=== PATIENT | male | born 1965 | race Caucasian/White ===

== ENCOUNTER 2017-05-28 17:04 | Emergency (ER) | payer SELFPAY ==
[~2017-05-28] VITALS: Ht 182.9 cm; Wt 74.8 kg
[~2017-05-28 17:04] MED LIST: ACHD5005 PO; DICY20TA57 PO; FAMO20TA5 PO; HYOS0.1217 PO; ONDA-42 SL; ONDA8TAB13 PO; PANT20TA3 PO; PROM25TA14 PO; TRAM-21 PO
--- OUTSIDE RECORDS SUMMARY | 2017-05-28 18:02 | XMS REPORT | Continuity of Care Document ---
Author Author [facility] Organization [facility] Address Unknown Phone Unavailable Allergies Active Description Code Type Severity Reaction Onset Reported/Identified Relationship to Patient Clinical Status Yes No Known Drug Allergies [id number] Drug Allergy Unknown N/A 09/03/2013 Medications There is no data. Problems Date Dx Coded Attending Type Code Diagnosis Diagnosed By 09/03/2013 NIRAV NGUYEN Ot 305.90 DRUG ABUSE NEC-UNSPEC 09/03/2013 NIRAV NGUYEN Ot 787.01 NAUSEA WITH VOMITING 09/03/2013 NIRAV NGUYEN Ot 789.00 ABDOMINAL PAIN, UNSPECIFIED SITE 04/18/2014 ANNETTE GONZALEZ DO Ot 305.70 AMPHETAMINE ABUSE-UNSPEC 04/18/2014 ANNETTE GONZALEZ DO Ot 558.9 NONINF GASTROENTERIT NEC 04/18/2014 ANNETTE GONZALEZ DO Ot 787.01 NAUSEA WITH VOMITING 04/19/2014 BLAINE WALLIS, NIK Carmen Ot 008.8 VIRAL ENTERITIS NOS 04/19/2014 BLAINE WALLIS, NIK Carmen Ot 276.51 DEHYDRATION 04/21/2014 DWIGHT WALILS, FRANCINE Galloway Ot 558.9 NONINF GASTROENTERIT NEC 04/21/2014 DWIGHT WALLIS, FRANCINE Galloway Ot 789.07 ABDOMINAL PAIN, GENERALIZED 01/10/2015 JAVY WALLIS, MIGUEL Tavarez Ot 288.60 LEUKOCYTOSIS, UNSPECIFIED 01/10/2015 MIGUEL PALAFOX MD Ot 780.97 ALTERED MENTAL STATUS 01/10/2015 MIGUEL PALAFOX MD Ot 782.1 NONSPECIF SKIN ERUPT NEC 01/10/2015 MIGUEL PALAFOX MD Ot 786.50 CHEST PAIN NOS 01/10/2015 MIGUEL PALAFOX MD Ot 787.02 NAUSEA ALONE 01/10/2015 MIGUEL PALAFOX MD Ot 799.02 HYPOXEMIA 01/10/2015 MIGUEL PALAFOX MD Ot 965.09 POISONING-OPIATES NEC 01/10/2015 MIGUEL PALAFOX MD Ot E849.0 ACCIDENT IN HOME 01/10/2015 MIGUEL PALAFOX MD Ot E850.2 ACC POISON-OPIATES NEC 05/26/2015 MIGUEL PALAFOX MD Ot F11.10 OPIOID ABUSE, UNCOMPLICATED 05/26/2015 MIGUEL PALAFOX MD Ot F15.10 OTHER STIMULANT ABUSE, UNCOMPLICATED 05/26/2015 MIGUEL PALAFOX MD Ot F17.210 NICOTINE DEPENDENCE, CIGARETTES, UNCOMPL 05/26/2015 MIGUEL PALAFOX MD Ot K21.9 GASTRO-ESOPHAGEAL REFLUX DISEASE WITHOUT 05/26/2015 MIGUEL PALAFOX MD Ot K63.9 DISEASE OF INTESTINE, UNSPECIFIED 05/26/2015 MIGUEL PALAFOX MD Ot M54.9 DORSALGIA, UNSPECIFIED 05/26/2015 MIGUEL PALAFOX MD Ot R10.13 EPIGASTRIC PAIN 05/26/2015 MIGUEL PALAFOX MD Ot Z23 ENCOUNTER FOR IMMUNIZATION 05/03/2016 GOLDIE, TERRENCE FRUIT HARVESTER Ot R10.84 GENERALIZED ABDOMINAL PAIN 05/03/2016 GOLDIE, TERRENCE FRUIT HARVESTER Ot R11.2 NAUSEA WITH VOMITING, UNSPECIFIED 05/03/2016 GOLDIE, TERRENCE FRUIT HARVESTER Ot R19.7 DIARRHEA, UNSPECIFIED 05/04/2016 GOLDIE, TERRENCE FRUIT HARVESTER Ot R10.84 GENERALIZED ABDOMINAL PAIN 05/04/2016 GOLDIE, TERRENCE FRUIT HARVESTER Ot R11.2 NAUSEA WITH VOMITING, UNSPECIFIED 05/04/2016 GOLDIE, TERRENCE FRUIT HARVESTER Ot R19.7 DIARRHEA, UNSPECIFIED 05/04/2016 GOLDIE, TERRENCE FRUIT HARVESTER Ot R10.84 GENERALIZED ABDOMINAL PAIN 05/04/2016 GOLDIE, TERRENCE FRUIT HARVESTER Ot R11.2 NAUSEA WITH VOMITING, UNSPECIFIED 05/04/2016 GOLDIE, TERRENCE FRUIT HARVESTER Ot R19.7 DIARRHEA, UNSPECIFIED 05/06/2016 GOLDIE, TERRENCE FRUIT HARVESTER Ot R10.84 GENERALIZED ABDOMINAL PAIN 05/06/2016 GOLDIE, TERRENCE FRUIT HARVESTER Ot R11.2 NAUSEA WITH VOMITING, UNSPECIFIED 05/06/2016 GOLDIE, TERRENCE FRUIT HARVESTER Ot R19.7 DIARRHEA, UNSPECIFIED 05/09/2016 GOLDIE, TERRENCE FRUIT HARVESTER Ot R10.84 GENERALIZED ABDOMINAL PAIN 05/09/2016 GOLDIE, TERRENCE FRUIT HARVESTER Ot R11.2 NAUSEA WITH VOMITING, UNSPECIFIED 05/09/2016 TERRENCE AMEZCUA Ot R19.7 DIARRHEA, UNSPECIFIED 03/08/2017 ANITA TILLEY MD, Ot K21.9 GASTRO-ESOPHAGEAL REFLUX DISEASE WITHOUT 03/08/2017 ANITA TILLEY MD Ot R11.2 NAUSEA WITH VOMITING, UNSPECIFIED 03/08/2017 ANITA TILLEY MD Ot Z80.9 FAMILY HISTORY OF MALIGNANT NEOPLASM, UN 03/08/2017 ANITA TILLEY MD Ot Z82.49 FAMILY HX OF ISCHEM HEART DIS AND OTH DI 03/08/2017 ANITA TILLEY MD Ot Z87.19 PERSONAL HISTORY OF OTHER DISEASES OF 03/08/2017 ANITA TILLEY MD, Ot Z87.891 PERSONAL HISTORY OF NICOTINE DEPENDENCE 03/08/2017 ANITA TILLEY MD Ot Z90.89 ACQUIRED ABSENCE OF OTHER ORGANS 03/12/2017 ANITA TILLEY MD Ot K21.9 GASTRO-ESOPHAGEAL REFLUX DISEASE WITHOUT 03/12/2017 ANITA TILLEY MD Ot R11.2 NAUSEA WITH VOMITING, UNSPECIFIED 03/12/2017 ANITA TILLEY MD Ot Z80.9 FAMILY HISTORY OF MALIGNANT NEOPLASM, UN 03/12/2017 ANITA TILLEY MD Ot Z82.49 FAMILY HX OF ISCHEM HEART DIS AND OTH DI 03/12/2017 ANITA TILLEY MD Ot Z87.19 PERSONAL HISTORY OF OTHER DISEASES OF 03/12/2017 ANITA TILLEY MD Ot Z87.891 PERSONAL HISTORY OF NICOTINE DEPENDENCE 03/12/2017 ANITA TILLEY MD Ot Z90.89 ACQUIRED ABSENCE OF OTHER ORGANS Procedures There is no data. Results Test Result Range Complete blood count (CBC) with automated white blood cell (WBC) differential - 05/03/16 13:06 Blood leukocytes automated count (number/volume) 10.8 10*3/uL 4.3-11.0 Blood erythrocytes automated count (number/volume) 4.56 10*6/uL 4.35-5.85 Venous blood hemoglobin measurement (mass/volume) 13.6 g/dL 13.3-17.7 Blood hematocrit (volume fraction) 41 % 40-54 Automated erythrocyte mean corpuscular volume 91 [foz_us] 80-99 Automated erythrocyte mean corpuscular hemoglobin (mass per erythrocyte) 30 pg 25-34 Automated erythrocyte mean corpuscular hemoglobin concentration measurement ( mass/volume) 33 g/dL 32-36 Automated erythrocyte distribution width ratio 13.5 % 10.0-14.5 Automated blood platelet count (count/volume) 406 10*3/uL 130-400 Automated blood platelet mean volume measurement 9.2 [foz_us] 7.4-10.4 Automated blood neutrophils/100 leukocytes 71 % 42-75 Automated blood lymphocytes/100 leukocytes 15 % 12-44 Blood monocytes/100 leukocytes 9 % 0-12 Automated blood eosinophils/100 leukocytes 5 % 0-10 Automated blood basophils/100 leukocytes 0 % 0-10 Blood neutrophils automated count (number/volume) 7.6 10*3 1.8-7.8 Blood lymphocytes automated count (number/volume) 1.6 10*3 1.0-4.0 Blood monocytes automated count (number/volume) 1.0 10*3 0.0-1.0 Automated eosinophil count 0.5 10*3/uL 0.0-0.3 Automated blood basophil count (count/volume) 0.0 10*3/uL 0.0-0.1 Comprehensive metabolic panel - 05/03/16 13:06 Serum or plasma sodium measurement (moles/volume) 133 mmol/L 135-145 Serum or plasma potassium measurement (moles/volume) 3.9 mmol/L 3.6-5.0 Serum or plasma chloride measurement (moles/volume) 103 mmol/L 98-107 Carbon dioxide 18 mmol/L 21-32 Serum or plasma anion gap determination (moles/volume) 12 mmol/L 5-14 Serum or plasma urea nitrogen measurement (mass/volume) 10 mg/dL 7-18 Serum or plasma creatinine measurement (mass/volume) 0.80 mg/dL 0.60-1.30 Serum or plasma urea nitrogen/creatinine mass ratio 13 NRG Serum or plasma creatinine measurement with calculation of estimated glomerular filtration rate > NRG Serum or plasma glucose measurement (mass/volume) 101 mg/dL 70-105 Serum or plasma calcium measurement (mass/volume) 8.8 mg/dL 8.5-10.1 Serum or plasma total bilirubin measurement (mass/volume) 0.5 mg/dL 0.1-1.0 Serum or plasma alkaline phosphatase measurement (enzymatic activity/volume) 72 U/L 40-136 Serum or plasma aspartate aminotransferase measurement (enzymatic activity/ volume) 18 U/L 5-34 Serum or plasma alanine aminotransferase measurement (enzymatic activity/volume ) 14 U/L 0-55 Serum or plasma protein measurement (mass/volume) 7.1 g/dL 6.4-8.2 Serum or plasma albumin measurement (mass/volume) 4.1 g/dL 3.2-4.5 Complete blood count (CBC) with automated white blood cell (WBC) differential - 03/08/17 11:41 Blood leukocytes automated count (number/volume) 6.8 10*3/uL 4.3-11.0 Blood erythrocytes automated count (number/volume) 4.82 10*6/uL 4.35-5.85 Venous blood hemoglobin measurement (mass/volume) 14.9 g/dL 13.3-17.7 Blood hematocrit (volume fraction) 44 % 40-54 Automated erythrocyte mean corpuscular volume 91 [foz_us] 80-99 Automated erythrocyte mean corpuscular hemoglobin (mass per erythrocyte) 31 pg 25-34 Automated erythrocyte mean corpuscular hemoglobin concentration measurement ( mass/volume) 34 g/dL 32-36 Automated erythrocyte distribution width ratio 12.2 % 10.0-14.5 Automated blood platelet count (count/volume) 281 10*3/uL 130-400 Automated blood platelet mean volume measurement 9.9 [foz_us] 7.4-10.4 Automated blood neutrophils/100 leukocytes 74 % 42-75 Automated blood lymphocytes/100 leukocytes 9 % 12-44 Blood monocytes/100 leukocytes 15 % 0-12 Automated blood eosinophils/100 leukocytes 2 % 0-10 Automated blood basophils/100 leukocytes 0 % 0-10 Blood neutrophils automated count (number/volume) 5.0 10*3 1.8-7.8 Blood lymphocytes automated count (number/volume) 0.6 10*3 1.0-4.0 Blood monocytes automated count (number/volume) 1.0 10*3 0.0-1.0 Automated eosinophil count 0.1 10*3/uL 0.0-0.3 Automated blood basophil count (count/volume) 0.0 10*3/uL 0.0-0.1 Comprehensive metabolic panel - 03/08/17 12:20 Serum or plasma sodium measurement (moles/volume) 134 mmol/L 135-145 Serum or plasma potassium measurement (moles/volume) 3.6 mmol/L 3.6-5.0 Serum or plasma chloride measurement (moles/volume) 99 mmol/L 98-107 Carbon dioxide 23 mmol/L 21-32 Serum or plasma anion gap determination (moles/volume) 12 mmol/L 5-14 Serum or plasma urea nitrogen measurement (mass/volume) 23 mg/dL 7-18 Serum or plasma creatinine measurement (mass/volume) 0.91 mg/dL 0.60-1.30 Serum or plasma urea nitrogen/creatinine mass ratio 25 NRG Serum or plasma creatinine measurement with calculation of estimated glomerular filtration rate > NRG Serum or plasma glucose measurement (mass/volume) 116 mg/dL 70-105 Serum or plasma calcium measurement (mass/volume) 8.5 mg/dL 8.5-10.1 Serum or plasma total bilirubin measurement (mass/volume) 0.7 mg/dL 0.1-1.0 Serum or plasma alkaline phosphatase measurement (enzymatic activity/volume) 65 U/L 40-136 Serum or plasma aspartate aminotransferase measurement (enzymatic activity/ volume) 14 U/L 5-34 Serum or plasma alanine aminotransferase measurement (enzymatic activity/volume ) 28 U/L 0-55 Serum or plasma protein measurement (mass/volume) 6.7 g/dL 6.4-8.2 Serum or plasma albumin measurement (mass/volume) 3.7 g/dL 3.2-4.5 Lipase - 03/08/17 12:20 Lipase 5 U/L 8-78 Encounters ACCT No. Visit Date/Time Discharge Status Pt. Type Provider Facility Loc./Unit Complaint [id number] 03/08/2017 11:33:00 03/08/2017 13:34:00 DIS Emergency JAREK WALLIS, ANITA Carmen [facility] ER ABD PAIN N/V/D [id number] 05/03/2016 11:36:00 05/03/2016 14:16:00 DIS Emergency TERRENCE AMEZCUA [facility] ER DIARRHEA/VOMITING [id number] 05/26/2015 01:40:00 05/26/2015 11:20:00 DIS Inpatient MIGUEL PALAFOX MD [facility] 4TH GASTROENTERITIS; INFLAMMATORY CHANGES OF ILEUM/ [id number] 01/09/2015 07:40:00 01/10/2015 10:06:00 DIS Inpatient JAVY WALLIS, MIGUEL Tavarez [facility] ICU NARCOTIC OD,AMS, LEUKOCYTOSIS [id number] 04/21/2014 04:35:00 04/21/2014 08:28:00 DIS Emergency DWIGHT WALLIS, FRANCINE Galloway [facility] ER ABD PAIN [id number] 04/19/2014 01:25:00 04/19/2014 16:30:00 DIS Inpatient BLAINE WALLIS, NIK S [facility] SURGICAL ABD PAIN WITH NAUSEA AND VOMITING [id number] 04/17/2014 23:18:00 04/18/2014 02:15:00 DIS Emergency ANNETTE GONZALEZ DO [facility] ER ABD PAIN,NAUSEA,VOMITING [id number] 09/03/2013 16:41:00 09/03/2013 20:06:00 DIS Emergency NIRAV NGUYEN [facility] ER ABD PAIN [id number] 05/17/2017 22:13:00 Document Registration [id number] 05/17/2017 22:13:00 Document Registration [id number] 05/17/2017 22:13:00 Document Registration [id number] 05/17/2017 22:13:00 Document Registration [id number] 05/17/2017 22:13:00 Document Registration [id number] 05/17/2017 22:13:00 Document Registration
--- NOTE | 2017-05-28 19:04 | ED Cough/URI ---
General Chief Complaint: Cough/Cold/Flu Symptoms Stated Complaint: POSS PNEUMONIA, FLU SYMPTOMS, SOB Nursing Triage Note: Pt reports congestion x3-4 days. Famly also reports pt has been lethargic and has had no appetite. Source: patient, spouse Exam Limitations: no limitations History of Present Illness Date Seen by Provider: May 28, 2017 Time Seen by Provider: 19:05 Initial Comments 52-year-old male patient presents to the emergency Department with reports a 3 to four-day onset of cough, congestion, shortness of air. Patient does use an albuterol inhaler without improvement in symptoms. Family reports patient has been very lethargic, appetite, and has had intermittent fevers. Timing/Duration: getting worse, other (3-4 day onset) Severity/Quality: dry cough Prior Episodes/Possible Cause: frequent episodes Modifying Factors: Worse With Albuterol Inhaler (no improvement), Worse With Coughing Allergies and Home Medications Allergies Coded Allergies: diphenhydramine (Unverified Allergy, Unknown, 05/28/17) Home Medications No Active Prescriptions or Reported Meds Constitutional: chills, fever, malaise, other (fatigue) EENTM: nose congestion, throat pain, other (rhinorrhea), No ear discharge, No ear pain Respiratory: cough, dyspnea on exertion, short of breath, No stridor, wheezing Cardiovascular: No chest pain, No edema, No palpitations, No syncope Gastrointestinal: No abdominal pain, No constipation, No diarrhea, No loss of appetite, No melena, No nausea, No vomiting Genitourinary: no symptoms reported Musculoskeletal: other (generalized body aches) Skin: no symptoms reported Psychiatric/Neurological: No Symptoms Reported All Other Systems Reviewed Negative Unless Noted: Yes (Negative excepted noted.) Past Wcoferi-Fmtayw-Pabtmt Hx Patient Social History Alcohol Use: Past History Recreational Drug Use: Yes (1 month) Drug of Choice: meth, coccaine, Smoking Status: Current Everyday Smoker Type Used: Cigarettes Recent Foreign Travel: No Contact w/Someone Who Travel: No Recent Infectious Disease Expo: No Recent Hopitalizations: No Immunizations Up To Date Tetanus Booster (TDap): Unknown Date of Influenza Vaccine: May 26, 2015 Seasonal Allergies Seasonal Allergies: No Surgeries History of Surgeries: Yes (WOUND DEBRIDEMENT LEFT FOREARM FROM INFECTION SECONDARY TO IV DRUG USE) Surgeries: Appendectomy, Tonsillectomy Respiratory History of Respiratory Disorde: No Currently Using BIPAP: No Cardiovascular History of Cardiac Disorders: No Neurological History of Neurological Disord: No Reproductive System Hx Reproductive Disorders: No Sexually Transmitted Disease: No HIV/AIDS: No Gastrointestinal History of Gastrointestinal Di: Yes Gastrointestinal Disorders: Gastroesophageal Reflux, Hepatitis, Gall Bladder Disease Musculoskeletal History of Musculoskeletal Dis: Yes Musculoskeletal Disorders: Chronic Back Pain Endocrine History of Endocrine Disorders: No HEENT Loss of Vision: Bilateral Cancer History of Cancer: No Psychosocial History of Psychiatric Problem: No Integumentary History of Skin or Integumenta: Yes (WOUND INFECTION LEFT FOREARM FROM IV DRUG USE) Blood Transfusions History of Blood Disorders: No Adverse Reaction to a Blood Tr: No Reviewed Nursing Assessment Reviewed/Agree w Nursing PMH: Yes Family Medical History Significant Family History: Heart Disease, Cancer, CVA, Hypertension Family Medial History: Diabetes mellitus 19 FATHER FH: aneurysm 19 MOTHER FH: cancer 19 FATHER 19 MOTHER Pacemaker 19 MOTHER Physical Exam Vital Signs Vital Sign - Last 12Hours 05/28/17 17:19 Temp 98.1 Pulse 89 Resp 18 B/P (MAP) 116/65 (82) Pulse Ox 96 O2 Delivery Room Air Capillary Refill : Less Than 3 Seconds General Appearance: WD/WN, no apparent distress HEENT: PERRL/EOMI, pharynx normal Neck: supple, normal inspection Respiratory: no accessory muscle use, respiratory distress, crackles, rhonchi, wheezing Cardiovascular: normal peripheral pulses, regular rate, rhythm, no edema, no murmur Gastrointestinal: normal bowel sounds, non tender, soft, no organomegaly, No distended Extremities: no pedal edema, no calf tenderness, normal capillary refill 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: alert, normal mood/affect, oriented x 3 Skin: normal color, warm/dry Progress/Results/Core Measures Suspected Sepsis Recent Fever Within 48 Hours: Yes Infection Criteria Present: Suspected New Infection New/Unexplained Altered Menta: No Sepsis Screen: No Definite Risk Sepsis Diagnosis: SIRS Temperature:98.1 Pulse: 89 Respiratory Rate: 18 Blood Pressure 116 /65 Mean: 82 Results/Orders Micro Results Microbiology 05/28/17 Influenza Types A,B Antigen (OSWALD) - Final, Complete My Orders Orders - NIRAV FISH Influenza A And B Antigens (05/28/17 18:45) Albuterol Pre-Mix Nebs (Rt) (Proventil (1/22/18 19:10) Albuterol/Ipra Inhalation Soln (Duoneb I (05/28/17 19:15) Svn Sm Volume Nebulizer Rt-Rfs (05/28/17 19:10) Svn Sm Volume Nebulizer Rt-Rfs (05/28/17 19:10) Chest 1 View, Ap/Pa Only (05/28/17 19:11) Medications Given in ED Current Medications Medications Dose Ordered Sig/Cecilia Route Start Time Stop Time Status Last Admin Dose Admin Albuterol/ Ipratropium 3 ml ONCE ONCE INH 05/28/17 19:15 05/28/17 19:16 DC 05/28/17 19:34 3 ML Vital Signs/I&O Vital Sign - Last 12Hours 05/28/17 05/28/17 05/28/17 17:19 18:09 19:34 Temp 98.1 Pulse 89 Resp 18 B/P (MAP) 116/65 (82) Pulse Ox 96 92 O2 Delivery Room Air Room Air Room Air Capillary Refill : Less Than 3 Seconds Blood Pressure Mean: 82 Diagnostic Imaging Diagonstic Imaging: Xray Plain Films/CT/US/NM/MRI: chest Comments CHEST 1 VIEW, AP/PA ONLY INDICATION: Shortness of air and cough. COMPARISON: 05/26/2015. FINDINGS: Ill-defined nodular opacity in the left lung base. Posterior lower lobes are poorly evaluated by portable radiography. No pleural effusion or pneumothorax. Heart is normal in size. Normal pulmonary vascularity. IMPRESSION: Ill-defined nodular opacity in the left lung base could relate to a focus of infection. Recommend followup PA and lateral chest radiographs in 4 weeks after appropriate medical management to ensure resolution and exclude malignancy. Dictated by: Dictated on workstation # [id number] Reviewed: Reviewed by Me (radiology report reviewed by me) Departure Impression Impression: Primary Impression: Influenza A Disposition: 01 HOME, SELF-CARE Condition: Improved Departure-Patient Inst. Referrals: HERNANDO BAILEY (PCP/Family) Primary Care Physician Patient Instructions: Flu, Adult (DC) Scripts No Active Prescriptions or Reported Meds NIRAV FISH May 28, 2017 19:04
[2017-05-28] MEDS ORDERED: RT-ALBUTEROL SULF 2.5 MG/3 ML PRE-MIX VIAL INH STA (19:10)
[2017-05-28] MEDS ORDERED: RT-ALBUTEROL/IPRATROPIUM 3 ML (DUONEB) VIAL INH ONE (19:15)
--- NOTE | 2017-05-28 19:27 | Diagnostic Imaging Report ---
INDICATION: Shortness of air and cough. COMPARISON: 05/26/2015. FINDINGS: Ill-defined nodular opacity in the left lung base. Posterior lower lobes are poorly evaluated by portable radiography. No pleural effusion or pneumothorax. Heart is normal in size. Normal pulmonary vascularity. IMPRESSION: Ill-defined nodular opacity in the left lung base could relate to a focus of infection. Recommend followup PA and lateral chest radiographs in 4 weeks after appropriate medical management to ensure resolution and exclude malignancy. Dictated by: Dictated on workstation # [id number]
[2017-05-28] MEDS ORDERED: RX-ALBUTEROL NEB 2.5 MG/3 ML PACK #5 IH STA (20:20)
[2017-05-28] MEDS ORDERED: predniSONE 20 MG TAB PO ONE (20:30)
[2017-05-28] MEDS ORDERED: ALBU2.5V4 IH (20:31)
[2017-05-28] MEDS ORDERED: PRD20T PO (20:31)
[2017-05-28 20:37] VITALS: BP 112/63
== END 2017-05-28 20:37 | disposition home or self-care (01) ==
LOC: EDUNIT# 17:04 → ER 17:07
DX: J10.1 Influenza due to other identified influenza virus with other respiratory manifestations (principal); K21.9 Gastro-esophageal reflux disease without esophagitis; F14.90 Cocaine use, unspecified, uncomplicated; F15.90 Other stimulant use, unspecified, uncomplicated; F17.210 Nicotine dependence, cigarettes, uncomplicated; Z90.49 Acquired absence of other specified parts of digestive tract; Z90.89 Acquired absence of other organs; Z82.49 Family history of ischemic heart disease and other diseases of the circulatory system
CPT/HCPCS: 71045; 87804; 94640; 99283

== ENCOUNTER → 2018-01-30 | Emergency (ER) | payer SELFPAY ==
[~2018-01-30] VITALS: Ht 182.9 cm; Wt 74.8 kg
[~2018-01-30] MED LIST changes: +ALBU2.5V4 IH; +HYDROcodone/APAP 7.5 MG/325 MG (LORTAB, LORCET PLUS) TABLET PO ONE; +KETOROLAC 60 MG/2 ML VIAL IM ONE; +ORPHENADRINE 60 MG/2 ML (NORFLEX) AMP IM ONE; +PRD20T PO; +morphine INJ 10 MG/ML 1ML (SYR OR VIAL) IJ ONE; +predniSONE 20 MG TAB PO ONE
--- OUTSIDE RECORDS SUMMARY | 2018-01-30 18:40 | XMS REPORT ---
Author Author HERNANDO BAILEY Organization [facility] Address [address] [place] [address] Care Team Providers Care Site Leasing Agent Name Role Phone HERNANDO BAILEY Unavailable PROBLEMS Type Condition ICD9-CM Code [id number] Code Onset Dates Condition Status SNOMED Code Problem Lumbago M54.5 Active 086837876 Problem Joint pain in fingers of right hand M79.641 Active 630623113 Problem Pain, joint, knee, left M25.562 Active 50730509 Problem Mild mitral regurgitation I34.0 Active 77666872 Problem Mild concentric left ventricular hypertrophy (LVH) I51.7 Active 60810512 Problem Arthritis M19.90 Active 3218512 Problem Chronic hepatitis C without hepatic coma B18.2 Active 685649478 Problem Flank pain R10.9 Active 996588561 Problem Joint pain in fingers of left hand M79.642 Active 394392253 Problem Other chronic pain G89.29 Active 00776234 Problem Abdominal pain R10.9 Active 52014198 ALLERGIES No Information ENCOUNTERS Encounter Location Date Diagnosis [facility] [id number] [place] [phone] Jun, Pneumonia of both lower lobes due to infectious organism J18.9 and Arthritis M19.90 [facility] [id number] [place] [phone] Jun, Shortness of breath R06.02 ; Bronchitis J40 and Wheezing on auscultation R06.2 [facility] [address] [address] May, [facility] [address] [phone] May, [facility] [address] [address] May, [place] [id number] [place] [phone] May, Chronic hepatitis C without hepatic coma B18.2 [place] [address] [address] May, Cervicalgia M54.2 ; Low back pain M54.5 ; Other chronic pain G89.29 and Chronic hepatitis C without hepatic coma B18.2 [facility] [id number] [place] [phone] Mar, Laceration of right index finger without foreign body without damage to nail, initial encounter S61.210A [facility] [address] [place] [id number] 02 Jun, 2016 Dental caries K02.9 [facility] [address] [place] [id number] May, Dental examination Z01.20 [place] [id number] [place] [phone] Apr, Abdominal pain R10.9 [facility] [address] [phone] Apr, [address] [address] 02 Jun, 2015 Abdominal pain R10.9 ; General medical exam Z00.00 ; Flank pain R10.9 and Joint pain in fingers of left hand M79.[address] [id number] [place] [address] 06 Mar, 2015 General medical exam Z00.00 ; Joint pain in fingers of left hand M79.642 ; Joint pain in fingers of right hand M79.641 ; Pain, joint, knee, left M25.562 ; Lumbago M54.5 ; Tobacco abuse Z72.0 ; Dietary counseling Z71.3 and Pain due to dental caries K02.9 [facility] [address] [id number] [place] [phone] Mar, Dental examination Z01.20 IMMUNIZATIONS No Known Immunizations SOCIAL HISTORY Never Assessed REASON FOR VISIT Triage PLAN OF CARE VITAL SIGNS MEDICATIONS No Known Medications RESULTS No Results PROCEDURES No Known procedures INSTRUCTIONS MEDICATIONS ADMINISTERED No Known Medications MEDICAL (GENERAL) HISTORY Type Description Date Medical History Pneumonia Medical History Bronchitis Medical History HEP C Medical History Echo done 01/2016- mild mitral regurg, cocentric left ventricular hypertrophy, EF 65 % Hospitalization History gallbladder infection 06/2014 Hospitalization History abdominal pain 05/2015
--- OUTSIDE RECORDS SUMMARY | 2018-01-30 18:40 | XMS REPORT ---
Author Author HERNANDO BAILEY Organization [facility] Address [address] [place] [address] Care Team Providers Care Agricultural Produce Packer Name Role Phone HERNANDO BAILEY Unavailable PROBLEMS Type Condition ICD9-CM Code [id number] Code Onset Dates Condition Status SNOMED Code Problem Lumbago M54.5 Active 061502683 Problem Joint pain in fingers of right hand M79.641 Active 817306384 Problem Pain, joint, knee, left M25.562 Active 04538676 Problem Mild mitral regurgitation I34.0 Active 82520694 Problem Mild concentric left ventricular hypertrophy (LVH) I51.7 Active 80035138 Problem Arthritis M19.90 Active 4391678 Problem Chronic hepatitis C without hepatic coma B18.2 Active 413401811 Problem Flank pain R10.9 Active 103713444 Problem Joint pain in fingers of left hand M79.642 Active 728450498 Problem Other chronic pain G89.29 Active 82142943 Problem Abdominal pain R10.9 Active 64229523 ALLERGIES No Information ENCOUNTERS Encounter Location Date Diagnosis [facility] [address] [address] 23 Jun, 2017 Pneumonia of both lower lobes due to infectious organism J18.9 and Arthritis M19.90 [facility] [id number] [place] [address] Jun, Shortness of breath R06.02 ; Bronchitis J40 and Wheezing on auscultation R06.2 [facility] [address] [address] May, [facility] [address] [address] May, [facility] [address] [address] May, [place] [id number] [place] [address] May, Chronic hepatitis C without hepatic coma B18.2 [place] [address] [address] May, Cervicalgia M54.2 ; Low back pain M54.5 ; Other chronic pain G89.29 and Chronic hepatitis C without hepatic coma B18.2 [facility] [place] [id number] [place] [address] Mar, Laceration of right index finger without foreign body without damage to nail, initial encounter S61.210A [facility] [address] [place] [id number] 02 Jun, 2016 Dental caries K02.9 [facility] [address] [place] [id number] May, Dental examination Z01.20 [place] [id number] [place] [address] Apr, Abdominal pain R10.9 [facility] W[facility] IN [address] [address] Apr, [address] [address] 02 Jun, 2015 Abdominal pain R10.9 ; General medical exam Z00.00 ; Flank pain R10.9 and Joint pain in fingers of left hand M79.642 [place] [id number] [place] [address] 06 Mar, 2015 General medical exam Z00.00 ; Joint pain in fingers of left hand M79.642 ; Joint pain in fingers of right hand M79.641 ; Pain, joint, knee, left M25.562 ; Lumbago M54.5 ; Tobacco abuse Z72.0 ; Dietary counseling Z71.3 and Pain due to dental caries K02.9 [facility] [id number] [place] [id number] Mar, Dental examination Z01.20 IMMUNIZATIONS No Known Immunizations SOCIAL HISTORY Never Assessed REASON FOR VISIT Requests return call PLAN OF CARE VITAL SIGNS MEDICATIONS Medication Instructions Dosage Frequency Start Date End Date Duration Status Tessalon Perles 100 mg Orally Three times a day 1 capsule as needed 8h May, Active RESULTS No Results PROCEDURES No Known procedures INSTRUCTIONS MEDICATIONS ADMINISTERED No Known Medications MEDICAL (GENERAL) HISTORY Type Description Date Medical History Pneumonia Medical History Bronchitis Medical History HEP C Medical History Echo done 01/2016- mild mitral regurg, cocentric left ventricular hypertrophy, EF 65 % Hospitalization History gallbladder infection 06/2014 Hospitalization History abdominal pain 05/2015
--- OUTSIDE RECORDS SUMMARY | 2018-01-30 18:40 | XMS REPORT ---
Author Author HERNANDO BAILEY Organization [facility] [place] Address [address] [place] [address] Care Team Providers Care Photographer Assistant Name Role Phone HERNANDO BAILEY Unavailable PROBLEMS Type Condition ICD9-CM Code BIM03-WN Code Onset Dates Condition Status SNOMED Code Problem Lumbago M54.5 Active 637059070 Problem Joint pain in fingers of right hand M79.641 Active 361550736 Problem Pain, joint, knee, left M25.562 Active 98595472 Problem Mild mitral regurgitation I34.0 Active 30072654 Problem Mild concentric left ventricular hypertrophy (LVH) I51.7 Active 60022481 Problem Arthritis M19.90 Active 1487066 Problem Chronic hepatitis C without hepatic coma B18.2 Active 259995842 Problem Flank pain R10.9 Active 141832780 Problem Joint pain in fingers of left hand M79.642 Active 746550330 Problem Other chronic pain G89.29 Active 26496240 Problem Abdominal pain R10.9 Active 01049832 ALLERGIES Substance Reaction Event Type Date Status Benadryl faint Drug Allergy Mar, Active ENCOUNTERS Encounter Location Date Diagnosis [facility] [place] [id number] [place] [address] Jun, Pneumonia of both lower lobes due to infectious organism J18.9 and Arthritis M19.90 [facility] [address] [place] [address] 12 Jun, 2017 Shortness of breath R06.02 ; Bronchitis J40 and Wheezing on auscultation R06.2 [facility] [place] [id number] [place] [address] May, [facility] [place] [id number] [place] [address] May, [place] [id number] [place] [address] May, [place] [address] [address] May, Chronic hepatitis C without hepatic coma B18.2 [place] [address] [address] May, Cervicalgia M54.2 ; Low back pain M54.5 ; Other chronic pain G89.29 and Chronic hepatitis C without hepatic coma B18.2 [facility] [address] [address] Mar, Laceration of right index finger without foreign body without damage to nail, initial encounter S61.210A [facility] [address] [id number] 02 Jun, 2016 Dental caries K02.9 [facility] [address] [id number] May, Dental examination Z01.20 [place] [address] [address] Apr, Abdominal pain R10.9 [facility] [place] [id number] [place] [address] Apr, [address] [address] Jun, Abdominal pain R10.9 ; General medical exam Z00.00 ; Flank pain R10.9 and Joint pain in fingers of left hand M79.642 [place] [address] [address] Mar, General medical exam Z00.00 ; Joint pain in fingers of left hand M79.642 ; Joint pain in fingers of right hand M79.641 ; Pain, joint, knee, left M25.562 ; Lumbago M54.5 ; Tobacco abuse Z72.0 ; Dietary counseling Z71.3 and Pain due to dental caries K02.9 [facility] [address] [id number] [id number] Mar, Dental examination Z01.20 IMMUNIZATIONS No Known Immunizations SOCIAL HISTORY Never Assessed REASON FOR VISIT Cut finger this evening JStrasserRN PLAN OF CARE Activity Details Follow Up 10 days Reason:suture removal VITAL SIGNS Height 71 in 2017-04-04 Weight 189 lbs 2017-04-04 Temperature 98.6 degrees Fahrenheit 2017-04-04 Heart Rate 90 bpm 2017-04-04 Respiratory Rate 22 2017-04-04 BMI 26.36 kg/m2 2017-04-04 Blood pressure systolic 128 mmHg 2017-04-04 Blood pressure diastolic 74 mmHg 2017-04-04 MEDICATIONS Medication Instructions Dosage Frequency Start Date End Date Duration Status Celebrex 200 MG Orally Once a day 1 capsule 24h Mar, Not- Taking RESULTS No Results PROCEDURES Procedure Date Ordered Result Body Site LACERATION REPAIR 2017-04-04 N/A LACERATION >2CM Apr 04, 2017 INSTRUCTIONS MEDICATIONS ADMINISTERED No Known Medications MEDICAL (GENERAL) HISTORY Type Description Date Medical History Pneumonia Medical History Bronchitis Medical History HEP C Medical History Echo done 01/2016- mild mitral regurg, cocentric left ventricular hypertrophy, EF 65 % Hospitalization History gallbladder infection 06/2014 Hospitalization History abdominal pain 05/2015
--- OUTSIDE RECORDS SUMMARY | 2018-01-30 18:40 | XMS REPORT ---
Author Author HERNANDO BAILEY Organization [facility] Address [address] [place] [address] Care Team Providers Care Pbx Installer Name Role Phone HERNANDO BAILEY Unavailable PROBLEMS Type Condition ICD9-CM Code [id number] Code Onset Dates Condition Status SNOMED Code Problem Lumbago M54.5 Active 920408973 Problem Joint pain in fingers of right hand M79.641 Active 742171884 Problem Pain, joint, knee, left M25.562 Active 50402445 Problem Mild mitral regurgitation I34.0 Active 23565252 Problem Mild concentric left ventricular hypertrophy (LVH) I51.7 Active 63468539 Problem Arthritis M19.90 Active 1742726 Problem Chronic hepatitis C without hepatic coma B18.2 Active 347715328 Problem Flank pain R10.9 Active 719346591 Problem Joint pain in fingers of left hand M79.642 Active 268109773 Problem Other chronic pain G89.29 Active 06913347 Problem Abdominal pain R10.9 Active 36513741 ALLERGIES Substance Reaction Event Type Date Status Benadryl faint Drug Allergy May, Active ENCOUNTERS Encounter Location Date Diagnosis [facility] [id number] [place] [address] Jun, Pneumonia of both lower lobes due to infectious organism J18.9 and Arthritis M19.90 [facility] [address] [place] [address] Jun, Shortness of breath R06.02 ; Bronchitis J40 and Wheezing on auscultation R06.2 [facility] [id number] [place] [address] May, [facility] [id number] [place] [address] May, [place] [id number] [place] [address] May, [place] [address] [address] May, Chronic hepatitis C without hepatic coma B18.2 [place] [address] [address] May, Cervicalgia M54.2 ; Low back pain M54.5 ; Other chronic pain G89.29 and Chronic hepatitis C without hepatic coma B18.2 [facility] [address] [address] Mar, Laceration of right index finger without foreign body without damage to nail, initial encounter S61.210A [facility] [address] [id number] 02 Jun, 2016 Dental caries K02.9 [facility] [address] [id number] May, Dental examination Z01.20 [place] [address] [address] Apr, Abdominal pain R10.9 [facility] [place] [id number] [place] [address] Apr, [address] [address] Jun, Abdominal pain R10.9 ; General medical exam Z00.00 ; Flank pain R10.9 and Joint pain in fingers of left hand M79.642 [place] [address] [address] Mar, General medical exam Z00.00 ; Joint pain in fingers of left hand M79.642 ; Joint pain in fingers of right hand M79.641 ; Pain, joint, knee, left M25.562 ; Lumbago M54.5 ; Tobacco abuse Z72.0 ; Dietary counseling Z71.3 and Pain due to dental caries K02.9 [facility] [address] [id number] [id number] Mar, Dental examination Z01.20 IMMUNIZATIONS No Known Immunizations SOCIAL HISTORY Never Assessed REASON FOR VISIT ESTABLISH CARE, PT is here for pain managment for his pain in the neck and upper back[place] [facility] PLAN OF CARE VITAL SIGNS Height 71 in 2017-05-18 Weight 190 lbs 2017-05-18 Temperature 98.3 degrees Fahrenheit 2017-05-18 Heart Rate 72 bpm 2017-05-18 Respiratory Rate 20 2017-05-18 Oximetry 96 % 2017-05-18 BMI 26.50 kg/m2 2017-05-18 Blood pressure systolic 112 mmHg 2017-05-18 Blood pressure diastolic 68 mmHg 2017-05-18 MEDICATIONS Medication Instructions Dosage Frequency Start Date End Date Duration Status Diclofenac Sodium 75 MG Orally Twice a day 1 tablet with food or milk 12h May, Jul, 30 day(s) Active Cyclobenzaprine HCl 10 mg Orally 2 times a day 1 tablet as needed 12h May, Active RESULTS No Results PROCEDURES Procedure Date Ordered Result Body Site MEASURE BLOOD OXYGEN LEVEL May 18, 2017 INSTRUCTIONS MEDICATIONS ADMINISTERED No Known Medications MEDICAL (GENERAL) HISTORY Type Description Date Medical History Pneumonia Medical History Bronchitis Medical History HEP C Medical History Echo done 01/2016- mild mitral regurg, cocentric left ventricular hypertrophy, EF 65 % Hospitalization History gallbladder infection 06/2014 Hospitalization History abdominal pain 05/2015
--- OUTSIDE RECORDS SUMMARY | 2018-01-30 18:42 | XMS REPORT | Continuity of Care Document ---
Author Author [facility] Organization [facility] Address Unknown Phone Unavailable Allergies Active Description Code Type Severity Reaction Onset Reported/Identified Relationship to Patient Clinical Status Yes No Known Drug Allergies [id number] Drug Allergy Unknown N/A 09/03/2013 Yes diphenhydramine [id number] Drug Allergy Unknown N/A 05/28/2017 Medications There is no data. Problems Date [...] NIK Carmen Ot 276.51 DEHYDRATION 04/21/2014 DWIGHT WALLIS, FRANCINE Galloway Ot 558.9 NONINF GASTROENTERIT NEC [...] Z23 ENCOUNTER FOR IMMUNIZATION 05/03/2016 GOLDIE, TERRENCE COMB WINDER Ot R10.84 GENERALIZED ABDOMINAL PAIN 05/03/2016 GOLDIE, TERRENCE COMB WINDER Ot R11.2 NAUSEA WITH VOMITING, UNSPECIFIED 05/03/2016 GOLDIE, TERRENCE COMB WINDER Ot R19.7 DIARRHEA, UNSPECIFIED 05/04/2016 GOLDIE, TERRENCE COMB WINDER Ot R10.84 GENERALIZED ABDOMINAL PAIN 05/04/2016 GOLDIE, TERRENCE COMB WINDER Ot R11.2 NAUSEA WITH VOMITING, UNSPECIFIED 05/04/2016 GOLDIE, TERRENCE COMB WINDER Ot R19.7 DIARRHEA, UNSPECIFIED 05/04/2016 GOLDIE, TERRENCE COMB WINDER Ot R10.84 GENERALIZED ABDOMINAL PAIN 05/04/2016 GOLDIE, TERRENCE COMB WINDER Ot R11.2 NAUSEA WITH VOMITING, UNSPECIFIED 05/04/2016 GOLDIE, TERRENCE COMB WINDER Ot R19.7 DIARRHEA, UNSPECIFIED 05/06/2016 GOLDIE, TERRENCE COMB WINDER Ot R10.84 GENERALIZED ABDOMINAL PAIN 05/06/2016 GOLDIE, TERRENCE COMB WINDER Ot R11.2 NAUSEA WITH VOMITING, UNSPECIFIED 05/06/2016 GOLDIE, TERRENCE COMB WINDER Ot R19.7 DIARRHEA, UNSPECIFIED 05/09/2016 TERRENCE AMEZCUAP Ot R10.84 GENERALIZED ABDOMINAL PAIN 05/09/2016 TERRENCE AMEZCUAP Ot R11.2 NAUSEA WITH VOMITING, UNSPECIFIED 05/09/2016 TERRENCE AMEZCUAP Ot R19.7 DIARRHEA, UNSPECIFIED 03/08/2017 ANITA TILLEY MD Ot K21.9 GASTRO-ESOPHAGEAL REFLUX DISEASE WITHOUT 03/08/2017 JAREK WALLIS, ANITA Carmen Ot R11.2 NAUSEA WITH VOMITING, UNSPECIFIED 03/08/2017 JAREK WALLIS, ANITA Carmen Ot Z80.9 FAMILY HISTORY OF MALIGNANT NEOPLASM, UN 03/08/2017 JAREK WALLIS, ANITA Carmen Ot Z82.49 FAMILY HX OF ISCHEM HEART DIS AND OTH DI 03/08/2017 ANITA TILLEY MD Ot Z87.19 PERSONAL HISTORY OF OTHER DISEASES OF 03/08/2017 ANITA TILLEY MD Ot Z87.891 PERSONAL HISTORY OF NICOTINE DEPENDENCE 03/08/2017 ANITA TILLEY MD Ot Z90.89 ACQUIRED ABSENCE OF OTHER ORGANS 03/12/2017 ANITA TILLEY MD Ot K21.9 GASTRO-ESOPHAGEAL REFLUX DISEASE WITHOUT 03/12/2017 JAREK WALLIS, ANITA Carmen Ot R11.2 NAUSEA WITH VOMITING, UNSPECIFIED 03/12/2017 ANITA TILLEY MD Ot Z80.9 FAMILY HISTORY OF MALIGNANT NEOPLASM, UN 03/12/2017 JAREK WALLIS, ANITA Carmen Ot Z82.49 FAMILY HX OF ISCHEM HEART DIS AND OTH DI 03/12/2017 ANITA TILLEY MD Ot Z87.19 PERSONAL HISTORY OF OTHER DISEASES OF 03/12/2017 ANITA TILLEY MD Ot Z87.891 PERSONAL HISTORY OF NICOTINE DEPENDENCE 03/12/2017 ANITA TILLEY MD Ot Z90.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 USE, UNSPECIFIED, UNCOMP 05/28/2017 NIRAV NGUYEN Ot F17.210 NICOTINE DEPENDENCE, CIGARETTES, UNCOMPL 05/28/2017 NIRAV NGUYEN Ot J10.1 FLU DUE TO OT IDENT INFLUENZA VIRUS W O 05/28/2017 NIRAV NGUYEN Ot K21.9 GASTRO-ESOPHAGEAL REFLUX DISEASE WITHOUT 05/28/2017 NIRAV NGUYEN Ot R05 COUGH 05/28/2017 NIRAV NGUYEN Ot Z82.49 FAMILY HX OF ISCHEM HEART DIS AND OTH DI 05/28/2017 NIRAV NGUYEN Ot Z90.49 ACQUIRED ABSENCE OF OTHER SPECIFIED PART 05/28/2017 NIRAV NGUYEN Ot Z90.89 ACQUIRED ABSENCE OF OTHER ORGANS 05/30/2017 NIRAV NGUYEN Ot F14.90 COCAINE USE, UNSPECIFIED, UNCOMPLICATED 05/30/2017 NIRAV NGUYEN Ot F15.90 OTHER STIMULANT USE, UNSPECIFIED, UNCOMP 05/30/2017 NIRAV NGUYEN Ot F17.210 NICOTINE DEPENDENCE, CIGARETTES, UNCOMPL 05/30/2017 NIRAV NGUYEN Ot J10.1 FLU DUE TO OTH IDENT INFLUENZA VIRUS W O 05/30/2017 NIRAV NGUYEN Ot K21.9 GASTRO-ESOPHAGEAL REFLUX DISEASE WITHOUT 05/30/2017 NIRAV NGUYEN Ot R05 COUGH 05/30/2017 NIRAV NGUYEN Ot Z82.49 FAMILY HX OF ISCHEM HEART DIS AND OTH DI 05/30/2017 NIRAV NGUYEN Ot Z90.49 ACQUIRED ABSENCE OF OTHER SPECIFIED PART 05/30/2017 NIRAV NGUYEN Ot Z90.89 ACQUIRED ABSENCE OF OTHER ORGANS 06/03/2017 NIRAV NGUEYN Ot F14.90 COCAINE USE, UNSPECIFIED, UNCOMPLICATED 06/03/2017 NIRAV NGUYEN Ot F15.90 OTHER STIMULANT USE, UNSPECIFIED, UNCOMP 06/03/2017 NIRAV NGUYEN Ot F17.210 NICOTINE DEPENDENCE, CIGARETTES, UNCOMPL 06/03/2017 NIRAV NGUYEN Ot J10.1 FLU DUE TO OTH IDENT INFLUENZA VIRUS W O 06/03/2017 NIRAV NGUYEN Ot K21.9 GASTRO-ESOPHAGEAL REFLUX DISEASE WITHOUT 06/03/2017 NIRAV NGUYEN Ot R05 COUGH 06/03/2017 NIRAV NGUYEN Ot Z82.49 FAMILY HX OF ISCHEM HEART DIS AND OTH DI 06/03/2017 NIRAV NGUYEN Ot Z90.49 ACQUIRED ABSENCE OF OTHER SPECIFIED PART 06/03/2017 ABE YINNIRAV Ot Z90.89 ACQUIRED ABSENCE OF OTHER ORGANS [...] - 03/08/17 12:20 Lipase 5 U/L 8-78 Influenza virus A and B antigen detection - 05/28/17 18:25 CALL POSITIVES (F1 HELP) CONOR NRG FLU RESULT POSITIVE FOR INFLUENZA A ANTIGEN, NEG FOR B ANTIGEN, BY HALLEY NRG Encounters ACCT No. Visit Date/Time Discharge Status Pt. Type Provider Facility Loc./Unit Complaint [id number] 05/28/2017 17:07:00 05/28/2017 20:37:00 DIS Emergency NIRAV NGUYEN [facility] ER POSS PNEUMONIA, FLU SYMPTOMS, SOB [id number] 03/08/2017 11:33:00 03/08/2017 13:34:00 DIS Emergency JAREK WALLIS, ANITA S [facility] ER ABD PAIN N/V/D [id number] 05/03/2016 11:36:00 05/03/2016 14:16:00 DIS Emergency TERRENCE AMEZCUA [facility] ER DIARRHEA/VOMITING [id number] 05/26/2015 01:40:00 05/26/2015 11:20:00 DIS Inpatient MIGUEL PALAFOX MD [facility] 4TH GASTROENTERITIS; INFLAMMATORY CHANGES OF ILEUM/ [id number] 01/09/2015 07:40:00 01/10/2015 10:06:00 DIS Inpatient MIGUEL PALAFOX MD [facility] ICU NARCOTIC OD,AMS, LEUKOCYTOSIS [id number] 04/21/2014 04:35:00 04/21/2014 08:28:00 DIS Emergency DWIGHT WALLIS, FRANCINE Galloway [facility] ER ABD PAIN [id number] 04/19/2014 01:25:00 04/19/2014 16:30:00 DIS Inpatient BLAINE WALLIS, NIK Carmen [facility] SURGICAL ABD PAIN WITH NAUSEA AND VOMITING [id number] 04/17/2014 23:18:00 04/18/2014 02:15:00 DIS Emergency ANNETTE GONZALEZ DO [facility] ER ABD PAIN,NAUSEA,VOMITING [id number] 09/03/2013 16:41:00 09/03/2013 20:06:00 DIS Emergency NIRAV NGUYEN [facility] ER ABD PAIN [id number] 05/17/2017 22:13:00 Document Registration [id number] 05/17/2017 22:13:00 Document Registration [id number] 05/17/2017 22:13:00 Document Registration [id number] 05/17/2017 22:13:00 Document Registration [id number] 05/17/2017 22:13:00 Document Registration [id number] 05/17/2017 22:13:00 Document Registration
--- NOTE | 2018-01-30 19:10 | ED Back Pain ---
General Chief Complaint: Back Problems Stated Complaint: LOWER BACK PAIN Nursing Triage Note: Pt arrives to ED Room #4 with c/o backpain that radiates down her left leg. Pt states that he is having back pain that is radiating down the LLE. Pt states that he is currently seeing a chiropractor after a back injury from lifting a barrel a week ago. Pt states that the pain is unbearable. Nursing Sepsis Screen: No Definite Risk Source of Information: Patient Exam Limitations: No Limitations History of Present Illness Date Seen by Provider: Jan 30, 2018 Time Seen by Provider: 18:36 Initial Comments Patient is a 52-year-old male who was brought to the emergency room by [facility] for complaints of low back pain that radiates down his left leg. He reports that he's had the pain for around a month and a started after lifting a barrel. He has seen a chiropractor 2 times without relief. He states that the pain is unbearable which led him to the emergency room tonight. He denies loss of bowel or bladder and does not have any saddle paresthesia. Location: Lumbar Spine Pain/Injury Location: Back Radiation: Upper Legs (Left leg) Associated Symptoms: No numbness in legs/feet, No tingling in legs/feet; lower back pain; No loss of bladder control, No loss of bowel control Allergies and Home Medications Allergies Coded Allergies: diphenhydramine (Unverified Allergy, Unknown, 05/28/17) Home Medications Albuterol Sulfate 2.5 Mg/3 Ml Vial.neb, 2.5 MG IH Q4H PRN for SHORTNESS OF BREATH Prescribed by: NIRAV FISH on 05/28/172030 Hydrocodone Bit/Acetaminophen 1 Tab Tab, 1-2 EACH PO Q6H PRN for PAIN-MODERATE Prescribed by: ASAD LANE on 01/30/182213 Prednisone 20 Mg Tab, 40 MG PO DAILY Prescribed by: NIRAV FISH on 05/28/172030 Prednisone 20 Mg Tab, 40 MG PO DAILY Prescribed by: ASAD LANE on 01/30/182213 Patient Home Medication List Home Medication List Reviewed: Yes Review of Systems Constitutional: see HPI; No chills, No fever Musculoskeletal: see HPI, back pain All Other Systems Reviewed Negative Unless Noted: Yes Past Fyirkvt-Hmdieh-Irdiet Hx Past Med/Social Hx: Reviewed Nursing Past Med/Soc Hx Patient Social History Alcohol Use: Denies Use Recreational Drug Use: Yes (HX: IV Drug use) Drug of Choice: meth, coccaine, Smoking Status: Current Everyday Smoker Type Used: Cigarettes Recent Foreign Travel: No Contact w/Someone Who Travel: No Recent Infectious Disease Expo: No Recent Hopitalizations: No Physical Abuse: No Sexual Abuse: No Mistreated: No Fear: No Immunizations Up To Date Tetanus Booster (TDap): Unknown Date of Influenza Vaccine: May 26, 2015 Seasonal Allergies Seasonal Allergies: No Past Medical History Surgeries: Yes (WOUND DEBRIDEMENT LEFT FOREARM FROM INFECTION SECONDARY TO IV DRUG USE) Appendectomy, Tonsillectomy Respiratory: No Currently Using BIPAP: No Cardiac: No Neurological: No Reproductive Disorders: No Sexually Transmitted Disease: No HIV/AIDS: No Genitourinary: No Gastrointestinal: Yes Gastroesophageal Reflux, Hepatitis, Gall Bladder Disease Musculoskeletal: Yes Chronic Back Pain Endocrine: No Loss of Vision: Bilateral Cancer: No Psychosocial: No Integumentary: Yes (WOUND INFECTION LEFT FOREARM FROM IV DRUG USE) Blood Disorders: No Adverse Reaction/Blood Tranf: No Family Medical History Reviewed Nursing Family Hx Diabetes mellitus 19 FATHER FH: aneurysm 19 MOTHER FH: cancer 19 FATHER 19 MOTHER Pacemaker 19 MOTHER Heart Disease, Cancer, CVA, Hypertension Physical Exam Vital Signs Vital Signs - First Documented 01/30/18 18:35 Temp 97.6 Pulse 94 Resp 18 B/P (MAP) 137/87 (104) Pulse Ox 97 O2 Delivery Room Air Capillary Refill : Less Than 3 Seconds Height, Weight, BMI Height: 6'0" Weight: 165lbs. 0.0oz. 74.224248xn; 27.09 BMI Method:Stated General Appearance: WD/WN, Mild Distress Neck: Full Range of Motion, Normal Inspection, Non Tender, Supple Cardiovascular: Regular Rate, Rhythm, No Edema, No Gallop, No JVD, No Murmur, Normal Peripheral Pulses Respiratory: Chest Non Tender, Lungs Clear, Normal Breath Sounds, No Accessory Muscle Use, No Respiratory Distress, Accessory Muscle Use Back: Normal Inspection, No CVA Tenderness, Vertebral Tenderness (lumbar tenderness) Extremity: Normal Capillary Refill, Normal Inspection, Normal Range of Motion, Non Tender, No Calf Tenderness, No Pedal Edema 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: Alert, Oriented x3, Normal Mood/Affect Skin: Normal Color, Warm/Dry Progress/Results/Core Measures Results/Orders My Orders Orders - ASAD LANE Orphenadrine Injection (Norflex Injectio (01/30/18 18:45) Ketorolac Injection (Toradol Injection) (01/30/18 18:45) Ct Lumbar Spine Wo (01/30/18 19:55) Hydrocodone/Apap 7.5/325 Tab (Lortab 7. (01/30/18 20:15) Morphine Injection (Morphine Injection (01/30/18 20:30) Prednisone Tablet (Deltasone Tablet) (01/30/18 22:15) Medications Given in ED Vital Signs/I&O 01/30/18 01/30/18 18:35 22:28 Temp 97.6 Pulse 94 88 Resp 18 18 B/P (MAP) 137/87 (104) 137/87 Pulse Ox 97 100 O2 Delivery Room Air Room Air Blood Pressure Mean: 104 Progress Progress Note : Time: 22:10 Progress Note I have seen and evaluated the patient. I have informed him of CT findings and the need for follow up with PCP for further treatment. His pain is improved at this time. Return precautions were given. Case was discussed with Dr. Cheema. Diagnostic Imaging Diagonstic Imaging: CT Comments PT STATUS: REG ER : 1965 PHYSICIAN: ASAD LANE ADMIT DATE: 01/30/18/ER Signed Date of Exam:01/30/18 CT LUMBAR SPINE WO PROCEDURE: CT lumbar spine without contrast. TECHNIQUE: Multiple contiguous axial images were obtained through the lumbar spine without the use of intravenous contrast. Sagittal and coronal reformations were then performed. INDICATION: Back pain radiating to the left leg. Curvature and alignment of the lumbar spine is within normal limits. Vertebral body heights are maintained. No acute compression fracture is detected. There is L1-2 degenerative disc disease with disc space narrowing and marginal spurring. Paraspinous tissues are unremarkable. There appears to be some prominent soft tissue left para midline location posterior to L4 vertebral body. This may represent disc material. This narrows the left lateral recess as well as the left L4-5 neural foramen. This most likely represents disc. There is broad-based disc bulging at the disc space level at L4-5 and ligamentous thickening with probable trefoil stenosis of the canal. This could be further evaluated with MRI. IMPRESSION: Mild lumbar spondylosis. No acute fracture is identified. There is prominent probable left paracentral disc at the L4 level resulting in left-sided lateral recess and neural foraminal stenosis. There also appears to be significant central canal stenosis at L4-5 level. Further assessment with MRI could be performed. Dictated by: Dictated on workstation # [id number] Dict: 01/30/182122 Trans: 01/30/182133 [facility] [id number] Interpreted by: VALARIE CAREY MD Electronically signed by: VALARIE CAREY MD 01/30/182133 Reviewed: Reviewed by Me Departure Impression Primary Impression: Lumbar spondylosis Disposition: HOME, SELF-CARE Condition: Stable/Unchanged Departure-Patient Inst. Decision time for Depature: 22:11 Referrals: HERNANDO KOO (PCP) Primary Care Physician ROSALIND FRITZ MD Patient Instructions: Low Back Pain (DC) Add. Discharge Instructions: Take medications as directed. Follow up with Justyn Koo within 1 week for recheck. Call or [facility] within 1 week for recheck. Return back to the emergency room for any worsening symptoms or concerns as needed. All discharge instructions reviewed with patient and/or family. Voiced understanding. Scripts Prednisone (Prednisone) 20 Mg Tab 40 MG PO DAILY for 7 Days, #14 TAB Prov: ASAD LANE 01/30/18 Hydrocodone Bit/Acetaminophen (Hydrocodone/Acetaminophen 5/325mg Tablet) 1 Tab Tab 1-2 EACH PO Q6H PRN for PAIN-MODERATE MDD 10 for 20 Days, TAB Prov: ASAD LANE 01/30/[address] Jan 30, 2018 19:10
--- NOTE | 2018-01-30 21:32 | Diagnostic Imaging Report ---
PROCEDURE: CT lumbar spine without contrast. TECHNIQUE: Multiple contiguous axial images were obtained through the lumbar spine without the use of intravenous contrast. Sagittal and coronal reformations were then performed. INDICATION: Back pain radiating to the left leg. Curvature and alignment of the lumbar spine is within normal limits. Vertebral body heights are maintained. No acute compression fracture is detected. There is L1-2 degenerative disc disease with disc space narrowing and marginal spurring. Paraspinous tissues are unremarkable. There appears to be some prominent soft tissue left para midline location posterior to L4 vertebral body. This may represent disc material. This narrows the left lateral recess as well as the left L4-5 neural foramen. This most likely represents disc. There is broad-based disc bulging at the disc space level at L4-5 and ligamentous thickening with probable trefoil stenosis of the canal. This could be further evaluated with MRI. IMPRESSION: Mild lumbar spondylosis. No acute fracture is identified. There is prominent probable left paracentral disc at the L4 level resulting in left-sided lateral recess and neural foraminal stenosis. There also appears to be significant central canal stenosis at L4-5 level. Further assessment with MRI could be performed. Dictated by: Dictated on workstation # [id number]
[2018-01-30 22:28] VITALS: BP 137/87
== END | disposition home or self-care (01) ==
LOC: EDUNIT# 18:35 → ER 18:35
DX: M47.817 Spondylosis without myelopathy or radiculopathy, lumbosacral region (principal); K21.9 Gastro-esophageal reflux disease without esophagitis; F14.10 Cocaine abuse, uncomplicated; F15.10 Other stimulant abuse, uncomplicated; F17.210 Nicotine dependence, cigarettes, uncomplicated; Z88.8 Allergy status to other drugs, medicaments and biological substances; Z79.51 Long term (current) use of inhaled steroids; Z90.89 Acquired absence of other organs; Z87.19 Personal history of other diseases of the digestive system; Z79.52 Long term (current) use of systemic steroids; Z82.49 Family history of ischemic heart disease and other diseases of the circulatory system
CPT/HCPCS: 72131; 99281

== ENCOUNTER 2019-04-13 21:22 | Inpatient (IN) | payer SELFPAY ==
[~2019-04-13] VITALS: Ht 182.9 cm; Wt 90.5 kg
[~2019-04-13 21:22] MED LIST changes: -HYDROcodone/APAP 7.5 MG/325 MG (LORTAB, LORCET PLUS) TABLET PO ONE; -KETOROLAC 60 MG/2 ML VIAL IM ONE; -ORPHENADRINE 60 MG/2 ML (NORFLEX) AMP IM ONE; -morphine INJ 10 MG/ML 1ML (SYR OR VIAL) IJ ONE; -predniSONE 20 MG TAB PO ONE
--- NOTE | 2019-04-13 21:22 | NUR ---
EMS initiated IO to the right tibia. 2mg Narcan administered prior to arrival. BGL 144. 2125 18ga to the right EJ established per Dr. Cheema
[2019-04-13] MEDS ORDERED: LACTATED RINGERS 1,000 ML IV ONE (21:34)
[2019-04-13 21:42] LABS: BASOPHILS % (AUTO) 0 % (0-10); EOSINOPHILS # (AUTO) 0.2 10^3/uL (0.0-0.3); EOSINOPHILS % (AUTO) 3 % (0-10); HEMATOCRIT 41 % (40-54); HEMOGLOBIN 13.2 G/DL (13.3-17.7); LYMPHOCYTES # (AUTO) 2.6 X 10^3 (1.0-4.0); LYMPHOCYTES % (AUTO) 30 % (12-44); MEAN CORPUSCULAR HEMOGLOBIN 31 PG (25-34); MEAN CORPUSCULAR HGB CONC 32 G/DL (32-36); MEAN CORPUSCULAR VOLUME 94 FL (80-99); MEAN PLATELET VOLUME 9.9 FL (7.4-10.4); MONOCYTES # (AUTO) 0.5 X 10^3 (0.0-1.0); MONOCYTES % (AUTO) 5 % (0-12); NEUTROPHILS # (AUTO) 5.3 X 10^3 (1.8-7.8); NEUTROPHILS % (AUTO) 62 % (42-75); PLATELET COUNT 311 10^3/uL (130-400); RED CELL DISTRIBUTION WIDTH 12.2 % (10.0-14.5); WHITE BLOOD COUNT 8.6 10^3/uL (4.3-11.0)
[2019-04-13 21:43] LABS: BILIRUBIN,URINE NEGATIVE (NEGATIVE); CLARITY,URINE CLEAR; COLOR,URINE YELLOW; GLUCOSE, URINE (UA) 2+ (NEGATIVE); KETONES,URINE NEGATIVE (NEGATIVE); LEUKOCYTE ESTERASE ,URINE NEGATIVE (NEGATIVE); NITRITE,URINE NEGATIVE (NEGATIVE); PROTEIN,URINE 2+ (NEGATIVE)
[2019-04-13 21:51] LABS: BACTERIA,URINE TRACE /HPF; HYALINE CASTS, URINE 0-2 /LPF; URINE OTHER FEW SPERM /HPF; WBC,URINE 0-2 /HPF
[2019-04-13 21:54] LABS: AMPHETAMINE SCREEN, URINE POSITIVE (NEGATIVE); BARBITURATE SCREEN URINE NEGATIVE (NEGATIVE); BENZODIAZEPINES SCREEN URINE NEGATIVE (NEGATIVE); CANNABINOID SCREEN, URINE NEGATIVE (NEGATIVE); COCAINE SCREEN URINE NEGATIVE (NEGATIVE); METHADONE STAT NEGATIVE (NEGATIVE); METHAMPHETAMINE SCREEN URINE S POSITIVE (NEGATIVE); OPIATE SCREEN URINE POSITIVE (NEGATIVE); OXYCODONE STAT NEGATIVE (NEGATIVE); PROPOXYPHENE STAT NEGATIVE (NEGATIVE); TRICYCLIC ANTIDEPRESSANTS SCRE NEGATIVE (NEGATIVE)
[2019-04-13 21:56] LABS: ALANINE AMINOTRANSFERASE 29 U/L (0-55); ALBUMIN 4.1 GM/DL (3.2-4.5); ALKALINE PHOSPHATASE 69 U/L (40-136); BILIRUBIN,TOTAL 0.2 MG/DL (0.1-1.0); BUN/CREATININE RATIO 6; CALCIUM 8.5 MG/DL (8.5-10.1); CARBON DIOXIDE 16 MMOL/L (21-32); CHLORIDE 102 MMOL/L (98-107); CREATININE SERUM 1.39 MG/DL (0.60-1.30); GFR ESTIMATED 54; GLUCOSE 340 MG/DL (70-105); LIPASE 17 U/L (8-78); POTASSIUM 3.6 MMOL/L (3.6-5.0); SALICYLATE < 5.0 MG/DL (5.0-20.0); SODIUM 135 MMOL/L (135-145); TOTAL PROTEIN 6.9 GM/DL (6.4-8.2)
[2019-04-13 21:57] LABS: ACETAMINOPHEN < 10 UG/ML (10-30)
[2019-04-13 22:06] LABS: ABG BASE EXCESS -3.6 MMOL/L (-2.5-2.5); ABG OXYGEN SATURATION 53 % (94-100); ABG PCO2 62 MMHG (35-45); ABG PO2 40 MMHG (79-93); ABG TCO2 25.5 MMOL/L (21.0-31.0); ALLENS TEST POSITIVE; INSPIRED O2 5L; PATIENT TEMP 36.2; VENTILATOR NO
[2019-04-13] MEDS ORDERED: IOHEXOL 350 MG/ML 100 ML (OMNIPAQUE 350) VIAL IV ONE (22:45)
[2019-04-13] MEDS ORDERED: NS 100 ML (IVPB) BAG IV ONE (22:45)
[2019-04-13] MEDS ORDERED: HOLD METFORMIN - RECEIVED CONTRAST 20 ML VIAL IV SCH (22:45)
--- NOTE | 2019-04-13 22:58 | ED General ---
General Chief Complaint: Overdose Stated Complaint: UNRESPONSIVE Source of Information: EMS Exam Limitations: Intoxication, Physical Impairments History of Present Illness Date Seen by Provider: Apr 13, 2019 Time Seen by Provider: 21:28 Initial Comments Here by EMS after report of being unresponsive and without respirations or heartbeat with bystander CPR started. EMS summoned when patient was at a house with someone who does not know and he was found unresponsive. That person apparently started CPR on him until fire department arrived. He became somewhat more responsive and did have a pulse at that time. Unsure if he did not have a pulse or if he was just unresponsive earlier. EMS arrived and found the patient unresponsive with concerns about narcotic overdose. 2 mg of Narcan IV was given after difficulty IV access. He was still quite groggy after that and we're unsure about the events leading to the CPR. There is concerns about drug abuse. Does have history of methamphetamine abuse. Patient does not seem to know what happened. Patient does have an intraosseous IV access to the left tibia. Timing/Duration: 1/2 Hour Severity: Severe Allergies and Home Medications Allergies Coded Allergies: diphenhydramine (Unverified Allergy, Unknown, 05/28/17) Home Medications Albuterol Sulfate 2.5 Mg/3 Ml Vial.neb, 2.5 MG IH Q4H PRN for SHORTNESS OF ALFREDO ATH Prescribed by: NIRAV FISH on 05/28/172030 Hydrocodone Bit/Acetaminophen 1 Tab Tab, 1-2 EACH PO Q6H PRN for PAIN-MODERATE Prescribed by: ASAD LANE on 01/30/182213 Prednisone 20 Mg Tab, 40 MG PO DAILY Prescribed by: NIRAV FISH on 05/28/172030 Prednisone 20 Mg Tab, 40 MG PO DAILY Prescribed by: ASAD LANE on 01/30/182213 Patient Home Medication List Home Medication List Reviewed: Yes Review of Systems Review of Systems Constitutional: see HPI, weakness Unable to complete review of systems due to altered mental status Past Xakvqcx-Qnlanv-Cvrscw Hx Past Med/Social Hx: Reviewed Nursing Past Med/Soc Hx Patient Social History Drug of Choice: meth, coccaine, Type Used: Cigarettes Recent Foreign Travel: No Contact w/Someone Who Travel: No Recent Hopitalizations: No Immunizations Up To Date Tetanus Booster (TDap): Unknown Date of Influenza Vaccine: May 26, 2015 Seasonal Allergies Seasonal Allergies: No Past Medical History Surgeries: Yes (WOUND DEBRIDEMENT LEFT FOREARM FROM INFECTION SECONDARY TO IV DRUG USE) Appendectomy, Tonsillectomy Respiratory: No Currently Using BIPAP: No Cardiac: No Neurological: No Reproductive Disorders: No Sexually Transmitted Disease: No HIV/AIDS: No Genitourinary: No Gastrointestinal: Yes Gastroesophageal Reflux, Hepatitis, Gall Bladder Disease Musculoskeletal: Yes Chronic Back Pain Endocrine: No Loss of Vision: Bilateral Cancer: No Psychosocial: No Integumentary: Yes (WOUND INFECTION LEFT FOREARM FROM IV DRUG USE) Blood Disorders: No Adverse Reaction/Blood Tranf: No Family Medical History Diabetes mellitus 19 FATHER FH: aneurysm 19 MOTHER FH: cancer 19 FATHER 19 MOTHER Pacemaker 19 MOTHER Heart Disease, Cancer, CVA, Hypertension Per records reviewed due to altered mental status Physical Exam Vital Signs Vital Signs - First Documented 04/13/19 23:37 Pulse 105 Resp 16 B/P (MAP) 129/81 Pulse Ox 99 Capillary Refill : Height, Weight, BMI Height: 6'0" Weight: 165lbs. 0.0oz. 74.860860pc; 27.09 BMI Method:Stated General Appearance: WD/WN (does not seem to be in distress but does have some persistent vomiting and intermittent irregular breathing pattern.), Other HEENT: PERRL/EOMI, Other (dry mucous membranes. No obvious injury to the head) Neck: Normal Inspection, Non Tender, Supple Respiratory: Lungs Clear, Normal Breath Sounds, Other (in onset and has somewhat abnormal breathing pattern with rate and depth. End-tidal CO2 approximately 20 with normal O2 sat) Cardiovascular: Regular Rate, Rhythm, No Murmur Gastrointestinal: No Organomegaly, No Pulsatile Mass, Soft, Distended Back: No CVA Tenderness, No Vertebral Tenderness Extremity: Normal Inspection, Non Tender, No Pedal Edema 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: Other (will sometimes answer simple questions and briefly follows commands. Does appear quite groggy still.) Skin: Warm/Dry, Pallor Focused Exam Lactate Level 04/13/19 21:25: Lactic Acid Level 5.82*H 04/13/19 23:56: Lactic Acid Level 2.14*H Lactic Acid Level Laboratory Tests Test 04/13/19 21:25 04/13/19 23:56 Lactic Acid Level 5.82 MMOL/L (0.50-2.00) *H 2.14 MMOL/L (0.50-2.00) *H Progress/Results/Core Measures Suspected Sepsis SIRS Temperature: Pulse: Respiratory Rate: Laboratory Tests 04/13/19 21:25: White Blood Count 8.6 Blood Pressure / Mean: 04/13/19 21:25: Lactic Acid Level 5.82*H 04/13/19 23:56: Lactic Acid Level 2.14*H Laboratory Tests 04/13/19 21:25: Creatinine 1.39H, Platelet Count 311, Total Bilirubin 0.2 Results/Orders Lab Results Laboratory Tests Test 04/13/19 21:25 04/13/19 21:27 04/13/19 21:31 04/13/19 21:42 Range/Units White Blood Count 8.6 4.3-11.0 10^3/uL Red Blood Count 4.33 L 4.35-5.85 10^6/uL Hemoglobin 13.2 L 13.3-17.7 G/DL Hematocrit 41 40-54 % Mean Corpuscular Volume 94 80-99 FL Mean Corpuscular Hemoglobin 31 25-34 PG Mean Corpuscular Hemoglobin Concent 32 32-36 G/DL Red Cell Distribution Width 12.2 10.0-14.5 % Platelet Count 311 130-400 10^3/uL Mean Platelet Volume 9.9 7.4-10.4 FL Neutrophils (%) (Auto) 62 42-75 % Lymphocytes (%) (Auto) 30 12-44 % Monocytes (%) (Auto) 5 0-12 % Eosinophils (%) (Auto) 3 0-10 % Basophils (%) (Auto) 0 0-10 % Neutrophils # (Auto) 5.3 1.8-7.8 X 10^3 Lymphocytes # (Auto) 2.6 1.0-4.0 X 10^3 Monocytes # (Auto) 0.5 0.0-1.0 X 10^3 Eosinophils # (Auto) 0.2 0.0-0.3 10^3/uL Basophils # (Auto) 0.0 0.0-0.1 10^3/uL Sodium Level 135 135-145 MMOL/L Potassium Level 3.6 3.6-5.0 MMOL/L Chloride Level 102 98-107 MMOL/L Carbon Dioxide Level 16 L 21-32 MMOL/L Anion Gap 17 H 5-14 MMOL/L Blood Urea Nitrogen 9 7-18 MG/DL Creatinine 1.39 H 0.60-1.30 MG/DL Estimat Glomerular Filtration Rate 54 BUN/Creatinine Ratio 6 Glucose Level 340 H 70-105 MG/DL Lactic Acid Level 5.82 *H 0.50-2.00 MMOL/L Calcium Level 8.5 8.5-10.1 MG/DL Corrected Calcium 8.4 L 8.5-10.1 MG/DL Magnesium Level 2.0 1.6-2.4 MG/DL Total Bilirubin 0.2 0.1-1.0 MG/DL Aspartate Amino Transf (AST/SGOT) 25 5-34 U/L Alanine Aminotransferase (ALT/SGPT) 29 0-55 U/L Alkaline Phosphatase 69 40-136 U/L Total Protein 6.9 6.4-8.2 GM/DL Albumin 4.1 3.2-4.5 GM/DL Lipase 17 8-78 U/L Salicylates Level < 5.0 L 5.0-20.0 MG/DL Acetaminophen Level < 10 L 10-30 UG/ML Serum Alcohol < 10 <10 MG/DL Glucometer 315 H 70-110 MG/DL Urine Color YELLOW Urine Clarity CLEAR Urine pH 6.0 5-9 Urine Specific [place] >=1.030 1.016-1.022 Urine Protein 2+ H NEGATIVE Urine Glucose (UA) 2+ H NEGATIVE Urine Ketones NEGATIVE NEGATIVE Urine Nitrite NEGATIVE NEGATIVE Urine Bilirubin NEGATIVE NEGATIVE Urine Urobilinogen 0.2 < = 1.0 MG/DL Urine Leukocyte Esterase NEGATIVE NEGATIVE Urine RBC (Auto) 1+ H NEGATIVE Urine RBC 2-5 H /HPF Urine WBC 0-2 /HPF Urine Squamous Epithelial Cells NONE /HPF Urine Crystals NONE /LPF Urine Bacteria TRACE /HPF Urine Casts PRESENT /LPF Urine Hyaline Casts 0-2 H /LPF Urine Mucus SMALL H /LPF Urine Other FEW SPERM H /HPF Urine Culture Indicated NO Urine Opiates Screen POSITIVE H NEGATIVE Urine Oxycodone Screen NEGATIVE NEGATIVE Urine Methadone Screen NEGATIVE NEGATIVE Urine Propoxyphene Screen NEGATIVE NEGATIVE Urine Barbiturates Screen NEGATIVE NEGATIVE Ur Tricyclic Antidepressants Screen NEGATIVE NEGATIVE Urine Phencyclidine Screen NEGATIVE NEGATIVE Urine Amphetamines Screen POSITIVE H NEGATIVE Urine Methamphetamines Screen POSITIVE H NEGATIVE Urine Benzodiazepines Screen NEGATIVE NEGATIVE Urine Cocaine Screen NEGATIVE NEGATIVE Urine Cannabinoids Screen NEGATIVE NEGATIVE Blood Gas Puncture Site LEFT BRACHIAL Blood Gas Patient Temperature 36.2 Arterial Blood pH 7.20 *L 7.37-7.43 Arterial Blood Partial Pressure CO2 62 H 35-45 MMHG Arterial Blood Partial Pressure O2 40 L 79-93 MMHG Arterial Blood HCO3 24 23-27 MMOL/L Arterial Blood Total CO2 25.5 21.0-31.0 MMOL/L Arterial Blood Oxygen Saturation 53 L 94-100 % Arterial Blood Base Excess -3.6 L -2.5-2.5 MMOL/L Shaheen Test POSITIVE Blood Gas Ventilator Setting NO Blood Gas Inspired Oxygen 5L Test 04/13/19 23:56 Range/Units Lactic Acid Level 2.14 *H 0.50-2.00 MMOL/L My Orders Orders - MABLE REN MD Ct Head/Cervical Spine Wo (04/13/19 21:34) Chest 1 View, Ap/Pa Only (04/13/19 21:34) Ed Iv/Invasive Line Start (04/13/19 21:34) Lactated Ringers (Lr 1000 Ml Iv Solution (04/13/19 21:34) Acetaminophen (04/13/19 21:34) Alcohol (04/13/19 21:34) Arterial Blood Gas (04/13/19 21:34) Cbc With Automated Diff (04/13/19 21:34) Comprehensive Metabolic Panel (04/13/19 21:34) Drug Screen Stat (Urine) (04/13/19 21:34) Lactic Acid Analyzer (04/13/19 21:34) Lipase (04/13/19 21:34) Magnesium (04/13/19 21:34) Salicylate (04/13/19 21:34) Ua Culture If Indicated (04/13/19 21:34) Ct Chest/Abdomen/Pelvis W (04/13/19 21:34) Arterial Blood Gas (04/13/19 22:03) Iohexol Injection (Omnipaque 350 Mg/Ml 1 (04/13/19 22:45) Received Contrast (Hold Metformin- Contr (04/13/19 22:45) Ns (Ivpb) (Sodium Chloride 0.9% Ivpb Bag (04/13/19 22:45) Propofol Drip (Icu) (Diprivan Drip (Icu) (04/13/19 23:25) Piperacillin Sodium/Tazobactam (Zosyn Vi (04/14/19 00:00) Ns Iv 1000 Ml (Sodium Chloride 0.9%) (04/13/19 23:51) Norepinephrine (Levophed) (04/13/19 23:55) Ns (Ivpb) (Sodium Chloride 0.9%) (04/13/19 23:55) Vancomycin Injection (Vancomycin Injecti (04/14/19 01:00) Medications Given in ED Current Medications Medications Dose Ordered Sig/Cecilia Route Start Time Stop Time Status Last Admin Dose Admin Iohexol 100 ml ONCE ONCE IV 04/13/19 22:45 04/13/19 22:46 DC 04/13/19 23:10 100 ML Lactated Ringer's 1,000 ml @ 0 mls/hr Q0M ONCE IV 04/13/19 21:34 04/13/19 21:37 DC 04/13/19 23:01 0 MLS/HR Propofol 100 ml @ ud STK-MED ONCE IV 04/13/19 23:25 04/13/19 23:28 DC 04/13/19 23:37 24 MLS/HR Sodium Chloride 100 ml ONCE ONCE IV 04/13/19 22:45 04/13/19 22:46 DC 04/13/19 23:10 80 ML Vital Signs/I&O 04/13/19 23:37 Pulse 105 Resp 16 B/P (MAP) 129/81 Pulse Ox 99 04/14/19 00:00 Intake Total 200 ml Balance 200 ml Capillary Refill : Progress Note : Progress Note Seen and evaluated on arrival by EMS. IV access to right EJ by me with 18-gauge Angiocath. Labs, blood cultures, lactic acid, chest x-ray, CT head and neck as well as chest abdomen pelvis ordered. LR 1 L bolus to continue with EMS 1 L normal saline bolus. Monitor patient. 2215: Lactic acid is quite elevated which is what I would expect given that he was not breathing on his own apparently for a while and CPR was done. Patient has received Avila catheter and we will check UDS and urine. No obvious source of infection currently and this appears to be drug overdose related. 2300: We are able to get CT of head and neck but CT chest, abdomen and pelvis delayed due to IV access. I was able to place a 20- gauge Angiocath to the right upper arm via ultrasound guidance. Drug screen is positive for opiates and methamphetamine. Pending CT scans. Patient still breathing on his own at this point and maintaining O2 sats saturations. We have held on intubation to this point we will reassess ongoing. 0000: X-ray and CT findings concerning for bilateral multilobar pneumonia. Zosyn 4.5 g IV initiated. Patient is having some episodes of hypotension and will need central line. We will initiate norepinephrine and get central line. 0056: I did discuss the case with Dr. Fiore, on-call for [facility]. She accepts patient for admission to the ICU with Dr. Jones on consult. Central line has been placed and it is okay to use. We will do both Zosyn and vancomycin. Lactic acid has improved. He has had 1 L of normal saline by EMS and 2 L of LR in the emergency department exceeding the 30 mL/kg based on 100 Kg estimated weight. Norepinephrine was started and has been decreased to 0.5 mcg/kg/m to achieve appropriate blood pressure. 0120: Vent settings changed to rate of 18, tidal line 500, PEEP of 7 to achieve end-tidal CO2 less than 45. O2 sats is 98%. Patient will go to ICU. 0134: He did receive Versed 5 mg IV and we did increase his propofol as he was trying to over breathe the vent. He is much more comfortable now. I attest to focused exam at this time. ECG Initial ECG Impression Date: Apr 14, 2019 Initial ECG Impression Time: 00:08 Initial ECG Rate: 53 Initial ECG Rhythm: S.Surinder Initial ECG Comparisson: Unchanged Comment Sinus rhythm with normal axis. No evidence of ST elevation AK. Similar to 01/09/15. Interpreted by me. Diagnostic Imaging Diagonstic Imaging: Xray Plain Films/CT/US/NM/MRI: chest Comments Multilobar infiltrates. ET tube and gastric tube in good position. Diagonstic Imaging: CT Plain Films/CT/US/NM/MRI: c-spine, head Comments Normal brain/head CT. Cervical spondylosis C3 to C4. No cervical fracture. Reviewed: Reviewed [place] Study, Reviewed by Me Diagonstic Imaging: CT Plain Films/CT/US/NM/MRI: chest, abdomen, pelvis Comments Bilateral upper lobe and superior segment lower lobe infiltrate suspicious for aspiration pneumonia considering the clinical history. No acute findings in the abdomen or pelvis. Reviewed: Reviewed [place] Study, Reviewed by Me Diagonstic Imaging: Xray Plain Films/CT/US/NM/MRI: chest Comments Central line terminates in the area of the superior vena cava above the right atrium. Reviewed: Reviewed by Me Departure Communication (Admissions) Time/Spoke to Admitting Phy: 00:53 Time/Spoke to Consulting Phy: 01:00 Impression Primary Impression: Bilateral pneumonia Qualified Codes: J18.9 - Pneumonia, unspecified organism Additional Impressions: Respiratory failure Qualified Codes: J96.01 - Acute respiratory failure with hypoxia; J96.02 - Acute respiratory failure with hypercapnia Narcotic overdose Qualified Codes: T40.604A - Poisoning by unspecified narcotics, und etermined, initial encounter Methamphetamine abuse Disposition: ADMITTED INPATIENT Condition: Critical Admissions Decision to Admit Reason: Admit from ER (General) Decision to Admit/Date: Apr 14, 2019 Time/Decision to Admit Time: 00:53 Departure-Patient Inst. Referrals: HERNANDO BAILEY (PCP) Primary Care Physician [facility] (Family) Primary Care Physician Patient Instructions: ALCOHOL AND SUBSTANCE ABUSE MABLE REN MD Apr 13, 2019 22:58 POS
--- NOTE | 2019-04-13 23:14 | NUR ---
Dr. Cheema decision to intubate. Patient Spo2 continues to decline. 2316 20mg Etomidate 2317 100mg Succ 2319 Intubation attempt x 1 per extractive metallurgist student unsuccessful 2321 Intubation attempt #[address] Cheema successful 2322 NG Tube placement 2325 100mcg Fentanyl 2327 5mg Versed 2335 Diprivan initiated per physician order- titrated for effect 0002 Norepinephrine drip initiated 0056 Central line initiated
[2019-04-13] MEDS ORDERED: PROPOFOL DRIP (ICU) 100 ML IV ONE (23:25)
[2019-04-13] MEDS ORDERED: NS IV 1000 ML 1,000 ML ONE (23:51)
[2019-04-13] MEDS ORDERED: NS (IVPB) 250 ML ONE (23:55)
[2019-04-13] MEDS ORDERED: NOREPINEPHRINE 4 MG/4 ML (LEVOPHED) AMP IV ONE (23:55)
[2019-04-14] VITALS (34 sets, daily range): BP systolic 88–145; BP diastolic 48–77
[2019-04-14] MEDS ORDERED: PIPERACILLIN SODIUM/TAZOBACTAM 4.5 GM in NS (IVPB) 100 ML IV ONE ×2
[2019-04-14] MEDS ORDERED: VANCOMYCIN INJECTION 2,000 MG in NS IV 500 ML 500 ML IV SCH (01:00)
--- NOTE | 2019-04-14 01:30 | NUR ---
Vent settings at discharge: Tidal Volume- 500 A/C Rate-18 PEEP-7 FIO2-40% titrate to Spo2 of 92%
[2019-04-14] MEDS ORDERED: PROPOFOL DRIP (ICU) 100 ML IV ONE (02:01)
--- NOTE | 2019-04-14 02:16 | NUR ---
Pt on vent upon arrival to ICU, no family present to answer admission questions at this time. This RN completed as much of admission as possible from ED documentation and report.
[2019-04-14] MEDS ORDERED: NOREPINEPHRINE 4 MG/NS 250 ML DRIP IV SCH ×2 (02:30)
[2019-04-14] MEDS ORDERED: MIDAZOLAM 5 MG/5 ML (VERSED) VIAL IV PRN (02:30)
[2019-04-14 03:27] LABS: BASOPHILS % (AUTO) 0 % (0-10); EOSINOPHILS # (AUTO) 0.1 10^3/uL (0.0-0.3); EOSINOPHILS % (AUTO) 1 % (0-10); HEMATOCRIT 37 % (40-54); HEMOGLOBIN 11.9 G/DL (13.3-17.7); LYMPHOCYTES # (AUTO) 1.1 X 10^3 (1.0-4.0); LYMPHOCYTES % (AUTO) 11 % (12-44); MEAN CORPUSCULAR HEMOGLOBIN 30 PG (25-34); MEAN CORPUSCULAR HGB CONC 33 G/DL (32-36); MEAN CORPUSCULAR VOLUME 92 FL (80-99); MEAN PLATELET VOLUME 9.3 FL (7.4-10.4); MONOCYTES # (AUTO) 0.8 X 10^3 (0.0-1.0); MONOCYTES % (AUTO) 8 % (0-12); NEUTROPHILS # (AUTO) 8.6 X 10^3 (1.8-7.8); NEUTROPHILS % (AUTO) 81 % (42-75); PLATELET COUNT 305 10^3/uL (130-400); RED CELL DISTRIBUTION WIDTH 12.4 % (10.0-14.5); WHITE BLOOD COUNT 10.7 10^3/uL (4.3-11.0)
[2019-04-14 03:36] LABS: ABG BASE EXCESS -0.8 MMOL/L (-2.5-2.5); ABG OXYGEN SATURATION 89 % (94-100); ABG PCO2 51 MMHG (35-45); ABG PO2 59 MMHG (79-93); ABG TCO2 26.5 MMOL/L (21.0-31.0)
[2019-04-14 03:39] LABS: ALLENS TEST POSITIVE; INSPIRED O2 50%; PATIENT TEMP 36.1; VENTILATOR YES
[2019-04-14 03:40] LABS: ABG PH 7.31 (7.37-7.43)
[2019-04-14] MEDS: LACTATED RINGERS 1,000 ML IV SCH ×5 (03:59→22:09)
[2019-04-14 04:03] LABS: ALANINE AMINOTRANSFERASE 24 U/L (0-55); ALBUMIN 3.6 GM/DL (3.2-4.5); ALKALINE PHOSPHATASE 61 U/L (40-136); BILIRUBIN,TOTAL 0.4 MG/DL (0.1-1.0); BUN/CREATININE RATIO 7; CALCIUM 7.7 MG/DL (8.5-10.1); CARBON DIOXIDE 22 MMOL/L (21-32); CHLORIDE 108 MMOL/L (98-107); CREATININE SERUM 1.11 MG/DL (0.60-1.30); GFR ESTIMATED > 60; GLUCOSE 109 MG/DL (70-105); MAGNESIUM 1.7 MG/DL (1.6-2.4); PHOSPHORUS 3.1 MG/DL (2.3-4.7); POTASSIUM 5.6 MMOL/L (3.6-5.0); SODIUM 137 MMOL/L (135-145); TOTAL PROTEIN 5.9 GM/DL (6.4-8.2)
--- NOTE | 2019-04-14 05:14 | Diagnostic Imaging Report ---
PROCEDURE: CT head and CT cervical spine without contrast. TECHNIQUE: Multiple contiguous axial images were obtained through the brain and cervical spine without the use of intravenous contrast. Sagittal and coronal reformations through the cervical spine were then performed. Auto Exposure Controls were utilized during the CT exam to meet ALARA standards for radiation dose reduction. INDICATION: Overdose. Unresponsive. COMPARISON: 01/09/2015 FINDINGS: CT head: The ventricles and cortical sulci are age-appropriate. There is no midline shift or mass-effect. No acute intracranial hemorrhage is seen. There is no CT evidence of acute territorial ischemia. No focal masses or collections are present. The calvarium is intact. The visualized paranasal sinuses are clear. CT cervical spine: No acute fracture or dislocation is seen in the cervical spine. No focal osseous lesions. Vertebral body heights are well-maintained. The craniocervical junction is well-maintained. Mild degenerative changes are seen in the cervical spine with disc osteophyte complexes and uncovertebral arthropathy, greatest at C3-C4. Soft tissues of the neck are unremarkable. Patchy opacities are seen in the lung apices. IMPRESSION: 1. No hemorrhage or focal intra-axial mass. No CT evidence of large acute territorial ischemia. 2. No acute fracture or dislocation in the cervical spine. Agree with overnight report. Dictated by: Dictated on workstation # [id number]
--- NOTE | 2019-04-14 05:29 | Pulmonary Consultation ---
History of Present Illness History of Present Illness Date Seen by Provider: Apr 14, 2019 Time Seen by Provider: 13:25 Date of Admission History of Present Illness 54yo with hx of methamphetamine use presented via EMS after being found unresponsive and CPR was started by bystander. EMS gave 2mg of Narcan. I am consulted for critical care management. Allergies and Home Medications Allergies Coded Allergies: diphenhydramine (Unverified Allergy, Unknown, 05/28/17) Home Medications No Active Prescriptions or Reported Meds Past Vzigkor-Aetxel-Pzbpfc Hx Past Med/Social Hx: Reviewed Nursing Past Med/Soc Hx Patient Social History Drug of Choice: meth, coccaine, Type Used: Cigarettes Recent Foreign Travel: No Contact w/Someone Who Travel: No Recent Hopitalizations: No Immunizations Up To Date Tetanus Booster (TDap): Unknown Date of Influenza Vaccine: May 26, 2015 Seasonal Allergies Seasonal Allergies: No Past Medical History Surgeries: Yes (WOUND DEBRIDEMENT LEFT FOREARM FROM INFECTION SECONDARY TO IV DRUG USE) Appendectomy, Tonsillectomy Respiratory: No Currently Using BIPAP: No Cardiac: No Neurological: No Reproductive Disorders: No Sexually Transmitted Disease: No HIV/AIDS: No Genitourinary: No Gastrointestinal: Yes Gastroesophageal Reflux, Hepatitis, Gall Bladder Disease Musculoskeletal: Yes Chronic Back Pain Endocrine: No Loss of Vision: Bilateral Cancer: No Psychosocial: No Integumentary: Yes (WOUND INFECTION LEFT FOREARM FROM IV DRUG USE) Blood Disorders: No Adverse Reaction/Blood Tranf: No Family Medical History Diabetes mellitus 19 FATHER FH: aneurysm 19 MOTHER FH: cancer 19 FATHER 19 MOTHER Pacemaker 19 MOTHER Heart Disease, Cancer, CVA, Hypertension Per records reviewed due to altered mental status Review of Systems Time Seen by Provider: 13:27 Sepsis Event Evaluation Height, Weight, BMI Height: 6'0" Weight: 165lbs. 0.0oz. 74.459317mh; 27.09 BMI Method:Stated Exam Exam Vital Signs Date Time Temp Pulse Resp B/P (MAP) Pulse Ox O2 Delivery O2 Flow Rate FiO2 04/14/19 04:27 123/73 04/14/19 03:46 58 18 98 40 04/14/19 01:59 36.4 66 18 130/77 (94) 97 Mechanical Ventilator 50.00 04/14/19 01:58 61 04/14/19 00:07 55 16 99 70 04/13/19 23:37 105 16 129/81 99 I & O 04/14/19 07:00 Intake Total 200 ml Balance 200 ml Height & Weight Height: 6'0" Weight: 165lbs. 0.0oz. 74.941828at; 27.09 BMI Method:Stated General Appearance: WD/WN (does not seem to be in distress but does have some persistent vomiting and intermittent irregular breathing pattern.), Other HEENT: PERRL/EOMI, Other (dry mucous membranes. No obvious injury to the head) Neck: Normal Inspection, Non Tender, Supple Respiratory: Lungs Clear, Normal Breath Sounds, Other (in onset and has somewhat abnormal breathing pattern with rate and depth. End-tidal CO2 approximately 20 with normal O2 sat) Cardiovascular: Regular Rate, Rhythm, No Murmur Extremity: Normal Inspection, Non Tender, No Pedal Edema 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: Other (will sometimes answer simple questions and briefly follows commands. Does appear quite groggy still.) Skin: Warm/Dry, Pallor Results Lab Laboratory Tests 04/13/19 21:25 04/14/19 03:10 Assessment/Plan Assessment/Plan Found unresponsive by friend -CPR done by friend however pt was alert upon arrival - CT head is negative Acute respiratory failure with bilateral aspiration PNA -Continue Vanco and Zosyn -Continue vent Septic shock -Levophed -IVF -LR currently at 250 Hyperkalemia -Will give 2 amps of bicarb. and recheck - monitor Methamphetamine use Metabolic lactic acidosis JOSE AVILA DO Apr 14, 2019 05:29
[2019-04-14] MEDS ORDERED: ENOXAPARIN 40 MG/0.4 ML (LOVENOX) SYR SC SCH (05:30)
[2019-04-14] MEDS ORDERED: CALCIUM GLUC. 10% 4.65 MEQ/10 ML VIAL IV ONE (05:30)
[2019-04-14] MEDS ORDERED: SODIUM BICARB 8.4% 50 MEQ/50 ML VIAL IV ONE (05:30)
--- NOTE | 2019-04-14 06:29 | Diagnostic Imaging Report ---
PROCEDURE: CT chest, abdomen, and pelvis with contrast. TECHNIQUE: Multiple contiguous axial images were obtained through the chest, abdomen, and pelvis after the administration of intravenous contrast. Auto Exposure Controls were utilized during the CT exam to meet ALARA standards for radiation dose reduction. INDICATION: Overdose. Unresponsive. COMPARISON: 05/26/2015 CT chest: The heart size is within normal limits. No pericardial effusion is present. There is no mediastinal, hilar, or axillary lymphadenopathy. Patchy consolidative opacities are seen in the bilateral perihilar regions extending to the upper lobes and superior aspect of the lower lobes. No pulmonary mass is visualized. No pneumothoraces are present. No central endobronchial obstructing lesions are identified. There are no pleural effusions. No acute osseous abnormalities. CT abdomen: The liver, spleen, pancreas, adrenal glands, and kidneys have a normal appearance. There is no pathologically enlarged mesenteric or retroperitoneal adenopathy. The bowel loops are nondilated. The stomach is distended with air. There is no free fluid or free air. The osseous structures are age-appropriate. The bladder is decompressed with a Avila in place. There is no free air, loculated collection, or adenopathy in the pelvis. IMPRESSION: 1. Patchy consolidative opacities in the bilateral perihilar regions with extension into the upper lobes and superior aspect of the lower lobes. This distribution is suspicious for aspiration pneumonia. 2. No acute abnormalities in the abdomen and pelvis. Agree with overnight report. Dictated by: Dictated on workstation # [id number]
[2019-04-14] MEDS ORDERED: PIPERACILLIN/TAZO 4.5 GM VIAL (ZOSYN) IV ONE (06:35)
[2019-04-14] MEDS ORDERED: NS (IVPB) 100 ML ONE (06:38)
--- NOTE | 2019-04-14 06:40 | Diagnostic Imaging Report ---
INDICATION: Intubated COMPARISON: 04/13/2019 at 11:06 PM FINDINGS: Single view of the chest demonstrates well-positioned support lines. There is no pneumothorax. Aeration of lungs is unchanged. IMPRESSION: Well-positioned support lines. No pneumothorax. Dictated by: Dictated on workstation # [id number]
--- NOTE | 2019-04-14 06:42 | Diagnostic Imaging Report ---
INDICATION: Central line placement COMPARISON: 04/13/2019 FINDINGS: Single view of the chest demonstrates ET tube and NG tube in satisfactory position. There is a new left IJ catheter with the tip in the SVC. There is no pneumothorax. Aeration of the lungs is unchanged. IMPRESSION: No postprocedure pneumothorax. Dictated by: Dictated on workstation # [id number]
[2019-04-14] MEDS ORDERED: fentaNYL INJECTION 100 MCG/2 ML AMP ONE (06:43)
--- NOTE | 2019-04-14 06:44 | Diagnostic Imaging Report ---
Indication: Unresponsive, overdose. Comparison: 05/28/2017 Findings: Single view of the chest demonstrates moderate infiltrate in the upper and midlung zones. The bases are clear. The heart is prominent. There is no pneumothorax or effusion. Osseous structures are normal. Impression: Bilateral interstitial infiltrates concerning for aspiration and/or pneumonia. Followup recommended. Dictated by: Dictated on workstation # [id number]
[2019-04-14] MEDS: MAGNESIUM 1 GM/100 ML IVPB 100 ML IV SCH ×3 (07:02→08:48)
[2019-04-14] MEDS: PIPERACILLIN/TAZO 4.5 GM/NS 100 ML IV SCH ×6 (07:02→22:29)
[2019-04-14 07:15] LABS: BUN/CREATININE RATIO 7; CALCIUM 7.8 MG/DL (8.5-10.1); CARBON DIOXIDE 24 MMOL/L (21-32); CHLORIDE 109 MMOL/L (98-107); CREATININE SERUM 1.02 MG/DL (0.60-1.30); GFR ESTIMATED > 60; GLUCOSE 97 MG/DL (70-105); POTASSIUM 4.1 MMOL/L (3.6-5.0); SODIUM 140 MMOL/L (135-145)
[2019-04-14] MEDS ORDERED: fentaNYL INJECTION 100 MCG/2 ML AMP IVP ONE (07:30)
--- NOTE | 2019-04-14 07:45 | NUR ---
PTD VANCOMYCIN LABS: SCR 1.02 WT 99KG PLAN: RECEIVED VANCOMYCIN 2 GRAMS IN THE ED (AROUND 0100 PER NURSING) WILL DOSE 15MG/KG (1,500MG) IV Q 12 HOURS, NEXT DOSE DUE AT 1100 X 3 DAYS PER ORDER.
--- NOTE | 2019-04-14 07:47 | Diagnostic Imaging Report ---
EXAMINATION: Chest 1 view HISTORY: Pneumonia. COMPARISON: 04/14/2019 at 1:00 AM FINDINGS: The endotracheal tube is visualized overlying the trachea approximately 5 cm above the segundo. Enteric tube is seen descending below the diaphragm with the tip not included on this exam. A left internal jugular central line is visualized overlying the upper SVC. Patchy airspace opacities are unchanged involving the bilateral upper lobes, perihilar regions and left lung base. No large pleural effusion or pneumothorax. IMPRESSION: 1. Unchanged patchy opacities in the lungs, consistent with pneumonia. No large pneumothorax or pleural effusion. 2. Support devices as described. Dictated by: Dictated on workstation # [id number]
[2019-04-14] MEDS: PANTOPRAZOLE 40 MG (PROTONIX) VIAL IV SCH (08:48)
[2019-04-14] MEDS ORDERED: MIDAZOLAM 5 MG/5 ML (VERSED) VIAL IJ ONE (08:50)
[2019-04-14] MEDS ORDERED: fentaNYL INJECTION 100 MCG/2 ML AMP INJ ONE (08:50)
[2019-04-14] MEDS ORDERED: ETOMIDATE IV SOLN 20 MG/10 ML VIAL IV ONE (08:50)
[2019-04-14] MEDS ORDERED: SUCCINYLCHOLINE INJ 100 MG/5 ML SYR INJ ONE (08:50)
[2019-04-14] MEDS ORDERED: CALCIUM GLUCONATE 1 GM/NS 50 ML IV ONE ×2 (09:00)
[2019-04-14] MEDS ORDERED: FLU QUADRIvalent (5+ YOA) 2019-2020 (AFLURIA) 0.5 ML IM ONE (09:15)
--- NOTE | 2019-04-14 09:41 | NUR ---
UNABLE TO SPEAK WITH THE PATIENT AT THIS TIME. I CALLED [facility], THEY DO NOT HAVE ANYTHING ON FILE FOR HIM FOR A MED LIST HOWEVER THEY HAVE NOT SEEN HIM SINCE MAY 2017 SO HE'S NOT REALLY A CURRENT PATIENT. I CALLED [facility], THEY HAVE NOT DISPENSED ANYTHING TO HIM SINCE 2018. I ALSO SEARCHED FOR ANY RECENT RECORDS ON [facility], 2017 IS MOST RECENT ACTIVITY. I SET THE PROFILE TO NO MEDICATIONS AT THIS TIME.
[2019-04-14] MEDS: fentaNYL INJECTION 1,250 MCG in NS (IVPB) 250 ML IV SCH (10:56)
[2019-04-14] MEDS: VANCOMYCIN 1500 MG/NS 500 ML IVPB IV SCH ×4 (11:16→22:29)
[2019-04-14 12:04] LABS: ABG BASE EXCESS 0.7 MMOL/L (-2.5-2.5); ABG OXYGEN SATURATION 93 % (94-100); ABG PCO2 44 MMHG (35-45); ABG PH 7.37 (7.37-7.43); ABG PO2 69 MMHG (79-93); ABG TCO2 26.9 MMOL/L (21.0-31.0)
[2019-04-14 12:06] LABS: ALLENS TEST YES-POS; INSPIRED O2 30%; PATIENT TEMP 36.1; VENTILATOR YES
--- NOTE | 2019-04-14 14:58 | NUR ---
Offered prayer for mercy and spiritual wellbeing at the bedside.
--- NOTE | 2019-04-14 15:11 | NUR ---
CM/SS unable to visit with patient due to patient being on a vent. CM/SS spoke with the patients nurse who stated he did have family present in the room earlier in the day and they should be back later on. Will continue to follow to assess for needs. Addendum: 04/18/19 at 1731 by JULIUS DAWSON DOROTEO Social work student note reviewed and approved
--- NOTE | 2019-04-14 16:19 | History & Physical ---
HPI History of Present Illness: 53 yo M found unresponsive by friend who then reported that he started CPR. Patient had recently done meth and unsure if he may have OD. Friend is in the room this AM. He is unsure about past medical problems or if patient is on any medications. Unable to get ahold of family at this time. Source: RN/MD, other (friend) Exam Limitations: clinical condition Date seen by provider: Apr 14, 2019 Time Seen by Provider: 10:00 Attending Physician Ricardo Fiore MD PCP Italo Koo Consult Date of Admission Apr 14, 2019 at 01:02 Home Medications Home Medications Reviewed patient Home Medication Reconciliation performed by pharmacy medication reconciliations home appliance technician and/or nursing. Patients Allergies have been reviewed. Allergies Coded Allergies: diphenhydramine (Unverified Allergy, Unknown, 05/28/17) ADG-Hrskzn-Hncgyu Hx Patient Social History Living Status: Lives at home alone Drug of Choice: meth, coccaine Type Used: Cigarettes Recent Foreign Travel: No Contact w/other who traveled: No Recent Hopitalizations: No Immunizations Up To Date Tetanus Booster (TDap): Unknown Date of Influenza Vaccine: May 26, 2015 Family Medical History Significant Family History: Heart Disease, Cancer, CVA, Hypertension Other Significan Family Hx: Per records reviewed due to altered mental status Family History: Diabetes mellitus 19 FATHER FH: aneurysm 19 MOTHER FH: cancer 19 FATHER 19 MOTHER Pacemaker 19 MOTHER Review of Systems (CHC) Constitutional: other (Unable to obtain due to sedation and intubation) Reviewed Test Results Reviewed Test Results Lab Laboratory Tests Test 04/13/19 21:25 04/13/19 21:27 04/13/19 21:31 04/13/19 21:42 Range/Units White Blood Count 8.6 4.3-11.0 10^3/uL Red Blood Count 4.33 L 4.35-5.85 10^6/uL Hemoglobin 13.2 L 13.3-17.7 G/DL Hematocrit 41 40-54 % Mean Corpuscular Volume 94 80-99 FL Mean Corpuscular Hemoglobin 31 25-34 PG Mean Corpuscular Hemoglobin Concent 32 32-36 G/DL Red Cell Distribution Width 12.2 10.0-14.5 % Platelet Count 311 130-400 10^3/uL Mean Platelet Volume 9.9 7.4-10.4 FL Neutrophils (%) (Auto) 62 42-75 % Lymphocytes (%) (Auto) 30 12-44 % Monocytes (%) (Auto) 5 0-12 % Eosinophils (%) (Auto) 3 0-10 % Basophils (%) (Auto) 0 0-10 % Neutrophils # (Auto) 5.3 1.8-7.8 X 10^3 Lymphocytes # (Auto) 2.6 1.0-4.0 X 10^3 Monocytes # (Auto) 0.5 0.0-1.0 X 10^3 Eosinophils # (Auto) 0.2 0.0-0.3 10^3/uL Basophils # (Auto) 0.0 0.0-0.1 10^3/uL Sodium Level 135 135-145 MMOL/L Potassium Level 3.6 3.6-5.0 MMOL/L Chloride Level 102 98-107 MMOL/L Carbon Dioxide Level 16 L 21-32 MMOL/L Anion Gap 17 H 5-14 MMOL/L Blood Urea Nitrogen 9 7-18 MG/DL Creatinine 1.39 H 0.60-1.30 MG/DL Estimat Glomerular Filtration Rate 54 BUN/Creatinine Ratio 6 Glucose Level 340 H 70-105 MG/DL Lactic Acid Level 5.82 *H 0.50-2.00 MMOL/L Calcium Level 8.5 8.5-10.1 MG/DL Corrected Calcium 8.4 L 8.5-10.1 MG/DL Magnesium Level 2.0 1.6-2.4 MG/DL Total Bilirubin 0.2 0.1-1.0 MG/DL Aspartate Amino Transf (AST/SGOT) 25 5-34 U/L Alanine Aminotransferase (ALT/SGPT) 29 0-55 U/L Alkaline Phosphatase 69 40-136 U/L Total Protein 6.9 6.4-8.2 GM/DL Albumin 4.1 3.2-4.5 GM/DL Lipase 17 8-78 U/L Salicylates Level < 5.0 L 5.0-20.0 MG/DL Acetaminophen Level < 10 L 10-30 UG/ML Serum Alcohol < 10 <10 MG/DL Glucometer 315 H 70-110 MG/DL Urine Color YELLOW Urine Clarity CLEAR Urine pH 6.0 5-9 Urine Specific [place] >=1.030 1.016-1.022 Urine Protein 2+ H NEGATIVE Urine Glucose (UA) 2+ H NEGATIVE Urine Ketones NEGATIVE NEGATIVE Urine Nitrite NEGATIVE NEGATIVE Urine Bilirubin NEGATIVE NEGATIVE Urine Urobilinogen 0.2 < = 1.0 MG/DL Urine Leukocyte Esterase NEGATIVE NEGATIVE Urine RBC (Auto) 1+ H NEGATIVE Urine RBC 2-5 H /HPF Urine WBC 0-2 /HPF Urine Squamous Epithelial Cells NONE /HPF Urine Crystals NONE /LPF Urine Bacteria TRACE /HPF Urine Casts PRESENT /LPF Urine Hyaline Casts 0-2 H /LPF Urine Mucus SMALL H /LPF Urine Other FEW SPERM H /HPF Urine Culture Indicated NO Urine Opiates Screen POSITIVE H NEGATIVE Urine Oxycodone Screen NEGATIVE NEGATIVE Urine Methadone Screen NEGATIVE NEGATIVE Urine Propoxyphene Screen NEGATIVE NEGATIVE Urine Barbiturates Screen NEGATIVE NEGATIVE Ur Tricyclic Antidepressants Screen NEGATIVE NEGATIVE Urine Phencyclidine Screen NEGATIVE NEGATIVE Urine Amphetamines Screen POSITIVE H NEGATIVE Urine Methamphetamines Screen POSITIVE H NEGATIVE Urine Benzodiazepines Screen NEGATIVE NEGATIVE Urine Cocaine Screen NEGATIVE NEGATIVE Urine Cannabinoids Screen NEGATIVE NEGATIVE Blood Gas Puncture Site LEFT BRACHIAL Blood Gas Patient Temperature 36.2 Arterial Blood pH 7.20 *L 7.37-7.43 Arterial Blood Partial Pressure CO2 62 H 35-45 MMHG Arterial Blood Partial Pressure O2 40 L 79-93 MMHG Arterial Blood HCO3 24 23-27 MMOL/L Arterial Blood Total CO2 25.5 21.0-31.0 MMOL/L Arterial Blood Oxygen Saturation 53 L 94-100 % Arterial Blood Base Excess -3.6 L -2.5-2.5 MMOL/L Shaheen Test POSITIVE Blood Gas Ventilator Setting NO Blood Gas Inspired Oxygen 5L Test 04/13/19 23:56 04/14/19 03:10 04/14/19 06:05 04/14/19 11:18 Range/Units Lactic Acid Level 2.14 *H 0.83 0.50-2.00 MMOL/L White Blood Count 10.7 4.3-11.0 10^3/uL Red Blood Count 3.96 L 4.35-5.85 10^6/uL Hemoglobin 11.9 L 13.3-17.7 G/DL Hematocrit 37 L 40-54 % Mean Corpuscular Volume 92 80-99 FL Mean Corpuscular Hemoglobin 30 25-34 PG Mean Corpuscular Hemoglobin Concent 33 32-36 G/DL Red Cell Distribution Width 12.4 10.0-14.5 % Platelet Count 305 130-400 10^3/uL Mean Platelet Volume 9.3 7.4-10.4 FL Neutrophils (%) (Auto) 81 H 42-75 % Lymphocytes (%) (Auto) 11 L 12-44 % Monocytes (%) (Auto) 8 0-12 % Eosinophils (%) (Auto) 1 0-10 % Basophils (%) (Auto) 0 0-10 % Neutrophils # (Auto) 8.6 H 1.8-7.8 X 10^3 Lymphocytes # (Auto) 1.1 1.0-4.0 X 10^3 Monocytes # (Auto) 0.8 0.0-1.0 X 10^3 Eosinophils # (Auto) 0.1 0.0-0.3 10^3/uL Basophils # (Auto) 0.0 0.0-0.1 10^3/uL Blood Gas Puncture Site LEFT RADIAL Blood Gas Patient Temperature 36.1 Arterial Blood pH 7.31 *L 7.37-7.43 Arterial Blood Partial Pressure CO2 51 H 35-45 MMHG Arterial Blood Partial Pressure O2 59 L 79-93 MMHG Arterial Blood HCO3 25 23-27 MMOL/L Arterial Blood Total CO2 26.5 21.0-31.0 MMOL/L Arterial Blood Oxygen Saturation 89 L 94-100 % Arterial Blood Base Excess -0.8 -2.5-2.5 MMOL/L Shaheen Test POSITIVE Blood Gas Ventilator Setting YES Blood Gas Inspired Oxygen 50% Sodium Level 137 140 135-145 MMOL/L Potassium Level 5.6 H 4.1 3.6-5.0 MMOL/L Chloride Level 108 H 109 H 98-107 MMOL/L Carbon Dioxide Level 22 24 21-32 MMOL/L Anion Gap 7 7 5-14 MMOL/L Blood Urea Nitrogen 8 7 7-18 MG/DL Creatinine 1.11 1.02 0.60-1.30 MG/DL Estimat Glomerular Filtration Rate > 60 > 60 BUN/Creatinine Ratio 7 7 Glucose Level 109 H 97 70-105 MG/DL Calcium Level 7.7 L 7.8 L 8.5-10.1 MG/DL Corrected Calcium 8.0 L 8.5-10.1 MG/DL Phosphorus Level 3.1 2.3-4.7 MG/DL Magnesium Level 1.7 1.6-2.4 MG/DL Total Bilirubin 0.4 0.1-1.0 MG/DL Aspartate Amino Transf (AST/SGOT) 24 5-34 U/L Alanine Aminotransferase (ALT/SGPT) 24 0-55 U/L Alkaline Phosphatase 61 40-136 U/L Total Protein 5.9 L 6.4-8.2 GM/DL Albumin 3.6 3.2-4.5 GM/DL Glucometer 267 H 70-110 MG/DL Test 04/14/19 11:55 Range/Units Blood Gas Puncture Site RR Blood Gas Patient Temperature 36.1 Arterial Blood pH 7.37 7.37-7.43 Arterial Blood Partial Pressure CO2 44 35-45 MMHG Arterial Blood Partial Pressure O2 69 L 79-93 MMHG Arterial Blood HCO3 26 23-27 MMOL/L Arterial Blood Total CO2 26.9 21.0-31.0 MMOL/L Arterial Blood Oxygen Saturation 93 L 94-100 % Arterial Blood Base Excess 0.7 -2.5-2.5 MMOL/L Shaheen Test YES-POS Blood Gas Ventilator Setting YES Blood Gas Inspired Oxygen 30% Physical Exam-(CHC) Physical Exam Vital Signs VS - Last 72 Hours, by Label POS 04/13/19 04/14/19 04/14/19 04/14/19 23:37 00:07 01:58 01:59 Temp 36.4 Pulse 105 55 61 66 Resp 16 16 18 B/P (MAP) 129/81 130/77 (94) Pulse Ox 99 99 97 O2 Delivery Mechanical Ventilator O2 Flow Rate 50.00 FiO2 70 04/14/19 04/14/19 04/14/19 04/14/19 02:15 02:30 02:45 03:00 Pulse 65 63 63 60 Resp 18 17 18 18 B/P (MAP) 120/70 (87) 123/73 (90) 120/74 (89) 113/76 (88) Pulse Ox 97 97 97 97 O2 Delivery Mechanical Ventilator Mechanical Ventilator Mechanical Ventilator Mechanical Ventilator O2 Flow Rate 50.00 50.00 50.00 50.00 04/14/19 04/14/19 04/14/19 04/14/19 03:30 03:46 04:00 04:00 Temp 36.2 Pulse 61 58 60 Resp 17 18 17 B/P (MAP) 126/76 (93) 123/77 (92) Pulse Ox 98 98 98 O2 Delivery Mechanical Ventilator Mechanical Ventilator O2 Flow Rate 50.00 50.00 FiO2 40 04/14/19 04/14/19 04/14/19 04/14/19 04:00 04:27 04:28 05:00 Pulse 58 59 Resp 17 18 B/P (MAP) 123/73 122/74 (90) 124/73 (90) Pulse Ox 97 98 98 O2 Delivery Mechanical Ventilator Mechanical Ventilator Mechanical Ventilator O2 Flow Rate 30.00 30.00 FiO2 30 04/14/19 04/14/19 04/14/19 04/14/19 06:00 06:37 07:00 07:00 Pulse 82 57 62 59 Resp 17 18 17 B/P (MAP) 124/67 (86) 115/66 (82) Pulse Ox 95 O2 Delivery Mechanical Ventilator Mechanical Ventilator O2 Flow Rate 30.00 30.00 FiO2 30 04/14/19 04/14/19 04/14/19 04/14/19 07:32 08:00 08:00 08:21 Pulse 58 Resp 17 B/P (MAP) 116/69 108/65 (79) Pulse Ox 99 98 O2 Delivery Mechanical Ventilator Mechanical Ventilator Mechanical Ventilator O2 Flow Rate 30.00 FiO2 30 50 04/14/19 04/14/19 04/14/19 04/14/19 09:00 09:00 09:34 10:00 Temp 36.1 Pulse 64 56 Resp 17 17 B/P (MAP) 89/54 (66) 117/70 101/61 (74) Pulse Ox 97 99 O2 Delivery Mechanical Ventilator Mechanical Ventilator O2 Flow Rate 30.00 30.00 04/14/19 04/14/19 04/14/19 04/14/19 11:00 12:00 12:00 12:00 Temp 36.1 Pulse 48 64 Resp 17 17 B/P (MAP) 96/56 (69) 93/57 (69) Pulse Ox 98 95 98 O2 Delivery Mechanical Ventilator Mechanical Ventilator Mechanical Ventilator O2 Flow Rate 30.00 30.00 FiO2 30 04/14/19 04/14/19 04/14/19 04/14/19 13:00 13:00 13:29 14:00 Pulse 57 48 58 Resp 18 18 B/P (MAP) 99/48 (65) 110/63 99/59 (72) Pulse Ox 99 99 O2 Delivery Mechanical Ventilator Mechanical Ventilator O2 Flow Rate 30.00 30.00 04/14/19 15:00 Pulse 63 Resp 17 B/P (MAP) 96/58 (71) Pulse Ox 96 O2 Delivery Mechanical Ventilator O2 Flow Rate 30.00 Capillary Refill : General Appearance: other (Intubated and sedated) HEENT: PERRL/EOMI Respiratory: decreased breath sounds, crackles (basilar), wheezing Cardiovascular: normal peripheral pulses, regular rate, rhythm, no edema, no murmur Gastrointestinal: normal bowel sounds, soft, no organomegaly Extremities: no pedal edema, no calf tenderness, normal capillary refill 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: disoriented x 3 Skin: normal color, warm/dry Lymphatic: no adenopathy Assessment/Plan Assessment/Plan Admission Status: Inpatient Order (span 2 midnights) Reason for Inpatient Admission: Requiring intubation and ICU care (1) Respiratory failure Status: Acute Assessment & Plan: - Intubated and sedated, Dr Jones consulted for vent management, appreciate recommendations, MAT protocol Qualifiers: Qualified Codes: J96.01 - Acute respiratory failure with hypoxia; J96.02 - Acute respiratory failure with hypercapnia (2) Septic shock Status: Acute Assessment & Plan: - Currently requiring pressors, will titrate as tolerated, continue aggressive IVF hydration (3) Aspiration pneumonia Status: Acute Assessment & Plan: - Continue broad spectrum antibiotics D1 Qualifiers: Qualified Codes: J69.0 - Pneumonitis due to inhalation of food and vomit (4) Acute renal failure Status: Acute Assessment & Plan: - Likely 2/2 to hypotension, will repeat CMP in AM, IVF hydration Qualifiers: Qualified Codes: N17.9 - Acute kidney failure, unspecified (5) Lactic acid acidosis Status: Acute Assessment & Plan: - Trended down to normal with IVFs (6) Normocytic anemia Status: Acute Assessment & Plan: - Hemoccult pending (7) Hyperkalemia Status: Acute Assessment & Plan: - Dr Jones ordered Bicarb, will repeat in AM (8) Methamphetamine abuse Status: Acute (9) DVT prophylaxis Status: Acute Assessment & Plan: - Lovenox Clinical Quality Measures DVT/VTE Risk/Contraindication: Risk Factor Score Per Nursin RFS Level Per Nursing on Admit: 4+=Very High Copy Copies To 1: Justyn ZARAGOZA, RICARDO QUISPE MD Apr 14, 2019 16:19 POS
--- NOTE | 2019-04-14 17:00 | NUR ---
THIS NURSE NOTIFIED DR AVILA PT IS HAVING A LITTLE BIT OF BLOOD COMING OUT OF HIS OGT. PT IS GETTING LOVENOX AND PROTONIX DAILY. DR AVILA ORDERED TO HOLD LOVENOX.
--- NOTE | 2019-04-14 18:07 | NUR ---
THIS NURSE NOTIFIED DR AVILA THAT PT WAS POSITIVE FOR MRSA OF THE NARES. DR AVILA SAID TO START VANCO IF NOT ALREADY ORDERED. PT PREVIOUSLY STARTED ON VANCO. WILL CONTINUE TO MONITOR.
[2019-04-14] MEDS: RT-ALBUTEROL SULF 2.5 MG/3 ML PRE-MIX VIAL IH PRN (21:56)
[2019-04-15] VITALS (26 sets, daily range): BP systolic 89–141; BP diastolic 50–83
[2019-04-15] MEDS: RT-ALBUTEROL SULF 2.5 MG/3 ML PRE-MIX VIAL IH PRN ×2 (01:43→19:48)
[2019-04-15] MEDS: POTASSIUM CL 10MEQ/50ML IVPB 50 ML IV SCH (02:32)
[2019-04-15] MEDS: MAGNESIUM 1 GM/100 ML IVPB 100 ML IV SCH (02:32)
[2019-04-15] MEDS: KCL 20 MEQ TAB (K-DUR) PO SCH (02:33)
[2019-04-15 02:55] LABS: ABG BASE EXCESS 1.6 MMOL/L (-2.5-2.5); ABG OXYGEN SATURATION 89 % (94-100); ABG PCO2 52 MMHG (35-45); ABG PO2 67 MMHG (79-93); ABG TCO2 28.4 MMOL/L (21.0-31.0)
[2019-04-15 03:01] LABS: ALLENS TEST POSITIVE
[2019-04-15 03:02] LABS: ABG PH 7.34 (7.37-7.43); INSPIRED O2 N; PATIENT TEMP 37; VENTILATOR YES
[2019-04-15 03:18] LABS: BASOPHILS % (AUTO) 0 % (0-10); EOSINOPHILS # (AUTO) 0.4 10^3/uL (0.0-0.3); EOSINOPHILS % (AUTO) 5 % (0-10); HEMATOCRIT 34 % (40-54); HEMOGLOBIN 10.6 G/DL (13.3-17.7); LYMPHOCYTES # (AUTO) 1.1 X 10^3 (1.0-4.0); LYMPHOCYTES % (AUTO) 14 % (12-44); MEAN CORPUSCULAR HEMOGLOBIN 30 PG (25-34); MEAN CORPUSCULAR HGB CONC 32 G/DL (32-36); MEAN CORPUSCULAR VOLUME 96 FL (80-99); MEAN PLATELET VOLUME 9.7 FL (7.4-10.4); MONOCYTES # (AUTO) 0.8 X 10^3 (0.0-1.0); MONOCYTES % (AUTO) 10 % (0-12); NEUTROPHILS # (AUTO) 5.8 X 10^3 (1.8-7.8); NEUTROPHILS % (AUTO) 71 % (42-75); PLATELET COUNT 242 10^3/uL (130-400); RED CELL DISTRIBUTION WIDTH 12.6 % (10.0-14.5); WHITE BLOOD COUNT 8.2 10^3/uL (4.3-11.0)
[2019-04-15 03:38] LABS: ALANINE AMINOTRANSFERASE 26 U/L (0-55); ALBUMIN 3.1 GM/DL (3.2-4.5); ALKALINE PHOSPHATASE 69 U/L (40-136); BILIRUBIN,TOTAL 0.4 MG/DL (0.1-1.0); BUN/CREATININE RATIO 8; CALCIUM 7.8 MG/DL (8.5-10.1); CARBON DIOXIDE 23 MMOL/L (21-32); CHLORIDE 108 MMOL/L (98-107); CREATININE SERUM 1.09 MG/DL (0.60-1.30); GFR ESTIMATED > 60; GLUCOSE 94 MG/DL (70-105); MAGNESIUM 1.9 MG/DL (1.6-2.4); POTASSIUM 4.3 MMOL/L (3.6-5.0); SODIUM 140 MMOL/L (135-145); TOTAL PROTEIN 5.4 GM/DL (6.4-8.2)
--- NOTE | 2019-04-15 05:14 | Pulmonary Progress Note ---
Subjective Time Seen by a Provider: 06:19 Subjective/Events-last exam Sedated on vent Sepsis Event Evaluation Height, Weight, BMI Height: 6'0" Weight: 165lbs. 0.0oz. 74.380702lw; 27.09 BMI Method:Stated Focused Exam Lactate Level 04/13/19 21:25: Lactic Acid Level 5.82*H 04/13/19 23:56: Lactic Acid Level 2.14*H 04/14/19 06:05: Lactic Acid Level 0.83 Exam Exam Vital Signs Date Time Temp Pulse Resp B/P (MAP) Pulse Ox O2 Delivery O2 Flow Rate FiO2 04/15/19 04:00 81 21 99/55 (70) 94 Mechanical Ventilator 30.00 04/15/19 03:00 90 17 95/56 (69) 93 Mechanical Ventilator 30.00 04/15/19 02:59 36.18838 86 18 111/66 93 Mechanical Ventilator 30.00 04/15/19 02:00 85 17 111/68 (82) 93 Mechanical Ventilator 30.00 04/15/19 01:44 86 18 93 30 04/15/19 01:00 84 17 108/66 (80) 93 Mechanical Ventilator 30.00 04/15/19 00:54 84 04/15/19 00:02 36.38775 80 14 97/57 90 Mechanical Ventilator 30.00 04/15/19 00:00 95 Mechanical Ventilator 30 04/15/19 00:00 83 16 116/66 (83) 94 Mechanical Ventilator 30.00 04/14/19 23:00 80 14 97/57 (70) 90 Mechanical Ventilator 30.00 04/14/19 22:00 73 18 88/51 (63) 92 Mechanical Ventilator 30.00 04/14/19 21:56 73 18 94 30 04/14/19 21:26 73 18 94 30 04/14/19 21:01 36.07629 61 18 91/57 94 Mechanical Ventilator 30.00 04/14/19 21:00 71 17 99/59 (72) 96 Mechanical Ventilator 30.00 04/14/19 20:00 63 17 110/62 (78) 94 Mechanical Ventilator 30.00 04/14/19 19:49 94 Mechanical Ventilator 30 04/14/19 19:00 36.5 61 18 91/57 (68) 94 Mechanical Ventilator 30.00 04/14/19 18:40 58 04/14/19 18:16 56 18 98 30 04/14/19 18:00 55 17 98/55 (69) 98 Mechanical Ventilator 30.00 04/14/19 17:00 58 17 91/57 (68) 97 Mechanical Ventilator 30.00 04/14/19 16:00 56 17 97/60 (72) 99 Mechanical Ventilator 30.00 04/14/19 16:00 97 Mechanical Ventilator 30 04/14/19 16:00 36.3 04/14/19 15:25 55 18 97 30 04/14/19 15:00 63 17 96/58 (71) 96 Mechanical Ventilator 30.00 04/14/19 14:00 58 18 99/59 (72) 99 Mechanical Ventilator 30.00 04/14/19 13:29 110/63 04/14/19 13:00 48 18 99/48 (65) 99 Mechanical Ventilator 30.00 04/14/19 13:00 57 04/14/19 12:00 98 Mechanical Ventilator 30 04/14/19 12:00 36.1 04/14/19 12:00 64 17 93/57 (69) 95 Mechanical Ventilator 30.00 04/14/19 11:35 49 18 96 30 04/14/19 11:00 48 17 96/56 (69) 98 Mechanical Ventilator 30.00 04/14/19 10:00 56 17 101/61 (74) 99 Mechanical Ventilator 30.00 04/14/19 09:34 117/70 04/14/19 09:00 64 17 89/54 (66) 97 Mechanical Ventilator 30.00 04/14/19 09:00 36.1 04/14/19 08:21 Mechanical Ventilator 50 04/14/19 08:00 98 Mechanical Ventilator 30 04/14/19 08:00 58 17 108/65 (79) 99 Mechanical Ventilator 30.00 04/14/19 07:32 116/69 04/14/19 07:00 59 04/14/19 07:00 62 17 115/66 (82) Mechanical Ventilator 30.00 04/14/19 06:37 57 18 95 30 04/14/19 06:00 82 17 124/67 (86) Mechanical Ventilator 30.00 I & O 04/15/19 07:00 Intake Total 3620 ml Output Total 2610 ml Balance 1010 ml Height & Weight Height: 6'0" Weight: 165lbs. 0.0oz. 74.640742de; 27.09 BMI Method:Stated General Appearance: WD/WN (does not seem to be in distress but does have some persistent vomiting and intermittent irregular breathing pattern.), Other HEENT: PERRL/EOMI, Other (dry mucous membranes. No obvious injury to the head) Neck: Normal Inspection, Non Tender, Supple Respiratory: Lungs Clear, Normal Breath Sounds, Other (in onset and has somewhat abnormal breathing pattern with rate and depth. End-tidal CO2 approximately 20 with normal O2 sat) Cardiovascular: Regular Rate, Rhythm, No Murmur Gastrointestinal: normal bowel sounds, soft, no organomegaly Extremity: Normal Inspection, Non Tender, No Pedal Edema 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: Other (will sometimes answer simple questions and briefly follows commands. Does appear quite groggy still.) Skin: Warm/Dry, Pallor Results Lab Laboratory Tests 04/13/19 21:25 04/14/19 03:10 04/14/19 06:05 04/15/19 03:00 Assessment/Plan Assessment/Plan Found unresponsive by friend - CT head is negative Acute respiratory failure with bilateral aspiration PNA -Continue Vanco and Zosyn -Continue vent -Start vent weaning Septic shock -Levophed -IVF -LR currently at 250 Hyperkalemia -Will give 2 amps of bicarb. and recheck - monitor Methamphetamine use Metabolic lactic acidosis JOSE AVILA DO Apr 15, 2019 05:14 POS
[2019-04-15] MEDS ORDERED: ZIPRASIDONE 20 MG INJ (GEODON) VIAL IM ONE (05:15)
[2019-04-15] MEDS ORDERED: ZIPRASIDONE 20 MG INJ (GEODON) VIAL IM PRN (05:15)
[2019-04-15] MEDS: LACTATED RINGERS 1,000 ML IV SCH (05:15)
[2019-04-15] MEDS: PIPERACILLIN/TAZO 4.5 GM/NS 100 ML IV SCH ×6 (05:49→21:51)
[2019-04-15] MEDS: fentaNYL INJECTION 1,250 MCG in NS (IVPB) 250 ML IV SCH (05:52)
--- NOTE | 2019-04-15 06:39 | Diagnostic Imaging Report ---
INDICATION: Respiratory distress. COMPARISON: 04/14/2019. FINDINGS: ET tube and NG tube remain in good position. The lungs are well-aerated. There has been significant decrease in perihilar infiltrate since previous exam. Mild prominence of interstitial markings remaining. The heart is not enlarged. No pneumothorax or pleural effusion. IMPRESSION: 1. Tubes and lines remain in good position. 2. There has been significant decrease in bilateral infiltrates since previous exam. Dictated by: Dictated on workstation # [id number]
--- NOTE | 2019-04-15 07:11 | Diagnostic Imaging Report ---
INDICATION: Intubation, pneumonia, respiratory failure. TECHNIQUE: Single view chest 3:33 AM. CORRELATION STUDY: 04/14/2019 FINDINGS: Endotracheal tube, gastric tube and left-sided central line remain in place. Tip of the right-sided central line has a horizontal orientation, may be projecting distal right lateral wall of the SVC. Heart size and mediastinum are stable. Vasculature slightly improved. Perihilar infiltrates as well as basilar infiltrates do persist. Overall generally stable. IMPRESSION: 1. Stable appearance about the support lines and tubes. 2. Vasculature slightly improved. Bilateral perihilar and basilar infiltrates persisting. Dictated by: Dictated on workstation # [id number]
[2019-04-15] MEDS: PANTOPRAZOLE 40 MG (PROTONIX) VIAL IV SCH (08:41)
[2019-04-15] MEDS ORDERED: risperiDONE 2 MG (RisperDAL) TAB PO SCH (09:00)
--- NOTE | 2019-04-15 11:00 | NUR ---
THIS NURSE NOTIFIED DR AVILA PT IS OFF SEDATION AND ALERT. PT IS FOLLOWING COMMANDS AND RT IS AT BEDSIDE. DR AVILA ORDERED TO EXTUBATED PT TO NC OR VAPOTHERM IF THE PT NEEDS IT. PT EXTUBATED AT 0945. PT WAS PLACED ON 2L NC. O2 SATS 94%. PT STATES HE IS NOT IN PAIN JUST TIRED. NURSE AT BEDSIDE WILL CONTINUE TO MONITOR.
[2019-04-15] MEDS: VANCOMYCIN 1500 MG/NS 500 ML IVPB IV SCH ×4 (11:01→23:31)
--- NOTE | 2019-04-15 16:43 | NUR ---
THIS NURSE NOTIFIED DR AVILA PT PASSED BEDSIDE SWALLOW STUDY AND PT WAS C/O DRY EYES. ORDERS GIVEN FOR REGULAR DIET AND EYE DROPS.
[2019-04-15] MEDS ORDERED: ARTIFICAL TEARS 0.4 ML UNIT DOSE (REFRESH PLUS) OD PRN (17:00)
--- NOTE | 2019-04-15 20:31 | Progress Note ---
Subjective Subjective/Events-last exam Patient getting extubated this AM. Review of Systems Unable to answer due to sedation Focused Exam Lactate Level 04/13/19 21:25: Lactic Acid Level 5.82*H 04/13/19 23:56: Lactic Acid Level 2.14*H 04/14/19 06:05: Lactic Acid Level 0.83 Objective Exam Last Set of Vital Signs Vital Signs Date Time Temp Pulse Resp B/P (MAP) Pulse Ox O2 Delivery O2 Flow Rate FiO2 04/15/19 20:00 99 Room Air 04/15/19 19:45 1.00 04/15/19 18:00 85 14 126/75 (92) 04/15/19 08:00 30 04/15/19 05:52 36.74618 Capillary Refill : I&O Intake and Output 04/15/19 00:00 Intake Total 3720 ml Output Total 4010 ml Balance -290 ml Intake Oral 0 ml IV Total 3720 ml Output Urine Total 3790 ml Gastric Drainage Total 220 ml General: Other (sedated and intubated ) Lungs: Clear to Auscultation, Normal Air Movement Heart: Regular Rate, No Murmurs Abdomen: Normal Bowel Sounds, Soft, No Masses Extremities: No Edema, No Tenderness/Swelling Skin: No Rashes, No Breakdown Results/Procedures Lab Laboratory Tests 04/15/19 02:45: Blood Gas Puncture Site RIGHT RADIAL, Blood Gas Patient Temperature 37, Arterial Blood pH 7.34*L, Arterial Blood Partial Pressure CO2 52H, Arterial Blood Partial Pressure O2 67L, Arterial Blood HCO3 27, Arterial Blood Total CO2 28.4, Arterial Blood Oxygen Saturation 89L, Arterial Blood Base Excess 1.6, Shaheen Test POSITIVE, Blood Gas Ventilator Setting YES, Blood Gas Inspired Oxygen N 04/15/19 03:00: White Blood Count 8.2, Red Blood Count 3.49L, Hemoglobin 10.6L, Hematocrit 34L, Mean Corpuscular Volume 96, Mean Corpuscular Hemoglobin 30, Mean Corpuscular Hemoglobin Concent 32, Red Cell Distribution Width 12.6, Platelet Count 242, Mean Platelet Volume 9.7, Neutrophils (%) (Auto) 71, Lymphocytes (%) (Auto) 14, Monocytes (%) (Auto) 10, Eosinophils (%) (Auto) 5, Basophils (%) (Auto) 0, Neutrophils # (Auto) 5.8, Lymphocytes # (Auto) 1.1, Monocytes # (Auto) 0.8, Eosinophils # (Auto) 0.4H, Basophils # (Auto) 0.0, Sodium Level 140, Potassium Level 4.3, Chloride Level 108H, Carbon Dioxide Level 23, Anion Gap 9, Blood Urea Nitrogen 9, Creatinine 1.09, Estimat Glomerular Filtration Rate > 60, BUN/Creatinine Ratio 8, Glucose Level 94, Calcium Level 7.8L, Corrected Calcium 8.5, Phosphorus Level 3.0, Magnesium Level 1.9, Total Bilirubin 0.4, Aspartate Amino Transf (AST/SGOT) 25, Alanine Aminotransferase (ALT/SGPT) 26, Alkaline Phosphatase 69, Total Protein 5.4L, Albumin 3.1L 04/15/19 12:25: Glucometer 108 04/15/19 17:57: Glucometer 81 Microbiology 04/14/19 Blood Culture - Preliminary, Resulted No growth 04/14/19 Gram Stain - Final, Resulted 04/14/19 Sputum Culture - Preliminary, Resulted Usual upper respiratory mikhail Assessment/Plan Assessment/Plan (1) Respiratory failure Status: Acute Assessment & Plan: - Intubated and sedated, Dr Jones consulted for vent management, appreciate recommendations, MAT protocol 04/15: Extubation this AM Qualifiers: Qualified Codes: J96.01 - Acute respiratory failure with hypoxia; J96.02 - Acute respiratory failure with hypercapnia (2) Septic shock Status: Resolved Assessment & Plan: - Currently requiring pressors, will titrate as tolerated, continue aggressive IVF hydration (3) Aspiration pneumonia Status: Acute Assessment & Plan: - Continue broad spectrum antibiotics D1 04/15: Continue antibiotics D2 Qualifiers: Qualified Codes: J69.0 - Pneumonitis due to inhalation of food and vomit (4) Acute renal failure Status: Resolved Assessment & Plan: - Likely 2/2 to hypotension, will repeat CMP in AM, IVF hydration Qualifiers: Qualified Codes: N17.9 - Acute kidney failure, unspecified (5) Lactic acid acidosis Status: Resolved Assessment & Plan: - Trended down to normal with IVFs (6) Normocytic anemia Status: Acute Assessment & Plan: - Hemoccult pending (7) Hyperkalemia Status: Resolved Assessment & Plan: - Dr Jones ordered Bicarb, will repeat in AM (8) Methamphetamine abuse Status: Acute (9) DVT prophylaxis Status: Acute Assessment & Plan: - Lovenox Clinical Quality Measures DVT/VTE Risk/Contraindication: Risk Factor Score Per Nursin RFS Level Per Nursing on Admit: 4+=Very High RICARDO SUMNER MD Apr 15, 2019 20:31 POS
[2019-04-16] VITALS (13 sets, daily range): BP systolic 127–159; BP diastolic 77–92
[2019-04-16 03:38] LABS: BASOPHILS % (AUTO) 0 % (0-10); EOSINOPHILS # (AUTO) 0.4 10^3/uL (0.0-0.3); EOSINOPHILS % (AUTO) 5 % (0-10); HEMATOCRIT 35 % (40-54); HEMOGLOBIN 11.3 G/DL (13.3-17.7); LYMPHOCYTES # (AUTO) 1.1 X 10^3 (1.0-4.0); LYMPHOCYTES % (AUTO) 15 % (12-44); MEAN CORPUSCULAR HEMOGLOBIN 30 PG (25-34); MEAN CORPUSCULAR HGB CONC 33 G/DL (32-36); MEAN CORPUSCULAR VOLUME 93 FL (80-99); MEAN PLATELET VOLUME 9.3 FL (7.4-10.4); MONOCYTES # (AUTO) 0.7 X 10^3 (0.0-1.0); MONOCYTES % (AUTO) 10 % (0-12); NEUTROPHILS % (AUTO) 70 % (42-75); PLATELET COUNT 223 10^3/uL (130-400); RED CELL DISTRIBUTION WIDTH 12.6 % (10.0-14.5); WHITE BLOOD COUNT 7.1 10^3/uL (4.3-11.0)
[2019-04-16] MEDS: MAGNESIUM 1 GM/100 ML IVPB 100 ML IV SCH (03:42)
[2019-04-16] MEDS: POTASSIUM CL 10MEQ/50ML IVPB 50 ML IV SCH (03:42)
[2019-04-16] MEDS: KCL 20 MEQ TAB (K-DUR) PO SCH (03:42)
[2019-04-16 03:59] LABS: ALANINE AMINOTRANSFERASE 21 U/L (0-55); ALBUMIN 3.2 GM/DL (3.2-4.5); ALKALINE PHOSPHATASE 65 U/L (40-136); BILIRUBIN,TOTAL 0.5 MG/DL (0.1-1.0); BUN/CREATININE RATIO 7; CARBON DIOXIDE 22 MMOL/L (21-32); CHLORIDE 109 MMOL/L (98-107); CREATININE SERUM 1.03 MG/DL (0.60-1.30); GFR ESTIMATED > 60; GLUCOSE 85 MG/DL (70-105); MAGNESIUM 1.7 MG/DL (1.6-2.4); PHOSPHORUS 3.3 MG/DL (2.3-4.7); POTASSIUM 3.8 MMOL/L (3.6-5.0); SODIUM 140 MMOL/L (135-145); TOTAL PROTEIN 5.7 GM/DL (6.4-8.2)
--- NOTE | 2019-04-16 06:21 | Pulmonary Progress Note ---
Subjective Time Seen by a Provider: 06:20 Subjective/Events-last exam doing well off vent Sepsis Event Evaluation Height, Weight, BMI Height: 6'0" Weight: 165lbs. 0.0oz. 74.274453aw; 27.09 BMI Method:Stated Focused Exam Lactate Level 04/13/19 21:25: Lactic Acid Level 5.82*H 04/13/19 23:56: Lactic Acid Level 2.14*H 04/14/19 06:05: Lactic Acid Level 0.83 Exam Exam Vital Signs Date Time Temp Pulse Resp B/P (MAP) Pulse Ox O2 Delivery O2 Flow Rate FiO2 04/16/19 06:00 91 17 152/87 (108) 93 Room Air 04/16/19 05:00 85 17 149/87 (107) 93 Room Air 04/16/19 04:00 95 Room Air 04/16/19 04:00 84 17 145/81 (102) 92 Room Air 04/16/19 03:00 92 19 140/86 (104) 91 Room Air 04/16/19 02:00 89 15 142/77 (98) 92 Room Air 04/16/19 01:00 88 16 127/78 (94) 93 Room Air 04/16/19 00:50 89 04/16/19 00:00 37.3 04/16/19 00:00 91 15 133/80 (97) 91 Room Air 04/16/19 00:00 96 Room Air 04/15/19 23:00 37.4 04/15/19 23:00 96 15 127/75 (92) 91 Room Air 04/15/19 22:00 95 17 134/81 (98) 92 Room Air 04/15/19 21:00 91 16 134/76 (95) 92 Room Air 04/15/19 21:00 37.4 04/15/19 20:00 95 18 132/70 (90) 92 Room Air 04/15/19 20:00 99 Room Air 04/15/19 20:00 37.2 04/15/19 19:45 93 Nasal Cannula 1.00 04/15/19 19:35 Room Air 04/15/19 19:00 85 21 141/83 (102) 96 Nasal Cannula 1.00 04/15/19 18:46 98 04/15/19 18:00 85 14 126/75 (92) 98 Nasal Cannula 1.00 04/15/19 17:00 87 15 128/76 (93) 97 Nasal Cannula 1.00 04/15/19 16:00 84 14 119/78 (92) 98 Nasal Cannula 1.00 04/15/19 16:00 98 Nasal Cannula 1.00 04/15/19 15:00 86 19 124/81 (95) 98 Nasal Cannula 1.00 04/15/19 14:00 84 14 124/72 (89) 97 Nasal Cannula 3.00 04/15/19 13:00 78 13 112/68 (83) 99 Nasal Cannula 3.00 04/15/19 12:47 76 04/15/19 12:00 80 13 98/67 (77) 99 Nasal Cannula 3.00 04/15/19 12:00 99 Nasal Cannula 2.00 04/15/19 11:00 79 16 99/62 (74) 96 Nasal Cannula 3.00 04/15/19 10:00 77 19 89/50 (63) 95 Nasal Cannula 3.00 04/15/19 09:00 73 22 102/65 (77) 93 Mechanical Ventilator 30.00 04/15/19 08:00 94 Mechanical Ventilator 30 04/15/19 08:00 75 22 105/66 (79) 93 Mechanical Ventilator 30.00 04/15/19 07:00 76 04/15/19 07:00 76 21 98/60 (73) 92 Mechanical Ventilator 30.00 04/15/19 06:30 71 22 95 30 I & O 04/16/19 07:00 Intake Total 1335 ml Output Total 4470 ml Balance -3135 ml Height & Weight Height: 6'0" Weight: 165lbs. 0.0oz. 74.401519wg; 27.09 BMI Method:Stated General Appearance: WD/WN (does not seem to be in distress but does have some persistent vomiting and intermittent irregular breathing pattern.), Other HEENT: PERRL/EOMI, Other (dry mucous membranes. No obvious injury to the head) Neck: Normal Inspection, Non Tender, Supple Respiratory: Lungs Clear, Normal Breath Sounds, Other (in onset and has somewhat abnormal breathing pattern with rate and depth. End-tidal CO2 approximately 20 with normal O2 sat) Cardiovascular: Regular Rate, Rhythm, No Murmur Gastrointestinal: normal bowel sounds, soft, no organomegaly Extremity: Normal Inspection, Non Tender, No Pedal Edema 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: Other (will sometimes answer simple questions and briefly follows commands. Does appear quite groggy still.) Skin: Warm/Dry, Pallor Results Lab Laboratory Tests 04/15/19 03:00 04/16/19 03:15 Assessment/Plan Assessment/Plan Found unresponsive by friend - CT head is negative Acute respiratory failure with bilateral aspiration PNA - Vanco and Zosyn -Pt is doing well off vent Septic shock -Levophed -IVF -LR currently at 250 Hyperkalemia -Will give 2 amps of bicarb. and recheck - monitor Methamphetamine use Metabolic lactic acidosis JOSE AVILA DO Apr 16, 2019 06:21 POS
[2019-04-16] MEDS: PIPERACILLIN/TAZO 4.5 GM/NS 100 ML IV SCH ×6 (06:42→21:53)
[2019-04-16] MEDS: PANTOPRAZOLE 40 MG (PROTONIX) VIAL IV SCH (07:42)
--- NOTE | 2019-04-16 08:09 | NUR ---
THIS NURSE CALLED REPORT TO CHUCHO HUNG. BELONGS PACKED AND PT TAKEN DOWN VIA WHEELCHAIR
--- NOTE | 2019-04-16 08:30 | NUR ---
This nurse took report from icu nurse Juany. I agree with her assessment. Pt is in his room eating breakfast at this time.
--- NOTE | 2019-04-16 09:03 | Diagnostic Imaging Report ---
INDICATION: Pneumonia. COMPARISON: 04/15/2019. FINDINGS: The ET and NG tubes have been removed. The left internal jugular central venous catheter remains in place. This has its tip in the upper superior vena cava and is directed towards the azygous vein. The heart size is normal. There is a patchy right basilar infiltrate. There is no pleural effusion or pneumothorax. The mediastinum is unremarkable. IMPRESSION: There is a right basilar infiltrate, suspect for pneumonia. The left internal jugular central venous catheter appears to have its tip in the azygos vein. Dictated by: Dictated on workstation # [id number]
--- NOTE | 2019-04-16 11:24 | NUR ---
CM/SS visited with patient today to assess needs upon discharge and assist with resources for drug treatment. Plan: Unsure of plan at this time due to patient not wanting to give much information. CM/SS gave resources for drug treatment. CM/SS called stan from [employer] who talked to the patient prior to my visit. Stan is assisting him with filling out an application for assistance. Stan stated he was non-compliant with her but she will continue to try and get information. Summary: The patient was still a little groggy when talking but was willing to answer minimal questions. CM/SS asked the patient if he was willing or interested in seeking services for treatment and he is unsure if he wants to. CM/SS gave the patient printed resources and explained them to the patient. Patient verbalized understanding. The patient states he does not have any family in town and is not close with them. He reports that he was living with someone before this hospital stay but is unsure if he will still have a home. CM/SS discussed financial resources and occupation. The patient verbalized he does not have a job and is not collecting financial assistance. CM/SS will continue to follow to assess for needs. Addendum: 04/18/19 at 1732 by JULIUS DAWSON AEROSOL LINE OPERATOR social work student note reviewed and approved
[2019-04-16] MEDS ORDERED: RT-ALBUTEROL/IPRATROPIUM 3 ML (DUONEB) VIAL INH PRN (12:00)
[2019-04-16] MEDS: VANCOMYCIN 1500 MG/NS 500 ML IVPB IV SCH ×2 (12:43)
--- NOTE | 2019-04-16 13:33 | NUR ---
NOTIFIED DR. SUMNER THAT PT IS COMPLAINING OF RT SHOULDER PAIN
[2019-04-16] MEDS: RT-ALBUTEROL/IPRATROPIUM 3 ML (DUONEB) VIAL INH SCH ×2 (14:49→18:00)
--- NOTE | 2019-04-16 15:59 | NUR ---
CM/SS visited with patient to follow up. CM/SS called [facility] services to see if they did inpatient screening for drug and alcohol treatment. They verbalized that they do not but indicated to call [facility] ([phone]). CM/SS spoke with [facility], they stated they do not do screenings at the hospital but could make him an appointment. The patient has an appointment scheduled for Sunday at 3:15 p.m. at the [facility] office in [place]. CM/SS informed patient of appointment and provided him a sheet with the appointment information . Will continue to follow. Addendum: 04/18/19 at 1732 by JULIUS GUTIERREZ MUD PLANT OPERATOR social work student note reviewed and approved Addendum: 04/18/19 at 1733 by JULIUS GUTIERREZ MUD PLANT OPERATOR social work student note reviewed and approved
--- NOTE | 2019-04-16 20:11 | Progress Note ---
Subjective Subjective/Events-last exam Patient doing much better this AM. Having some hand swelling. Has not been up out of bed yet. Tolerating PO diet since extubation. Review of Systems Pulmonary: Dyspnea, Cough Cardiovascular: No: Chest Pain, Palpitations, Orthopnea Gastrointestinal: No: Nausea, Vomiting, Abdominal Pain, Diarrhea, Constipation Musculoskeletal: hand pain (and swelling) Neurological: Weakness Focused Exam Lactate Level 04/13/19 21:25: Lactic Acid Level 5.82*H 04/13/19 23:56: Lactic Acid Level 2.14*H 04/14/19 06:05: Lactic Acid Level 0.83 Objective Exam Last Set of Vital Signs Vital Signs Date Time Temp Pulse Resp B/P (MAP) Pulse Ox O2 Delivery O2 Flow Rate FiO2 04/16/19 19:10 36.6 92 22 156/90 (112) 96 Room Air 04/16/19 11:41 21 04/15/19 19:45 1.00 Capillary Refill : I&O Intake and Output 04/16/19 00:00 Intake Total 3305 ml Output Total 4620 ml Balance -1315 ml Intake Oral 600 ml IV Total 2705 ml Output Urine Total 4220 ml Gastric Drainage Total 400 ml General: Alert, Oriented X3, Cooperative, No Acute Distress Lungs: Normal Air Movement, Other (crackles bilaterally and diminished breath sounds) Heart: Regular Rate, No Murmurs Abdomen: Normal Bowel Sounds, Soft, No Tenderness, No Masses Extremities: No Edema, Other (swelling in hands bilaterally) Skin: No Rashes, No Breakdown Neuro: Normal Speech, Sensation Intact, Cranial Nerves 3-12 NL Results/Procedures Lab Laboratory Tests 04/15/19 23:35: Glucometer 89 04/16/19 03:15: White Blood Count 7.1, Red Blood Count 3.72L, Hemoglobin 11.3L, Hematocrit 35L, Mean Corpuscular Volume 93, Mean Corpuscular Hemoglobin 30, Mean Corpuscular Hemoglobin Concent 33, Red Cell Distribution Width 12.6, Platelet Count 223, Mean Platelet Volume 9.3, Neutrophils (%) (Auto) 70, Lymphocytes (%) (Auto) 15, Monocytes (%) (Auto) 10, Eosinophils (%) (Auto) 5, Basophils (%) (Auto) 0, Neutrophils # (Auto) 5.0, Lymphocytes # (Auto) 1.1, Monocytes # (Auto) 0.7, Eo sinophils # (Auto) 0.4H, Basophils # (Auto) 0.0, Sodium Level 140, Potassium Level 3.8, Chloride Level 109H, Carbon Dioxide Level 22, Anion Gap 9, Blood Urea Nitrogen 7, Creatinine 1.03, Estimat Glomerular Filtration Rate > 60, BUN/Creatinine Ratio 7, Glucose Level 85, Calcium Level 8.0L, Corrected Calcium 8.6, Phosphorus Level 3.3, Magnesium Level 1.7, Total Bilirubin 0.5, Aspartate Amino Transf (AST/SGOT) 23, Alanine Aminotransferase (ALT/SGPT) 21, Alkaline Phosphatase 65, Total Protein 5.7L, Albumin 3.2 04/16/19 12:03: Glucometer 110 04/16/19 18:25: Glucometer 137H Microbiology 04/14/19 Blood Culture - Preliminary, Resulted No growth 04/14/19 Gram Stain - Final, Complete 04/14/19 Sputum Culture - Final, Complete Usual upper respiratory mikhail Assessment/Plan Assessment/Plan (1) Respiratory failure Status: Acute Assessment & Plan: - Intubated and sedated, Dr Jones consulted for vent management, appreciate recommendations, MAT protocol 04/15: Extubation this AM 04/16: Much improved, will continue to titrate oxygen as tolerated Qualifiers: Qualified Codes: J96.01 - Acute respiratory failure with hypoxia; J96.02 - Acute respiratory failure with hypercapnia (2) Septic shock Status: Resolved Assessment & Plan: - Currently requiring pressors, will titrate as tolerated, continue aggressive IVF hydration (3) Aspiration pneumonia Status: Acute Assessment & Plan: - Continue broad spectrum antibiotics D1 04/15: Continue antibiotics D2 04/16: Plan to transition to Augmentin D3 Qualifiers: Qualified Codes: J69.0 - Pneumonitis due to inhalation of food and vomit (4) Acute renal failure Status: Resolved Assessment & Plan: - Likely 2/2 to hypotension, will repeat CMP in AM, IVF hy dration Qualifiers: Qualified Codes: N17.9 - Acute kidney failure, unspecified (5) Lactic acid acidosis Status: Resolved Assessment & Plan: - Trended down to normal with IVFs (6) Normocytic anemia Status: Acute Assessment & Plan: - Hemoccult pending (7) Hyperkalemia Status: Resolved Assessment & Plan: - Dr Jones ordered Bicarb, will repeat in AM (8) Methamphetamine abuse Status: Acute (9) DVT prophylaxis Status: Acute Assessment & Plan: - Lovenox Clinical Quality Measures DVT/VTE Risk/Contraindication: Risk Factor Score Per Nursin RFS Level Per Nursing on Admit: 4+=Very High RICARDO SUMNER MD Apr 16, 2019 20:11 POS
[2019-04-17] MEDS: RT-ALBUTEROL/IPRATROPIUM 3 ML (DUONEB) VIAL INH SCH ×7 (00:03→23:17)
[2019-04-17 00:11] VITALS: BP 139/74
[2019-04-17 04:00] VITALS: BP 147/77
[2019-04-17] MEDS: PIPERACILLIN/TAZO 4.5 GM/NS 100 ML IV SCH ×6 (04:56→21:50)
[2019-04-17 07:19] LABS: BASOPHILS % (AUTO) 0 % (0-10); EOSINOPHILS # (AUTO) 0.5 10^3/uL (0.0-0.3); EOSINOPHILS % (AUTO) 7 % (0-10); HEMATOCRIT 36 % (40-54); HEMOGLOBIN 11.8 G/DL (13.3-17.7); LYMPHOCYTES # (AUTO) 0.8 X 10^3 (1.0-4.0); LYMPHOCYTES % (AUTO) 11 % (12-44); MEAN CORPUSCULAR HEMOGLOBIN 30 PG (25-34); MEAN CORPUSCULAR HGB CONC 33 G/DL (32-36); MEAN CORPUSCULAR VOLUME 92 FL (80-99); MEAN PLATELET VOLUME 9.5 FL (7.4-10.4); MONOCYTES # (AUTO) 0.6 X 10^3 (0.0-1.0); MONOCYTES % (AUTO) 9 % (0-12); NEUTROPHILS # (AUTO) 5.3 X 10^3 (1.8-7.8); NEUTROPHILS % (AUTO) 74 % (42-75); PLATELET COUNT 241 10^3/uL (130-400); RED CELL DISTRIBUTION WIDTH 12.1 % (10.0-14.5); WHITE BLOOD COUNT 7.2 10^3/uL (4.3-11.0)
[2019-04-17 07:32] LABS: ALANINE AMINOTRANSFERASE 27 U/L (0-55); ALBUMIN 3.7 GM/DL (3.2-4.5); ALKALINE PHOSPHATASE 67 U/L (40-136); BILIRUBIN,TOTAL 0.6 MG/DL (0.1-1.0); BUN/CREATININE RATIO 9; CALCIUM 8.8 MG/DL (8.5-10.1); CARBON DIOXIDE 22 MMOL/L (21-32); CHLORIDE 107 MMOL/L (98-107); CREATININE SERUM 0.96 MG/DL (0.60-1.30); GFR ESTIMATED > 60; GLUCOSE 99 MG/DL (70-105); MAGNESIUM 1.7 MG/DL (1.6-2.4); PHOSPHORUS 2.8 MG/DL (2.3-4.7); POTASSIUM 3.8 MMOL/L (3.6-5.0); SODIUM 140 MMOL/L (135-145); TOTAL PROTEIN 6.7 GM/DL (6.4-8.2)
[2019-04-17 07:40] VITALS: BP 132/68
--- NOTE | 2019-04-17 08:07 | Diagnostic Imaging Report ---
INDICATION: Dyspnea. Comparison made with prior examination of 04/16/2019. FINDINGS: Heart size is normal. Mediastinum is unremarkable. There are patchy bibasilar infiltrates. No pleural effusion or pneumothorax. Mediastinum is unremarkable. IMPRESSION: Patchy bibasilar pulmonary infiltrates. Dictated by: Dictated on workstation # [id number]
[2019-04-17] MEDS: PANTOPRAZOLE 40 MG (PROTONIX) VIAL IV SCH (08:26)
--- NOTE | 2019-04-17 10:52 | NUR ---
Pt more awake today. He states that he will return to live with a roommate. He acknowledges he has no income but does receive foodstamps. Pt states his girlfriend Tressa is helping him with a social security disability application. Pt has no memory of his intention prior to taking overdose. He also is vague about being involved in a drug treatment program and whether he meño keep his appt for drug and alcohol assessment on Sunday at [place]. Will continue to follow and discuss with Dr. Fiore.
[2019-04-17] MEDS ORDERED: KETOROLAC 30 MG/ML VIAL IVP ONE (11:00)
[2019-04-17 12:00] VITALS: BP 141/85
--- NOTE | 2019-04-17 14:42 | Diagnostic Imaging Report ---
INDICATION: Shoulder pain COMPARISON: None. FINDINGS: Two views of the right shoulder were obtained. There is no fracture, dislocation, or other acute bony abnormality identified. The soft tissues appear unremarkable. No radiopaque foreign bodies identified. The visualized portions of the right lung are clear. IMPRESSION: No acute fractures or dislocations of the right shoulder. Dictated by: Dictated on workstation # [id number]
--- NOTE | 2019-04-17 15:25 | Progress Note ---
Subjective Subjective/Events-last exam Doing better this AM. States that his right shoulder hurts. Swelling in hand has improved. States that he has not been up walking much since moving down to [address]. Review of Systems Pulmonary: Cough Cardiovascular: No: Chest Pain, Palpitations, Edema Gastrointestinal: No: Nausea, Vomiting, Abdominal Pain Musculoskeletal: shoulder pain (Right) Neurological: Weakness Objective Exam Last Set of Vital Signs Vital Signs Date Time Temp Pulse Resp B/P (MAP) Pulse Ox O2 Delivery O2 Flow Rate FiO2 04/17/19 12:00 36.2 81 18 141/85 (103) 98 Room Air 04/17/19 09:00 1.00 04/16/19 11:41 21 Capillary Refill : Less Than 3 Seconds I&O Intake and Output 04/17/19 00:00 Intake Total 940 ml Output Total 2200 ml Balance -1260 ml Intake Oral 340 ml IV Total 600 ml Output Urine Total 2200 ml # Bowel Movements 1 General: Alert, Oriented X3, Cooperative, No Acute Distress HEENT: Mucous Memb Moist/Rainelle Lungs: Clear to Auscultation, Normal Air Movement Heart: Regular Rate, No Murmurs Abdomen: Normal Bowel Sounds, Soft, No Tenderness, No Masses Extremities: No Edema, No Tenderness/Swelling, Other (ttp along right bicep tendon, normal ROM but has some pain with ROM, normal strength) Neuro: Normal Speech, Sensation Intact, Cranial Nerves 3-12 NL Results/Procedures Lab Laboratory Tests 04/16/19 18:25: Glucometer 137H 04/16/19 23:39: Glucometer 83 04/17/19 05:18: Glucometer 91 04/17/19 07:01: White Blood Count 7.2, Red Blood Count 3.95L, Hemoglobin 11.8L, Hematocrit 36L, Mean Corpuscular Volume 92, Mean Corpuscular Hemoglobin 30, Mean Corpuscular Hemoglobin Concent 33, Red Cell Distribution Width 12.1, Platelet Count 241, Mean Platelet Volume 9.5, Neutrophils (%) (Auto) 74, Lymphocytes (%) (Auto) 11L, Monocytes (%) (Auto) 9, Eosinophils (%) (Auto) 7, Basophils (%) (Auto) 0, Neutrophils # (Auto) 5.3, Lymphocytes # (Auto) 0.8L, Monocytes # (Auto) 0.6, Eosinophils # (Auto) 0.5H, Basophils # (Auto) 0.0, Sodium Level 140, Potassium Level 3.8, Chloride Level 107, Carbon Dioxide Level 22, Anion Gap 11, Blood Urea Nitrogen 9, Creatinine 0.96, Estimat Glomerular Filtration Rate > 60, BUN/Creatinine Ratio 9, Glucose Level 99, Calcium Level 8.8, Corrected Calcium 9.0, Phosphorus Level 2.8, Magnesium Level 1.7, Total Bilirubin 0.6, Aspartate Amino Transf (AST/SGOT) 28, Alanine Aminotransferase (ALT/SGPT) 27, Alkaline Phosphatase 67, Total Protein 6.7, Albumin 3.7 04/17/19 11:59: Glucometer 128H Microbiology 04/14/19 Blood Culture - Preliminary, Resulted No growth 04/14/19 Gram Stain - Final, Complete 04/14/19 Sputum Culture - Final, Complete Usual upper respiratory mikhail Assessment/Plan Assessment/Plan (1) Respiratory failure Status: Acute Assessment & Plan: - Intubated and sedated, Dr Jones consulted for vent management, appreciate recommendations, MAT protocol 04/15: Extubation this AM 04/16: Much improved, will continue to titrate oxygen as tolerated 04/17: Continue to titrate off oxygen, patient does not have home oxygen requirement Qualifiers: Qualified Codes: J96.01 - Acute respiratory failure with hypoxia; J96.02 - Acute respiratory failure with hypercapnia (2) Right shoulder pain Status: Acute Assessment & Plan: 04/17: Likely 2/2 to fall, Xray today, will have PT work with patient for ROM Qualifiers: Qualified Codes: M25.511 - Pain in right shoulder (3) Septic shock Status: Resolved Assessment & Plan: - Currently requiring pressors, will titrate as tolerated, continue aggressive IVF hydration (4) Aspiration pneumonia Status: Acute Assessment & Plan: - Continue broad spectrum antibiotics D1 04/15: Continue antibiotics D2 04/16: Plan to transition to Augmentin D3 Qualifiers: Qualified Codes: J69.0 - Pneumonitis due to inhalation of food and vomit (5) Acute renal failure Status: Resolved Assessment & Plan: - Likely 2/2 to hypotension, will repeat CMP in AM, IVF hydration Qualifiers: Qualified Codes: N17.9 - Acute kidney failure, unspecified (6) Lactic acid acidosis Status: Resolved Assessment & Plan: - Trended down to normal with IVFs (7) Normocytic anemia Status: Acute Assessment & Plan: - Hemoccult pending (8) Hyperkalemia Status: Resolved Assessment & Plan: - Dr Jones ordered Bicarb, will repeat in AM (9) Methamphetamine abuse Status: Acute (10) DVT prophylaxis Status: Acute Assessment & Plan: - Lovenox Clinical Quality Measures DVT/VTE Risk/Contraindication: Risk Factor Score Per Nursin RFS Level Per Nursing on Admit: 4+=Very High RICARDO SUMNER MD Apr 17, 2019 15:25 POS
[2019-04-17 16:00] VITALS: BP 148/92
[2019-04-17 20:00] VITALS: BP 130/67
[2019-04-18 00:30] VITALS: BP 133/73
[2019-04-18] MEDS: RT-ALBUTEROL/IPRATROPIUM 3 ML (DUONEB) VIAL INH SCH ×3 (02:36→09:15)
[2019-04-18 04:00] VITALS: BP 141/80
[2019-04-18] MEDS: PIPERACILLIN/TAZO 4.5 GM/NS 100 ML IV SCH ×2 (05:41)
[2019-04-18 08:00] VITALS: BP 134/73
--- NOTE | 2019-04-18 08:29 | Diagnostic Imaging Report ---
INDICATION: Multilobar pneumonia, respiratory failure COMPARISON: 04/17/2019 TECHNIQUE: Single radiograph of the chest dated 04/18/2019 FINDINGS: The cardiac silhouette is within normal limits in size. No significant pulmonary vascular congestion. Minimal patchy bibasilar infiltrates are again identified, appearing stable from the prior examination. No new focal pulmonary opacity. No pleural effusion. No pneumothorax. No acute osseous abnormality. IMPRESSION: Stable minimal bilateral patchy basilar atelectasis and/or pneumonitis without adverse change. Dictated by: Dictated on workstation # [id number]
[2019-04-18] MEDS ORDERED: PANTOPRAZOLE 40 MG (PROTONIX) TAB PO SCH (09:00)
--- NOTE | 2019-04-18 09:15 | NUR ---
DR SUMNER NOTIFIED OF NO IV ACCESS. [employer] LEADER ATTEMPTED X6 TIMES. ORDER RECEIVED TO LEAVE IV OUT. PLAN IS TO DISCHARGE TODAY. PT NOTIFIED OF PLAN. NOTIFIED PT THAT IT WOULD BE AFTER DR SUMNER ASSESSED PT AND PLACED ORDER BEFORE PT COULD DISCHARGE. ZOSYN STARTED AT 0541 WAS NOT INFUSED.
--- NOTE | 2019-04-18 10:30 | NUR ---
WHILE RN WAS ASSISTING WITH OTHER PATIENTS. AIDE NOTIFIED THIS NURSE THAT THE PT OR PT RIDE WAS NOT IN ROOM. PT DID NOT SIGN AMA PAPERS OR NOTIFY NURSE OF PLANNING TO LEAVE. DR SUMNER WAS NOTIFIED.
--- NOTE | 2019-04-18 12:44 | Discharge Summary ---
Diagnosis/Chief Complaint Date of Admission Apr 14, 2019 at 01:02 Date of Discharge 04/18/19 left AMA Admission Diagnosis Admission Diagnosis See problem List Discharge Diagnosis See Below Problems/Diagnosis: (1) Respiratory failure Assessment & Plan: - Intubated and sedated, Dr Jones consulted for vent management, appreciate recommendations, MAT protocol 04/15: Extubation this AM 04/16: Much improved, will continue to titrate oxygen as tolerated 04/17: Continue to titrate off oxygen, patient does not have home oxygen requirement 04/18: Patient left AMA prior to being seen Qualifiers: Qualified Codes: J96.01 - Acute respiratory failure with hypoxia; J96.02 - Acute respiratory failure with hypercapnia Status: Acute (2) Right shoulder pain Assessment & Plan: 04/17: Likely 2/2 to fall, Xray today, will have PT work with patient for ROM Qualifiers: Qualified Codes: M25.511 - Pain in right shoulder Status: Acute (3) Septic shock Assessment & Plan: - Currently requiring pressors, will titrate as tolerated, continue aggressive IVF hydration Status: Resolved Resolution Date/Time: 04/15/19 @ 20:30 (4) Aspiration pneumonia Assessment & Plan: - Continue broad spectrum antibiotics D1 04/15: Continue antibiotics D2 04/16: Plan to transition to Augmentin D3 Qualifiers: Qualified Codes: J69.0 - Pneumonitis due to inhalation of food and vomit Status: Acute (5) Acute renal failure Assessment & Plan: - Likely 2/2 to hypotension, will repeat CMP in AM, IVF hydration Qualifiers: Qualified Codes: N17.9 - Acute kidney failure, unspecified Status: Resolved Resolution Date/Time: 04/15/19 @ 20:31 (6) Lactic acid acidosis Assessment & Plan: - Trended down to normal with IVFs Status: Resolved Resolution Date/Time: 04/15/19 @ 20:31 (7) Normocytic anemia Assessment & Plan: - Hemoccult pending Status: Acute (8) Hyperkalemia Assessment & Plan: - Dr Jones ordered Bicarb, will repeat in AM Status: Resolved Resolution Date/Time: 04/15/19 @ 20:31 (9) Methamphetamine abuse Status: Acute (10) DVT prophylaxis Assessment & Plan: - Lovenox Status: Acute Chief Complaint/HPI Chief Complaint/HPI 53 yo M found unresponsive by friend who then reported that he started CPR. Patient had recently done meth and unsure if he may have OD. Friend is in the room this AM. He is unsure about past medical problems or if patient is on any medications. Unable to get ahold of family at this time. Discharge Summary-Simple/Stand Consultations Dr Jones: Pulmonary and Critical Care Dr Turner: Cardiology Discharge Physical Examination Allergies: Coded Allergies: diphenhydramine (Unverified Allergy, Unknown, 05/28/17) Vitals & I&Os Vital Sign - Last 12Hours Date Time Temp Pulse Resp B/P (MAP) Pulse Ox O2 Delivery O2 Flow Rate FiO2 04/18/19 09:15 96 Room Air 04/18/19 08:00 37.3 79 18 134/73 (93) 04/17/19 09:00 1.00 04/16/19 11:41 21 Intake and Output 04/18/19 00:00 Intake Total 1640 ml Output Total 550 ml Balance 1090 ml General Appearance: Other (Left AMA prior to being seen) Hospital Course See final discharge diagnosis. Discussion & Recommendations 53 yo M that presented after being found down by friend after unintentional overdose with respiratory failure. Patient was intubated and sedated for several days. HE had bilateral infiltrates and was able to be titrated down off oxygen prior to leaving AMA Discharge Condition at discharge Left AMA Instructions to patient/family Please see electronic discharge instructions given to patient. Discharge Medications Reviewed and agree with Discharge Medication list on patient's Discharge Instruction sheet Clinical Quality Measures DVT/VTE Risk/Contraindication: Risk Factor Score Per Nursin RFS Level Per Nursing on Admit: 4+=Very High RICARDO SUMNER MD Apr 18, 2019 12:44
--- NOTE | 2019-04-21 12:12 | Physician Query Clarification ---
PQ-Further Specificity Admission/Discharge Admission Date: Apr 14, 2019 at 01:02 Discharge Date: Apr 18, 2019 at 10:30 The medical record reflects the following clinical scenario: History/Risk Factors: Bilateral Pneumonia, septic shock Clinical Findings: Aspiration pneumonia and septic shock Treatment: pressors, IVF hydration Question: Can you further specify if the aspiration pneumonia id d/e to/associated with an infectious process per the clinical indicators above? Please document a response in the Progress Notes or Discharge Summary. 1. Yes, aspiration pneumonia is due to/associated with infectious process 2. No, aspiration pneumonia is not due to/associated with infectious process 3. Other, with explanation of the clinical findings. 4. Clinically undetermined, no explanation for the clinical findings. PHYSICIAN RESPONSE Can you specify per above: Clinically undetermined (Infectious vs chemical) Please remember a lack of response to the above will prompt a phone page by [facility]I/Coding staff. In responding to this query, please exercise your independent professional judgment. The purpose of this communication is to more accurately reflect the complexity of your patients condition. The fact that a question is asked does not imply that any particular answer is desired or expected. Thank you for your timely response to this clarification. Requestors name: [employer] THIS PHYSICIAN QUERY FORM IS A PERMANENT PART OF THE MEDICAL RECORD TAMANNA SELF Apr 21, 2019 12:12 RICARDO SUMNER MD May 14, 2019 17:50
--- NOTE | 2019-05-02 10:07 | Physician Query Clarification ---
PQ-Further Specificity Admission/Discharge Admission Date: Apr 14, 2019 at 01:02 Discharge Date: Apr 18, 2019 at 10:30 The medical record reflects the following clinical scenario: History/Risk Factors: bilateral pneumonia, septic shock, aspiration pneumonia Clinical Findings: Aspiration pneumonia and septic shock Treatment: pressors, aggressive IVF, broad spectrum antibiotics Question: Can you further specify if the aspiration pneumonia is due to/associated with infectious process per the clinical indicators above? Please document a response in the Progress Notes or Discharge Summary. 1. Yes, aspiration pneumonia is due to/associated with infectious process 2. No, aspiration pneumonia is not due to/associated with infectious process 3. Other, with explanation of the clinical findings. 4. Clinically undetermined, no explanation for the clinical findings. PHYSICIAN RESPONSE Can you specify per above: Other, explanation/clinical finding (See previous inqury) Please remember a lack of response to the above will prompt a phone page by CDI/Coding staff. In responding to this query, please exercise your independent professional judgment. The purpose of this communication is to more accurately reflect the complexity of your patients condition. The fact that a question is asked does not imply that any particular answer is desired or expected. Thank you for your timely response to this clarification. Requestors name: Tamanna/[email or web address] THIS PHYSICIAN QUERY FORM IS A PERMANENT PART OF THE MEDICAL RECORD TAMANNA SELF May 02, 2019 10:07 RICARDO SUMNER MD May 14, 2019 17:50
--- OUTSIDE RECORDS SUMMARY | 2019-05-09 00:34 | XMS REPORT | Continuity of Care Document ---
Author Organization Unknown Address Unknown Phone Unavailable Allergies Active Description Code Type Severity Reaction Onset Reported/Identified Relationship to Patient Clinical Status Yes No Known Drug Allergies [id number] Drug Allergy Unknown N/A 09/03/2013 Yes diphenhydramine [id number] D rug Allergy Unknown N/A 05/28/2017 Medications There is [...] Carmen Ot 008.8 VIRAL ENTERITIS NOS 04/19/2014 NIK VALLADARES MD Ot 276.51 DEHYDRATION 04/21/2014 FRANCINE QUINTANILLA MD Ot 558.9 NONINF GASTROENTERIT NEC 04/21/2014 FRANCINE QUINTANILLA MD Ot 789.07 ABDOMINAL PAIN, GENERALIZED 01/10/2015 MIGUEL PALAFOX MD Ot 288.60 LEUKOCYTOSIS, UNSPECIFIED 01/10/2015 MIGUEL PALAFOX MD Ot 780.97 ALTERED MENTAL STATUS 01/10/2015 MIGUEL PALAFOX MD Ot 782 .1 NONSPECIF SKIN ERUPT NEC 01/10/2015 MIGUEL PALAFOX [...] CIGARETTES, UNCOMPL 05/26/2015 MIGUEL PALAFOX MD Ot K21 .9 GASTRO-ESOPHAGEAL REFLUX DISEASE WITHOUT 05/26/2015 MIGUEL PALAFOX MD Ot K63 .9 DISEASE OF INTESTINE, UNSPECIFIED 05/26/2015 MIGUEL PALAFOX MD Ot M54 .9 DORSALGIA, UNSPECIFIED 05/26/2015 MIGUEL PALFAOX MD Ot R10.13 EPIGASTRIC PAIN 05/26/2015 MIGUEL PALAFOX MD Ot Z23 ENCOUNTER FOR IMMUNIZATION 05/03/2016 GOLDIE, TERRENCE [employer] OPERATOR Ot R10.84 GENERALIZED ABDOMINAL PAIN 05/03/2016 GOLDIE, TERRENCE [employer] OPERATOR Ot R11.2 NAUSEA WITH VOMITING, UNSPECIFIED 05/03/2016 GOLDIE, TERRENCE [employer] OPERATOR Ot R19.7 DIARRHEA, UNSPECIFIED 05/04/2016 GOLDIE, TERRENCE [employer] OPERATOR Ot R10.84 GENERALIZED ABDOMINAL PAIN 05/04/2016 GOLDIE, TERRENCE [employer] OPERATOR Ot R11.2 NAUSEA WITH VOMITING, UNSPECIFIED 05/04/2016 GOLDIE, TERRENCE [employer] OPERATOR Ot R19.7 DIARRHEA, UNSPECIFIED 05/04/2016 GOLDIE, TERRENCE [employer] PL[employer] OPERATOR Ot R10.84 GENERALIZED ABDOMINAL PAIN 05/04/2016 GOLDIE, TERRENCE [employer] OPERATOR Ot R11.2 NAUSEA WITH VOMITING, UNSPECIFIED 05/04/2016 GOLDIE, TERRENCE [employer] OPERATOR Ot R19.7 DIARRHEA, UNSPECIFIED 05/06/2016 GOLDIE, TERRENCE [employer] OPERATOR Ot R10.84 GENERALIZED ABDOMINAL PAIN 05/06/2016 GOLDIE, TERRENCE [employer] OPERATOR Ot R11.2 NAUSEA WITH VOMITING, UNSPECIFIED 05/06/2016 GOLDIE, TERRENCE [employer] OPERATOR Ot R19.7 DIARRHEA, UNSPECIFIED 05/09/2016 GOLDIE, TERRENCE [employer] OPERATOR Ot R10.84 GENERALIZED ABDOMINAL PAIN 05/09/2016 TERRENCE AMEZCUA Ot R11.2 NAUSEA WITH VOMITING, UNSPECIFIED 05/09/2016 TERRENCE AMEZCUAP Ot R19.7 DIARRHEA, UNSPECIFIED 03/08/2017 ANITA TILLEY MD Ot K21. 9 GASTRO-ESOPHAGEAL REFLUX DISEASE WITHOUT 03/08/2017 ANITA TILLEY MD Ot R11. 2 NAUSEA WITH VOMITING, UNSPECIFIED 03/08/2017 ANITA TILLEY MD Ot Z80. 9 FAMILY HISTORY OF MALIGNANT NEOPLASM, UN 03/08/2017 JAREK WALLIS, ANITA Carmen Ot Z82. 49 FAMILY HX OF ISCHEM HEART DIS AND OTH DI 03/08/2017 ANITA TILLEY MD Ot Z87. 19 PERSONAL HISTORY OF OTHER DISEASES OF 03/08/2017 ANITA TILLEY MD Ot Z87.891 PERSONAL HISTORY OF NICOTINE DEPENDENCE 03/08/2017 ANITA TILLEY MD Ot Z90. 89 ACQUIRED ABSENCE OF OTHER ORGANS 03/12/2017 ANITA TILLEY MD Ot K21. 9 GASTRO-ESOPHAGEAL REFLUX DISEASE WITHOUT 03/12/2017 JAREK WALLIS, ANITA Carmen Ot R11. 2 NAUSEA WITH VOMITING, UNSPECIFIED 03/12/2017 ANITA TILLEY MD Ot Z80. 9 FAMILY HISTORY OF MALIGNANT NEOPLASM, UN 03/12/2017 ANITA TILLEY MD Ot Z82. 49 FAMILY HX OF ISCHEM HEART DIS AND OTH DI 03/12/2017 ANITA TILLEY MD Ot Z87. 19 PERSONAL HISTORY OF OTHER DISEASES OF TH 03/12/2017 ANITA TILLEY MD Ot Z87.891 PERSONAL HISTORY OF NICOTINE DEPENDENCE 03/12/2017 ANITA TILLEY MD Ot Z90. 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 USE, UNSPECIFIED, UNCOMP 05/28/2017 NIRAV NGUYEN Ot F17.210 NICOTINE DEPENDENCE, CIGARETTES, UNCOMPL 05/28/2017 NIRAV NGUYEN Ot J10.1 FLU DUE TO [facility] IDENT INFLUENZA VIRUS W O 05/28/2017 ABE PA, NIRAV L Ot K21.9 GASTRO-ESOPHAGEAL REFLUX DISEASE WITHOUT 05/28/2017 NIRAV NGUYEN Ot R 05 COUGH 05/28/2017 NIRAV NGUYEN Ot Z82.49 FAMILY [...] REFLUX DISEASE WITHOUT 05/30/2017 NIRAV NGUYEN Ot R 05 COUGH 05/30/2017 NIRAV NGUYEN Ot Z82.49 FAMILY HX OF ISCHEM HEART DIS AND OTH DI 05/30/2017 NIRAV NGUYEN Ot Z90.49 ACQUIRED ABSENCE OF OTHER SPECIFIED PART 05/30/2017 NIRAV NGUYEN Ot Z90.89 ACQUIRED ABSENCE OF OTHER ORGANS 06/03/2017 NIRAV NGUYEN Ot F14.90 COCAINE USE, UNSPECIFIED, UNCOMPLICATED 06/03/2017 NIRAV NGUYEN Ot F15.90 OTHER STIMULANT USE, UNSPECIFIED, UNCOMP 06/03/2017 NIRAV NGUYEN Ot F17.210 NICOTINE DEPENDENCE, CIGARETTES, UNCOMPL 06/03/2017 NIRAV NGUYEN Ot J10.1 FLU DUE TO OTH IDENT INFLUENZA VIRUS W O 06/03/2017 NIRAV NGUYEN Ot K21.9 GASTRO-ESOPHAGEAL REFLUX DISEASE WITHOUT 06/03/2017 NIRAV NGUYEN L Ot R 05 COUGH 06/03/2017 NIRAV NGUYEN Ot Z82.49 FAMILY HX OF ISCHEM HEART DIS AND OTH DI 06/03/2017 NIRAV NGUYEN Ot Z90.49 ACQUIRED ABSENCE OF OTHER SPECIFIED PART 06/03/2017 NIRAV NGUYEN Ot Z90.89 ACQUIRED ABSENCE OF OTHER ORGANS 01/30/[address] Ot F14.10 COCAINE ABUSE, UNCOMPLICATED 01/30/[address] Ot F15.10 OTHER STIMULANT ABUSE, UNCOMPLICATED 01/30/2018 DOMINGO ASAD Ot F17.210 NICOTINE DEPENDENCE, CIGARETTES, UNCOMPL 01/30/[address] Ot K21.9 GASTRO-ESOPHAGEAL REFLUX DISEASE WITHOUT 01/30/[address] Ot M47.817 SPONDYLS W/O MYELOPATHY OR RADICULOPATHY 01/30/[address] Ot M54.5 LOW BACK PAIN 01/30/[address] Ot Z79.51 SENIOR CARE (CURRENT) USE OF INHALED STERO 01/30/[address] Ot Z79.52 SENIOR CARE (CURRENT) USE OF SYSTEMIC STER 01/30/[address] Ot Z82.49 FAMILY HX OF ISCHEM HEART DIS AND OTH DI 01/30/[address] Ot Z87.19 PERSONAL HISTORY OF OTHER DISEASES OF TH 01/30/2018 DOMINGO ASAD Ot Z88.8 ALLERGY STATUS TO OT DRUG/MEDS/BIOL SUB 01/30/2018 ARCHIEMIAH ASAD Ot Z90.89 ACQUIRED ABSENCE OF OTHER ORGANS 04/18/2019 RICARDO SUMNER MD Ot A41.9 SEPSIS, UNSPECIFIED ORGANISM 04/18/2019 RICARDO SUMNER MD Ot D64.9 ANEMIA, UNSPECIFIED 04/18/2019 RICARDO SUMNER MD Ot E87.2 ACIDOSIS 04/18/2019 RICARDO SUMNER MD, Ot E87.5 HYPERKALEMIA 04/18/2019 RICARDO SUMNER MD Ot F15.1 0 OTHER STIMULANT ABUSE, UNCOMPLICATED 04/18/2019 RICARDO SUMNER MD Ot I95.9 HYPOTENSION, UNSPECIFIED 04/18/2019 RICARDO SUMNER MD, Ot J69.0 PNEUMONITIS DUE TO INHALATION OF FOOD AN 04/18/2019 RICARDO SUMNER MD Ot J96.0 1 ACUTE RESPIRATORY FAILURE WITH HYPOXIA 04/18/2019 RICARDO SUMNER MD Ot J96.0 2 ACUTE RESPIRATORY FAILURE WITH HYPERCAPN 04/18/2019 RICARDO SUMNER MD Ot K21.9 GASTRO-ESOPHAGEAL REFLUX DISEASE WITHOUT 04/18/2019 RICARDO SUMNER MD Ot M54.9 DORSALGIA, UNSPECIFIED 04/18/2019 RICARDO SUMNER MD Ot N17.9 ACUTE KIDNEY FAILURE, UNSPECIFIED 04/18/2019 RICARDO SUMNER MD Ot R11.1 0 VOMITING, UNSPECIFIED 04/18/2019 RICARDO SUMNER MD Ot R40.0 SOMNOLENCE 04/18/2019 RICARDO SUMNER MD Ot R65.2 1 SEVERE SEPSIS WITH SEPTIC SHOCK 04/18/2019 RICARDO SUMNER MD Ot T40.601A POISONING BY UNSP NARCOTICS, ACCIDENTAL, 04/18/2019 RICARDO SUMNER MD Ot T43.621A POISONING BY AMPHETAMINES, ACCIDENTAL (U 04/18/2019 RICARDO SUMNER MD Ot A41.9 SEPSIS, UNSPECIFIED ORGANISM 04/18/2019 RICARDO SUMNER MD Ot D64.9 ANEMIA, UNSPECIFIED 04/18/2019 RICARDO SUMNER MD Ot E87.2 ACIDOSIS 04/18/2019 RICARDO SUMNER MD Ot E87.5 HYPERKALEMIA 04/18/2019 RICARDO SUMNER MD Ot F15.1 0 OTHER STIMULANT ABUSE, UNCOMPLICATED 04/18/2019 RICARDO SUMNER MD Ot F17.2 10 NICOTINE DEPENDENCE, CIGARETTES, UNCOMPL 04/18/2019 RICARDO SUMNER MD Ot G89.2 9 OTHER CHRONIC PAIN 04/18/2019 RICARDO SUMNER MD Ot J69.0 PNEUMONITIS DUE TO INHALATION OF FOOD AN 04/18/2019 RICARDO SUMNER MD Ot J96.0 1 ACUTE RESPIRATORY FAILURE WITH HYPOXIA 04/18/2019 RICARDO SUMNER MD Ot J96.0 2 ACUTE RESPIRATORY FAILURE WITH HYPERCAPN 04/18/2019 RICARDO SUMNER MD Ot K21.9 GASTRO-ESOPHAGEAL REFLUX DISEASE WITHOUT 04/18/2019 RICARDO SUMNER MD Ot K75.9 INFLAMMATORY LIVER DISEASE, UNSPECIFIED 04/18/2019 RICARDO SUMNER MD Ot M54.9 DORSALGIA, UNSPECIFIED 04/18/2019 RICARDO SUMNER MD Ot N17.9 ACUTE KIDNEY FAILURE, UNSPECIFIED 04/18/2019 RICARDO SUMNER MD, Ot R65.2 1 SEVERE SEPSIS WITH SEPTIC SHOCK 04/18/2019 RICARDO SUMNER MD, Ot T40.601A POISONING BY UNSP NARCOTICS, ACCIDENTAL, 04/18/2019 RICARDO SUMNER MD, Ot T43.621A POISONING BY AMPHETAMINES, ACCIDENTAL (U 04/18/2019 RICARDO SUMNER MD, Ot Z90.4 9 ACQUIRED ABSENCE OF OTHER SPECIFIED PART Procedures Code Description Performed By Per formed On [id number] IN SERTION OF INFUSION DEV INTO SUP VENA 04/13/2019 [id number] IN SERTION OF ENDOTRACHEAL AIRWAY INTO TR 04/13/2019 [id number] RE SPIRATORY VENTILATION, 24- 96 CONSECUTI 04/13/2019 Results Test Result Range Complete blood count (CBC) with automate d white blood cell (WBC) differential - 05/03/16 13:06 Blood leukocytes automated count (number/volume) 10.8 10*3/uL 4.3-11.0 Blood erythrocytes automated count (number/volume) 4.56 10*6/uL 4.35-5.85 Venous blood hemoglobin measurement (mass/volume) 13.6 g/dL 13.3-17.7 Blood hematocrit (volume fraction) 41 % 40-54 Automated erythrocyte mean corpuscular volume 91 [ foz_us] 80-99 Automated erythrocyte mean corpuscular h emoglobin (mass per erythrocyte) 30 pg 25-34 Automated erythrocyte mean corpuscular h emoglobin concentration measurement (mass/volume) 33 g/dL 32-36 Automated erythrocyte distribution width ratio 13. 5 % 10.0- 14.5 Automated blood platelet count (count/volume) 406 10*3/uL [...] 10*3 1.0-4.0 Blood monocytes automated count (number/volume) 1. 0 10*3 0.0-1.0 Automated eosinophil count 0.5 10*3/uL 0 .0-0.3 Automated blood basophil count (count/volume) 0.0 10*3/uL 0.0-0.1 Comprehensive metabolic panel - 05/03/16 13:06 Serum or plasma sodium measurement (moles/volume) 133 mmol/L 135-145 Serum or plasma potassium measurement (moles/volume) 3.9 mmol/L 3.6-5.0 Serum or plasma chloride measurement (moles/volume) 103 mmol/L 98-107 Carbon dioxide 18 mmol/L 21-32 Serum or plasma anion gap determination (moles/volume) 12 mmol/L 5-14 Serum or plasma urea nitrogen measurement (mass/volume ) 10 mg/dL 7-18 Serum or plasma creatinine measurement (mass/volume) 0.80 mg/dL 0.60-1.30 Serum or plasma urea nitrogen/creatinine mass ratio 13 NRG Serum or plasma creatinine measurement w ith calculation of estimated glomerular filtration rate > NRG Serum or plasma glucose measurement (mass/volume) 101 mg/dL 70-105 Serum or plasma calcium measurement (mass/volume) 8.8 mg/dL 8.5-10.1 Serum or plasma total bilirubin measurement (mass/volu me) 0.5 mg/dL 0.1-1.0 Serum or plasma alkaline phosphatase [place] surement (enzymatic activity/volume) 72 U/L 40-136 Serum or plasma aspartate aminotransfera se measurement (enzymatic activity/volume) 18 U/L 5-34 Serum or plasma alanine aminotransferase measurement (enzymatic activity/volume) 14 U/L 0-55 Serum or plasma protein measurement (mass/volume) 7.1 g/dL 6.4-8.2 Serum or plasma albumin measurement (mass/volume) 4.1 g/dL 3.2-4.5 Complete blood count (CBC) with automate d white blood cell (WBC) differential - 03/08/17 11:41 Blood leukocytes automated count (number/volume) 6.8 10*3/uL 4.3-11.0 Blood erythrocytes automated count (number/volume) 4.82 10*6/uL 4.35-5.85 Venous blood hemoglobin measurement (mass/volume) 14.9 g/dL 13.3-17.7 Blood hematocrit (volume fraction) 44 % 40-54 Automated erythrocyte mean corpuscular volume 91 [ foz_us] 80-99 Automated erythrocyte mean corpuscular h emoglobin (mass per erythrocyte) 31 pg 25-34 Automated erythrocyte mean corpuscular h emoglobin concentration measurement (mass/volume) 34 g/dL 32-36 Automated erythrocyte distribution width ratio 12. 2 % 10.0- 14.5 Automated blood platelet count (count/volume) 281 10*3/uL [...] 10*3 1.0-4.0 Blood monocytes automated count (number/volume) 1. 0 10*3 0.0-1.0 Automated eosinophil count 0.1 10*3/uL 0 .0-0.3 Automated blood basophil count (count/volume) 0.0 10*3/uL 0.0-0.1 Comprehensive metabolic panel - 03/08/17 12:20 Serum or plasma sodium measurement (moles/volume) 134 mmol/L 135-145 Serum or plasma potassium measurement (moles/volume) 3.6 mmol/L 3.6-5.0 Serum or plasma chloride measurement (moles/volume) 99 mmol/L 98-107 Carbon dioxide 23 mmol/L 21-32 Serum or plasma anion gap determination (moles/volume) 12 mmol/L 5-14 Serum or plasma urea nitrogen measurement (mass/volume ) 23 mg/dL 7-18 Serum or plasma creatinine measurement (mass/volume) 0.91 mg/dL 0.60-1.30 Serum or plasma urea nitrogen/creatinine mass ratio 25 NRG Serum or plasma creatinine measurement w ith calculation of estimated glomerular filtration rate > NRG Serum or plasma glucose measurement (mass/volume) 116 mg/dL 70-105 Serum or plasma calcium measurement (mass/volume) 8.5 mg/dL 8.5-10.1 Serum or plasma total bilirubin measurement (mass/volu me) 0.7 mg/dL 0.1-1.0 Serum or plasma alkaline phosphatase [place] surement (enzymatic activity/volume) 65 U/L 40-136 Serum or plasma aspartate aminotransfera se measurement (enzymatic activity/volume) 14 U/L 5-34 Serum or plasma alanine aminotransferase measurement (enzymatic activity/volume) 28 U/L 0-55 Serum or plasma protein measurement (mass/volume) 6.7 g/dL 6.4-8.2 Serum or plasma albumin measurement (mass/volume) 3.7 g/dL 3.2-4.5 Lipase - 03/08/17 12:20 Lipase 5 U/L 8-78 Influenza virus A and B antigen detectio n - 05/28/17 18:25 CALL POSITIVES (F1 HELP) [facility] FLU RESULT POSITIVE FOR INFLUENZA A ANT IGEN, NEG FOR B ANTIGEN, BY IA [facility] Complete blood count (CBC) with automate d white blood cell (WBC) differential - 04/13/19 21:25 Blood leukocytes automated count (number/volume) 8.6 10*3/uL 4.3-11.0 Blood erythrocytes automated count (number/volume) 4.33 10*6/uL 4.35-5.85 Venous blood hemoglobin measurement (mass/volume) 13.2 g/dL 13.3-17.7 Blood hematocrit (volume fraction) 41 % 40-54 Automated erythrocyte mean corpuscular volume 94 [ foz_us] 80-99 Automated erythrocyte mean corpuscular h emoglobin (mass per erythrocyte) 31 pg 25-34 Automated erythrocyte mean corpuscular h emoglobin concentration measurement (mass/volume) 32 g/dL 32-36 Automated erythrocyte distribution width ratio 12. 2 % 10.0- 14.5 Automated blood platelet count (count/volume) 311 10*3/uL 130-400 Automated blood platelet mean volume measurement 9.9 [foz_us] 7.4-10.4 Automated blood neutrophils/100 leukocytes 62 % 42-75 Automated blood lymphocytes/100 leukocytes 30 % 12-44 Blood monocytes/100 leukocytes 5 % 0-12 Automated blood eosinophils/100 leukocytes 3 % 0-10 Automated blood basophils/100 leukocytes 0 % 0-10 Blood neutrophils automated count (number/volume) 5.3 10*3 1.8-7.8 Blood lymphocytes automated count (number/volume) 2.6 10*3 1.0-4.0 Blood monocytes automated count (number/volume) 0. 5 10*3 0.0-1.0 Automated eosinophil count 0.2 10*3/uL 0 .0-0.3 Automated blood basophil count (count/volume) 0.0 10*3/uL 0.0-0.1 Comprehensive metabolic panel - 04/13/19 21:25 Serum or plasma sodium measurement (moles/volume) 135 mmol/L 135-145 Serum or plasma potassium measurement (moles/volume) 3.6 mmol/L 3.6-5.0 Serum or plasma chloride measurement (moles/volume) 102 mmol/L 98-107 Carbon dioxide 16 mmol/L 21-32 Serum or plasma anion gap determination (moles/volume) 17 mmol/L 5-14 Serum or plasma urea nitrogen measurement (mass/volume ) 9 mg/dL 7-18 Serum or plasma creatinine measurement (mass/volume) 1.39 mg/dL 0.60-1.30 Serum or plasma urea nitrogen/creatinine mass ratio 6 NRG Serum or plasma creatinine measurement w ith calculation of estimated glomerular filtration rate 54 NRG Serum or plasma glucose measurement (mass/volume) 340 mg/dL 70-105 Serum or plasma calcium measurement (mass/volume) 8.5 mg/dL 8.5-10.1 Serum or plasma total bilirubin measurement (mass/volu me) 0.2 mg/dL 0.1-1.0 Serum or plasma alkaline phosphatase [place] surement (enzymatic activity/volume) 69 U/L 40-136 Serum or plasma aspartate aminotransfera se measurement (enzymatic activity/volume) 25 U/L 5-34 Serum or plasma alanine aminotransferase measurement (enzymatic activity/volume) 29 U/L 0-55 Serum or plasma protein measurement (mass/volume) 6.9 g/dL 6.4-8.2 Serum or plasma albumin measurement (mass/volume) 4.1 g/dL 3.2-4.5 CALCIUM CORRECTED 8.4 mg/dL 8.5-10.1 Magnesium - 04/13/19 21:25 Magnesium 2.0 mg/dL 1.6-2.4 Lipase - 04/13/19 21:25 Lipase 17 U/L 8-78 Blood lactic acid measurement (moles/vol ume) - 04/13/19 21:25 Blood lactic acid measurement (moles/volume) 5.82 mmol/L 0.50-2.00 Serum or plasma salicylates measurement (mass/volume) - 04/13/19 21:25 Serum or plasma salicylates measurement (mass/volume) < mg/dL 5.0-20.0 Serum or plasma acetaminophen measuremen t (mass/volume) - 04/13/19 21:25 Serum or plasma acetaminophen measurement (mass/volume ) < ug/mL 10-30 Serum or plasma ethanol measurement (mas s/volume) - 04/13/19 21:25 Serum or plasma ethanol measurement (mass/volume) < mg/dL <10 Capillary blood glucose measurement by g lucometer (mass/volume) - 04/13/19 21:27 Capillary blood glucose measurement by glucometer (mas s/volume) 315 mg/dL 70-110 Complete urinalysis with reflex to cultu re - 04/13/19 21:31 Urine color determination YELLOW NRG Urine clarity determination CLEAR NR G Urine pH measurement by test strip 6.0 5-9 Specific gravity of urine by test strip >= 1.016-1.022 Urine protein assay by test strip, semi-quantitative 2+ NEGATIVE Urine glucose detection by automated test strip 2+ NEGATIVE Erythrocytes detection in urine sediment by light micr oscopy 1+ NEGATIVE Urine ketones detection by automated test strip NE GATIVE NEGATIVE Urine nitrite detection by test strip NEGATIVE NEGATIVE Urine total bilirubin detection by test strip NEGA TIVE NEGATIVE Urine urobilinogen measurement by automated test strip (mass/volume) 0.2 mg/dL < = 1.0 Urine leukocyte esterase detection by dipstick NEG ATIVE NEGATIVE Automated urine sediment erythrocyte cou nt by microscopy (number/high power field) [HPF] NRG Automated urine sediment leukocyte count by microscopy (number/high power field) [HPF] NRG Bacteria detection in urine sediment by light microsco py TRACE NRG Squamous epithelial cells detection in u rine sediment by light microscopy NONE NRG Crystals detection in urine sediment by light microsco py NONE NRG Casts detection in urine sediment by light microscopy PRESENT NRG Mucus detection in urine sediment by light microscopy SMALL NRG Complete urinalysis with reflex to culture NO NRG Hyaline casts detection in urine sediment by light varun roscopy 0-2 NRG Other elements identification in urine sediment by lig ht microscopy FEW SPERM NRG Urine drug screening test - 12/08/19 21: 31 Urine phencyclidine detection by screening method NEGATIVE NEGATIVE Urine benzodiazepines detection by screening method NEGATIVE NEGATIVE Urine cocaine detection NEGATIVE NEGATI VE Urine amphetamines detection by screening method P OSITIVE NEGATIVE Urine methamphetamine detection by screening method POSITIVE NEGATIVE Urine cannabinoids detection by screening method N EGATIVE NEGATIVE Urine opiates detection by screening method POSITI VE NEGATIVE Urine barbiturates detection NEGATIVE N EGATIVE Screening urine tricyclic antidepressants detection NEGATIVE NEGATIVE Urine methadone detection by screening method NEGA TIVE NEGATIVE Urine oxycodone detection NEGATIVE NEGA TIVE Urine propoxyphene detection NEGATIVE N EGATIVE Arterial blood gas measurement - 9 21:42 Blood pCO2 62 mm[Hg] 35-45 Blood pO2 40 mm[Hg] 79-93 Arterial blood bicarbonate measurement (moles/volume) 24 mmol/L 23-27 Arterial blood base excess by calculation -3.6 mmo l/L -2.5-2.5 Arterial blood oxygen saturation measurement 53 % 94-100 * Inhaled oxygen flow rate 5L NRG Arterial blood pH measurement with patient temperature correction 7.20 7.37-7.43 Arterial blood carbon dioxide, total measurement (mole s/volume) 25.5 mmol/L 21.0-31.0 Body site LEFT BRACHIAL NRG Assessment of wrist artery patency prior to arterial p uncture POSITIVE NRG Setting of ventilation mode NO NR G Measurement of body temperature 36.2 NRG Serum or plasma lactate measurement (mol es/volume) - 04/13/19 23:56 Serum or plasma lactate measurement (moles/volume) 2.14 mmol/L 0.50-2.00 Methicillin resistant Staphylococcus aur eus (MRSA) screening culture - 04/14/19 02:04 MRSA SCREEN RESULT MRSA ISOLATED NRG Complete blood count (CBC) with automate d white blood cell (WBC) differential - 04/14/19 03:10 Blood leukocytes automated count (number/volume) 10.7 10*3/uL 4.3-11.0 Blood erythrocytes automated count (number/volume) 3.96 10*6/uL 4.35-5.85 Venous blood hemoglobin measurement (mass/volume) 11.9 g/dL 13.3-17.7 Blood hematocrit (volume fraction) 37 % 40-54 Automated erythrocyte mean corpuscular volume 92 [ foz_us] 80-99 Automated erythrocyte mean corpuscular h emoglobin (mass per erythrocyte) 30 pg 25-34 Automated erythrocyte mean corpuscular h emoglobin concentration measurement (mass/volume) 33 g/dL 32-36 Automated erythrocyte distribution width ratio 12. 4 % 10.0- 14.5 Automated blood platelet count (count/volume) 305 10*3/uL 130-400 Automated blood platelet mean volume measurement 9.3 [foz_us] 7.4-10.4 Automated blood neutrophils/100 leukocytes 81 % 42-75 Automated blood lymphocytes/100 leukocytes 11 % 12-44 Blood monocytes/100 leukocytes 8 % 0-12 Automated blood eosinophils/100 leukocytes 1 % 0-10 Automated blood basophils/100 leukocytes 0 % 0-10 Blood neutrophils automated count (number/volume) 8.6 10*3 1.8-7.8 Blood lymphocytes automated count (number/volume) 1.1 10*3 1.0-4.0 Blood monocytes automated count (number/volume) 0. 8 10*3 0.0-1.0 Automated eosinophil count 0.1 10*3/uL 0 .0-0.3 Automated blood basophil count (count/volume) 0.0 10*3/uL 0.0-0.1 Arterial blood gas measurement - 9 03:10 Blood pCO2 51 mm[Hg] 35-45 Blood pO2 59 mm[Hg] 79-93 Arterial blood bicarbonate measurement (moles/volume) 25 mmol/L 23-27 Arterial blood base excess by calculation -0.8 mmo l/L -2.5-2.5 Arterial blood oxygen saturation measurement 89 % 94-100 * Inhaled oxygen flow rate 50% NRG Arterial blood pH measurement with patient temperature correction 7.31 7.37-7.43 Arterial blood carbon dioxide, total measurement (mole s/volume) 26.5 mmol/L 21.0-31.0 Body site LEFT RADIAL NRG Assessment of wrist artery patency prior to arterial p uncture POSITIVE NRG Setting of ventilation mode YES NR G Measurement of body temperature 36.1 NRG Comprehensive metabolic panel - 04/14/19 03:10 Serum or plasma sodium measurement (moles/volume) 137 mmol/L 135-145 Serum or plasma potassium measurement (moles/volume) 5.6 mmol/L 3.6-5.0 Serum or plasma chloride measurement (moles/volume) 108 mmol/L 98-107 Carbon dioxide 22 mmol/L 21-32 Serum or plasma anion gap determination (moles/volume) 7 mmol/L 5-14 Serum or plasma urea nitrogen measurement (mass/volume ) 8 mg/dL 7-18 Serum or plasma creatinine measurement (mass/volume) 1.11 mg/dL 0.60-1.30 Serum or plasma urea nitrogen/creatinine mass ratio 7 NRG Serum or plasma creatinine measurement w ith calculation of estimated glomerular filtration rate > NRG Serum or plasma glucose measurement (mass/volume) 109 mg/dL 70-105 Serum or plasma calcium measurement (mass/volume) 7.7 mg/dL 8.5-10.1 Serum or plasma total bilirubin measurement (mass/volu me) 0.4 mg/dL 0.1-1.0 Serum or plasma alkaline phosphatase [place] surement (enzymatic activity/volume) 61 U/L 40-136 Serum or plasma aspartate aminotransfera se measurement (enzymatic activity/volume) 24 U/L 5-34 Serum or plasma alanine aminotransferase measurement (enzymatic activity/volume) 24 U/L 0-55 Serum or plasma protein measurement (mass/volume) 5.9 g/dL 6.4-8.2 Serum or plasma albumin measurement (mass/volume) 3.6 g/dL 3.2-4.5 CALCIUM CORRECTED 8.0 mg/dL 8.5-10.1 Serum or plasma phosphate measurement (m ass/volume) - 04/14/19 03:10 Serum or plasma phosphate measurement (mass/volume) 3.1 mg/dL 2.3-4.7 Magnesium - 04/14/19 03:10 Magnesium 1.7 mg/dL 1.6-2.4 Sputum Gram stain - 04/14/19 05:00 Sputum Gram stain Mixed Bacterial Dian [facility] Bacterial sputum culture - 04/14/19 05:0 0 QUANTITY OF GROWTH . [facility] Bacterial sputum culture USUAL RESP [facility] Blood lactic acid measurement (moles/vol ume) - 04/14/19 06:05 Blood lactic acid measurement (moles/volume) 0.83 mmol/L 0.50-2.00 Whole blood basic metabolic panel - 01/23 06:05 Serum or plasma sodium measurement (moles/volume) 140 mmol/L 135-145 Serum or plasma potassium measurement (moles/volume) 4.1 mmol/L 3.6-5.0 Serum or plasma chloride measurement (moles/volume) 109 mmol/L 98-107 Carbon dioxide 24 mmol/L 21-32 Serum or plasma anion gap determination (moles/volume) 7 mmol/L 5-14 Serum or plasma urea nitrogen measurement (mass/volume ) 7 mg/dL 7-18 Serum or plasma creatinine measurement (mass/volume) 1.02 mg/dL 0.60-1.30 Serum or plasma urea nitrogen/creatinine mass ratio 7 NRG Serum or plasma creatinine measurement w ith calculation of estimated glomerular filtration rate > NRG Serum or plasma glucose measurement (mass/volume) 97 mg/dL 70-105 Serum or plasma calcium measurement (mass/volume) 7.8 mg/dL 8.5-10.1 Bacterial blood culture - 04/14/19 06:05 Bacterial blood culture NG NRG Bacterial blood culture - 04/14/19 06:35 Bacterial blood culture NG NRG Bacterial blood culture - 04/14/19 06:35 Bacterial blood culture NG NRG Capillary blood glucose measurement by g lucometer (mass/volume) - 04/14/19 11:18 Capillary blood glucose measurement by glucometer (mas s/volume) 267 mg/dL 70-110 Arterial blood gas measurement - 9 11:55 Blood pCO2 44 mm[Hg] 35-45 Blood pO2 69 mm[Hg] 79-93 Arterial blood bicarbonate measurement (moles/volume) 26 mmol/L 23-27 Arterial blood base excess by calculation 0.7 mmol /L -2.5-2.5 Arterial blood oxygen saturation measurement 93 % 94-100 * Inhaled oxygen flow rate 30% NRG Arterial blood pH measurement with patient temperature correction 7.37 7.37-7.43 Arterial blood carbon dioxide, total measurement (mole s/volume) 26.9 mmol/L 21.0-31.0 Body site RR NRG Assessment of wrist artery patency prior to arterial p uncture YES-POS NRG Setting of ventilation mode YES NR G Measurement of body temperature 36.1 NRG Capillary blood glucose measurement by g lucometer (mass/volume) - 04/14/19 17:26 Capillary blood glucose measurement by glucometer (mas s/volume) 116 mg/dL 70-110 Arterial blood gas measurement - 9 02:45 Blood pCO2 52 mm[Hg] 35-45 Blood pO2 67 mm[Hg] 79-93 Arterial blood bicarbonate measurement (moles/volume) 27 mmol/L 23-27 Arterial blood base excess by calculation 1.6 mmol /L -2.5-2.5 Arterial blood oxygen saturation measurement 89 % 94-100 * Inhaled oxygen flow rate N NRG Arterial blood pH measurement with patient temperature correction 7.34 7.37-7.43 Arterial blood carbon dioxide, total measurement (mole s/volume) 28.4 mmol/L 21.0-31.0 Body site RIGHT RADIAL NRG Assessment of wrist artery patency prior to arterial p uncture POSITIVE NRG Setting of ventilation mode YES NR G Measurement of body temperature 37 NRG Complete blood count (CBC) with automate d white blood cell (WBC) differential - 04/15/19 03:00 Blood leukocytes automated count (number/volume) 8.2 10*3/uL 4.3-11.0 Blood erythrocytes automated count (number/volume) 3.49 10*6/uL 4.35-5.85 Venous blood hemoglobin measurement (mass/volume) 10.6 g/dL 13.3-17.7 Blood hematocrit (volume fraction) 34 % 40-54 Automated erythrocyte mean corpuscular volume 96 [ foz_us] 80-99 Automated erythrocyte mean corpuscular h emoglobin (mass per erythrocyte) 30 pg 25-34 Automated erythrocyte mean corpuscular h emoglobin concentration measurement (mass/volume) 32 g/dL 32-36 Automated erythrocyte distribution width ratio 12. 6 % 10.0- 14.5 Automated blood platelet count (count/volume) 242 10*3/uL 130-400 Automated blood platelet mean volume measurement 9.7 [foz_us] 7.4-10.4 Automated blood neutrophils/100 leukocytes 71 % 42-75 Automated blood lymphocytes/100 leukocytes 14 % 12-44 Blood monocytes/100 leukocytes 10 % 0-12 Automated blood eosinophils/100 leukocytes 5 % 0-10 Automated blood basophils/100 leukocytes 0 % 0-10 Blood neutrophils automated count (number/volume) 5.8 10*3 1.8-7.8 Blood lymphocytes automated count (number/volume) 1.1 10*3 1.0-4.0 Blood monocytes automated count (number/volume) 0. 8 10*3 0.0-1.0 Automated eosinophil count 0.4 10*3/uL 0 .0-0.3 Automated blood basophil count (count/volume) 0.0 10*3/uL 0.0-0.1 Comprehensive metabolic panel - 04/15/19 03:00 Serum or plasma sodium measurement (moles/volume) 140 mmol/L 135-145 Serum or plasma potassium measurement (moles/volume) 4.3 mmol/L 3.6-5.0 Serum or plasma chloride measurement (moles/volume) 108 mmol/L 98-107 Carbon dioxide 23 mmol/L 21-32 Serum or plasma anion gap determination (moles/volume) 9 mmol/L 5-14 Serum or plasma urea nitrogen measurement (mass/volume ) 9 mg/dL 7-18 Serum or plasma creatinine measurement (mass/volume) 1.09 mg/dL 0.60-1.30 Serum or plasma urea nitrogen/creatinine mass ratio 8 NRG Serum or plasma creatinine measurement w ith calculation of estimated glomerular filtration rate > NRG Serum or plasma glucose measurement (mass/volume) 94 mg/dL 70-105 Serum or plasma calcium measurement (mass/volume) 7.8 mg/dL 8.5-10.1 Serum or plasma total bilirubin measurement (mass/volu me) 0.4 mg/dL 0.1-1.0 Serum or plasma alkaline phosphatase [place] surement (enzymatic activity/volume) 69 U/L 40-136 Serum or plasma aspartate aminotransfera se measurement (enzymatic activity/volume) 25 U/L 5-34 Serum or plasma alanine aminotransferase measurement (enzymatic activity/volume) 26 U/L 0-55 Serum or plasma protein measurement (mass/volume) 5.4 g/dL 6.4-8.2 Serum or plasma albumin measurement (mass/volume) 3.1 g/dL 3.2-4.5 CALCIUM CORRECTED 8.5 mg/dL 8.5-10.1 Serum or plasma phosphate measurement (m ass/volume) - 04/15/19 03:00 Serum or plasma phosphate measurement (mass/volume) 3.0 mg/dL 2.3-4.7 Magnesium - 04/15/19 03:00 Magnesium 1.9 mg/dL 1.6-2.4 Capillary blood glucose measurement by g lucometer (mass/volume) - 04/15/19 12:25 Capillary blood glucose measurement by glucometer (mas s/volume) 108 mg/dL 70-110 Capillary blood glucose measurement by g lucometer (mass/volume) - 04/15/19 17:57 Capillary blood glucose measurement by glucometer (mas s/volume) 81 mg/dL 70-110 Capillary blood glucose measurement by g lucometer (mass/volume) - 04/15/19 23:35 Capillary blood glucose measurement by glucometer (mas s/volume) 89 mg/dL 70-110 Complete blood count (CBC) with automate d white blood cell (WBC) differential - 04/16/19 03:15 Blood leukocytes automated count (number/volume) 7.1 10*3/uL 4.3-11.0 Blood erythrocytes automated count (number/volume) 3.72 10*6/uL 4.35-5.85 Venous blood hemoglobin measurement (mass/volume) 11.3 g/dL 13.3-17.7 Blood hematocrit (volume fraction) 35 % 40-54 Automated erythrocyte mean corpuscular volume 93 [ foz_us] 80-99 Automated erythrocyte mean corpuscular h emoglobin (mass per erythrocyte) 30 pg 25-34 Automated erythrocyte mean corpuscular h emoglobin concentration measurement (mass/volume) 33 g/dL 32-36 Automated erythrocyte distribution width ratio 12. 6 % 10.0- 14.5 Automated blood platelet count (count/volume) 223 10*3/uL 130-400 Automated blood platelet mean volume measurement 9.3 [foz_us] 7.4-10.4 Automated blood neutrophils/100 leukocytes 70 % 42-75 Automated blood lymphocytes/100 leukocytes 15 % 12-44 Blood monocytes/100 leukocytes 10 % 0-12 Automated blood eosinophils/100 leukocytes 5 % 0-10 Automated blood basophils/100 leukocytes 0 % 0-10 Blood neutrophils automated count (number/volume) 5.0 10*3 1.8-7.8 Blood lymphocytes automated count (number/volume) 1.1 10*3 1.0-4.0 Blood monocytes automated count (number/volume) 0. 7 10*3 0.0-1.0 Automated eosinophil count 0.4 10*3/uL 0 .0-0.3 Automated blood basophil count (count/volume) 0.0 10*3/uL 0.0-0.1 Comprehensive metabolic panel - 04/16/19 03:15 Serum or plasma sodium measurement (moles/volume) 140 mmol/L 135-145 Serum or plasma potassium measurement (moles/volume) 3.8 mmol/L 3.6-5.0 Serum or plasma chloride measurement (moles/volume) 109 mmol/L 98-107 Carbon dioxide 22 mmol/L 21-32 Serum or plasma anion gap determination (moles/volume) 9 mmol/L 5-14 Serum or plasma urea nitrogen measurement (mass/volume ) 7 mg/dL 7-18 Serum or plasma creatinine measurement (mass/volume) 1.03 mg/dL 0.60-1.30 Serum or plasma urea nitrogen/creatinine mass ratio 7 NRG Serum or plasma creatinine measurement w ith calculation of estimated glomerular filtration rate > NRG Serum or plasma glucose measurement (mass/volume) 85 mg/dL 70-105 Serum or plasma calcium measurement (mass/volume) 8.0 mg/dL 8.5-10.1 Serum or plasma total bilirubin measurement (mass/volu me) 0.5 mg/dL 0.1-1.0 Serum or plasma alkaline phosphatase [place] surement (enzymatic activity/volume) 65 U/L 40-136 Serum or plasma aspartate aminotransfera se measurement (enzymatic activity/volume) 23 U/L 5-34 Serum or plasma alanine aminotransferase measurement (enzymatic activity/volume) 21 U/L 0-55 Serum or plasma protein measurement (mass/volume) 5.7 g/dL 6.4-8.2 Serum or plasma albumin measurement (mass/volume) 3.2 g/dL 3.2-4.5 CALCIUM CORRECTED 8.6 mg/dL 8.5-10.1 Serum or plasma phosphate measurement (m ass/volume) - 04/16/19 03:15 Serum or plasma phosphate measurement (mass/volume) 3.3 mg/dL 2.3-4.7 Magnesium - 04/16/19 03:15 Magnesium 1.7 mg/dL 1.6-2.4 Capillary blood glucose measurement by g lucometer (mass/volume) - 04/16/19 12:03 Capillary blood glucose measurement by glucometer (mas s/volume) 110 mg/dL 70-110 Capillary blood glucose measurement by g lucometer (mass/volume) - 04/16/19 18:25 Capillary blood glucose measurement by glucometer (mas s/volume) 137 mg/dL 70-110 Capillary blood glucose measurement by g lucometer (mass/volume) - 04/16/19 23:39 Capillary blood glucose measurement by glucometer (mas s/volume) 83 mg/dL 70-110 Capillary blood glucose measurement by g lucometer (mass/volume) - 04/17/19 05:18 Capillary blood glucose measurement by glucometer (mas s/volume) 91 mg/dL 70-110 Complete blood count (CBC) with automate d white blood cell (WBC) differential - 04/17/19 07:01 Blood leukocytes automated count (number/volume) 7.2 10*3/uL 4.3-11.0 Blood erythrocytes automated count (number/volume) 3.95 10*6/uL 4.35-5.85 Venous blood hemoglobin measurement (mass/volume) 11.8 g/dL 13.3-17.7 Blood hematocrit (volume fraction) 36 % 40-54 Automated erythrocyte mean corpuscular volume 92 [ foz_us] 80-99 Automated erythrocyte mean corpuscular h emoglobin (mass per erythrocyte) 30 pg 25-34 Automated erythrocyte mean corpuscular h emoglobin concentration measurement (mass/volume) 33 g/dL 32-36 Automated erythrocyte distribution width ratio 12. 1 % 10.0- 14.5 Automated blood platelet count (count/volume) 241 10*3/uL 130-400 Automated blood platelet mean volume measurement 9.5 [foz_us] 7.4-10.4 Automated blood neutrophils/100 leukocytes 74 % 42-75 Automated blood lymphocytes/100 leukocytes 11 % 12-44 Blood monocytes/100 leukocytes 9 % 0-12 Automated blood eosinophils/100 leukocytes 7 % 0-10 Automated blood basophils/100 leukocytes 0 % 0-10 Blood neutrophils automated count (number/volume) 5.3 10*3 1.8-7.8 Blood lymphocytes automated count (number/volume) 0.8 10*3 1.0-4.0 Blood monocytes automated count (number/volume) 0. 6 10*3 0.0-1.0 Automated eosinophil count 0.5 10*3/uL 0 .0-0.3 Automated blood basophil count (count/volume) 0.0 10*3/uL 0.0-0.1 Comprehensive metabolic panel - 04/17/19 07:01 Serum or plasma sodium measurement (moles/volume) 140 mmol/L 135-145 Serum or plasma potassium measurement (moles/volume) 3.8 mmol/L 3.6-5.0 Serum or plasma chloride measurement (moles/volume) 107 mmol/L 98-107 Carbon dioxide 22 mmol/L 21-32 Serum or plasma anion gap determination (moles/volume) 11 mmol/L 5-14 Serum or plasma urea nitrogen measurement (mass/volume ) 9 mg/dL 7-18 Serum or plasma creatinine measurement (mass/volume) 0.96 mg/dL 0.60-1.30 Serum or plasma urea nitrogen/creatinine mass ratio 9 NRG Serum or plasma creatinine measurement w ith calculation of estimated glomerular filtration rate > NRG Serum or plasma glucose measurement (mass/volume) 99 mg/dL 70-105 Serum or plasma calcium measurement (mass/volume) 8.8 mg/dL 8.5-10.1 Serum or plasma total bilirubin measurement (mass/volu me) 0.6 mg/dL 0.1-1.0 Serum or plasma alkaline phosphatase [place] surement (enzymatic activity/volume) 67 U/L 40-136 Serum or plasma aspartate aminotransfera se measurement (enzymatic activity/volume) 28 U/L 5-34 Serum or plasma alanine aminotransferase measurement (enzymatic activity/volume) 27 U/L 0-55 Serum or plasma protein measurement (mass/volume) 6.7 g/dL 6.4-8.2 Serum or plasma albumin measurement (mass/volume) 3.7 g/dL 3.2-4.5 CALCIUM CORRECTED 9.0 mg/dL 8.5-10.1 Serum or plasma phosphate measurement (m ass/volume) - 04/17/19 07:01 Serum or plasma phosphate measurement (mass/volume) 2.8 mg/dL 2.3-4.7 Magnesium - 04/17/19 07:01 Magnesium 1.7 mg/dL 1.6-2.4 Capillary blood glucose measurement by g lucometer (mass/volume) - 04/17/19 11:59 Capillary blood glucose measurement by glucometer (mas s/volume) 128 mg/dL 70-110 Capillary blood glucose measurement by g lucometer (mass/volume) - 04/17/19 18:31 Capillary blood glucose measurement by glucometer (mas s/volume) 119 mg/dL 70-110 Capillary blood glucose measurement by g lucometer (mass/volume) - 04/17/19 23:45 Capillary blood glucose measurement by glucometer (mas s/volume) 96 mg/dL 70-110 Capillary blood glucose measurement by g lucometer (mass/volume) - 04/18/19 05:29 Capillary blood glucose measurement by glucometer (mas s/volume) 100 mg/dL 70-110 Encounters ACCT No. Visit Date/Time Discharge Status Pt. Type Provider Facility Loc./Unit Complaint [id number] 04/14/2019 01:02:00 019 10:30:00 DIS Inpatient BURAK WALLIS, RICARDO Mabry [facility] 4TH BILATERAL MULTILOBAR PN A, RESP FAILURE [id number] 01/30/2018 18:35:00 018 22:28:00 DIS Emergency ARCHIEMIAHSHWETAIS [facility] ER LOWER BACK PAIN [id number] 05/28/2017 17:07:00 018 20:37:00 DIS Emergency NIRAV NGUYEN [facility] ER POSS PNEUMONIA, FLU SY MPTOMS, SOB [id number] 03/08/2017 11:33:00 017 13:34:00 DIS Emergency ANITA TILLEY MD [facility] ER ABD PAIN N/V/D [id number] 05/03/2016 11:36:00 016 14:16:00 DIS Emergency TERRENCE AMEZCUA [facility] ER DIARRHEA/VOMITING [id number] 05/26/2015 01:40:00 016 11:20:00 DIS Inpatient MIGUEL PALAFOX MD [facility] 4TH GASTROENTERITIS;INFLAMM ATORY CHANGES OF ILEUM/ [id number] 01/09/2015 07:40:00 015 10:06:00 DIS Inpatient MIGUEL PALAFOX MD [facility] ICU NARCOTIC OD,AMS,LEUKOCY TOSIS [id number] 04/21/2014 04:35:00 014 08:28:00 DIS Emergency FRANCINE QUINTANILLA MD [facility] ER ABD PAIN [id number] 04/19/2014 01:25:00 014 16:30:00 DIS Inpatient NIK VALLADARES MD [facility] SURGICAL ABD PAIN WITH NAUSEA AN D VOMITING [id number] 04/17/2014 23:18:00 014 02:15:00 DIS Emergency ANNETTE GONZALEZ DO [facility] ER ABD PAIN,NAUSEA,VOMITIN G [id number] 09/03/2013 16:41:00 014 20:06:00 DIS Emergency NIRAV NGUYEN [facility] ER ABD PAIN [id number] 05/17/2017 22:13:00 Document Registration [id number] 05/17/2017 22:13:00 Document Registration [id number] 05/17/2017 22:13:00 Document Registration [id number] 05/17/2017 22:13:00 Document Registration [id number] 05/17/2017 22:13:00 Document Registration [id number] 05/17/2017 22:13:00 Document Registration
== END 2019-04-18 10:30 | disposition left against medical advice (07) | DRG 917 ==
LOC: EDUNIT# 21:22 → ER 21:23 → ICU 04-14 01:02 → 4TH 04-16 08:33
PROVIDERS: ADMIT Family Medicine; ATTEND Family Medicine
PROC: 5A1945Z Respiratory Ventilation, 24-96 Consecutive Hours (ICD-10-PCS; principal; 2019-04-13)
PROC: 0BH17EZ Insertion of Endotracheal Airway into Trachea, Via Natural or Artificial Opening (ICD-10-PCS; 2019-04-13)
PROC: 02HV33Z Insertion of Infusion Device into Superior Vena Cava, Percutaneous Approach (ICD-10-PCS; 2019-04-13)
DX: T43.621A Poisoning by amphetamines, accidental (unintentional), initial encounter (principal); J96.01 Acute respiratory failure with hypoxia; J96.02 Acute respiratory failure with hypercapnia; A41.9 Sepsis, unspecified organism; R65.21 Severe sepsis with septic shock; J69.0 Pneumonitis due to inhalation of food and vomit; E87.2 Acidosis; N17.9 Acute kidney failure, unspecified; T40.601A Poisoning by unspecified narcotics, accidental (unintentional), initial encounter; F15.10 Other stimulant abuse, uncomplicated; K75.9 Inflammatory liver disease, unspecified; F17.210 Nicotine dependence, cigarettes, uncomplicated; D64.9 Anemia, unspecified; K21.9 Gastro-esophageal reflux disease without esophagitis; M54.9 Dorsalgia, unspecified; G89.29 Other chronic pain; E87.5 Hyperkalemia; Z90.49 Acquired absence of other specified parts of digestive tract
CPT/HCPCS: 36415; 36600; 36680; 51702; 70450; 71045; 71260; 72125; 73030; 74177; 80048; 80053; 80306; 80320; 80329; 81000; 82805; 82962; 83605; 83690; 83735; 84100; 85025; 87040; 87070; 87081; 87205; 93005; 94002; 94003; 94640; 94760; 94799; 96360; 99291; 99292

== ENCOUNTER 2020-02-23 20:34 | Emergency (ER) | payer SELFPAY ==
[~2020-02-23 20:34] MED LIST changes: +PANT20TA18 PO; -PANT20TA3 PO
--- NOTE | 2020-02-23 21:11 | NUR ---
Pt was a PUI; attempted to call patient but number was unavailable and unable to leave message. Went to parking lot and chairs outside of ER and no one was waiting. Could not find patient. It is assumed pt left. The door screener stated that pt seemed irritated that they had to wait outside and stated "do I need to go find another hospital?". This nurse never spoke with patient.
== END 2020-02-23 21:13 | disposition left against medical advice (07) ==
LOC: EDUNIT# 20:34 → ER 20:35
DX: J11.1 Influenza due to unidentified influenza virus with other respiratory manifestations (principal)

== ENCOUNTER 2020-02-24 08:23 | Inpatient (IN) | payer SELFPAY ==
[~2020-02-24] VITALS: Ht 180 cm; Wt 94.5 kg
[2020-02-24] MEDS ORDERED: fentaNYL INJECTION 100 MCG/2 ML AMP IVP ONE ×2 (08:45→10:45)
[2020-02-24] MEDS ORDERED: ONDANSETRON 4 MG/2 ML (SDV) Z0FRAN IVP ONE (08:45)
[2020-02-24] MEDS ORDERED: NS IV 1000 ML 1,000 ML IV SCH (08:45)
[2020-02-24 08:52] LABS: BASOPHILS % (AUTO) 1 % (0-10); EOSINOPHILS # (AUTO) 0.2 10^3/uL (0.0-0.3); EOSINOPHILS % (AUTO) 3 % (0-10)
[2020-02-24 08:54] LABS: HEMATOCRIT 42 % (40-54); HEMOGLOBIN 14.2 g/dL (13.3-17.7); LYMPHOCYTES # (AUTO) 0.6 10^3/uL (1.0-4.0); LYMPHOCYTES % (AUTO) 10 % (12-44); MEAN CORPUSCULAR HEMOGLOBIN 31 pg (25-34); MEAN CORPUSCULAR HGB CONC 34 g/dL (32-36); MEAN CORPUSCULAR VOLUME 90 fL (80-99); MEAN PLATELET VOLUME 9.8 fL (9.0-12.2); MONOCYTES # (AUTO) 1.2 10^3/uL (0.0-1.0); MONOCYTES % (AUTO) 21 % (0-12); NEUTROPHILS # (AUTO) 3.6 10^3/uL (1.8-7.8); NEUTROPHILS % (AUTO) 64 % (42-75); PLATELET COUNT 330 10^3/uL (130-400); WHITE BLOOD COUNT 5.6 10^3/uL (4.3-11.0)
[2020-02-24 09:16] LABS: ALBUMIN 4.1 GM/DL (3.2-4.5); CHLORIDE 97 MMOL/L (98-107); POTASSIUM 3.7 MMOL/L (3.6-5.0); SODIUM 135 MMOL/L (135-145)
[2020-02-24 09:17] LABS: CALCIUM 8.9 MG/DL (8.5-10.1)
[2020-02-24 09:18] LABS: GLUCOSE 115 MG/DL (70-105)
[2020-02-24 09:19] LABS: TOTAL PROTEIN 7.2 GM/DL (6.4-8.2)
[2020-02-24 09:20] LABS: CARBON DIOXIDE 24 MMOL/L (21-32)
[2020-02-24 09:21] LABS: BILIRUBIN,TOTAL 0.6 MG/DL (0.1-1.0)
[2020-02-24 09:22] LABS: ALKALINE PHOSPHATASE 67 U/L (40-136); BAND NEUTROPHILS 15 %; BASOPHILS % (MANUAL) 0 %; CREATININE SERUM 1.01 MG/DL (0.60-1.30); EOSINOPHILS % (MANUAL) 4 %; GFR ESTIMATED > 60; LYMPHOCYTES % (MANUAL) 14 %; MONOCYTES % (MANUAL) 23 %; NEUTROPHILS % (MANUAL) 44 %; RBC MORPH NORMAL
[2020-02-24 09:23] LABS: BUN/CREATININE RATIO 16
[2020-02-24 09:25] LABS: ALANINE AMINOTRANSFERASE 95 U/L (0-55)
[2020-02-24 09:26] LABS: LIPASE 4 U/L (8-78)
[2020-02-24] MEDS ORDERED: NS 100 ML (IVPB) BAG IV ONE (09:30)
[2020-02-24] MEDS ORDERED: HOLD METFORMIN - RECEIVED CONTRAST 20 ML VIAL IV SCH (09:30)
[2020-02-24] MEDS ORDERED: IOHEXOL 350 MG/ML 100 ML (OMNIPAQUE 350) VIAL IV ONE (09:30)
--- NOTE | 2020-02-24 09:39 | NUR ---
PT TO RADIOLOGY PER CART. PER RADIOLOGY, UNABLE TO USE EJ FOR CONTRAST. CT WILL BE NON-CONTRAST
--- NOTE | 2020-02-24 10:06 | Diagnostic Imaging Report ---
PROCEDURE: CT abdomen and pelvis without contrast. TECHNIQUE: Multiple contiguous axial images were obtained through the abdomen and pelvis without the use of intravenous contrast. Auto Exposure Controls were utilized during the CT exam to meet ALARA standards for radiation dose reduction. INDICATION: Abdominal pain. FINDINGS: The previous CT abdomen/pelvis exam of 04/13/2019 failed to show any sign of an acute abnormality; however, in the interval since the prior study, numerous dilated gas and fluid-filled segments of small bowel have developed. This appearance does suggest a small bowel obstruction. I suspect the transition point is in the right mid abdomen. If further evaluation is desired, then a contrast small bowel exam would be recommended. There is no acute abnormality identified otherwise. In particular, there is no sign of a pneumoperitoneum. The liver, spleen, pancreas, adrenals, gallbladder, kidneys, aorta, and inferior vena cava seem similar to the prior exam. The small hiatal hernia seen on the prior study is also again visualized and essentially no different. There is no pelvic mass or free fluid collection identified. The appendix is not well-visualized but there are no indirect signs of acute appendicitis. The urinary bladder and prostate gland are grossly unremarkable. The bone windows show no sign of a fracture or destructive lesion. The lung bases are clear. IMPRESSION: 1. The findings do suggest a small bowel obstruction. If further evaluation is desired, then a contrast small bowel exam would be recommended. 2. There is no acute abnormality of the abdomen or pelvis noted otherwise. 3. These results were discussed with Dr. Lao in the Emergency Room at the time of this dictation. CRITICAL FINDING Dictated by: Dictated on workstation # [id number]
--- NOTE | 2020-02-24 10:15 | Diagnostic Imaging Report ---
HISTORY: Abdominal pain and distention COMPARISON: CT from the same day TECHNIQUE: Supine and upright frontal views of the abdomen FINDINGS: There are multiple distended loops of small bowel in the abdomen. A small amount of gas is seen in the colon, without significant distention. Findings are concerning for obstruction, as seen on the prior CT. No large collection of free air seen. IMPRESSION: 1. Small bowel distention concerning for obstruction. Dictated by: Dictated on workstation # [id number]
--- NOTE | 2020-02-24 10:32 | ED Abdominal Pain ---
General Chief Complaint: Abdominal/GI Problems Stated Complaint: ABD PAIN Nursing Triage Note: PT TO ED W/ C/O GENERALIZED ABD PAIN ONSET X4-5 DAYS, WORSE TODAY. PT'S ABD IS CURRENTLY FIRM ET DISTENDED. REPORTED DIARRHEA THIS AM. NO OTHER C/O VOICED. PT DOES REPORT POSSIBLE HEP C HX Sepsis Screen: No Definite Risk Source of Information: Patient Exam Limitations: No Limitations History of Present Illness Date Seen by Provider: Feb 24, 2020 Time Seen by Provider: 08:32 Initial Comments 54-year-old male presents to the emergency department today with a chief complaint of diffuse abdominal pain nausea vomiting inability to hold down food or fluids and some very minimal diarrhea this morning. Patient states that he is never had pain like this before. It has steadily gotten worse over the last 5 days. He denies any fevers or chills. He denies any upper respiratory complaints or sick contacts. Patient has a history of significant polysubstance abuse. He most recently has been using heroin but he states it has been about a month since he has had that. Patient states that he has not been able to hold down any liquids over the course of the last 5 days. He did have a very small bowel movement this morning at about 6 AM. Denies any complaints regarding urination. Denies any bloody stools. Denies any bloody emesis. All other review of systems reviewed and negative except as stated above. Timing/Duration: 5-6 Days Allergies and Home Medications Allergies Coded Allergies: diphenhydramine (Unverified Allergy, Unknown, 05/28/17) Home Medications No Active Prescriptions or Reported Meds Patient Home Medication List Home Medication List Reviewed: Yes Review of Systems Review of Systems Constitutional: malaise EENTM: No Symptoms Reported Respiratory: No Symptoms Reported Cardiovascular: No Symptoms Reported Gastrointestinal: Abdomen Distended, Abdominal Pain, Diarrhea, Nausea, Poor Appetite Genitourinary: No Symptoms Reported Musculoskeletal: no symptoms reported Skin: no symptoms reported All Other Systems Reviewed Negative Unless Noted: Yes Past Cqnbevi-Rknems-Oqxfed Hx Patient Social History Alcohol Use: Denies Use Recreational Drug Use: Yes Drug of Choice: METH, HEROIN, COCAINE,MARIJUANA Smoking Status: Current Everyday Smoker Type Used: Cigarettes Recent Foreign Travel: No Contact w/Someone Who Travel: No Recent Infectious Disease Expo: No Recent Hopitalizations: No Physical Abuse: No Sexual Abuse: No Mistreated: No Fear: No Immunizations Up To Date Tetanus Booster (TDap): Unknown Date of Influenza Vaccine: May 26, 2015 Seasonal Allergies Seasonal Allergies: No Past Medical History Surgeries: Yes (WOUND DEBRIDEMENT LEFT FOREARM FROM INFECTION SECONDARY TO IV DRUG USE) Appendectomy, Tonsillectomy Respiratory: No Currently Using BIPAP: No Cardiac: No Neurological: No Reproductive Disorders: No Sexually Transmitted Disease: No HIV/AIDS: No Genitourinary: No Gastrointestinal: Yes Gastroesophageal Reflux, Hepatitis, Gall Bladder Disease Musculoskeletal: Yes Chronic Back Pain Endocrine: No Loss of Vision: Bilateral Cancer: No Psychosocial: No Integumentary: Yes (WOUND INFECTION LEFT FOREARM FROM IV DRUG USE) Blood Disorders: No Adverse Reaction/Blood Tranf: No Family Medical History Diabetes mellitus 19 FATHER FH: aneurysm 19 MOTHER FH: cancer 19 FATHER 19 MOTHER Pacemaker 19 MOTHER Heart Disease, Cancer, CVA, Hypertension Per records reviewed due to altered mental status Physical Exam Vital Signs Vital Signs - First Documented 02/24/20 08:23 Temp 36.3 Pulse 100 Resp 20 B/P (MAP) 145/105 (118) Pulse Ox 95 O2 Delivery Room Air Capillary Refill : Less Than 3 Seconds Height/Weight/BMI Height: 6'0" Weight: 165lbs. 0.0oz. [id number]; 29.00 BMI Method:Stated General Appearance: WD/WN HEENT: PERRL/EOMI, other (Dry oral mucosa) Neck: full range of motion Respiratory: lungs clear, normal breath sounds, no respiratory distress, no accessory muscle use Cardiovascular: regular rate, rhythm, no murmur Gastrointestinal: abnormal bowel sounds (Hypoactive tinkling bowel sounds), distended, guarding, rebound Extremities: normal range of motion, no pedal edema 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: no motor/sensory deficits, alert, normal mood/affect, oriented x 3 Skin: normal color, warm/dry Focused Exam Lactate Level 02/24/20 08:40: Lactic Acid Level 1.29 Lactic Acid Level Laboratory Tests Test 02/24/20 08:40 Lactic Acid Level 1.29 MMOL/L (0.50-2.00) Procedures/Interventions Date of ETT Placement: Apr 13, 2019 Time of ETT Placement: 2314 Progress/Results/Core Measures Results/Orders Lab Results Laboratory Tests Test 02/24/20 08:40 Range/Units White Blood Count 5.6 4.3-11.0 10^3/uL Red Blood Count 4.65 4.30-5.52 10^6/uL Hemoglobin 14.2 13.3-17.7 g/dL Hematocrit 42 40-54 % Mean Corpuscular Volume 90 80-99 fL Mean Corpuscular Hemoglobin 31 25-34 pg Mean Corpuscular Hemoglobin Concent 34 32-36 g/dL Red Cell Distribution Width 11.9 10.0-14.5 % Platelet Count 330 130-400 10^3/uL Mean Platelet Volume 9.8 9.0-12.2 fL Immature Granulocyte % (Auto) 1 % Neutrophils (%) (Auto) 64 42-75 % Lymphocytes (%) (Auto) 10 L 12-44 % Monocytes (%) (Auto) 21 H 0-12 % Eosinophils (%) (Auto) 3 0-10 % Basophils (%) (Auto) 1 0-10 % Neutrophils # (Auto) 3.6 1.8-7.8 10^3/uL Lymphocytes # (Auto) 0.6 L 1.0-4.0 10^3/uL Monocytes # (Auto) 1.2 H 0.0-1.0 10^3/uL Eosinophils # (Auto) 0.2 0.0-0.3 10^3/uL Basophils # (Auto) 0.0 0.0-0.1 10^3/uL Immature Granulocyte # (Auto) 0.0 0.0-0.1 10^3/uL Neutrophils % (Manual) 44 % Lymphocytes % (Manual) 14 % Monocytes % (Manual) 23 % Eosinophils % (Manual) 4 % Basophils % (Manual) 0 % Band Neutrophils 15 % Blood Morphology Comment NORMAL Sodium Level 135 135-145 MMOL/L Potassium Level 3.7 3.6-5.0 MMOL/L Chloride Level 97 L 98-107 MMOL/L Carbon Dioxide Level 24 21-32 MMOL/L Anion Gap 14 5-14 MMOL/L Blood Urea Nitrogen 16 7-18 MG/DL Creatinine 1.01 0.60-1.30 MG/DL Estimat Glomerular Filtration Rate > 60 BUN/Creatinine Ratio 16 Glucose Level 115 H 70-105 MG/DL Lactic Acid Level 1.29 0.50-2.00 MMOL/L Calcium Level 8.9 8.5-10.1 MG/DL Corrected Calcium 8.8 8.5-10.1 MG/DL Total Bilirubin 0.6 0.1-1.0 MG/DL Aspartate Amino Transf (AST/SGOT) 72 H 5-34 U/L Alanine Aminotransferase (ALT/SGPT) 95 H 0-55 U/L Alkaline Phosphatase 67 40-136 U/L Total Protein 7.2 6.4-8.2 GM/DL Albumin 4.1 3.2-4.5 GM/DL Lipase 4 L 8-78 U/L My Orders Orders - EARL AVILA MD Ed Iv/Invasive Line Start (02/24/20 08:41) Cbc With Automated Diff (02/24/20 08:41) Comprehensive Metabolic Panel (02/24/20 08:41) Lipase (02/24/20 08:41) Urinalysis (02/24/20 08:41) Lactic Acid Analyzer (02/24/20 08:41) Blood Culture (02/24/20 08:41) Abdomen, Flat & Upright/Decub (02/24/20 08:41) Ns Iv 1000 Ml (Sodium Chloride 0.9%) (02/24/20 08:45) Fentanyl Injection (Sublimaze Injection (02/24/20 08:45) Ondansetron Injection (Zofran Injectio (02/24/20 08:45) Blood Culture (02/24/20 08:51) Manual Differential (02/24/20 08:40) Ct Abdomen/Pelvis Wo (02/24/20 08:41) Fentanyl Injection (Sublimaze Injection (02/24/20 10:45) Medications Given in ED Current Medications Medications Dose Ordered Sig/Cecilia Route Start Time Stop Time Status Last Admin Dose Admin Fentanyl Citrate 50 mcg ONCE ONCE IVP 02/24/20 08:45 02/24/20 08:46 DC 02/24/20 08:49 50 MCG Fentanyl Citrate 50 mcg ONCE ONCE IVP 02/24/20 10:45 02/24/20 10:46 DC 02/24/20 11:00 50 MCG Ondansetron HCl 4 mg ONCE ONCE IVP 02/24/20 08:45 02/24/20 08:46 DC 02/24/20 08:49 4 MG Vital Signs/I&O 02/24/20 08:23 Temp 36.3 Pulse 100 Resp 20 B/P (MAP) 145/105 (118) Pulse Ox 95 O2 Delivery Room Air Blood Pressure Mean: 118 Progress Progress Note : Time: 10:25 Progress Note 54-year-old male presents to the emergency department with a chief complaint plaint of diffuse abdominal pain. Evaluation today includes a physical exam, CBC, Chem-12, KUB flat and upright as well as CT abdomen and pelvis without contrast. Patient is demonstrated on CT to have a small bowel point with transition point suspected in the right mid abdomen. Patient is treated to the emergency department with IV fluids and pain medications. We will discussed the case with Dr. Veras on for general surgery. [address] NGT Diagnostic Imaging Diagonstic Imaging: CT Plain Films/CT/US/NM/MRI: abdomen Comments [facility], [place] NAME: CAROL PARIKH [facility] REC#: [id number] PT STATUS: REG ER : 1965 PHYSICIAN: EARL AVILA MD ADMIT DATE: 02/24/20/ER Draft Date of Exam:02/24/20 CT ABDOMEN/PELVIS WO PROCEDURE: CT abdomen and pelvis without contrast. TECHNIQUE: Multiple contiguous axial images were obtained through the abdomen and pelvis without the use of intravenous contrast. Auto Exposure Controls were utilized during the CT exam to meet ALARA standards for radiation dose reduction. INDICATION: Abdominal pain. FINDINGS: The previous CT abdomen/pelvis exam of 04/13/2019 failed to show any sign of an acute abnormality; however, in the interval since the prior study, numerous dilated gas and fluid-filled segments of small bowel have developed. This appearance does suggest a small bowel obstruction. I suspect the transition point is in the right mid abdomen. If further evaluation is desired, then a contrast small bowel exam would be recommended. There is no acute abnormality identified otherwise. In particular, there is no sign of a pneumoperitoneum. The liver, spleen, pancreas, adrenals, gallbladder, kidneys, aorta, and inferior vena cava seem similar to the prior exam. The small hiatal hernia seen on the prior study is also again visualized and essentially no different. There is no pelvic mass or free fluid collection identified. The appendix is not well-visualized but there are no indirect signs of acute appendicitis. The urinary bladder and prostate gland are grossly unremarkable. The bone windows show no sign of a fracture or destructive lesion. The lung bases are clear. IMPRESSION: 1. The findings do suggest a small bowel obstruction. If further evaluation is desired, then a contrast small bowel exam would be recommended. 2. There is no acute abnormality of the abdomen or pelvis noted otherwise. 3. These results were discussed with Dr. Avila in the Emergency Room at the time of this dictation. CRITICAL FINDING Dictated on workstation # [id number] Dict: 02/24/20 0952 Trans: 02/24/20 1006 [id number] Interpreted by: DORINDA FUENTES MD Electronically signed by: Departure Communication (Admissions) Time/Spoke to Admitting Phy: 10:30 Discussed with "Saúl" in surgery - for DR VERAS Impression Primary Impression: Abdominal pain Qualified Codes: R10.84 - Generalized abdominal pain Additional Impression: Small bowel obstruction Disposition: ADMITTED INPATIENT Condition: Stable Admissions Decision to Admit Reason: Admit from ER (General) Decision to Admit/Date: Feb 24, 2020 Time/Decision to Admit Time: 10:30 Departure-Patient Inst. Referrals: HERNANDO BAILEY (PCP) Primary Care Physician [facility] (Family) Primary Care Physician Scripts No Active Prescriptions or Reported Meds EARL AVILA MD Feb 24, 2020 10:32
[2020-02-24] MEDS ORDERED: CATHETER FLUSH 10 ML SYR IV PRN (12:30)
[2020-02-24] MEDS: NS IV 1000 ML 1,000 ML IV SCH ×2 (12:33→20:35)
--- NOTE | 2020-02-24 12:38 | NUR ---
CAROL PARIKH admitted to room 416-1, with an admitting diagnosis of SMALL BOWEL OBSTRUCTION, on 02/24/20 from ED via BED, accompanied by STAFF. CAROL PARIKH introduced to surroundings, call light, bed controls, phone, TV, temperature control, lights, meal times, smoking policy, visitor policy, side rail policy, bathrooms and showers. Patient Rights given to patient in the handbook. CAROL PARIKH verbalizes understanding that [facility] is not responsible for the loss or damage to any personal effects or valuables that are kept in the patients posession during their hospitalization. The following Patient Care Plans were discussed with the PATIENT: Discharge Planning, KNOWLEDGE, SMALL BOWEL OBSTRUCTION AND PAIN. CAROL PARIKH verbalizes understanding of Interdisciplinary Patient Education. Patient and/or family were informed about the Rapid Response Team and its purpose.
[2020-02-24 13:03] VITALS: BP 152/75
[2020-02-24 13:15] VITALS: BP 145/105
[2020-02-24] MEDS ORDERED: ONDANSETRON 4 MG/2 ML (SDV) Z0FRAN IVP PRN (13:45)
--- NOTE | 2020-02-24 13:50 | History & Physical-Surgical ---
GOMEZ MIJARES,MED STUDENT 02/24/20 1350: History of Present Illness History of Present Illness Reason for visit/HPI Patient is a 54 year old male who presented to the ED with abdominal pain for 5- 6 days and abdominal distension for 2 days. He describes his pain as sharp and stabbing and rates it as 10/10. He states it is worse with certain positions, and nothing has made it better. He states it is worst in the LUQ. He has also had nausea and vomiting during this time, and his emesis is clearish colored. He has been having only small, liquidy stools that are green. Denies blood in emesis or stool. He has not been able to keep foods or liquids down. He denies any previous abdominal surgeries and has not noticed any hernias. He has never had a colonoscopy. Date of Admission Feb 24, 2020 at 11:33 Date Seen by a Provider: Feb 24, 2020 Time Seen by a Provider: 13:00 I consulted on this patient on 02/24/20 13:43 Attending Physician Kassandra Veras DO Admitting Physician Italo Koo Consult Allergies and Home Medications Allergies Coded Allergies: diphenhydramine (Unverified Allergy, Unknown, 05/28/17) Home Medications No Active Prescriptions or Reported Meds Past Jqrxnjd-Voeagz-Hanqdt Hx Patient Social History Alcohol Use: Denies Use Recreational Drug Use: Yes Drug of Choice: METH, HEROIN, COCAINE,MARIJUANA Smoking Status: Current Everyday Smoker Type Used: Cigarettes Recent Foreign Travel: No Contact w/Someone Who Travel: No Recent Infectious Disease Expo: No Recent Hopitalizations: No Immunizations Up To Date Tetanus Booster (TDap): Unknown Date of Influenza Vaccine: May 26, 2015 Seasonal Allergies Seasonal Allergies: No Surgeries History of Surgeries: Yes (WOUND DEBRIDEMENT LEFT FOREARM FROM INFECTION SECONDARY TO IV DRUG USE) Surgeries: Tonsillectomy Respiratory History of Respiratory Disorde: No Cardiovascular History of Cardiac Disorders: No Neurological History of Neurological Disord: No Reproductive System Hx Reproductive Disorders: No Sexually Transmitted Disease: No HIV/AIDS: No Genitourinary History of Genitourinary Disor: No Gastrointestinal History of Gastrointestinal Di: Yes Gastrointestinal Disorders: Gastroesophageal Reflux, Hepatitis, Gall Bladder Disease Musculoskeletal History of Musculoskeletal Dis: Yes Musculoskeletal Disorders: Chronic Back Pain Endocrine History of Endocrine Disorders: No HEENT Loss of Vision: Bilateral Cancer History of Cancer: No Psychosocial History of Psychiatric Problem: No Integumentary History of Skin or Integumenta: Yes (WOUND INFECTION LEFT FOREARM FROM IV DRUG USE) Blood Transfusions History of Blood Disorders: No Adverse Reaction to a Blood Tr: No Family Medical History Significant Family History: Heart Disease, Cancer, CVA, Hypertension Family Medial History: Diabetes mellitus 19 FATHER FH: aneurysm 19 MOTHER FH: cancer 19 FATHER 19 MOTHER Pacemaker 19 MOTHER Review of Systems Constitutional: No chills, No fever EENTM: No vision loss Respiratory: No cough, No short of breath Cardiovascular: No chest pain, No edema Gastrointestinal: abdominal pain, diarrhea; No hematemesis; loss of appetite; No melena; nausea, vomiting Genitourinary: frequency (decreased) Musculoskeletal: back pain Skin: No change in color, No lesions, No rash Psychiatric/Neurological: Denies Headache Physical Exam Vital Signs Vital Signs - First Documented 02/24/20 02/24/20 08:23 13:15 Temp 36.3 Pulse 100 Resp 20 B/P (MAP) 145/105 (118) Pulse Ox 95 O2 Delivery Room Air FiO2 21 Capillary Refill : Less Than 3 Seconds Height, Weight, BMI Height: 6'0" Weight: 165lbs. 0.0oz. [id number]; 29.16 BMI Method:Stated General Appearance: Mild Distress, Other (unkept) Eyes: Bilateral Eye EOMI HEENT: Moist Mucous Membranes Neck: No Carotid Bruit Respiratory: No Accessory Muscle Use, No Respiratory Distress Cardiovascular: No Edema, No Murmur, Tachycardia Gastrointestinal: Normal Bowel Sounds, Distended, Guarding; No Hernia; Tenderness (diffuse) Extremity: Normal Capillary Refill, No Calf Tenderness, No Pedal Edema 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: Alert, No Motor/Sensory Deficits Skin: Normal Color, Warm/Dry Data Review Labs Laboratory Tests 02/24/20 08:40: White Blood Count 5.6, Red Blood Count 4.65, Hemoglobin 14.2, Hematocrit 42, Mean Corpuscular Volume 90, Mean Corpuscular Hemoglobin 31, Mean Corpuscular Hemoglobin Concent 34, Red Cell Distribution Width 11.9, Platelet Count 330, Mean Platelet Volume 9.8, Immature Granulocyte % (Auto) 1, Neutrophils (%) (Auto) 64, Lymphocytes (%) (Auto) 10L, Monocytes (%) (Auto) 21H, Eosinophils (%) (Auto) 3, Basophils (%) (Auto) 1, Neutrophils # (Auto) 3.6, Lymphocytes # (Auto) 0.6L, Monocytes # (Auto) 1.2H, Eosinophils # (Auto) 0.2, Basophils # (Auto) 0.0, Immature Granulocyte # (Auto) 0.0, Neutrophils % (Manual) 44, Lymphocytes % (Manual) 14, Monocytes % (Manual) 23, Eosinophils % (Manual) 4, Basophils % (Manual) 0, Band Neutrophils 15, Blood Morphology Comment NORMAL, Sodium Level 135, Potassium Level 3.7, Chloride Level 97L, Carbon Dioxide Level 24, Anion Gap 14, Blood Urea Nitrogen 16, Creatinine 1.01, Estimat Glomerular Filtration Rate > 60, BUN/Creatinine Ratio 16, Glucose Level 115H, Lactic Acid Level 1.29, Calcium Level 8.9, Corrected Calcium 8.8, Total Bilirubin 0.6, Aspartate Amino Transf (AST/SGOT) 72H, Alanine Aminotransferase (ALT/SGPT) 95H, Alkaline Phosphatase 67, Total Protein 7.2, Albumin 4.1, Lipase 4L Radiology Date of Exam:02/24/20 CT ABDOMEN/PELVIS WO PROCEDURE: CT abdomen and pelvis without contrast. TECHNIQUE: Multiple contiguous axial images were obtained through the abdomen and pelvis without the use of intravenous contrast. Auto Exposure Controls were utilized during the CT exam to meet ALARA standards for radiation dose reduction. INDICATION: Abdominal pain. FINDINGS: The previous CT abdomen/pelvis exam of 04/13/2019 failed to show any sign of an acute abnormality; however, in the interval since the prior study, numerous dilated gas and fluid-filled segments of small bowel have developed. This appearance does suggest a small bowel obstruction. I suspect the transition point is in the right mid abdomen. If further evaluation is desired, then a contrast small bowel exam would be recommended. There is no acute abnormality identified otherwise. In particular, there is no sign of a pneumoperitoneum. The liver, spleen, pancreas, adrenals, gallbladder, kidneys, aorta, and inferior vena cava seem similar to the prior exam. The small hiatal hernia seen on the prior study is also again visualized and essentially no different. There is no pelvic mass or free fluid collection identified. The appendix is not well-visualized but there are no indirect signs of acute appendicitis. The urinary bladder and prostate gland are grossly unremarkable. The bone windows show no sign of a fracture or destructive lesion. The lung bases are clear. IMPRESSION: 1. The findings do suggest a small bowel obstruction. If further evaluation is desired, then a contrast small bowel exam would be recommended. 2. There is no acute abnormality of the abdomen or pelvis noted otherwise. 3. These results were discussed with Dr. Lao in the Emergency Room at the time of this dictation. Assessment/Plan Assessment/Plan Admission Diagonsis Small bowel obstruction Assessment/Plan Small Bowel Obstruction History of hepatitis C History of multiple substance abuse NG tube and NPO IV fluids and pain control, zofran for nausea small bowel follow through tomorrow AM monitor electrolytes, repeat CMP in AM recommend a colonoscopy after discharge due to patients age and history of ileal thickening on CT in 2016. Clinical Quality Measures DVT/VTE Risk/Contraindication: Risk Factor Score Per Nursin RFS Level Per Nursing on Admit: 2=Moderate KASSANDRA VERAS DO 02/25/20 2205: History of Present Illness History of Present Illness Reason for visit/HPI CC: Abdominal pain/distention Patient is a 54 year old male who has been having abodminal pain for about 5-6 days. The pain is sharp/stabbing type pains that at its worst is a 10/10. Currently he rates it about an 7-8/10. Patient states pain is all over but slightly worse in the LUQ. He has been having nausea renate vomiting. He noticed his abdomen became distended about 2 days ago. He is passin flatus, and passing liquid stools. He notes no blood in stool or emesis. Patient has similar episode in the past and recommended to have colonoscopy due to thickening appearance in the terminal ileum, but did not follow through. He denies fever sweats chill shortness of breath or chest pain. He had a ct scan today kerns ggestive of small bowel obstruction. Allergies and Home Medications Allergies Coded Allergies: diphenhydramine (Unverified Allergy, Unknown, 05/28/17) Home Medications No Active Prescriptions or Reported Meds Patient Home Medication List Home Medication List Reviewed: Yes Past Ujfdmeh-Grmvic-Mkynvr Hx Reviewed Nursing Assessment Reviewed/Agree w Nursing PMH: Yes Family Medical History Significant Family History: Cancer Family Medial History: Diabetes mellitus 19 FATHER FH: aneurysm 19 MOTHER FH: cancer 19 FATHER 19 MOTHER Pacemaker 19 MOTHER Review of Systems Constitutional: No chills, No fever EENTM: No ear pain, No vision loss Respiratory: No cough, No short of breath Cardiovascular: No chest pain, No edema Gastrointestinal: abdominal pain, diarrhea; No hematemesis, No melena; nausea, vomiting Genitourinary: No decreased output, No discharge; frequency (decreased) Musculoskeletal: back pain Skin: No change in color, No lesions, No rash Psychiatric/Neurological: Denies Anxiety, Denies Depressed, Denies Headache All Other Systems Reviewed Negative Unless Noted: Yes (Negative excepted noted.) Physical Exam General Appearance: No Apparent Distress, Other (unkept) HEENT: PERRL/EOMI, Normal ENT Inspection Neck: Normal Inspection, Non Tender Respiratory: Chest Non Tender, No Accessory Muscle Use, No Respiratory Distress Cardiovascular: Regular Rate, Rhythm, No Edema; No Irregularly Irregular Gastrointestinal: Distended; No Guarding, No Hernia; Tenderness (diffuse) Rectal: Deferred Back: Normal Inspection, No CVA Tenderness Extremity: Normal Capillary Refill, No Calf Tenderness 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: Alert, Oriented x3, No Motor/Sensory Deficits Skin: Normal Color, Warm/Dry Lymphatic: No Adenopathy Assessment/Plan Assessment/Plan Admission Status: Observation Assessment/Plan Small Bowel Obstruction History of hepatitis C History of multiple substance abuse Ng tube already placed will get small bowel follow through in am pain control labs in am was previously recommended colonoscopy due to distal ileum thickening informed would recommend him have colonoscopy in near future iv fluids no surgical intervention at this time, will try conservative measures. Supervisory-Addendum Brief Verification & Attestation Participated in pt care: history, MDM, physical Personally performed: exam, history, MDM, supervision of care Care discussed with: Medical Student Procedures: n/a Results interpretation: Verified all documentation Verification and Attestation of Medical Student E/M Service A medical student performed and documented this service in my presence. I reviewed and verified all information documented by the medical student and made modifications to such information, when appropriate. I personally performed the physical exam and medical decision making. Kassandra Veras, Feb 24, 2020,22:11 GOMEZ MIJARES,MED STUDENT Feb 24, 2020 13:50 KASSANDRA VERAS DO Feb 25, 2020 22:05
--- NOTE | 2020-02-24 14:10 | NUR ---
SPOKE WITH THE PT TO COMPLETE THE MED REC PT DENIES TAKING ANY PRESCRIPTION OR OTC MEDICATION
[2020-02-24] MEDS: fentaNYL INJECTION 100 MCG/2 ML AMP IVP PRN ×4 (14:20→23:49)
[2020-02-24] MEDS ORDERED: RT-ALBUTEROL SULF 2.5 MG/3 ML PRE-MIX VIAL INH PRN (15:00)
[2020-02-24 16:00] VITALS: BP 145/81
[2020-02-24] MEDS: RT-ALBUTEROL SULF 2.5 MG/3 ML PRE-MIX VIAL INH SCH (18:29)
[2020-02-24 19:17] VITALS: BP 141/76
[2020-02-24] MEDS: FAMOTIDINE 20MG/2ML IV (PEPCID) IVP SCH (19:39)
[2020-02-25 00:49] VITALS: BP 122/63
[2020-02-25 04:00] VITALS: BP 110/65
[2020-02-25] MEDS: fentaNYL INJECTION 100 MCG/2 ML AMP IVP PRN ×7 (04:26→22:11)
[2020-02-25] MEDS: NS IV 1000 ML 1,000 ML IV SCH ×3 (04:30→19:09)
[2020-02-25 04:39] LABS: BASOPHILS % (AUTO) 0 % (0-10); EOSINOPHILS # (AUTO) 0.2 10^3/uL (0.0-0.3); EOSINOPHILS % (AUTO) 5 % (0-10); HEMATOCRIT 36 % (40-54); HEMOGLOBIN 11.9 g/dL (13.3-17.7); LYMPHOCYTES % (AUTO) 20 % (12-44); MEAN CORPUSCULAR HEMOGLOBIN 31 pg (25-34); MEAN CORPUSCULAR HGB CONC 33 g/dL (32-36); MEAN CORPUSCULAR VOLUME 92 fL (80-99); MEAN PLATELET VOLUME 9.6 fL (9.0-12.2); MONOCYTES % (AUTO) 19 % (0-12); NEUTROPHILS # (AUTO) 2.7 10^3/uL (1.8-7.8); NEUTROPHILS % (AUTO) 55 % (42-75); PLATELET COUNT 267 10^3/uL (130-400); WHITE BLOOD COUNT 4.9 10^3/uL (4.3-11.0)
[2020-02-25 04:49] LABS: ALBUMIN 2.9 GM/DL (3.2-4.5)
[2020-02-25 04:50] LABS: CHLORIDE 106 MMOL/L (98-107); SODIUM 140 MMOL/L (135-145)
[2020-02-25 04:51] LABS: CALCIUM 6.9 MG/DL (8.5-10.1)
[2020-02-25 04:52] LABS: GLUCOSE 76 MG/DL (70-105); TOTAL PROTEIN 5.2 GM/DL (6.4-8.2)
[2020-02-25 04:53] LABS: CARBON DIOXIDE 24 MMOL/L (21-32)
[2020-02-25 04:54] LABS: BILIRUBIN,TOTAL 0.4 MG/DL (0.1-1.0)
[2020-02-25 04:55] LABS: ALKALINE PHOSPHATASE 50 U/L (40-136)
[2020-02-25 04:56] LABS: CREATININE SERUM 0.86 MG/DL (0.60-1.30); GFR ESTIMATED > 60
[2020-02-25 04:57] LABS: BUN/CREATININE RATIO 19
[2020-02-25 04:58] LABS: ALANINE AMINOTRANSFERASE 65 U/L (0-55)
--- NOTE | 2020-02-25 07:14 | Progress Note - Surgery ---
GOMEZ MIJARES,MED STUDENT 02/25/20 0714: Subjective Date Seen by a Provider: Feb 25, 2020 Time Seen by a Provider: 06:58 Subjective/Events-last exam Patient feeling much better this morning. His abdominal distension is improving and his pain has decreased to about a 4. He denies any more nausea or vomiting. No bowel movements overnight, but is passing gas. No fever, chills, shortness of breath or chest pain. Small bowel follow through to be done this AM. Review of Systems General: No Chills, No Fatigue HEENT: No Head Aches; Sore Throat (from NG) Pulmonary: No Dyspnea, No Cough Cardiovascular: No: Chest Pain, Edema Gastrointestinal: Abdominal Pain (worse in lower middle abdomen); No: Nausea, Vomiting, Diarrhea Genitourinary: No Dysuria Neurological: No: Weakness, Numbness Focused Exam Lactate Level 02/24/20 08:40: Lactic Acid Level 1.29 Objective Exam Vital Signs Date Time Temp Pulse Resp B/P (MAP) Pulse Ox O2 Delivery O2 Flow Rate FiO2 02/25/20 04:00 36.1 81 17 110/65 (80) 93 Room Air 02/25/20 00:49 36.9 83 20 122/63 (82) 95 Room Air 02/24/20 19:35 98 Room Air 02/24/20 19:17 36.4 92 16 141/76 (97) 98 Room Air 02/24/20 18:29 93 Room Air 02/24/20 16:00 36.3 97 14 145/81 (102) 98 Room Air 02/24/20 14:48 Room Air 02/24/20 13:51 Room Air 02/24/20 13:15 36.3 100 95 21 02/24/20 13:03 36.6 102 18 152/75 99 Room Air 02/24/20 12:08 92 20 145/88 99 Room Air 02/24/20 08:23 36.3 100 20 145/105 (118) 95 Room Air I & O 02/25/20 07:00 Intake Total 2000 ml Output Total 2100 ml Balance -100 ml Capillary Refill : Less Than 3 Seconds General Appearance: No Apparent Distress, Other (unkept) HEENT: Moist Mucous Membranes, Other (NG tube in place, draining brown fluid) Respiratory: No Accessory Muscle Use, No Respiratory Distress Cardiovascular: Regular Rate, Rhythm, No Edema Peripheral Pulses: 2+ Dorsalis Pedis (R), 2+ Left Dors-Pedis (L), 2+ Radial Pulses (R), 2+ Radial Pulses (L) Gastrointestinal: soft, distended (decreased from yesterday), tenderness (mild, lower-middle abdomen); No hernia Extremity: Normal Capillary Refill, No Calf Tenderness, No Pedal Edema 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: Alert, No Motor/Sensory Deficits Skin: Normal Color, Warm/Dry Results Lab Laboratory Tests 02/24/20 08:40: White Blood Count 5.6, Red Blood Count 4.65, Hemoglobin 14.2, Hematocrit 42, Mean Corpuscular Volume 90, Mean Corpuscular Hemoglobin 31, Mean Corpuscular Hemoglobin Concent 34, Red Cell Distribution Width 11.9, Platelet Count 330, Mean Platelet Volume 9.8, Immature Granulocyte % (Auto) 1, Neutrophils (%) (Auto) 64, Lymphocytes (%) (Auto) 10L, Monocytes (%) (Auto) 21H, Eosinophils (%) (Auto) 3, Basophils (%) (Auto) 1, Neutrophils # (Auto) 3.6, Lymphocytes # (Auto) 0.6L, Monocytes # (Auto) 1.2H, Eosinophils # (Auto) 0.2, Basophils # (Auto) 0.0, Immature Granulocyte # (Auto) 0.0, Neutrophils % (Manual) 44, Lymphocytes % (Manual) 14, Monocytes % (Manual) 23, Eosinophils % (Manual) 4, Basophils % (Manual) 0, Band Neutrophils 15, Blood Morphology Comment NORMAL, Sodium Level 135, Potassium Level 3.7, Chloride Level 97L, Carbon Dioxide Level 24, Anion Gap 14, Blood Urea Nitrogen 16, Creatinine 1.01, Estimat Glomerular Filtration Rate > 60, BUN/Creatinine Ratio 16, Glucose Level 115H, Lactic Acid Level 1.29, Calcium Level 8.9, Corrected Calcium 8.8, Total Bilirubin 0.6, Aspartate Amino Transf (AST/SGOT) 72H, Alanine Aminotransferase (ALT/SGPT) 95H, Alkaline Phosphatase 67, Total Protein 7.2, Albumin 4.1, Lipase 4L 02/25/20 04:20: White Blood Count 4.9, Red Blood Count 3.90L, Hemoglobin 11.9L, Hematocrit 36L, Mean Corpuscular Volume 92, Mean Corpuscular Hemoglobin 31, Mean Corpuscular Hemoglobin Concent 33, Red Cell Distribution Width 11.9, Platelet Count 267, Mean Platelet Volume 9.6, Immature Granulocyte % (Auto) 1, Neutrophils (%) (Auto) 55, Lymphocytes (%) (Auto) 20, Monocytes (%) (Auto) 19H, Eosinophils (%) (Auto) 5, Basophils (%) (Auto) 0, Neutrophils # (Auto) 2.7, Lymphocytes # (Auto) 1.0, Monocytes # (Auto) 1.0, Eosinophils # (Auto) 0.2, Basophils # (Auto) 0.0, Immature Granulocyte # (Auto) 0.0, Sodium Level 140, Potassium Level 3.0L, Chloride Level 106, Carbon Dioxide Level 24, Anion Gap 10, Blood Urea Nitrogen 16, Creatinine 0.86, Estimat Glomerular Filtration Rate > 60, BUN/Creatinine Ratio 19, Glucose Level 76, Calcium Level 6.9L, Corrected Calcium 7.8L, Total Bilirubin 0.4, Aspartate Amino Transf (AST/SGOT) 32, Alanine Aminotransferase (ALT/SGPT) 65H, Alkaline Phosphatase 50, Total Protein 5.2L, Albumin 2.9L Assessment/Plan Assessment/Plan Assessment/Plan Small Bowel Obstruction Hypokalemia Hypocalcemia History of hepatitis C History of multiple substance abuse NG tube and NPO Small bowel follow through this morning IV fluids and pain control, zofran for nausea Consider switching NS to LR, otherwise replace K and Ca recommend a colonoscopy after discharge due to patients age and history of ileal thickening on CT in 2016 SCDs and encourage embulation for DVT prophylaxis Clinical Quality Measures DVT/VTE Risk/Contraindication: Risk Factor Score Per Nursin RFS Level Per Nursing on Admit: 2=Moderate KASSANDRA TAO DO 02/25/20 0275: Subjective Subjective/Events-last exam Feeling better this morning. Having flatus. Pain improved. No more nausea and vomiting. small bowel follow through normal. denies fever sweats chills shortness of breath or chest pain. Objective Exam General Appearance: No Apparent Distress, Other (unkept) HEENT: PERRL/EOMI, Normal ENT Inspection, Other (NG tube in place, draining brown fluid) Neck: Non Tender, Supple Respiratory: Chest Non Tender, No Accessory Muscle Use, No Respiratory Distress Cardiovascular: Regular Rate, Rhythm, No Edema Gastrointestinal: soft, distended (decreased from yesterday), tenderness (minimal); No hernia Extremity: Normal Capillary Refill, Non Tender, No Calf Tenderness 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: Alert, Oriented x3, No Motor/Sensory Deficits Skin: Normal Color, Warm/Dry Lymphatic: No Adenopathy Assessment/Plan Assessment/Plan Assessment/Plan Small Bowel Obstruction Hypokalemia Hypocalcemia History of hepatitis C History of multiple substance abuse repeat labs in am ng tube clamped add kcl to NS repeat labs in am follow up for colonoscopy outpatient continue conservative measures at this time if doing well tomorrow, remove ng tube and start diet Supervisory-Addendum Brief Verification & Attestation Participated in pt care: history, MDM, physical Personally performed: exam, history, MDM, supervision of care Care discussed with: Medical Student Procedures: n/a Results interpretation: Verified all documentation Verification and Attestation of Medical Student E/M Service A medical student performed and documented this service in my presence. I reviewed and verified all information documented by the medical student and made modifications to such information, when appropriate. I personally performed the physical exam and medical decision making. Kassandra Tao, Feb 25, 2020,22:17 GOMEZ MIJARES,MED STUDENT Feb 25, 2020 07:14 KASSANDRA TAO DO Feb 25, 2020 22:17
[2020-02-25 08:28] VITALS: BP 116/71
[2020-02-25] MEDS: FAMOTIDINE 20MG/2ML IV (PEPCID) IVP SCH ×2 (08:39→19:59)
[2020-02-25] MEDS ORDERED: DIATRIZOATE MEGLUM/SODIUM 37% 120 ML (GASTROGRAFIN) NG ONE (09:00)
[2020-02-25] MEDS: RT-ALBUTEROL SULF 2.5 MG/3 ML PRE-MIX VIAL INH SCH ×2 (09:14→21:30)
--- NOTE | 2020-02-25 09:28 | NUR ---
Patient taken down to surgery at this time.
[2020-02-25 12:21] VITALS: BP 123/76
--- NOTE | 2020-02-25 12:56 | Diagnostic Imaging Report ---
INDICATION: Abdominal pain, suspect small bowel obstruction. FINDINGS: Small bowel study performed with 120 cc of Gastrografin injected through the indwelling NG tube. The stomach fills and empties promptly. Duodenal bulb and sweep appeared unremarkable. The small bowel loops showed normal caliber throughout with normal fold pattern. Contrast reaches the right colon in 1.5 hours. IMPRESSION: Negative small bowel study, no evidence of obstruction. Dictated by: Dictated on workstation # [id number]
--- NOTE | 2020-02-25 12:58 | NUR ---
Patient returned from small bowel follow through. Messaged Dr. Tao asking if I should pull the patients NG and if the patient should remain NPO. Dinh requested to keep NG clamped and patient to remain NPO.
--- NOTE | 2020-02-25 14:01 | NUR ---
CM/SS visited with the patient for discharge planning. The patient was lying in bed at time of visit. He had a flat affect and was short when answering questions. Home: The patient states that he is going through the Housing assistance program in [place] and they are looking at houses currently. The patient is currently still staying at the [address] [place] [address] Address. Insurance: Patient states he does not have insurance. Financial: According to the patient he does not receive pedraza assistance at this time. He does get SNAP (food stamps). The patient is not currently employed. Drug/Alcohol: The patient reports that he "believes" he completed the drug and alcohol assessment but states he does not mess with "that stuff" anymore. CM/SS will continue to follow for discharge planning.
[2020-02-25 16:27] VITALS: BP 145/76
[2020-02-25 20:00] VITALS: BP 137/72
[2020-02-25] MEDS ORDERED: POTASSIUM CHLORIDE INJ 20 MEQ in NS IV 1000 ML 1,000 ML IV SCH (21:59)
[2020-02-25] MEDS: NS W/KCL 20 MEQ/L 1,000 ML IV SCH (22:23)
[2020-02-26] VITALS: BP 113/65
[2020-02-26] MEDS: fentaNYL INJECTION 100 MCG/2 ML AMP IVP PRN ×3 (00:58→09:51)
[2020-02-26 04:02] VITALS: BP 136/72
[2020-02-26] MEDS: NS W/KCL 20 MEQ/L 1,000 ML IV SCH (05:53)
--- NOTE | 2020-02-26 07:24 | Progress Note - Surgery ---
GOMEZ MIJARES,MED STUDENT 02/26/20 0724: Subjective Date Seen by a Provider: Feb 26, 2020 Time Seen by a Provider: 07:13 Subjective/Events-last exam Patient feeling well this morning. He denies any abdominal pain at this time, and states it has been gone for a few hours.He states he had about 10 liquid stools yesterday, and he is hungry this morning. Denies fever, chills, shortness of breath or chest pain. Review of Systems General: No Chills; Appetite HEENT: Sore Throat (fron NG tube) Pulmonary: No Dyspnea, No Cough Cardiovascular: No: Chest Pain, Edema Gastrointestinal: Diarrhea; No: Nausea, Vomiting, Abdominal Pain Genitourinary: No Dysuria Neurological: No: Weakness, Numbness Focused Exam Lactate Level 02/24/20 08:40: Lactic Acid Level 1.29 Objective Exam Vital Signs Date Time Temp Pulse Resp B/P (MAP) Pulse Ox O2 Delivery O2 Flow Rate FiO2 02/26/20 04:02 36.0 75 18 136/72 (93) 95 Room Air 02/26/20 00:00 36.2 79 18 113/65 (81) 96 Room Air 02/25/20 21:30 94 Room Air 02/25/20 20:00 37.1 88 20 137/72 (93) 95 Room Air 02/25/20 19:50 Room Air 02/25/20 16:27 36.4 73 18 145/76 (99) 94 Room Air 02/25/20 12:21 36.3 80 20 123/76 (92) 96 Room Air 02/25/20 09:14 93 Room Air 02/25/20 08:28 36.7 87 20 116/71 (86) 94 Room Air 02/25/20 08:00 Room Air I & O 02/26/20 07:00 Intake Total 2000 ml Output Total 1050 ml Balance 950 ml Capillary Refill : Less Than 3 Seconds General Appearance: No Apparent Distress, Other (unkept) HEENT: PERRL/EOMI, Other (NG tube in place, clamped) Neck: Non Tender, Supple Respiratory: No Accessory Muscle Use, No Respiratory Distress Cardiovascular: Regular Rate, Rhythm, No Edema Peripheral Pulses: 2+ Dorsalis Pedis (R), 2+ Left Dors-Pedis (L), 2+ Radial Pulses (R), 2+ Radial Pulses (L) Gastrointestinal: soft, distended (improving); No tenderness, No hernia Extremity: Normal Capillary Refill, No Calf Tenderness, No Pedal Edema 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: Alert, No Motor/Sensory Deficits Skin: Normal Color, Warm/Dry Lymphatic: No Adenopathy Results Lab Microbiology 02/24/20 Blood Culture - Preliminary, Resulted No growth Assessment/Plan Assessment/Plan Assessment/Plan Small Bowel Obstruction Hypokalemia History of hepatitis C History of multiple substance abuse Potassium replaced, awaiting repeat labs this morning start liquid diet, pull NG and advance if tolerated continue IV fluids, pain control and conservative measures encourage ambulation recommend outpatient colonoscopy Clinical Quality Measures DVT/VTE Risk/Contraindication: Risk Factor Score Per Nursin RFS Level Per Nursing on Admit: 2=Moderate KASSANDRA TAO DO 02/26/20 1306: Subjective Subjective/Events-last exam Feeling better. No abdominal pain. Passing flatus and bowel movements. Wanting to go home. Denies n/v fever sweats chills shortness of breath or chest pain. Objective Exam General Appearance: No Apparent Distress, WD/WN, Other (unkept) HEENT: PERRL/EOMI, Normal ENT Inspection, Other (NG tube in place, clamped) Neck: Non Tender, Supple Respiratory: Chest Non Tender, No Accessory Muscle Use, No Respiratory Distress Cardiovascular: Regular Rate, Rhythm, No Edema Gastrointestinal: non tender, soft, distended (minimal); No hernia Extremity: Normal Capillary Refill, No Calf Tenderness 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: Alert, Oriented x3, No Motor/Sensory Deficits Skin: Normal Color, Warm/Dry Lymphatic: No Adenopathy Assessment/Plan Assessment/Plan Assessment/Plan Small Bowel Obstruction Hypokalemia History of hepatitis C History of multiple substance abuse Potassium replaced, awaiting repeat labs this morning start liquid diet, pull NG continue IV fluids, pain control and conservative measures encourage ambulation recommend outpatient colonoscopy due to history of ileum being thickened if tolerates will dc home, patient wanting to go home, with outpatient follow up. Final Diagnosis Small Bowel Obstruction Hypokalemia History of hepatitis C History of multiple substance abuse Supervisory-Addendum Brief Verification & Attestation Participated in pt care: history, MDM, physical Personally performed: exam, history, MDM, supervision of care Care discussed with: Medical Student Procedures: n/a Results interpretation: Verified all documentation Verification and Attestation of Medical Student E/M Service A medical student performed and documented this service in my presence. I reviewed and verified all information documented by the medical student and made modifications to such information, when appropriate. I personally performed the physical exam and medical decision making. Kassandra Tao, Feb 26, 2020,13:06 GOMEZ MIJARES,MED STUDENT Feb 26, 2020 07:24 KASSANDRA TAO DO Feb 26, 2020 13:06
[2020-02-26] MEDS: RT-ALBUTEROL SULF 2.5 MG/3 ML PRE-MIX VIAL INH SCH (07:39)
[2020-02-26 08:00] VITALS: BP 127/79
[2020-02-26 08:05] LABS: HEMOGLOBIN 12.4 g/dL (13.3-17.7); MEAN PLATELET VOLUME 9.3 fL (9.0-12.2); WHITE BLOOD COUNT 6.2 10^3/uL (4.3-11.0)
[2020-02-26 08:28] LABS: BUN/CREATININE RATIO 21; CALCIUM 7.6 MG/DL (8.5-10.1); CARBON DIOXIDE 17 MMOL/L (21-32); CHLORIDE 107 MMOL/L (98-107); CREATININE SERUM 0.81 MG/DL (0.60-1.30); GFR ESTIMATED > 60; GLUCOSE 62 MG/DL (70-105); POTASSIUM 4.3 MMOL/L (3.6-5.0); SODIUM 138 MMOL/L (135-145)
[2020-02-26] MEDS: FAMOTIDINE 20MG/2ML IV (PEPCID) IVP SCH (10:07)
--- NOTE | 2020-02-26 11:30 | NUR ---
Removed patients NG tube at this time per Dr. Myers request. Patient put on clear liquid diet and tolerating well at this time. Hep locked IV and DC fluids.
[2020-02-26 12:00] VITALS: BP 128/75
--- NOTE | 2020-02-26 13:01 | Discharge Inst-Simple/Standard ---
Discharge Inst-Standard Patient Instructions/Follow Up Plan of Care/Instructions/FU: 2-3 weeks Dinh 2-3 weeks Primary care physician. Activity as Tolerated: Yes Discharge Diet: Liquid Diet (2 days then slowly advance as tolerates.) Other Inst to Patient Follow up Appt: 2-3 weeks Dinh 2-3 weeks Primary care provider. Symptoms to Report: Appetite Changes, Extremity Discoloration, Numbness/Tingling, Swelling Increased, Bleeding Excessive, Eyesight Changes, Pain Increased, Urine Color Raisa nge, Constipation(Persistent), Fever over 101 degree F, Pain/Pressure in chest, Urinating Difficulty, Cough Up/Vomit Blood, Heart Beat Irreg/Pounding, Pain/Pressure in jaw, Vaginal Bleeding Increase, Cramps in feet or legs, Lightheadedness, Pain/Pressure in shoulder, Diarrhea(Persistent), Memory Changes Suddenly, Questions/Concerns, Weight gain consecutive days, Dizziness/Fainting, Nausea/Vomiting, Shortness of Breath, Weight gain over 2 pounds If questions or concerns contact your physician Or seek help at emergency department. KASSANDRA VERAS DO Feb 26, 2020 13:01
== END 2020-02-26 14:10 | disposition home or self-care (01) | DRG 390 ==
LOC: EDUNIT# 08:23 → 4TH 08:24 → ER 08:24 → 4TH 11:33
PROVIDERS: ADMIT Surgery; ATTEND Surgery
PROC: 0D9670Z Drainage of Stomach with Drainage Device, Via Natural or Artificial Opening (ICD-10-PCS; principal; 2020-02-24)
DX: K56.609 Unspecified intestinal obstruction, unspecified as to partial versus complete obstruction (principal); E87.6 Hypokalemia; E83.51 Hypocalcemia; F17.210 Nicotine dependence, cigarettes, uncomplicated; F15.10 Other stimulant abuse, uncomplicated; F14.10 Cocaine abuse, uncomplicated; F11.10 Opioid abuse, uncomplicated; F12.10 Cannabis abuse, uncomplicated; K21.9 Gastro-esophageal reflux disease without esophagitis; M54.9 Dorsalgia, unspecified
CPT/HCPCS: 36415; 74019; 74176; 74250; 80048; 80053; 83605; 83690; 85007; 85025; 85027; 87040; 94640; 94664; 94760

== ENCOUNTER 2020-02-27 15:07 | Inpatient (IN) | payer OTHER ==
[~2020-02-27] VITALS: Ht 180.3 cm; Wt 89.5 kg
[2020-02-27] MEDS ORDERED: LACTATED RINGERS 1,000 ML IV ONE (15:12)
[2020-02-27] MEDS ORDERED: fentaNYL INJECTION 100 MCG/2 ML AMP IVP ONE ×2 (15:15→16:45)
[2020-02-27] MEDS ORDERED: DIATRIZOATE MEGLUM/SODIUM 37% 120 ML (GASTROGRAFIN) PO ONE ×2 (15:15→15:45)
[2020-02-27] MEDS ORDERED: ONDANSETRON 4 MG/2 ML (SDV) Z0FRAN IVP ONE (15:15)
--- NOTE | 2020-02-27 15:24 | ED Abdominal Pain ---
General Stated Complaint: ABD PAIN Source of Information: Patient, EMS Exam Limitations: No Limitations History of Present Illness Date Seen by Provider: Feb 27, 2020 Time Seen by Provider: 14:55 Initial Comments the patient presents to the ER by EMS from home with chief complaint he just got out of the hospital after 3 or 4 days under the care of Dr. Tao for a bowel obstruction. He says he was feeling much better and then started having increasing pain and inability to pass a stool except for just a little bit of liquid and nausea with small amounts of emesis. He's had no fevers cough chills or sick contacts. He has never had abdominal surgeries, EGD or colonoscopy. He had follow-up with the surgeon outpatient next week. He had to have an NG tube placed. He's having some mild nausea now and some moderate to severe pain presently. Last use of methamphetamines and cocaine was approximately one month ago. He says the fentanyl seemed to help his pain significantly when he was in the hospital. Allergies and Home Medications Allergies Coded Allergies: diphenhydramine (Unverified Allergy, Unknown, 05/28/17) Home Medications No Active Prescriptions or Reported Meds Patient Home Medication List Home Medication List Reviewed: Yes Review of Systems Review of Systems Constitutional: No chills, No diaphoresis EENTM: No Blurred Vision, No Double Vision Respiratory: Denies Cough, Denies Shortness of Air Cardiovascular: Denies Chest Pain, Denies Lightheadedness Gastrointestinal: Abdomen Distended, Abdominal Pain, Constipated, Diarrhea, Nausea, Vomiting Genitourinary: Denies Burning, Denies Discharge Musculoskeletal: No back pain, No joint pain Skin: No pruritus, No rash Psychiatric/Neurological: Denies Headache, Denies Numbness All Other Systems Reviewed Negative Unless Noted: Yes Past [id number] Hx Patient Social History Alcohol Use: Occasionally Uses Recreational Drug Use: Yes Drug of Choice: METH, HEROIN, COCAINE,MARIJUANA Smoking Status: Current Everyday Smoker Type Used: Cigarettes (0.75 ppd) Recent Hopitalizations: No Immunizations Up To Date Tetanus Booster (TDap): Unknown Date of Influenza Vaccine: May 26, 2015 Seasonal Allergies Seasonal Allergies: No Past Medical History Surgeries: Yes (WOUND DEBRIDEMENT LEFT FOREARM FROM INFECTION SECONDARY TO IV DRUG USE) Tonsillectomy Respiratory: No Currently Using BIPAP: No Cardiac: No Neurological: No Reproductive Disorders: No Sexually Transmitted Disease: No HIV/AIDS: No Genitourinary: No Gastrointestinal: Yes Gastroesophageal Reflux, Hepatitis, Gall Bladder Disease Musculoskeletal: Yes Chronic Back Pain Endocrine: No Loss of Vision: Bilateral Cancer: No Psychosocial: No Integumentary: Yes (WOUND INFECTION LEFT FOREARM FROM IV DRUG USE) Blood Disorders: No Adverse Reaction/Blood Tranf: No Family Medical History Diabetes mellitus 19 FATHER FH: aneurysm 19 MOTHER FH: cancer 19 FATHER 19 MOTHER Pacemaker 19 MOTHER Cancer Per records reviewed due to altered mental status Physical Exam Vital Signs Vital Signs - First Documented 02/27/20 15:07 Temp 36.0 Pulse 88 Resp 20 B/P (MAP) 154/99 (117) Pulse Ox 98 O2 Delivery Room Air Capillary Refill : Height/Weight/BMI Height: 6'0" Weight: 165lbs. 0.0oz. [id number]; 29.16 BMI Method:Stated General Appearance: WD/WN, moderate distress HEENT: PERRL/EOMI, pharynx normal Neck: full range of motion, supple Respiratory: lungs clear, normal breath sounds, no respiratory distress, no accessory muscle use Cardiovascular: normal peripheral pulses, regular rate, rhythm Peripheral Pulses: 2+ Dorsalis Pedis (R), 2+ Left Dors-Pedis (L) Gastrointestinal: abnormal bowel sounds (hyperactive), distended, tenderness (all 4 quadrants), other (negative for psoas sign or mesenteric signs.) Extremities: normal range of motion, non-tender, normal inspection, no pedal e cecile, no calf tenderness, normal capillary refill 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: alert, normal mood/affect, oriented x 3 Skin: normal color, warm/dry Procedures/Interventions Date of ETT Placement: Apr 13, 2019 Time of ETT Placement: 2313 Progress/Results/Core Measures Results/Orders Lab Results Laboratory Tests Test 02/27/20 15:27 02/27/20 17:17 Range/Units White Blood Count 9.7 4.3-11.0 10^3/uL Red Blood Count 4.36 4.30-5.52 10^6/uL Hemoglobin 13.3 13.3-17.7 g/dL Hematocrit 39 L 40-54 % Mean Corpuscular Volume 90 80-99 fL Mean Corpuscular Hemoglobin 31 25-34 pg Mean Corpuscular Hemoglobin Concent 34 32-36 g/dL Red Cell Distribution Width 11.6 10.0-14.5 % Platelet Count 351 130-400 10^3/uL Mean Platelet Volume 9.4 9.0-12.2 fL Immature Granulocyte % (Auto) 2 % Neutrophils (%) (Auto) 70 42-75 % Lymphocytes (%) (Auto) 15 12-44 % Monocytes (%) (Auto) 11 0-12 % Eosinophils (%) (Auto) 2 0-10 % Basophils (%) (Auto) 0 0-10 % Neutrophils # (Auto) 6.8 1.8-7.8 10^3/uL Lymphocytes # (Auto) 1.4 1.0-4.0 10^3/uL Monocytes # (Auto) 1.1 H 0.0-1.0 10^3/uL Eosinophils # (Auto) 0.2 0.0-0.3 10^3/uL Basophils # (Auto) 0.0 0.0-0.1 10^3/uL Immature Granulocyte # (Auto) 0.2 H 0.0-0.1 10^3/uL Sodium Level 138 135-145 MMOL/L Potassium Level 3.5 L 3.6-5.0 MMOL/L Chloride Level 103 98-107 MMOL/L Carbon Dioxide Level 25 21-32 MMOL/L Anion Gap 10 5-14 MMOL/L Blood Urea Nitrogen 10 7-18 MG/DL Creatinine 0.81 0.60-1.30 MG/DL Estimat Glomerular Filtration Rate > 60 BUN/Creatinine Ratio 12 Glucose Level 111 H 70-105 MG/DL Calcium Level 8.4 L 8.5-10.1 MG/DL Corrected Calcium 8.5 8.5-10.1 MG/DL Total Bilirubin 0.3 0.1-1.0 MG/DL Aspartate Amino Transf (AST/SGOT) 16 5-34 U/L Alanine Aminotransferase (ALT/SGPT) 33 0-55 U/L Alkaline Phosphatase 53 40-136 U/L C-Reactive Protein High Sensitivity 2.13 H 0.00-0.50 MG/DL Total Protein 6.7 6.4-8.2 GM/DL Albumin 3.9 3.2-4.5 GM/DL Lipase 126 H 8-78 U/L My Orders Orders - OSMANY WALLS Ed Iv/Invasive Line Start (02/27/20 15:12) Lactated Ringers (Lr 1000 Ml Iv Solution (02/27/20 15:12) Diatrizoate Meglum/Sodium 37% (Gastrogra (02/27/20 15:15) Ondansetron Injection (Zofran Injectio (02/27/20 15:15) Fentanyl Injection (Sublimaze Injection (02/27/20 15:15) Cbc With Automated Diff (02/27/20 15:12) Comprehensive Metabolic Panel (02/27/20 15:12) Hs C Reactive Protein (02/27/20 15:12) Lipase (02/27/20 15:12) Ua Culture If Indicated (02/27/20 15:12) Ct Abdomen/Pelvis Wo (02/27/20 15:29) Diatrizoate Meglum/Sodium 37% (Gastrogra (02/27/20 15:45) Fentanyl Injection (Sublimaze Injection (02/27/20 16:45) Ceftriaxone For Iv Use (Rocephin For I (02/27/20 17:30) Metronidazole 500mg/100ml Ivpb (Flagyl 5 (02/27/20 17:30) Medications Given in ED Current Medications Medications Dose Ordered Sig/Cecilia Route Start Time Stop Time Status Last Admin Dose Admin Fentanyl Citrate 50 mcg ONCE ONCE IVP 02/27/20 15:15 02/27/20 15:19 DC 02/27/20 15:37 50 MCG Fentanyl Citrate 50 mcg ONCE ONCE IVP 02/27/20 16:45 02/27/20 16:46 DC 02/27/20 16:46 50 MCG Lactated Ringer's 1,000 ml @ 0 mls/hr Q0M ONCE IV 02/27/20 15:12 02/27/20 15:19 DC 02/27/20 15:38 1,000 MLS/HR Ondansetron HCl 8 mg ONCE ONCE IVP 02/27/20 15:15 02/27/20 15:19 DC 02/27/20 15:36 8 MG Vital Signs/I&O 02/27/20 02/27/20 15:07 15:37 Temp 36.0 36.0 Pulse 88 Resp 20 B/P (MAP) 154/99 (117) Pulse Ox 98 O2 Delivery Room Air Progress Progress Note : Time: 15:23 Progress Note Is highly suspicious patient has redeveloped a bowel obstruction. Try to get his nausea under control give him some IV fluids and get a CT with IV and oral contrast. If he needs an NG tube we will do it. Labs including a lipase. 50 g fentanyl initially for pain. Diagnostic Imaging Diagonstic Imaging: CT Plain Films/CT/US/NM/MRI: abdomen, pelvis Reviewed: Reviewed by Me Departure Communication (Admissions) Time/Spoke to Admitting Phy: 17:37 Discussed the case with Dr. Singh and she agrees to admit to medicine service on MedSurg for steroids for presumed inflammatory bowel disease. Consult to general surgery. Time/Spoke to Consulting Phy: 17:30 Discussed the case with Dr. Tao and he agrees to consult on the case and recommend steroids. Impression Primary Impression: Inflammatory bowel disease Additional Impression: Pseudo-obstruction of intestine Disposition: ADMITTED INPATIENT Condition: Stable Admissions Decision to Admit Reason: Admit from ER (General) Decision to Admit/Date: Feb 27, 2020 Time/Decision to Admit Time: 17:30 Departure-Patient Inst. Referrals: HERNANDO BAILEY (PCP) Primary Care Physician [facility] (Family) Primary Care Physician Scripts No Active Prescriptions or Reported Meds OSMANY WALLS Feb 27, 2020 15:24
[2020-02-27 15:55] LABS: ALBUMIN 3.9 GM/DL (3.2-4.5); CHLORIDE 103 MMOL/L (98-107); POTASSIUM 3.5 MMOL/L (3.6-5.0); SODIUM 138 MMOL/L (135-145)
[2020-02-27 15:56] LABS: CALCIUM 8.4 MG/DL (8.5-10.1)
[2020-02-27 15:57] LABS: GLUCOSE 111 MG/DL (70-105)
[2020-02-27 15:58] LABS: TOTAL PROTEIN 6.7 GM/DL (6.4-8.2)
[2020-02-27 15:59] LABS: BILIRUBIN,TOTAL 0.3 MG/DL (0.1-1.0); CARBON DIOXIDE 25 MMOL/L (21-32)
[2020-02-27 16:01] LABS: ALKALINE PHOSPHATASE 53 U/L (40-136); CREATININE SERUM 0.81 MG/DL (0.60-1.30); GFR ESTIMATED > 60
[2020-02-27 16:02] LABS: BUN/CREATININE RATIO 12
[2020-02-27 16:03] LABS: BASOPHILS % (AUTO) 0 % (0-10); EOSINOPHILS # (AUTO) 0.2 10^3/uL (0.0-0.3); EOSINOPHILS % (AUTO) 2 % (0-10); HEMATOCRIT 39 % (40-54); HEMOGLOBIN 13.3 g/dL (13.3-17.7); LYMPHOCYTES # (AUTO) 1.4 10^3/uL (1.0-4.0); LYMPHOCYTES % (AUTO) 15 % (12-44); MEAN CORPUSCULAR HEMOGLOBIN 31 pg (25-34); MEAN CORPUSCULAR HGB CONC 34 g/dL (32-36); MEAN CORPUSCULAR VOLUME 90 fL (80-99); MEAN PLATELET VOLUME 9.4 fL (9.0-12.2); MONOCYTES # (AUTO) 1.1 10^3/uL (0.0-1.0); MONOCYTES % (AUTO) 11 % (0-12); NEUTROPHILS # (AUTO) 6.8 10^3/uL (1.8-7.8); NEUTROPHILS % (AUTO) 70 % (42-75); PLATELET COUNT 351 10^3/uL (130-400); WHITE BLOOD COUNT 9.7 10^3/uL (4.3-11.0)
[2020-02-27 16:04] LABS: ALANINE AMINOTRANSFERASE 33 U/L (0-55); LIPASE 126 U/L (8-78)
--- NOTE | 2020-02-27 17:25 | Diagnostic Imaging Report ---
PROCEDURE: CT abdomen and pelvis without contrast. TECHNIQUE: Multiple contiguous axial images were obtained through the abdomen and pelvis without the use of intravenous contrast. Auto Exposure Controls were utilized during the CT exam to meet ALARA standards for radiation dose reduction. INDICATION: Small bowel obstruction. COMPARISON: Abdominal pelvic CT 02/24/2020 and correlated with the images obtained from small bowel series of 02/25/2020. FINDINGS: There has been antegrade advancement of the contrast media now predominantly within the colon. There is some residual small bowel contrast to the level of some small bowel fecalization and in the midabdomen where there is a zone of transition, best appreciated on the coronal images 33 through 35. Small bowel distal to the transition appears thick-walled over a length of about 7-8 cm. There is trace pelvic free fluid and fluid in the lower right colic gutter. No pneumatosis or free air. No contrast extravasation. No free air. The kidneys are unobstructed, nonfocal and unremarkable. No hepatobiliary abnormality. Spleen, adrenals and pancreas are unremarkable. The aorta is nonaneurysmal. The small bowel is dilated and measures a maximal transverse diameter of 4.6 cm. IMPRESSION: Some proximal to mid abdominal small bowel dilatation to the level of transition accompanied by small bowel wall thickening and fecalization of the most distal dilated segment. Partial obstruction owing to a small bowel segmental inflammatory process is suggested. No pneumatosis. No free air. No perforation or abscess. There is trace free fluid without loculation. There is no hepatobiliary or renal abnormality. Dictated by: Dictated on workstation # [id number]
[2020-02-27 17:27] LABS: BILIRUBIN,URINE NEGATIVE (NEGATIVE); CLARITY,URINE CLEAR; COLOR,URINE YELLOW; GLUCOSE, URINE (UA) NEGATIVE (NEGATIVE); KETONES,URINE NEGATIVE (NEGATIVE); LEUKOCYTE ESTERASE ,URINE NEGATIVE (NEGATIVE); NITRITE,URINE NEGATIVE (NEGATIVE); PH,URINE 6.5 (5-9); PROTEIN,URINE NEGATIVE (NEGATIVE)
[2020-02-27] MEDS ORDERED: cefTRIAXone FOR IV USE 1,000 MG in WATER (STERILE) FOR INJECTION 10 ML IV ONE (17:30)
[2020-02-27] MEDS ORDERED: metroNIDAZOLE 500MG/100ML IVPB 100 ML IV ONE (17:30)
[2020-02-27] MEDS ORDERED: methylPREDNISolone 125 MG (Solu-MEDROL) VIAL IVP ONE (17:45)
[2020-02-27] MEDS ORDERED: morphine INJ 10 MG/ML 1ML (SYR OR VIAL) IVP STA (17:51)
[2020-02-27 18:03] LABS: BACTERIA,URINE TRACE /HPF
--- NOTE | 2020-02-27 18:31 | NUR ---
CAROL PARIKH admitted to room 412-1, with an admitting diagnosis of partial bowel obstruction, on 02/27/20 from AM via [facility] ED, accompanied by staff.CAROL PARIKH introduced to surroundings, call light, bed controls, phone, TV, temperature control, lights, meal times, smoking policy, visitor policy, side rail policy, bathrooms and showers. Patient Rights given to patient in the handbook. CAROL PARIKH verbalizes understanding that [facility] is not responsible for the loss or damage to any personal effects or valuables that are kept in the patients posession during their hospitalization. CAROL PARIKH verbalizes understanding of Interdisciplinary Patient Education. Patient and/or family were informed about the Rapid Response Team and its purpose.
[2020-02-27 18:33] VITALS: BP 138/78
[2020-02-27] MEDS: LACTATED RINGERS 1,000 ML IV SCH (18:51)
[2020-02-27] MEDS: ONDANSETRON 4 MG/2 ML (SDV) Z0FRAN IV PRN (18:52)
[2020-02-27 19:38] VITALS: BP 132/67
[2020-02-27] MEDS: fentaNYL INJECTION 100 MCG/2 ML AMP IV PRN (21:15)
[2020-02-28 00:10] VITALS: BP 123/63
[2020-02-28] MEDS: methylPREDNISolone 125 MG (Solu-MEDROL) VIAL IV SCH ×4 (00:12→17:24)
[2020-02-28] MEDS: fentaNYL INJECTION 100 MCG/2 ML AMP IV PRN ×3 (00:24→18:27)
[2020-02-28 04:12] VITALS: BP 109/58
[2020-02-28] MEDS: LACTATED RINGERS 1,000 ML IV SCH ×2 (06:53→18:14)
[2020-02-28 07:35] VITALS: BP 129/70
[2020-02-28] MEDS: PANTOPRAZOLE 40 MG (PROTONIX) VIAL IV SCH (07:55)
--- NOTE | 2020-02-28 08:05 | NUR ---
patient complaint of increase bloating in abdomen. upon assessment abdomen is firm, round, and distended more than yesterdays assessment. Dr. Tao notified and instructed this RN to place an NG tube to low intermitted suction, NPO diet, and X-ray to confirm NG location
[2020-02-28] MEDS: PROMETHAZINE INJ 25 MG/ML (PHENERGAN) AMP IV PRN (08:16)
--- NOTE | 2020-02-28 08:16 | NUR ---
Phenergan given at this time to help with nausea and patient anxiety. NG tube placed by this RN with assistance from Suzi HUNG. patient tolerated procedure well, 500cc of orange tinged liquid collected in canister at this time. patient stated feel less bloated and more relaxed. X-ray ordered to confirm placement
--- NOTE | 2020-02-28 09:23 | Consultation - Surgery ---
MARGIE BISHOP MED STUDENT 02/28/20 0923: History of Present Illness History of Present Illness Patient Consulted On(amisha/time) 02/28/20 09 Date Seen by Provider: Feb 28, 2020 Time Seen by Provider: 09:00 History of Present Illness Mr. Garduno is a 54 year old male who presented to the ED via EMS after being discharged from the hospital for approximately 24 hours. He recently had a small bowel follow through study that showed he was moving content through his bowel. He states that he drank some water and sprite and ate some cottage cheese at home after discharge and became nauseated. He states he vomited about 10 times at home, without any evidence of blood. He states he began having increasing abdominal distention while at home with increasing diffuse abdominal pain. Overnight he had 2 bouts of diarrhea without blood per patient report. He reports he's unsure as to whether or not he's passing gas over night or this morning. He states he was nauseated severely this morning but after receiving some antiemetics and getting the NGT placed he's feeling better. He rates his abdominal pain at a 6/10 currently and is diffusely painful. He does report tenderness to light palpation. He states that morphine doesn't help much with the pain, but that fentanyl does. Allergies and Home Medications Allergies Coded Allergies: diphenhydramine (Verified Allergy, Unknown, 02/27/20) Home Medications No Active Prescriptions or Reported Meds Past Fmejjgk-Xddmsw-Zarbkt Hx Patient Social History Alcohol Use: Denies Use Recreational Drug Use: Yes Drug of Choice: Heroin Smoking Status: Current Someday Smoker Type Used: Cigarettes Recent Foreign Travel: No Contact w/Someone Who Travel: No Recent Infectious Disease Expo: No Recent Hopitalizations: Yes Physical Abuse Screen: No Sexual Abuse: No Immunizations Up To Date Tetanus Booster (TDap): Unknown PED Vaccines UTD: Yes Date of Influenza Vaccine: May 26, 2015 Seasonal Allergies Seasonal Allergies: No Surgeries History of Surgeries: No Surgeries: Tonsillectomy Respiratory History of Respiratory Disorde: Yes Respiratory Disorders: Asthma, Pneumonia Cardiovascular History of Cardiac Disorders: No Neurological History of Neurological Disord: No Reproductive System Hx Reproductive Disorders: No Sexually Transmitted Disease: No HIV/AIDS: No Genitourinary History of Genitourinary Disor: No Gastrointestinal History of Gastrointestinal Di: No Gastrointestinal Disorders: Gastroesophageal Reflux, Hepatitis, Gall Bladder Disease Musculoskeletal History of Musculoskeletal Dis: No Musculoskeletal Disorders: Chronic Back Pain Endocrine History of Endocrine Disorders: No HEENT History of HEENT Disorders: No Loss of Vision: Bilateral Hearing Impairment: Denies Cancer History of Cancer: No Psychosocial History of Psychiatric Problem: No Integumentary History of Skin or Integumenta: No Blood Transfusions History of Blood Disorders: No Adverse Reaction to a Blood Tr: No Family Medical History Significant Family History: Cancer Family Medial History: Completed stroke 19 FATHER, Onset:60 years & older Diabetes mellitus 19 FATHER FH: aneurysm 19 MOTHER FH: cancer 19 FATHER 19 MOTHER Pacemaker 19 MOTHER Review of Systems-General Constitutional: No chills, No diaphoresis, No fever EENTM: no symptoms reported Respiratory: no symptoms reported; No cough, No hemoptysis, No short of breath Cardiovascular: no symptoms reported; No chest pain, No edema Gastrointestinal: see HPI, abdominal pain (diffuse), diarrhea, nausea Genitourinary: no symptoms reported; No dysuria, No frequency Musculoskeletal: no symptoms reported Skin: no symptoms reported Psychiatric/Neurological: No Symptoms Reported Physical Exam-General Problems Physical Exam Vital Signs Vital Signs - First Documented 02/27/20 15:07 Temp 36.0 Pulse 88 Resp 20 B/P (MAP) 154/99 (117) Pulse Ox 98 O2 Delivery Room Air Capillary Refill : Less Than 3 Seconds General Appearance: WD/WN, no apparent distress Eyes: Bilateral Eye EOMI HEENT: PERRL/EOMI Neck: non-tender, full range of motion Respiratory: chest non-tender, lungs clear, normal breath sounds, no respiratory distress, no accessory muscle use Cardiovascular: normal peripheral pulses, regular rate, rhythm, no edema Peripheral Pulses: 2+ Dorsalis Pedis (R), 2+ Left Dors-Pedis (L), 2+ Radial Pulses (R), 2+ Radial Pulses (L) Gastrointestinal: abnormal bowel sounds (decreased), distended, tenderness Back: normal inspection Extremities: normal range of motion, non-tender, no pedal edema, no calf tenderness, normal capillary refill 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: 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, alert, normal mood/affect, oriented x 3 Skin: normal color, warm/dry Lymphatic: no adenopathy Data Review Labs Laboratory Tests 02/27/20 15:27: White Blood Count 9.7, Red Blood Count 4.36, Hemoglobin 13.3, Hematocrit 39L, Mean Corpuscular Volume 90, Mean Corpuscular Hemoglobin 31, Mean Corpuscular Hemoglobin Concent 34, Red Cell Distribution Width 11.6, Platelet Count 351, Mean Platelet Volume 9.4, Immature Granulocyte % (Auto) 2, Neutrophils (%) (Auto) 70, Lymphocytes (%) (Auto) 15, Monocytes (%) (Auto) 11, Eosinophils (%) (Auto) 2, Basophils (%) (Auto) 0, Neutrophils # (Auto) 6.8, Lymphocytes # (Auto) 1.4, Monocytes # (Auto) 1.1H, Eosinophils # (Auto) 0.2, Basophils # (Auto) 0.0, Immature Granulocyte # (Auto) 0.2H, Sodium Level 138, Potassium Level 3.5L, Chloride Level 103, Carbon Dioxide Level 25, Anion Gap 10, Blood Urea Nitrogen 10, Creatinine 0.81, Estimat Glomerular Filtration Rate > 60, BUN/Creatinine Ratio 12, Glucose Level 111H, Calcium Level 8.4L, Corrected Calcium 8.5, Total Bilirubin 0.3, Aspartate Amino Transf (AST/SGOT) 16, Alanine Aminotransferase (ALT/SGPT) 33, Alkaline Phosphatase 53, C-Reactive Protein High Sensitivity 2.13H, Total Protein 6.7, Albumin 3.9, Lipase 126H 02/27/20 17:17: Urine Color YELLOW, Urine Clarity CLEAR, Urine pH 6.5, Urine Specific [place] 1.010L, Urine Protein NEGATIVE, Urine Glucose (UA) NEGATIVE, Urine Ketones NEGATIVE, Urine Nitrite NEGATIVE, Urine Bilirubin NEGATIVE, Urine Urobilinogen 0.2, Urine Leukocyte Esterase NEGATIVE, Urine RBC (Auto) NEGATIVE, Urine RBC NONE, Urine WBC NONE, Urine Crystals NONE, Urine Bacteria TRACE, Urine Casts NONE, Urine Mucus NEGATIVE, Urine Culture Indicated NO Assessment/Plan Assessment/Plan Assessment/Plan Likely partial small bowel obstruction- Possible crohns disease-thickening of terminal ileum Abdominal pain Nausea Nasogastric tube to low intermittent suction. Keep patient NPO. Continue steroids, pain medications, antiemetics, and IVF's as ordered. Continue to monitor fluid and electrolyte status and replete as needed. Clinical Quality Measures DVT/VTE Risk/Contraindication: Risk Factor Score Per Nursin RFS Level Per Nursing on Admit: 3=High ROLY TAO DO 02/28/20 1524: History of Present Illness History of Present Illness History of Present Illness Patient is a 54-year-old male who presented back to the emergency department. Patient had abdominal distention, abdominal pain which appear to be secondary to small bowel obstruction. He had a small bowel follow-through which demonstrated no obstruction and contrast in his way to the colon. Patient states that after discharge she went home and started eating cottage cheese and then he continued to worsen overnight. He was instructed to stay on a clear liquid diet upon dis charge. Patient began having more abdominal distention. Moderate to severe abdominal pain currently a 6 out of 10. Diffuse pain. No radiation. Pain medication helps. An NG tube was placed this morning due to patient continued having nausea and vomiting. He had a repeat CT scan demonstrating some dilation of the small bowel with a short segment of the distal ileum being thickened consistent with inflammatory process. And he was started on steroids. Allergies and Home Medications Allergies Coded Allergies: diphenhydramine (Verified Allergy, Unknown, 02/27/20) Home Medications No Active Prescriptions or Reported Meds Patient Home Medication List Home Medication List Reviewed: Yes Past Ddgdwml-Wubtjn-Qcswch Hx Reviewed Nursing Assessment Reviewed/Agree w Nursing PMH: Yes Family Medical History Significant Family History: No Pertinent Family Hx Family Medial History: Completed stroke 19 FATHER, Onset:60 years & older Diabetes mellitus 19 FATHER FH: aneurysm 19 MOTHER FH: cancer 19 FATHER 19 MOTHER Pacemaker 19 MOTHER Review of Systems-General Constitutional: No diaphoresis, No fever EENTM: No blurred vision, No double vision Respiratory: No cough, No hemoptysis, No short of breath Cardiovascular: No chest pain, No edema Gastrointestinal: abdominal pain (diffuse), diarrhea, nausea Genitourinary: No dysuria, No frequency Musculoskeletal: No gout, No joint pain Skin: No change in color, No change in hair/nails Psychiatric/Neurological: Denies Anxiety, Denies Depressed All Other Systems Reviewed Negative Unless Noted: Yes (Negative excepted noted.) Physical Exam-General Problems Physical Exam General Appearance: WD/WN, no apparent distress HEENT: PERRL/EOMI, normal ENT inspection Neck: non-tender, full range of motion, normal inspection Respiratory: chest non-tender, no respiratory distress, no accessory muscle use Cardiovascular: normal peripheral pulses, regular rate, rhythm, no edema Gastrointestinal: no organomegaly, distended, tenderness (minimal diffuse); No hernia, No mass Rectal: deferred Back: normal inspection, no CVA tenderness Extremities: normal range of motion, non-tender, no pedal edema, no calf tenderness 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: 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, alert, normal mood/affect, oriented x 3 Skin: normal color, warm/dry Lymphatic: no adenopathy Assessment/Plan Assessment/Plan Assessment/Plan small bowel obstruction secondary to inflammatory process terminal ileum possible crohn's abdominal pain nausea vomiting ng tube place started on steroids will need endoscopy in near future no surgical intervention at this time conservative measures Supervisory-Addendum Brief Verification & Attestation Participated in pt care: history, MDM, physical Personally performed: exam, history, MDM, supervision of care Care discussed with: Medical Student Procedures: n/a Results interpretation: Verified all documentation Verification and Attestation of Medical Student E/M Service A medical student performed and documented this service in my presence. I reviewed and verified all information documented by the medical student and made modifications to such information, when appropriate. I personally performed the physical exam and medical decision making. Roly Tao, Feb 28, 2020,15:29 MARGIE BISHOP MED STUDENT Feb 28, 2020 09:23 ROLY TAO DO Feb 28, 2020 15:24
--- NOTE | 2020-02-28 10:41 | History & Physical-Hospitalist ---
History of Present Illness HPI/Chief Complaint this is a 54-year-old white male who was recently discharged after a hospitalization for abdominal pain and small bowel obstruction. Upper GI with small bowel follow-through showed patency of the small bowel before discharge 24 hours ago. the patient went home and then began having increased abdominal pain with nausea and vomiting and to episodes of diarrhea. The patient this morning is a poor historian and is very somnolent. Overnight he had to have an NG tube placed with about a liter of fluid rate moved. He denies having any flatus. CT showed obstruction of the proximal small bowel with an area of thickening. Source: patient, old records Exam Limitations: clinical condition Date Seen 02/28/20 Time Seen by a Provider: 09:20 Attending Physician Swapna Singh MD PCP Italo Koo Referring Physician Date of Admission Feb 27, 2020 at 17:52 Home Medications & Allergies Home Medications Reviewed patient Home Medication Reconciliation performed by pharmacy medication reconciliations tissue recovery technician and/or nursing. Patients Allergies have been reviewed. Allergies Allergies Coded Allergies diphenhydramine (Verified Allergy, Unknown, 02/27/20) Past Ilaoqdb-Vfcorp-Zgiipw Hx Past Med/Social Hx: Reviewed Nursing Past Med/Soc Hx Patient Social History Marrital Status: single Alcohol Use: Denies Use Recreational Drug Use: Yes Drug of Choice: Heroin Smoking Status: Current Someday Smoker Type Used: Cigarettes Physical Abuse Screen: No Sexual Abuse: No Recent Foreign Travel: No Contact w/other who traveled: No Recent Hopitalizations: Yes Recent Infectious Disease Expo: No Immunizations Up To Date Tetanus Booster (TDap): Unknown Pediatric: Yes Date of Influenza Vaccine: May 26, 2015 Seasonal Allergies Seasonal Allergies: No Past Medical History Surgeries: Tonsillectomy Currently Using CPAP: No Currently Using BIPAP: No Reproductive: No Sexually Transmitted Disease: No HIV/AIDS: No Gastrointestinal: Gastroesophageal Reflux, Hepatitis, Gall Bladder Disease Musculoskeletal: Chronic Back Pain Loss of Vision: Bilateral Hearing Impairment: Denies History of Blood Disorders: No Adverse Reaction to Blood Thompson: No Family History Reviewed Nursing Family Hx Completed stroke 19 FATHER, Onset:60 years & older Diabetes mellitus 19 FATHER FH: aneurysm 19 MOTHER FH: cancer 19 FATHER 19 MOTHER Pacemaker 19 MOTHER Cancer Per records reviewed due to altered mental status Review of Systems Constitutional: see HPI EENTM: no symptoms reported Respiratory: no symptoms reported Cardiovascular: no symptoms reported Gastrointestinal: abdominal pain, diarrhea, nausea, vomiting Genitourinary: no symptoms reported Musculoskeletal: back pain Skin: no symptoms reported Psychiatric/Neurological: No Symptoms Reported Physical Exam Physical Exam Vital Signs Vital Signs - First Documented 02/27/20 15:07 Temp 36.0 Pulse 88 Resp 20 B/P (MAP) 154/99 (117) Pulse Ox 98 O2 Delivery Room Air Capillary Refill : Less Than 3 Seconds Height, Weight, BMI Height: 6'0" Weight: 165lbs. 0.0oz. [id number]; 28.82 BMI Method:Stated General Appearance: WD/WN Neck: Limited Range of Motion Respiratory: Chest Non Tender, Lungs Clear, Normal Breath Sounds, No Accessory Muscle Use, No Respiratory Distress Cardiovascular: Regular Rate, Rhythm, No Edema, No Gallop, No JVD, Normal Peripheral Pulses Gastrointestinal: Abnormal Bowel Sounds, Distended, Tenderness Extremity: Non Tender, No Calf Tenderness, No Pedal Edema 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: Oriented x3, No Motor/Sensory Deficits, Other (sleepy) Skin: Normal Color, Warm/Dry Results Results/Procedures Labs Laboratory Tests 02/27/20 15:27 Patient resulted labs reviewed. Imaging: Reviewed Imaging Report Assessment/Plan Admission Diagnosis small bowel obstruction with evidence of inflammation most suspicious for Crohn's disease. History of hepatitis C Chronic back pain History of drug use Tobaccoism non-curtailed Plan for continued NG suction surgical consultation patient has been placed on IV steroids to hopefully achieve some response of the inflammation the small bowel. Will need an upper endoscopy and colonoscopy to confirm diagnosis Admission Status: Observation Clinical Quality Measures DVT/VTE Risk/Contraindication: Risk Factor Score Per Nursin RFS Level Per Nursing on Admit: 3=SWAPNA Agudelo MD Feb 28, 2020 10:41
--- NOTE | 2020-02-28 11:17 | Diagnostic Imaging Report ---
INDICATION: NG tube placement. FINDINGS: Small-caliber enteric tube extends to the proximal aspect of the stomach. The side-port is near the level of the GE junction. Lungs demonstrate no focal infiltrate or consolidation. There is no significant effusion. There is no pneumothorax. Heart size and mediastinal contours appear appropriate without evidence of edema or failure. IMPRESSION: 1. NG tube extends to the proximal stomach with side port near the GE junction. 2. No acute cardiopulmonary process demonstrated. Dictated by: Dictated on workstation # [id number]
[2020-02-28 11:30] VITALS: BP 115/58
[2020-02-28 15:46] VITALS: BP 145/76
[2020-02-28] MEDS: ANTACID SUSP 30 ML UDC (MYLANTA) PO PRN (17:23)
[2020-02-28] MEDS ORDERED: CHLORASEPTIC SPRAY 177 ML LIQUID MC PRN (18:45)
--- NOTE | 2020-02-28 18:45 | NUR ---
Patient complaint of increased throat dryness and irritation at this time, NG draining well, suction slowed down, and Chloraseptic [place] ordered to help with irritation
[2020-02-28 19:36] VITALS: BP 142/67
[2020-02-29] MEDS: methylPREDNISolone 125 MG (Solu-MEDROL) VIAL IV SCH ×4 (00:03→17:44)
[2020-02-29] MEDS ORDERED: CHLORASEPTIC SPRAY 177 ML LIQUID ONE (00:35)
[2020-02-29] MEDS ORDERED: CHLORASEPTIC SPRAY 177 ML LIQUID MC PRN ×2 (00:45)
[2020-02-29] MEDS: PROMETHAZINE INJ 25 MG/ML (PHENERGAN) AMP IV PRN (00:50)
[2020-02-29 00:51] VITALS: BP 138/83
[2020-02-29] MEDS: ANTACID SUSP 30 ML UDC (MYLANTA) PO PRN ×2 (02:49→21:19)
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
[2020-02-29] MEDS: LACTATED RINGERS 1,000 ML IV SCH ×3 (04:29→16:20)
[2020-02-29 04:41] VITALS: BP 110/65
[2020-02-29 08:00] VITALS: BP 129/74
[2020-02-29] MEDS: PANTOPRAZOLE 40 MG (PROTONIX) VIAL IV SCH (08:45)
--- NOTE | 2020-02-29 09:06 | Progress Note - Surgery ---
MARGIE BISHOP MED STUDENT 02/29/20 0906: Subjective Date Seen by a Provider: Feb 29, 2020 Time Seen by a Provider: 08:50 Subjective/Events-last exam Mr. Garduno states he is doing much better this morning. He reports he is passing gas. States he's had 1 BM since rehospitalization with no evidence of blood per his report. He reports that he believes his abdominal distention is decreased from when I evaluated him yesterday morning. He denies having any abdominal pain this morning. He denies nausea, vomiting, chest pain, SOB, fevers, and chills. His only complaint is that the NGT is bothering the back of his throat. He wants to eat and get the NGT out as fast as is reasonably possible. Patient has no other concerns/questions this morning. Review of Systems General: No Chills, No Night Sweats HEENT: No Head Aches, No Visual Changes Pulmonary: No Dyspnea, No Cough Cardiovascular: No: Chest Pain, Palpitations, Edema Gastrointestinal: No: Nausea, Vomiting, Abdominal Pain Genitourinary: No Dysuria, No Frequency Musculoskeletal: No: neck pain, shoulder pain Neurological: No: Weakness, Numbness Objective Exam Vital Signs Date Time Temp Pulse Resp B/P (MAP) Pulse Ox O2 Delivery O2 Flow Rate FiO2 02/29/20 04:41 36.8 88 18 110/65 (80) 95 Room Air 02/29/20 00:51 36.6 88 20 138/83 (101) 96 Room Air 02/28/20 20:59 Room Air 02/28/20 19:36 36.5 83 20 142/67 (92) 97 Room Air 02/28/20 15:46 36.5 80 18 145/76 (99) 96 Room Air 02/28/20 11:30 36.6 78 16 115/58 (77) 95 Room Air I & O 02/29/20 07:00 Intake Total 2320 ml Output Total 2950 ml Balance -630 ml Capillary Refill : Less Than 3 Seconds General Appearance: WD/WN HEENT: PERRL/EOMI Neck: Non Tender, Limited Range of Motion (motion limited due to EJ IV) Respiratory: Chest Non Tender, Lungs Clear, Normal Breath Sounds, No Accessory Muscle Use, No Respiratory Distress Cardiovascular: Regular Rate, Rhythm, No Edema, No Murmur, Normal Peripheral Pulses Peripheral Pulses: 2+ Dorsalis Pedis (R), 2+ Left Dors-Pedis (L), 2+ Radial Pulses (R), 2+ Radial Pulses (L) Gastrointestinal: non tender, distended; No hernia, No mass Extremity: Normal Capillary Refill, Non Tender, No Calf Tenderness, No Pedal Edema 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: Alert, Oriented x3, No Motor/Sensory Deficits, Normal Mood/Affect Skin: Normal Color, Warm/Dry Lymphatic: No Adenopathy Assessment/Plan Assessment/Plan Assessment/Plan small bowel obstruction secondary to inflammatory process terminal ileum possible crohn's abdominal pain- resolved nausea vomiting-resolved ng tube to LIS Continue solumdedrol will need endoscopy in near future no surgical intervention at this time Continue IVF's, pain meds, and antiemetics Clinical Quality Measures DVT/VTE Risk/Contraindication: Risk Factor Score Per Nursin RFS Level Per Nursing on Admit: 3=High KASSANDRA TAO DO 02/29/20 1410: Subjective Subjective/Events-last exam Feeling better today. Passing some flatus. Had 1 bm. No abdominal pain at this time. Less distention. Denies fever sweats chills shortness of breath or chest pain. Objective Exam General Appearance: WD/WN, Anxious HEENT: PERRL/EOMI, Normal ENT Inspection (ng tube in place) Neck: Normal Inspection, Non Tender Respiratory: Chest Non Tender, No Accessory Muscle Use, No Respiratory Distress Cardiovascular: Regular Rate, Rhythm, No Edema Gastrointestinal: non tender, distended (less); No hernia, No mass Extremity: Normal Capillary Refill, Non Tender, No Calf Tenderness 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: Alert, Oriented x3, No Motor/Sensory Deficits, Normal Mood/Affect Skin: Normal Color, Warm/Dry Lymphatic: No Adenopathy Assessment/Plan Assessment/Plan Assessment/Plan small bowel obstruction secondary to inflammatory process terminal ileum possible crohn's abdominal pain- resolved nausea vomiting-resolved Ng tube to LIWS likely remove tomorrow if continues to feel well Need IV access, obtain midline Endoscopy near future Continue steroids Supervisory-Addendum Brief Verification & Attestation Participated in pt care: history, MDM, physical Personally performed: exam, history, MDM, supervision of care Care discussed with: Medical Student Procedures: n/a Results interpretation: Verified all documentation Verification and Attestation of Medical Student E/M Service A medical student performed and documented this service in my presence. I reviewed and verified all information documented by the medical student and made modifications to such information, when appropriate. I personally performed the physical exam and medical decision making. Kassandra Tao, Feb 29, 2020,14:10 MARGIE BISHOP MED STUDENT Feb 29, 2020 09:06 KASSANDRA TAO DO Feb 29, 2020 14:10
--- NOTE | 2020-02-29 10:57 | Progress Note - Hospitalist ---
Subjective HPI/CC On Admission Date Seen by Provider: Feb 29, 2020 Time Seen by Provider: 10:15 this is a 54-year-old white male who was recently discharged after a hospitalization for abdominal pain and small bowel obstruction. Upper GI with small bowel follow-through showed patency of the small bowel before discharge 24 hours ago. the patient went home and then began having increased abdominal pain with nausea and vomiting and to episodes of diarrhea. The patient this morning is a poor historian and is very somnolent. Overnight he had to have an NG tube placed with about a liter of fluid rate moved. He denies having any flatus. CT showed obstruction of the proximal small bowel with an area of thickening. Subjective/Events-last exam patient feels much better than he did yesterday. He would like his NG tube out. I discussed with him his hepatitis C status and possible treatment in the future. I also discussed with him that he'll need an EGD colonoscopy and possible long-term treatment if he does have Crohn's disease. Objective Exam Vital Signs Vital Signs Date Time Temp Pulse Resp B/P (MAP) Pulse Ox O2 Delivery O2 Flow Rate FiO2 02/29/20 08:00 36.5 79 20 129/74 (92) 93 Room Air Capillary Refill : Less Than 3 Seconds General Appearance: No Apparent Distress, WD/WN HEENT: Normal ENT Inspection Neck: Non Tender, Supple Respiratory: Chest Non Tender, Lungs Clear, Normal Breath Sounds, No Accessory Muscle Use, No Respiratory Distress Cardiovascular: Regular Rate, Rhythm, No Gallop, No Murmur, Normal Peripheral Pulses Gastrointestinal: Normal Bowel Sounds, Soft, Distended Rectal: Deferred Extremity: No Calf Tenderness, No Pedal Edema 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: Alert, Oriented x3, No Motor/Sensory Deficits, Normal Mood/Affect Skin: Normal Color, Warm/Dry Results/Procedures Lab Patient resulted labs reviewed. Imaging: Reviewed Imaging Report Assessment/Plan Assessment and Plan Assess & Plan/Chief Complaint small bowel obstruction-improving another 24 more hours of NG suction per Dr. Tao Possible Crohn's/ inflammatory bowel disease-EGD and colonoscopy when inflammation decreases hepatitis C per history with an elevated T bili Tobaccoism Clinical Quality Measures DVT/VTE Risk/Contraindication: Risk Factor Score Per Nursin RFS Level Per Nursing on Admit: 3=High VIKAS ORDOÑEZ MD Feb 29, 2020 10:57
[2020-02-29] MEDS: fentaNYL INJECTION 100 MCG/2 ML AMP IV PRN ×3 (11:29→19:54)
[2020-02-29 12:00] VITALS: BP 125/71
[2020-02-29 15:58] VITALS: BP 134/65
[2020-02-29 20:00] VITALS: BP 158/85
[2020-03-01 00:31] VITALS: BP 132/79
[2020-03-01] MEDS: methylPREDNISolone 125 MG (Solu-MEDROL) VIAL IV SCH ×5 (00:34→23:50)
[2020-03-01] MEDS: LACTATED RINGERS 1,000 ML IV SCH ×3 (02:47→23:50)
[2020-03-01 03:57] VITALS: BP 128/81
[2020-03-01 04:35] LABS: BASOPHILS # (AUTO) 0.1 10^3/uL (0.0-0.1); BASOPHILS % (AUTO) 0 % (0-10); EOSINOPHILS % (AUTO) 0 % (0-10); HEMATOCRIT 37 % (40-54); HEMOGLOBIN 12.4 g/dL (13.3-17.7); LYMPHOCYTES # (AUTO) 0.9 10^3/uL (1.0-4.0); LYMPHOCYTES % (AUTO) 4 % (12-44); MEAN CORPUSCULAR HEMOGLOBIN 31 pg (25-34); MEAN CORPUSCULAR HGB CONC 34 g/dL (32-36); MEAN CORPUSCULAR VOLUME 91 fL (80-99); MEAN PLATELET VOLUME 9.1 fL (9.0-12.2); MONOCYTES # (AUTO) 0.7 10^3/uL (0.0-1.0); MONOCYTES % (AUTO) 3 % (0-12); NEUTROPHILS # (AUTO) 19.2 10^3/uL (1.8-7.8); NEUTROPHILS % (AUTO) 89 % (42-75); PLATELET COUNT 373 10^3/uL (130-400); WHITE BLOOD COUNT 21.6 10^3/uL (4.3-11.0)
[2020-03-01] MEDS: fentaNYL INJECTION 100 MCG/2 ML AMP IV PRN ×5 (04:43→19:59)
[2020-03-01 04:53] LABS: ALBUMIN 3.9 GM/DL (3.2-4.5); CHLORIDE 105 MMOL/L (98-107); POTASSIUM 4.4 MMOL/L (3.6-5.0); SODIUM 140 MMOL/L (135-145)
[2020-03-01 04:54] LABS: CALCIUM 8.5 MG/DL (8.5-10.1)
[2020-03-01 04:55] LABS: GLUCOSE 125 MG/DL (70-105); TOTAL PROTEIN 6.5 GM/DL (6.4-8.2)
[2020-03-01 04:56] LABS: CARBON DIOXIDE 25 MMOL/L (21-32)
[2020-03-01 04:57] LABS: BILIRUBIN,TOTAL 0.4 MG/DL (0.1-1.0)
[2020-03-01 04:58] LABS: ALKALINE PHOSPHATASE 54 U/L (40-136)
[2020-03-01 04:59] LABS: CREATININE SERUM 0.88 MG/DL (0.60-1.30); GFR ESTIMATED > 60
[2020-03-01 05:00] LABS: BUN/CREATININE RATIO 20
[2020-03-01 05:02] LABS: ALANINE AMINOTRANSFERASE 26 U/L (0-55); MAGNESIUM 2.7 MG/DL (1.6-2.4)
[2020-03-01 08:00] VITALS: BP 134/79
[2020-03-01] MEDS: PANTOPRAZOLE 40 MG (PROTONIX) VIAL IV SCH (08:39)
--- NOTE | 2020-03-01 09:13 | Progress Note - Surgery ---
MARGIE BISHOP MED STUDENT 03/01/20 0913: Subjective Date Seen by a Provider: Mar 01, 2020 Time Seen by a Provider: 07:50 Subjective/Events-last exam Patient states he is doing much better today. Reports he is passing gas. He wants his NGT out as it is irritating his nares and throat. He reports that his belly is less distended and softer today. He denies nausea, vomiting, or diarrhea. Denies pain. Review of Systems General: No Chills, No Night Sweats HEENT: No Head Aches, No Visual Changes Pulmonary: No Dyspnea, No Cough Cardiovascular: No: Chest Pain, Palpitations Gastrointestinal: No: Nausea, Vomiting, Abdominal Pain Genitourinary: No Dysuria, No Frequency Neurological: No: Weakness, Numbness Objective Exam Vital Signs Date Time Temp Pulse Resp B/P (MAP) Pulse Ox O2 Delivery O2 Flow Rate FiO2 03/01/20 03:57 36.9 72 20 128/81 (97) 91 Room Air 03/01/20 00:31 35.9 71 18 132/79 (96) 94 Room Air 02/29/20 20:00 36.4 75 18 158/85 (109) 96 Room Air 02/29/20 19:54 Room Air 02/29/20 15:58 37.0 75 18 134/65 (88) 94 Room Air 02/29/20 12:00 36.8 73 20 125/71 (89) 95 Room Air I & O 03/01/20 07:00 Output Total 2425 ml Balance -2425 ml Capillary Refill : Less Than 3 Seconds General Appearance: WD/WN HEENT: PERRL/EOMI, Normal ENT Inspection (ng tube in place) Neck: Normal Inspection, Non Tender Respiratory: Chest Non Tender, No Accessory Muscle Use, No Respiratory Distress Cardiovascular: Regular Rate, Rhythm, No Edema Peripheral Pulses: 2+ Dorsalis Pedis (R), 2+ Left Dors-Pedis (L), 2+ Radial Pulses (R), 2+ Radial Pulses (L) Gastrointestinal: non tender, distended (less); No hernia, No mass Extremity: Normal Capillary Refill, Non Tender, No Calf Tenderness 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: Alert, Oriented x3, No Motor/Sensory Deficits, Normal Mood/Affect Skin: Normal Color, Warm/Dry Lymphatic: No Adenopathy Assessment/Plan Assessment/Plan Assessment/Plan small bowel obstruction secondary to inflammatory process terminal ileum possible crohn's abdominal pain- resolved nausea vomiting-resolved Remove Nasogastric tube today Keep patient NPO today Endoscopy near future Encourage increased ambulation Continue steroids Clinical Quality Measures DVT/VTE Risk/Contraindication: Risk Factor Score Per Nursin RFS Level Per Nursing on Admit: 3=High KASSANDRA TAO DO 03/01/206: Subjective Subjective/Events-last exam Patient feeling much better. He is not having much pain at this time. He is passing flatus and had small bowel movement that was more formed. He would like to have NG tube removed. Denies any new complaints. Denies any nausea vomiting fever sweats chills shortness of breath or chest pain. Objective Exam General Appearance: No Apparent Distress, WD/WN HEENT: PERRL/EOMI, Normal ENT Inspection (ng tube in place) Neck: Normal Inspection, Non Tender Respiratory: Chest Non Tender, No Accessory Muscle Use, No Respiratory Distress Cardiovascular: Regular Rate, Rhythm, No Edema Gastrointestinal: non tender, distended (minimal); No hernia, No mass Extremity: Normal Capillary Refill, Non Tender, No Calf Tenderness 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: Alert, Oriented x3, No Motor/Sensory Deficits, Normal Mood/Affect Skin: Normal Color, Warm/Dry Assessment/Plan Assessment/Plan Assessment/Plan small bowel obstruction secondary to inflammatory process terminal ileum possible crohn's abdominal pain- resolved nausea vomiting-resolved Remove Nasogastric tube today Keep patient NPO today Endoscopy near future Encourage increased ambulation Continue steroids If still doing well would start clear liquids tomorrow. We will plan endoscopy when patient can tolerate prep Supervisory-Addendum Brief Verification & Attestation Participated in pt care: history, MDM, physical Personally performed: exam, history, MDM, supervision of care Care discussed with: Medical Student Procedures: n/a Results interpretation: Verified all documentation Verification and Attestation of Medical Student E/M Service A medical student performed and documented this service in my presence. I reviewed and verified all information documented by the medical student and made modifications to such information, when appropriate. I personally performed the physical exam and medical decision making. Kassandra Tao, Mar 01, 2020,21:55 MARGIE BISHOP MED STUDENT Mar 01, 2020 09:13 KASSANDRA TAO DO Mar 01, 2020 21:56
--- NOTE | 2020-03-01 11:15 | NUR ---
I SPOKE WITH THE PATIENT TO COMPLETE THIS MED REC. PATIENT WAS HERE LAST WEEK AND HAD A MED REC DONE THEN. PATIENT WAS NOT TAKING ANY MEDS AND STATES THAT HE HASN'T STARTED ON ANY MEDS SINCE BEING DISCHARGED A FEW DAYS AGO.
[2020-03-01 12:00] VITALS: BP 123/73
--- NOTE | 2020-03-01 15:29 | Progress Note ---
Subjective Subjective/Events-last exam Patient doing much better this AM. States that he would like to get the NG removed. States that he had a small formed stool over night and passing gas. Review of Systems General: No Chills; Fatigue Pulmonary: No Dyspnea, No Cough Cardiovascular: No: Chest Pain, Palpitations, Edema Gastrointestinal: Abdominal Pain; No: Nausea, Vomiting Objective Exam Last Set of Vital Signs Vital Signs Date Time Temp Pulse Resp B/P (MAP) Pulse Ox O2 Delivery O2 Flow Rate FiO2 03/01/20 12:00 36.0 65 18 123/73 (90) 93 Room Air Capillary Refill : Less Than 3 SecondsLess Than 3 Seconds I&O Intake and Output 03/01/20 00:00 Intake Total 1000 ml Output Total 2125 ml Balance -1125 ml Intake Oral 0 ml IV Total 1000 ml Output Urine Total 1525 ml Gastric Drainage Total 600 ml General: Alert, Oriented X3, Cooperative, No Acute Distress Lungs: Clear to Auscultation, Normal Air Movement Heart: Regular Rate, No Murmurs Abdomen: Other (+ Bowel sounds with mild distention) Extremities: No Edema, No Tenderness/Swelling Skin: No Rashes, No Breakdown Assessment/Plan Assessment/Plan (1) Small bowel obstruction Status: Acute Assessment & Plan: 03/01: Dr Tao with Surgery consulted, Patient will need EGD and Colonoscopy, concerns for inflammatory bowel disease, NG to be removed today, NPO, Continue steroids (2) Abdominal pain Status: Acute Assessment & Plan: 03/01: Improving (3) DVT prophylaxis Status: Acute Clinical Quality Measures DVT/VTE Risk/Contraindication: Risk Factor Score Per Nursin RFS Level Per Nursing on Admit: 3=High RICARDO SUMNER MD Mar 01, 2020 15:29
[2020-03-01 16:13] VITALS: BP 130/75
--- NOTE | 2020-03-01 17:20 | NUR ---
NG TUBE CLAMPED WHILE PT IS AMBULATING AROUND FLOOR. PT WISHES TO SHOWER AFTER WALKING, NG TUBE WILL BE REATTACHED TO SUCTION WHEN PT RETURNS TO BED
[2020-03-01 20:00] VITALS: BP 131/81
[2020-03-02] VITALS (7 sets, daily range): BP systolic 111–124; BP diastolic 61–82
[2020-03-02] MEDS: fentaNYL INJECTION 100 MCG/2 ML AMP IV PRN ×4 (01:21→12:01)
[2020-03-02 04:36] LABS: BASOPHILS % (AUTO) 0 % (0-10); EOSINOPHILS % (AUTO) 0 % (0-10); HEMATOCRIT 38 % (40-54); HEMOGLOBIN 12.6 g/dL (13.3-17.7); LYMPHOCYTES # (AUTO) 0.9 10^3/uL (1.0-4.0); LYMPHOCYTES % (AUTO) 5 % (12-44); MEAN CORPUSCULAR HEMOGLOBIN 30 pg (25-34); MEAN CORPUSCULAR HGB CONC 34 g/dL (32-36); MEAN CORPUSCULAR VOLUME 91 fL (80-99); MEAN PLATELET VOLUME 9.7 fL (9.0-12.2); MONOCYTES # (AUTO) 0.5 10^3/uL (0.0-1.0); MONOCYTES % (AUTO) 3 % (0-12); NEUTROPHILS # (AUTO) 15.5 10^3/uL (1.8-7.8); NEUTROPHILS % (AUTO) 89 % (42-75); PLATELET COUNT 254 10^3/uL (130-400); WHITE BLOOD COUNT 17.4 10^3/uL (4.3-11.0)
[2020-03-02 04:56] LABS: ALANINE AMINOTRANSFERASE 21 U/L (0-55); ALBUMIN 3.5 GM/DL (3.2-4.5); ALKALINE PHOSPHATASE 50 U/L (40-136); BILIRUBIN,TOTAL 0.4 MG/DL (0.1-1.0); BUN/CREATININE RATIO 24; CALCIUM 8.3 MG/DL (8.5-10.1); CARBON DIOXIDE 20 MMOL/L (21-32); CHLORIDE 105 MMOL/L (98-107); CREATININE SERUM 0.83 MG/DL (0.60-1.30); GFR ESTIMATED > 60; GLUCOSE 118 MG/DL (70-105); POTASSIUM 4.5 MMOL/L (3.6-5.0); SODIUM 135 MMOL/L (135-145); TOTAL PROTEIN 6.2 GM/DL (6.4-8.2)
[2020-03-02] MEDS: methylPREDNISolone 125 MG (Solu-MEDROL) VIAL IV SCH ×4 (05:41→23:09)
--- NOTE | 2020-03-02 06:58 | Progress Note - Surgery ---
MARGIE BISHOP MED STUDENT 03/02/20 0658: Subjective Date Seen by a Provider: Mar 02, 2020 Time Seen by a Provider: 06:45 Subjective/Events-last exam Mr. Garduno states he is doing very well this morning. Reports he is passing gas. Reports he had 2 BM's during the day yesterday. He is not having any nausea, vomiting, or diarrhea. Reports he thinks his abdomen is even less distended to day. He is reporting some mild intermittent abdominal pain in the epigastric region that does not radiate anywhere. States at it's worse the pain is a 7/10. Currently having no abdominal pain. States he's been up ambulating frequently. Tolerating ice chips well. He would like to start a clear liquid diet today if possible. Review of Systems General: No Chills, No Night Sweats HEENT: No Head Aches, No Visual Changes Pulmonary: No Dyspnea, No Cough Cardiovascular: No: Chest Pain, Palpitations Gastrointestinal: Abdominal Pain (intermittent epigastric pain); No: Nausea, Vomiting Genitourinary: No Dysuria, No Frequency Musculoskeletal: No: neck pain, shoulder pain Neurological: No: Weakness, Numbness Objective Exam Vital Signs Date Time Temp Pulse Resp B/P (MAP) Pulse Ox O2 Delivery O2 Flow Rate FiO2 03/02/20 04:00 36.6 59 18 115/63 (80) 94 Room Air 03/02/20 00:09 36.6 63 16 116/63 (80) 94 Room Air 03/01/20 20:00 Room Air 03/01/20 20:00 36.6 73 16 131/81 (98) 95 Room Air 03/01/20 16:13 37.0 73 16 130/75 (93) 94 Room Air 03/01/20 12:00 36.0 65 18 123/73 (90) 93 Room Air 03/01/20 08:00 Room Air 03/01/20 08:00 36.2 74 18 134/79 (97) 93 Room Air I & O 03/02/20 07:00 Intake Total 1000 ml Output Total 2500 ml Balance -1500 ml Capillary Refill : Less Than 3 SecondsLess Than 3 Seconds General Appearance: No Apparent Distress, WD/WN HEENT: PERRL/EOMI, Normal ENT Inspection Neck: Normal Inspection, Non Tender Respiratory: Chest Non Tender, Lungs Clear, Normal Breath Sounds, No Accessory Muscle Use, No Respiratory Distress Cardiovascular: Regular Rate, Rhythm, No Edema, Normal Peripheral Pulses Peripheral Pulses: 2+ Dorsalis Pedis (R), 2+ Left Dors-Pedis (L), 2+ Radial Pulses (R), 2+ Radial Pulses (L) Gastrointestinal: normal bowel sounds, non tender, distended (minimal); No hernia, No mass Extremity: Normal Capillary Refill, Non Tender, No Calf Tenderness, No Pedal Edema 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: Alert, Oriented x3, No Motor/Sensory Deficits, Normal Mood/Affect Skin: Normal Color, Warm/Dry Lymphatic: No Adenopathy Results Lab Laboratory Tests 03/02/20 04:09: White Blood Count 17.4H, Red Blood Count 4.14L, Hemoglobin 12.6L, Hematocrit 38L , Mean Corpuscular Volume 91, Mean Corpuscular Hemoglobin 30, Mean Corpuscular Hemoglobin Concent 34, Red Cell Distribution Width 11.8, Platelet Count 254, Mean Platelet Volume 9.7, Immature Granulocyte % (Auto) 2, Neutrophils (%) (Auto) 89H, Lymphocytes (%) (Auto) 5L, Monocytes (%) (Auto) 3, Eosinophils (%) (Auto) 0, Basophils (%) (Auto) 0, Neutrophils # (Auto) 15.5H, Lymphocytes # (Auto) 0.9L, Monocytes # (Auto) 0.5, Eosinophils # (Auto) 0.0, Basophils # (Auto) 0.0, Immature Granulocyte # (Auto) 0.4H, Sodium Level 135, Potassium Lev el 4.5, Chloride Level 105, Carbon Dioxide Level 20L, Anion Gap 10, Blood Urea Nitrogen 20H, Creatinine 0.83, Estimat Glomerular Filtration Rate > 60, BUN/Creatinine Ratio 24, Glucose Level 118H, Calcium Level 8.3L, Corrected Calcium 8.7, Total Bilirubin 0.4, Aspartate Amino Transf (AST/SGOT) 13, Alanine Aminotransferase (ALT/SGPT) 21, Alkaline Phosphatase 50, Total Protein 6.2L, Albumin 3.5 Assessment/Plan Assessment/Plan Assessment/Plan small bowel obstruction secondary to inflammatory process terminal ileum possible crohn's abdominal pain- intermittent nausea vomiting-resolved Start clear liquid diet today Endoscopy near future Encourage increased ambulation Continue steroids We will plan endoscopy when patient can tolerate prep Clinical Quality Measures DVT/VTE Risk/Contraindication: Risk Factor Score Per Nursin RFS Level Per Nursing on Admit: 3=High KASSANDRA TAO DO 03/02/20 1444: Subjective Subjective/Events-last exam Feeling well today. Passing flatus and had 2 formed stools. No abdominal pain. Denies n/v fever sweats chills shortness of breath or chest pain at this time. Objective Exam General Appearance: No Apparent Distress, WD/WN HEENT: PERRL/EOMI, Normal ENT Inspection Neck: Normal Inspection, Non Tender Respiratory: Chest Non Tender, No Accessory Muscle Use, No Respiratory Distress Cardiovascular: Regular Rate, Rhythm, No Edema Gastrointestinal: normal bowel sounds, non tender; No distended (normal), No hernia, No mass Extremity: Normal Capillary Refill, Non Tender, No Calf Tenderness 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: Alert, Oriented x3, Normal Mood/Affect Skin: Normal Color, Warm/Dry Lymphatic: No Adenopathy Assessment/Plan Assessment/Plan Assessment/Plan small bowel obstruction secondary to inflammatory process terminal ileum possible crohn's abdominal pain- intermittent nausea vomiting-resolved Start clear liquid diet today Endoscopy near future Encourage increased ambulation Continue steroids We will plan endoscopy when patient can tolerate prep which could be inpatient vs outpatient Supervisory-Addendum Brief Verification & Attestation Participated in pt care: history, MDM, physical Personally performed: exam, history, MDM, supervision of care Care discussed with: Medical Student Procedures: n/a Results interpretation: Verified all documentation Verification and Attestation of Medical Student E/M Service A medical student performed and documented this service in my presence. I reviewed and verified all information documented by the medical student and made modifications to such information, when appropriate. I personally performed the physical exam and medical decision making. Kassandra Tao, Mar 02, 2020,14:44 MARGIE BISHOP MED STUDENT Mar 02, 2020 06:58 KASSANDRA TAO DO Mar 02, 2020 14:44
[2020-03-02] MEDS: PANTOPRAZOLE 40 MG (PROTONIX) VIAL IV SCH (08:31)
[2020-03-02] MEDS: LACTATED RINGERS 1,000 ML IV SCH ×2 (11:49→21:40)
--- NOTE | 2020-03-02 13:48 | NUR ---
"RD ASSESSMENT PMHx: GERD; hepatitis PT INTERACTION: Pt was awake and pleasant during nutrition assessment. Pt states current appetite is good. Note pt has been NPO x3d, per chart review. Pt states following a regular diet at home, and has no issues with chewing/swallowing food. Pt states some recent issues with nausea and vomiting. Note recent episodes of emesis on 02/26, per chart review. Pt states no recent issues with constipation or diarrhea, and that his last BM was 03/02. Note pt not currently on bowel regimen per chart review. Pt states no recent wt changes. Note unable to determine recent wt hx, per chart review. ABNORMAL NUTRITION-RELATED LAB VALUES LOW: Ca 8.3; Pro 6.3; HIGH: BUN 20; glu 118 Est. kcal needs: 1875 kcal | 20 kcal/kg Est. Pro needs: 94 g Pro | 1.0 g Pro/kg PES STATEMENT: Inadequate oral intake (NI-2.1) related to nausea | vomiting | NPO status as evidenced by pt interview INTERVENTION: Note pt is currently NPO, per chart review. Would recommend diet advancement to Clear Liquid diet, as medically able and as tolerated. Will continue to follow and reassess as pt needs, intake, and status change. Leticia Blood, MS RD LD"
[2020-03-02] MEDS: HYDROcodone/APAP 5 MG/325 MG (LORTAB) TAB PO PRN ×2 (14:32→21:04)
[2020-03-02] MEDS: ANTACID SUSP 30 ML UDC (MYLANTA) PO PRN ×2 (14:35→20:44)
--- NOTE | 2020-03-02 19:28 | Progress Note ---
Subjective Subjective/Events-last exam Patient doing much better since he got the NG tube out. He is ready to try CLD. Tolerating ambulation. Review of Systems Pulmonary: No Dyspnea, No Cough Cardiovascular: No: Chest Pain, Palpitations Gastrointestinal: Abdominal Pain; No: Nausea, Vomiting, Diarrhea, Constipation Genitourinary: No Dysuria, No Frequency, No Incontinence Objective Exam Last Set of Vital Signs Vital Signs Date Time Temp Pulse Resp B/P (MAP) Pulse Ox O2 Delivery O2 Flow Rate FiO2 03/02/20 16:00 36.6 53 18 112/68 (83) 95 Room Air Capillary Refill : Less Than 3 SecondsLess Than 3 Seconds I&O Intake and Output 03/02/20 00:00 Intake Total 1000 ml Output Total 2500 ml Balance -1500 ml Intake Oral 0 ml IV Total 1000 ml Output Urine Total 2150 ml Gastric Drainage Total 350 ml General: Alert, Oriented X3, Cooperative, No Acute Distress HEENT: Mucous Memb Moist/[place] Lungs: Clear to Auscultation, Normal Air Movement Heart: Regular Rate, No Murmurs Abdomen: Normal Bowel Sounds, Soft, No Masses Extremities: No Edema, No Tenderness/Swelling Skin: No Rashes, No Breakdown Neuro: Normal Speech, Strength at 5/5 X4 Ext, Sensation Intact, Cranial Nerves 3-12 NL Psych/Mental Status: Mental Status NL, Mood NL Results/Procedures Lab Laboratory Tests 03/02/20 04:09: White Blood Count 17.4H, Red Blood Count 4.14L, Hemoglobin 12.6L, Hematocrit 38L , Mean Corpuscular Volume 91, Mean Corpuscular Hemoglobin 30, Mean Corpuscular Hemoglobin Concent 34, Red Cell Distribution Width 11.8, Platelet Count 254, Mean Platelet Volume 9.7, Immature Granulocyte % (Auto) 2, Neutrophils (%) (Auto) 89H, Lymphocytes (%) (Auto) 5L, Monocytes (%) (Auto) 3, Eosinophils (%) (Auto) 0, Basophils (%) (Auto) 0, Neutrophils # (Auto) 15.5H, Lymphocytes # (Auto) 0.9L, Monocytes # (Auto) 0.5, Eosinophils # (Auto) 0.0, Basophils # (Auto) 0.0, Immature Granulocyte # (Auto) 0.4H, Sodium Level 135, Potassium Level 4.5, Chloride Level 105, Carbon Dioxide Level 20L, Anion Gap 10, Blood Urea Nitrogen 20H, Creatinine 0.83, Estimat Glomerular Filtration Rate > 60, BUN/Creatinine Ratio 24, Glucose Level 118H, Calcium Level 8.3L, Corrected Calcium 8.7, Total Bilirubin 0.4, Aspartate Amino Transf (AST/SGOT) 13, Alanine Aminotransferase (ALT/SGPT) 21, Alkaline Phosphatase 50, Total Protein 6.2L, Albumin 3.5 Assessment/Plan Assessment/Plan (1) Small bowel obstruction Status: Acute Assessment & Plan: 03/01: Dr Tao with Surgery consulted, Patient will need EGD and Colonoscopy, concerns for inflammatory bowel disease, NG to be removed today, NPO, Continue steroids 03/02: Advance to CLD and monitor for pain (2) Abdominal pain Status: Acute Assessment & Plan: 03/01: Improving (3) DVT prophylaxis Status: Acute Clinical Quality Measures DVT/VTE Risk/Contraindication: Risk Factor Score Per Nursin RFS Level Per Nursing on Admit: 3=High RICARDO SUMNER MD Mar 02, 2020 19:28
[2020-03-03 04:09] VITALS: BP 118/68
[2020-03-03 05:08] LABS: EOSINOPHILS % (AUTO) 0 % (0-10); HEMATOCRIT 37 % (40-54); HEMOGLOBIN 12.4 G/DL (13.3-17.7); LYMPHOCYTES % (AUTO) 5 % (12-44); MEAN CORPUSCULAR HEMOGLOBIN 30 PG (25-34); MEAN CORPUSCULAR HGB CONC 33 G/DL (32-36); MEAN CORPUSCULAR VOLUME 91 FL (80-99); MEAN PLATELET VOLUME 9.4 FL (7.4-10.4); MONOCYTES % (AUTO) 3 % (0-12); NEUTROPHILS % (AUTO) 90 % (42-75); PLATELET COUNT 318 10^3/uL (130-400); WHITE BLOOD COUNT 17.5 10^3/uL (4.3-11.0)
[2020-03-03 05:09] LABS: BASOPHILS % (AUTO) 0 % (0-10); LYMPHOCYTES # (AUTO) 0.9 X 10^3 (1.0-4.0); MONOCYTES # (AUTO) 0.5 X 10^3 (0.0-1.0); NEUTROPHILS # (AUTO) 15.8 X 10^3 (1.8-7.8)
[2020-03-03] MEDS: methylPREDNISolone 125 MG (Solu-MEDROL) VIAL IV SCH ×3 (05:17→18:10)
[2020-03-03 05:19] LABS: ALANINE AMINOTRANSFERASE 17 U/L (0-55); ALBUMIN 3.4 GM/DL (3.2-4.5); ALKALINE PHOSPHATASE 40 U/L (40-136); BILIRUBIN,TOTAL 0.5 MG/DL (0.1-1.0); BUN/CREATININE RATIO 26; CALCIUM 8.1 MG/DL (8.5-10.1); CARBON DIOXIDE 23 MMOL/L (21-32); CHLORIDE 104 MMOL/L (98-107); CREATININE SERUM 0.78 MG/DL (0.60-1.30); GFR ESTIMATED > 60; GLUCOSE 119 MG/DL (70-105); POTASSIUM 4.6 MMOL/L (3.6-5.0); SODIUM 136 MMOL/L (135-145); TOTAL PROTEIN 5.8 GM/DL (6.4-8.2)
--- NOTE | 2020-03-03 07:11 | Progress Note - Surgery ---
MARGIE BISHOP MED STUDENT 03/03/20 0711: Subjective Date Seen by a Provider: Mar 03, 2020 Time Seen by a Provider: 06:50 Subjective/Events-last exam Patient states he is doing very well this morning. Reports sleeping well over night. Passing gas. Had 1 BM this morning without difficulty. Denies abdominal pain this morning. Denies nausea, vomiting, fevers, chills, chest pain, and shortness of breath. Reports he is taking clears without difficulty. Has been ambulating frequently. States his abdomen looks "smaller". Review of Systems General: No Chills, No Night Sweats HEENT: No Head Aches, No Visual Changes Pulmonary: No Dyspnea, No Cough Cardiovascular: No: Chest Pain, Palpitations Gastrointestinal: No: Nausea, Vomiting, Abdominal Pain, Diarrhea, Constipation Genitourinary: No Dysuria, No Frequency Musculoskeletal: No: neck pain, shoulder pain Neurological: No: Weakness, Numbness Objective Exam Vital Signs Date Time Temp Pulse Resp B/P (MAP) Pulse Ox O2 Delivery O2 Flow Rate FiO2 03/03/20 04:09 36.1 58 16 118/68 (85) 93 Room Air 03/02/20 23:14 36.5 56 16 124/72 (89) 95 Room Air 03/02/20 20:00 36.5 57 18 111/61 (78) 92 Room Air 03/02/20 19:45 Room Air 03/02/20 16:00 36.6 53 18 112/68 (83) 95 Room Air 03/02/20 12:40 36.5 72 20 119/82 (94) 95 Room Air 03/02/20 08:00 36.5 61 20 118/80 (93) 97 Room Air 03/02/20 08:00 Room Air I & O 03/03/20 07:00 Intake Total 1960 ml Output Total 3825 ml Balance -1865 ml Capillary Refill : Less Than 3 SecondsLess Than 3 Seconds General Appearance: No Apparent Distress, WD/WN HEENT: PERRL/EOMI, Normal ENT Inspection Neck: Normal Inspection, Non Tender Respiratory: Chest Non Tender, No Accessory Muscle Use, No Respiratory Distress Cardiovascular: Regular Rate, Rhythm, No Edema, Normal Peripheral Pulses Peripheral Pulses: 2+ Dorsalis Pedis (R), 2+ Left Dors-Pedis (L), 2+ Radial Pulses (R), 2+ Radial Pulses (L) Gastrointestinal: normal bowel sounds, non tender; No distended (normal), No hernia, No mass Extremity: Normal Capillary Refill, Non Tender, No Calf Tenderness, No Pedal Edema 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: Alert, Oriented x3, No Motor/Sensory Deficits, Normal Mood/Affect Skin: Normal Color, Warm/Dry Lymphatic: No Adenopathy Results Lab Laboratory Tests 03/03/20 04:20: White Blood Count 17.5H, Red Blood Count 4.09L, Hemoglobin 12.4L, Hematocrit 37L , Mean Corpuscular Volume 91, Mean Corpuscular Hemoglobin 30, Mean Corpuscular Hemoglobin Concent 33, Red Cell Distribution Width 11.7, Platelet Count 318, Mean Platelet Volume 9.4, Immature Granulocyte % (Auto) 2, Neutrophils (%) (Auto) 90H, Lymphocytes (%) (Auto) 5L, Monocytes (%) (Auto) 3, Eosinophils (%) (Auto) 0, Basophils (%) (Auto) 0, Neutrophils # (Auto) 15.8H, Lymphocytes # (Auto) 0.9L, Monocytes # (Auto) 0.5, Eosinophils # (Auto) 0.0, Basophils # (Auto) 0.0, Immature Granulocyte # (Auto) 0.4H, Sodium Level 136, Potassium Level 4.6, Chloride Level 104, Carbon Dioxide Level 23, Anion Gap 9, Blood Urea Nitrogen 20H, Creatinine 0.78, Estimat Glomerular Filtration Rate > 60, BUN/Creatinine Ratio 26, Glucose Level 119H, Calcium Level 8.1L, Corrected Calcium 8.6, Total Bilirubin 0.5, Aspartate Amino Transf (AST/SGOT) 12, Alanine Aminotransferase (ALT/SGPT) 17, Alkaline Phosphatase 40, Total Protein 5.8L, Albumin 3.4 Assessment/Plan Assessment/Plan Assessment/Plan small bowel obstruction secondary to inflammatory process terminal ileum possible crohn's abdominal pain- resolved nausea vomiting-resolved Advance diet today from clears Endoscopy near future Encourage increased ambulation Continue steroids We will plan endoscopy when patient can tolerate prep which could be inpatient vs outpatient Clinical Quality Measures DVT/VTE Risk/Contraindication: Risk Factor Score Per Nursin RFS Level Per Nursing on Admit: 3=High KASSANDRA TAO DO 03/03/20 7320: Subjective Subjective/Events-last exam Feeling good. Having bowel function. As he drinks more becoming more distended. Ambulating. No abdominal pain. Denies n/v fever sweats chills shorntess of breath or chest pain at this time. Objective Exam General Appearance: No Apparent Distress, WD/WN HEENT: PERRL/EOMI, Normal ENT Inspection Neck: Normal Inspection, Non Tender Respiratory: Chest Non Tender, No Accessory Muscle Use, No Respiratory Distress Cardiovascular: Regular Rate, Rhythm, No Edema, Normal Peripheral Pulses Gastrointestinal: non tender, distended (minimal); No hernia, No mass Extremity: Normal Capillary Refill, Non Tender, No Calf Tenderness, No Pedal Edema 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: Alert, Oriented x3, No Motor/Sensory Deficits, Normal Mood/Affect Skin: Normal Color, Warm/Dry Assessment/Plan Assessment/Plan Assessment/Plan small bowel obstruction secondary to inflammatory process terminal ileum possible crohn's abdominal pain- resolved nausea vomiting-resolved slightly increased distention infomed to cut back on clears to try to improve distention Endoscopy near future if can tolerate liquids well can prep Encourage increased ambulation Continue steroids We will plan endoscopy when patient can tolerate prep which could be inpatient vs outpatient consider prepping tomorrow if tolerating liquids better than today. Supervisory-Addendum Brief Verification & Attestation Participated in pt care: history, MDM, physical Personally performed: exam, history, MDM, supervision of care Care discussed with: Medical Student Procedures: n/a Results interpretation: Verified all documentation Verification and Attestation of Medical Student E/M Service A medical student performed and documented this service in my presence. I reviewed and verified all information documented by the medical student and made modifications to such information, when appropriate. I personally performed the physical exam and medical decision making. Kassandra Tao, Mar 03, 2020,22:44 MARGIE BISHOP MED STUDENT Mar 03, 2020 07:11 KASSANDRA TAO DO Mar 03, 2020 22:44
[2020-03-03 08:04] VITALS: BP 112/63
[2020-03-03] MEDS: HYDROcodone/APAP 5 MG/325 MG (LORTAB) TAB PO PRN ×3 (08:37→20:40)
[2020-03-03] MEDS: LACTATED RINGERS 1,000 ML IV SCH (08:37)
[2020-03-03] MEDS: PANTOPRAZOLE 40 MG (PROTONIX) VIAL IV SCH (08:37)
[2020-03-03 11:55] VITALS: BP 123/75
--- NOTE | 2020-03-03 14:35 | Progress Note ---
Subjective Subjective/Events-last exam Patient tolerated CLD yesterday. Had large BM this AM and passing gas. He has been up walking around. Review of Systems Pulmonary: No Dyspnea, No Cough Cardiovascular: No: Chest Pain, Palpitations Gastrointestinal: Abdominal Pain; No: Nausea, Vomiting, Diarrhea, Constipation Objective Exam Last Set of Vital Signs Vital Signs Date Time Temp Pulse Resp B/P (MAP) Pulse Ox O2 Delivery O2 Flow Rate FiO2 03/03/20 11:55 36.0 71 16 123/75 (91) 95 Room Air Capillary Refill : Less Than 3 SecondsLess Than 3 Seconds I&O Intake and Output 03/03/20 00:00 Intake Total 1810 ml Output Total 3375 ml Balance -1565 ml Intake Oral 810 ml IV Total 1000 ml Output Urine Total 3375 ml # Voids 1 # Bowel Movements 1 General: Alert, Oriented X3, Cooperative, No Acute Distress HEENT: Mucous Memb Moist/[place] Lungs: Clear to Auscultation, Normal Air Movement Heart: Regular Rate, No Murmurs Abdomen: Normal Bowel Sounds, Soft, Other (mild distention) Extremities: No Edema, No Tenderness/Swelling Results/Procedures Lab Laboratory Tests 03/03/20 04:20: White Blood Count 17.5H, Red Blood Count 4.09L, Hemoglobin 12.4L, Hematocrit 37L , Mean Corpuscular Volume 91, Mean Corpuscular Hemoglobin 30, Mean Corpuscular Hemoglobin Concent 33, Red Cell Distribution Width 11.7, Platelet Count 318, Mean Platelet Volume 9.4, Immature Granulocyte % (Auto) 2, Neutrophils (%) (Auto) 90H, Lymphocytes (%) (Auto) 5L, Monocytes (%) (Auto) 3, Eosinophils (%) (Auto) 0, Basophils (%) (Auto) 0, Neutrophils # (Auto) 15.8H, Lymphocytes # (Auto) 0.9L, Monocytes # (Auto) 0.5, Eosinophils # (Auto) 0.0, Basophils # (Auto) 0.0, Immature Granulocyte # (Auto) 0.4H, Sodium Level 136, Potassium Level 4.6, Chloride Level 104, Carbon Dioxide Level 23, Anion Gap 9, Blood Urea Nitrogen 20H, Creatinine 0.78, Estimat Glomerular Filtration Rate > 60, BUN/Creatinine Ratio 26, Glucose Level 119H, Calcium Level 8.1L, Corrected Calcium 8.6, Total Bilirubin 0.5, Aspartate Amino Transf (AST/SGOT) 12, Alanine Aminotransferase (ALT/SGPT) 17, Alkaline Phosphatase 40, Total Protein 5.8L, Albumin 3.4 Assessment/Plan Assessment/Plan (1) Small bowel obstruction Status: Acute Assessment & Plan: 03/01: Dr Tao with Surgery consulted, Patient will need EGD and Colonoscopy, concerns for inflammatory bowel disease, NG to be removed today, NPO, Continue steroids 03/02: Advance to CLD and monitor for pain 03/03: Continue CLD, will defer to Dr Tao on timing of EGD/Colonoscopy (2) Abdominal pain Status: Acute Assessment & Plan: 03/01: Improving (3) DVT prophylaxis Status: Acute Clinical Quality Measures DVT/VTE Risk/Contraindication: Risk Factor Score Per Nursin RFS Level Per Nursing on Admit: 3=High RICARDO SUMNER MD Mar 03, 2020 14:35
--- NOTE | 2020-03-03 15:30 | NUR ---
CM/SS visited with the patient for discharge planning. Plan: It is likely patient will discharge back home tomorrow. The patient reports he is feeling much better but is very hungry and is still on liquid diet. CM/SS asked if patient discovered any needs when he went home last time that this sw could assist with. The patient stated " I wasn't home for very long and had to come back. I'll have to ask Lili". The patient reports that Lili will likely be his ride tomorrow but he will let this sw know. CM/SS will continue to follow.
[2020-03-03 15:59] VITALS: BP 124/69
[2020-03-03 19:34] VITALS: BP 131/63
[2020-03-04] MEDS: methylPREDNISolone 125 MG (Solu-MEDROL) VIAL IV SCH ×5 (00:04→23:31)
[2020-03-04 00:41] VITALS: BP 132/75
[2020-03-04 05:13] LABS: BASOPHILS % (AUTO) 0 % (0-10); EOSINOPHILS % (AUTO) 0 % (0-10); HEMATOCRIT 36 % (40-54); HEMOGLOBIN 12.3 g/dL (13.3-17.7); LYMPHOCYTES # (AUTO) 0.7 10^3/uL (1.0-4.0); LYMPHOCYTES % (AUTO) 4 % (12-44); MEAN CORPUSCULAR HEMOGLOBIN 31 pg (25-34); MEAN CORPUSCULAR HGB CONC 34 g/dL (32-36); MEAN CORPUSCULAR VOLUME 91 fL (80-99); MEAN PLATELET VOLUME 9.5 fL (9.0-12.2); MONOCYTES # (AUTO) 0.3 10^3/uL (0.0-1.0); MONOCYTES % (AUTO) 2 % (0-12); NEUTROPHILS # (AUTO) 17.3 10^3/uL (1.8-7.8); NEUTROPHILS % (AUTO) 93 % (42-75); PLATELET COUNT 341 10^3/uL (130-400); WHITE BLOOD COUNT 18.6 10^3/uL (4.3-11.0)
[2020-03-04 05:16] LABS: CHLORIDE 102 MMOL/L (98-107); POTASSIUM 4.4 MMOL/L (3.6-5.0); SODIUM 135 MMOL/L (135-145)
[2020-03-04 05:17] LABS: CALCIUM 8.1 MG/DL (8.5-10.1)
[2020-03-04 05:18] LABS: GLUCOSE 116 MG/DL (70-105)
[2020-03-04 05:19] LABS: CARBON DIOXIDE 23 MMOL/L (21-32)
[2020-03-04 05:21] LABS: CREATININE SERUM 0.76 MG/DL (0.60-1.30); GFR ESTIMATED > 60
[2020-03-04 05:22] LABS: BUN/CREATININE RATIO 22
[2020-03-04] MEDS: HYDROcodone/APAP 5 MG/325 MG (LORTAB) TAB PO PRN ×3 (05:30→17:56)
[2020-03-04 06:39] LABS: BAND NEUTROPHILS 1 %; LYMPHOCYTES % (MANUAL) 4 %; MONOCYTES % (MANUAL) 1 %; NEUTROPHILS % (MANUAL) 94 %; RBC MORPH NORMAL
--- NOTE | 2020-03-04 07:18 | Progress Note - Surgery ---
MARGIE BISHOP MED STUDENT 03/04/20 0718: Subjective Date Seen by a Provider: Mar 04, 2020 Time Seen by a Provider: 07:00 Subjective/Events-last exam Patient states he slept ok overnight. Reports abdomen is less distended this morning. Denies abdominal pain. Denies nausea, vomiting, or diarrhea. Reports he's passing gas and had a BM this morning. Tolerating clears without difficulty. Denies chest pain, SOB, fevers, or chills. Has been ambulating frequently. Would like to advance his diet today as he states he hasn't eaten in about a week. Review of Systems General: No Chills, No Night Sweats HEENT: No Head Aches, No Visual Changes Pulmonary: No Dyspnea, No Cough Cardiovascular: No: Chest Pain, Palpitations Gastrointestinal: No: Nausea, Vomiting, Abdominal Pain Genitourinary: No Dysuria, No Frequency Musculoskeletal: No: neck pain, shoulder pain Neurological: No: Weakness, Numbness Objective Exam Vital Signs Date Time Temp Pulse Resp B/P (MAP) Pulse Ox O2 Delivery O2 Flow Rate FiO2 03/04/20 00:41 36.0 62 20 132/75 (94) 94 Room Air 03/03/20 20:00 Room Air 03/03/20 19:34 36.6 69 18 131/63 (85) 96 Room Air 03/03/20 15:59 36.7 67 20 124/69 (87) 96 Room Air 03/03/20 11:55 36.0 71 16 123/75 (91) 95 Room Air 03/03/20 08:04 36.8 74 17 112/63 (79) 96 Room Air 03/03/20 08:00 Room Air I & O 03/04/20 07:00 Intake Total 3300 ml Output Total 2750 ml Balance 550 ml Capillary Refill : Less Than 3 SecondsLess Than 3 Seconds General Appearance: No Apparent Distress, WD/WN HEENT: PERRL/EOMI, Normal ENT Inspection Neck: Normal Inspection, Non Tender Respiratory: Chest Non Tender, No Accessory Muscle Use, No Respiratory Distress Cardiovascular: Regular Rate, Rhythm, No Edema, Normal Peripheral Pulses Peripheral Pulses: 2+ Dorsalis Pedis (R), 2+ Left Dors-Pedis (L), 2+ Radial Pulses (R), 2+ Radial Pulses (L) Gastrointestinal: non tender, distended (less distended from yesterday); No hernia, No mass Extremity: Normal Capillary Refill, Non Tender, No Calf Tenderness, No Pedal Edema 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: Alert, Oriented x3, No Motor/Sensory Deficits, Normal Mood/Affect Skin: Normal Color, Warm/Dry Lymphatic: No Adenopathy Results Lab Laboratory Tests 03/04/20 04:25: White Blood Count 18.6H, Red Blood Count 4.02L, Hemoglobin 12.3L, Hematocrit 36L , Mean Corpuscular Volume 91, Mean Corpuscular Hemoglobin 31, Mean Corpuscular Hemoglobin Concent 34, Red Cell Distribution Width 11.7, Platelet Count 341, Mean Platelet Volume 9.5, Immature Granulocyte % (Auto) 1, Neutrophils (%) (Auto) 93H, Lymphocytes (%) (Auto) 4L, Monocytes (%) (Auto) 2, Eosinophils (%) (Auto) 0, Basophils (%) (Auto) 0, Neutrophils # (Auto) 17.3H, Lymphocytes # (Auto) 0.7L, Monocytes # (Auto) 0.3, Eosinophils # (Auto) 0.0, Basophils # (Auto) 0.0, Immature Granulocyte # (Auto) 0.3H, Neutrophils % (Manual) 94, Lymphocytes % (Manual) 4, Monocytes % (Manual) 1, Band Neutrophils 1, Blood Morphology Comment NORMAL, Sodium Level 135, Potassium Level 4.4, Chloride Level 102, Carbon Dioxide Level 23, Anion Gap 10, Blood Urea Nitrogen 17, Creatinine 0.76, Estimat Glomerular Filtration Rate > 60, BUN/Creatinine Ratio 22, Glucose Level 116H, Calcium Level 8.1L Assessment/Plan Assessment/Plan Assessment/Plan small bowel obstruction secondary to inflammatory process terminal ileum possible crohn's abdominal pain- resolved nausea vomiting-resolved slightly decreased distention from yesterday infomed to cut back on clears to try to improve distention Endoscopy near future if can tolerate liquids well can prep Encourage increased ambulation Continue steroids We will plan endoscopy when patient can tolerate prep which could be inpatient vs outpatient consider prepping tomorrow if tolerating liquids better than today. Clinical Quality Measures DVT/VTE Risk/Contraindication: Risk Factor Score Per Nursin RFS Level Per Nursing on Admit: 3=High KASSANDRA TAO DO 03/05/20 2202: Subjective Subjective/Events-last exam Patient abdomen no pain. Tolerating liquids. Having flatus and bm. Denies n/v fever sweats chills shortness of breath or chest pain. NO Objective Exam General Appearance: No Apparent Distress, WD/WN HEENT: PERRL/EOMI, Normal ENT Inspection Neck: Normal Inspection, Non Tender Respiratory: Chest Non Tender, No Accessory Muscle Use, No Respiratory Distress Cardiovascular: Regular Rate, Rhythm, No Edema Gastrointestinal: non tender, distended (minimal); No hernia, No mass Extremity: Normal Capillary Refill, Non Tender, No Calf Tenderness 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: Alert, Oriented x3, No Motor/Sensory Deficits, Normal Mood/Affect Skin: Normal Color, Warm/Dry Lymphatic: No Adenopathy Assessment/Plan Assessment/Plan Assessment/Plan small bowel obstruction secondary to inflammatory process terminal ileum possible crohn's abdominal pain- resolved nausea vomiting-resolved slightly decreased distention from yesterday Patient discussed risks and benefits of egd/colonoscopy for further evaluation. He understands and wishes to proceed. Golytely prep NPO after midnight. Encourage increased ambulation Continue steroids Supervisory-Addendum Brief Verification & Attestation Participated in pt care: history, MDM, physical Personally performed: exam, history, MDM, supervision of care Care discussed with: Medical Student Procedures: n/a Results interpretation: Verified all documentation Verification and Attestation of Medical Student E/M Service A medical student performed and documented this service in my presence. I reviewed and verified all information documented by the medical student and made modifications to such information, when appropriate. I personally performed the physical exam and medical decision making. Kassandra Tao, Mar 04, 2020,22:02 MARGIE BISHOP MED STUDENT Mar 04, 2020 07:18 KASSANDRA TAO DO Mar 05, 2020 22:02
[2020-03-04 08:00] VITALS: BP 136/75
[2020-03-04] MEDS: PANTOPRAZOLE 40 MG (PROTONIX) TAB PO SCH (09:39)
--- NOTE | 2020-03-04 11:09 | Progress Note ---
Subjective Subjective/Events-last exam Doing well this AM. Still having some distention. Tolerating CLD Review of Systems Pulmonary: No Dyspnea, No Cough Cardiovascular: No: Chest Pain, Palpitations Gastrointestinal: Abdominal Pain; No: Nausea, Vomiting, Diarrhea, Constipation Neurological: No: Weakness Objective Exam Last Set of Vital Signs Vital Signs Date Time Temp Pulse Resp B/P (MAP) Pulse Ox O2 Delivery O2 Flow Rate FiO2 03/04/20 08:00 36.6 62 18 136/75 (95) 94 Room Air Capillary Refill : Less Than 3 SecondsLess Than 3 Seconds I&O Intake and Output 03/04/20 00:00 Intake Total 3100 ml Output Total 3500 ml Balance -400 ml Intake Oral 1900 ml IV Total 1200 ml Output Urine Total 3500 ml General: Alert, Oriented X3, Cooperative, No Acute Distress HEENT: Mucous Memb Moist/[place] Lungs: Clear to Auscultation, Normal Air Movement Heart: Regular Rate, No Murmurs Abdomen: Normal Bowel Sounds, Soft, Other (mild distention present) Extremities: No Edema, No Tenderness/Swelling Skin: No Rashes, No Breakdown Neuro: Normal Speech, Strength at 5/5 X4 Ext, Sensation Intact, Cranial Nerves 3-12 NL Results/Procedures Lab Laboratory Tests 03/04/20 04:25: White Blood Count 18.6H, Red Blood Count 4.02L, Hemoglobin 12.3L, Hematocrit 36L , Mean Corpuscular Volume 91, Mean Corpuscular Hemoglobin 31, Mean Corpuscular Hemoglobin Concent 34, Red Cell Distribution Width 11.7, Platelet Count 341, Mean Platelet Volume 9.5, Immature Granulocyte % (Auto) 1, Neutrophils (%) (Auto) 93H, Lymphocytes (%) (Auto) 4L, Monocytes (%) (Auto) 2, Eosinophils (%) (Auto) 0, Basophils (%) (Auto) 0, Neutrophils # (Auto) 17.3H, Lymphocytes # (Auto) 0.7L, Monocytes # (Auto) 0.3, Eosinophils # (Auto) 0.0, Basophils # (Auto) 0.0, Immature Granulocyte # (Auto) 0.3H, Neutrophils % (Manual) 94, Lymphocytes % (Manual) 4, Monocytes % (Manual) 1, Band Neutrophils 1, Blood Morphology Comment NORMAL, Sodium Level 135, Potassium Level 4.4, Chloride Level 102, Carbon Dioxide Level 23, Anion Gap 10, Blood Urea Nitrogen 17, Creatinine 0.76, Estimat Glomerular Filtration Rate > 60, BUN/Creatinine Ratio 22, Glucose Level 116H, Calcium Level 8.1L Assessment/Plan Assessment/Plan (1) Small bowel obstruction Status: Acute Assessment & Plan: 03/01: Dr Tao with Surgery consulted, Patient will need EGD and Colonoscopy, concerns for inflammatory bowel disease, NG to be removed today, NPO, Continue steroids 03/02: Advance to CLD and monitor for pain 03/03: Continue CLD, will defer to Dr Tao on timing of EGD/Colonoscopy 03/04: Prep tonight and scope tomorrow with plan of discharge after scope (2) Abdominal pain Status: Acute Assessment & Plan: 03/01: Improving (3) DVT prophylaxis Status: Acute Clinical Quality Measures DVT/VTE Risk/Contraindication: Risk Factor Score Per Nursin RFS Level Per Nursing on Admit: 3=High RICARDO SUMNER MD Mar 04, 2020 11:08
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
[2020-03-04 12:18] VITALS: BP 110/64
--- NOTE | 2020-03-04 13:05 | NUR ---
Initial spiritual Care visit provided by TANISHA Jordan. Pt reported by as sitting up in his chair, awaiting doctor to discharge. No spiritual care affiliation mentioned this visit.
[2020-03-04] MEDS ORDERED: GOLYTELY POWDER 4000 ML BTL PO NR (15:00)
[2020-03-04 16:07] VITALS: BP 119/73
[2020-03-04] MEDS: fentaNYL INJECTION 100 MCG/2 ML AMP IV PRN ×2 (20:30→23:32)
[2020-03-05] VITALS (7 sets, daily range): BP systolic 91–135; BP diastolic 53–73
[2020-03-05] MEDS: fentaNYL INJECTION 100 MCG/2 ML AMP IV PRN ×2 (04:33→18:00)
[2020-03-05] MEDS: methylPREDNISolone 125 MG (Solu-MEDROL) VIAL IV SCH ×4 (05:36→23:43)
[2020-03-05 05:51] LABS: ALBUMIN 3.3 GM/DL (3.2-4.5); CHLORIDE 103 MMOL/L (98-107); POTASSIUM 4.7 MMOL/L (3.6-5.0); SODIUM 133 MMOL/L (135-145)
[2020-03-05 05:52] LABS: CALCIUM 7.7 MG/DL (8.5-10.1)
[2020-03-05 05:53] LABS: GLUCOSE 112 MG/DL (70-105)
[2020-03-05 05:54] LABS: TOTAL PROTEIN 5.7 GM/DL (6.4-8.2)
[2020-03-05 05:55] LABS: BILIRUBIN,TOTAL 0.5 MG/DL (0.1-1.0); CARBON DIOXIDE 21 MMOL/L (21-32)
[2020-03-05 05:57] LABS: ALKALINE PHOSPHATASE 37 U/L (40-136); CREATININE SERUM 0.74 MG/DL (0.60-1.30); GFR ESTIMATED > 60
[2020-03-05 05:58] LABS: BUN/CREATININE RATIO 22
[2020-03-05 06:00] LABS: ALANINE AMINOTRANSFERASE 23 U/L (0-55)
[2020-03-05 06:55] LABS: BASOPHILS % (AUTO) 0 % (0-10); EOSINOPHILS % (AUTO) 0 % (0-10); HEMATOCRIT 36 % (40-54); HEMOGLOBIN 12.1 g/dL (13.3-17.7); LYMPHOCYTES # (AUTO) 0.7 10^3/uL (1.0-4.0); LYMPHOCYTES % (AUTO) 4 % (12-44); MEAN CORPUSCULAR HEMOGLOBIN 31 pg (25-34); MEAN CORPUSCULAR HGB CONC 33 g/dL (32-36); MEAN CORPUSCULAR VOLUME 92 fL (80-99); MEAN PLATELET VOLUME 9.8 fL (9.0-12.2); MONOCYTES # (AUTO) 0.6 10^3/uL (0.0-1.0); MONOCYTES % (AUTO) 3 % (0-12); NEUTROPHILS # (AUTO) 18.9 10^3/uL (1.8-7.8); NEUTROPHILS % (AUTO) 93 % (42-75); PLATELET COUNT 375 10^3/uL (130-400); WHITE BLOOD COUNT 20.4 10^3/uL (4.3-11.0)
[2020-03-05] MEDS: PANTOPRAZOLE 40 MG (PROTONIX) TAB PO SCH (08:24)
[2020-03-05] MEDS: morphine INJ 4 MG/ML 1 ML (VIAL/SYRINGE) IV PRN ×4 (09:02→21:37)
[2020-03-05] MEDS: CATHETER FLUSH 10 ML SYR IV PRN ×2 (09:03→12:10)
--- NOTE | 2020-03-05 09:05 | Progress Note - Surgery ---
MARGIE BISHOP MED STUDENT 03/05/20 0905: Subjective Date Seen by a Provider: Mar 05, 2020 Time Seen by a Provider: 08:25 Subjective/Events-last exam Patient reporting a lot of abdominal pain this morning. States the abdominal pain is in epigastric region and extends bilaterally across the abdomen to the flanks. Rates his pain at a 8/10 currently and is requesting fentanyl. States that his abdomen is much more firm to touch this morning and the distention has increased. He reports his abdominal pain and distention worsened after starting the OB10 prep yesterday afternoon. He reports he's still passing gas and had a 3 BM's this morning that are clear and watery. He denies fevers, chills, chest pain, SOB, nausea, and vomiting. Review of Systems General: No Chills, No Night Sweats HEENT: No Head Aches, No Visual Changes Pulmonary: No Dyspnea, No Cough Cardiovascular: No: Chest Pain, Palpitations Gastrointestinal: Abdominal Pain (epigastric abdominal pain radiating bilat flank); No: Vomiting Genitourinary: No Dysuria, No Frequency Musculoskeletal: No: neck pain, shoulder pain Neurological: No: Weakness, Numbness Objective Exam Vital Signs Date Time Temp Pulse Resp B/P (MAP) Pulse Ox O2 Delivery O2 Flow Rate FiO2 03/05/20 08:26 Room Air 03/05/20 00:00 36.0 76 20 135/73 (93) 94 Room Air 03/04/20 20:00 Room Air 03/04/20 16:07 36.6 64 20 119/73 (88) 94 Room Air 03/04/20 12:18 35.6 84 18 110/64 (79) 96 Room Air I & O 03/05/20 07:00 Intake Total 1540 ml Output Total 2700 ml Balance -1160 ml Capillary Refill : Less Than 3 SecondsLess Than 3 Seconds General Appearance: No Apparent Distress, WD/WN HEENT: PERRL/EOMI, Normal ENT Inspection Neck: Normal Inspection, Non Tender Respiratory: Chest Non Tender, No Accessory Muscle Use, No Respiratory Distress Cardiovascular: Regular Rate, Rhythm, No Edema, Normal Peripheral Pulses Peripheral Pulses: 2+ Dorsalis Pedis (R), 2+ Left Dors-Pedis (L), 2+ Radial Pulses (R), 2+ Radial Pulses (L) Gastrointestinal: distended (markedly increased distention from yesterday), tenderness (TTP in epigastric region ); No hernia, No mass Extremity: Normal Capillary Refill, Non Tender, No Calf Tenderness, No Pedal Edema 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: Alert, Oriented x3, No Motor/Sensory Deficits, Normal Mood/Affect Skin: Normal Color, Warm/Dry Lymphatic: No Adenopathy Results Lab Laboratory Tests 03/05/20 05:21: Sodium Level 133L, Potassium Level 4.7, Chloride Level 103, Carbon Dioxide Level 21, Anion Gap 9, Blood Urea Nitrogen 16, Creatinine 0.74, Estimat Glomerular Filtration Rate > 60, BUN/Creatinine Ratio 22, Glucose Level 112H, Calcium Level 7.7L, Corrected Calcium 8.3L, Total Bilirubin 0.5, Aspartate Amino Transf (AST/SGOT) 30, Alanine Aminotransferase (ALT/SGPT) 23, Alkaline Phosphatase 37L, Total Protein 5.7L, Albumin 3.3 03/05/20 06:40: White Blood Count 20.4H, Red Blood Count 3.97L, Hemoglobin 12.1L, Hematocrit 36L , Mean Corpuscular Volume 92, Mean Corpuscular Hemoglobin 31, Mean Corpuscular Hemoglobin Concent 33, Red Cell Distribution Width 11.9, Platelet Count 375, Mean Platelet Volume 9.8, Immature Granulocyte % (Auto) 1, Neutrophils (%) (Auto) 93H, Lymphocytes (%) (Auto) 4L, Monocytes (%) (Auto) 3, Eosinophils (%) (Auto) 0, Basophils (%) (Auto) 0, Neutrophils # (Auto) 18.9H, Lymphocytes # (Auto) 0.7L, Monocytes # (Auto) 0.6, Eosinophils # (Auto) 0.0, Basophils # (Auto) 0.0, Immature Granulocyte # (Auto) 0.2H Assessment/Plan Assessment/Plan Assessment/Plan small bowel obstruction secondary to inflammatory process terminal ileum possible crohn's abdominal pain- increasing nausea vomiting-resolved Abdominal distention has increased from yesterday markedly Endoscopy planned for today-patient completed golytely prep Encourage increased ambulation Continue steroids Continue pain management Clinical Quality Measures DVT/VTE Risk/Contraindication: Risk Factor Score Per Nursin RFS Level Per Nursing on Admit: 3=High KASSANDRA TAO DO 03/05/20 1412: Subjective Subjective/Events-last exam Tolerated prep. Some abdominal discomfort epigastric area. More distention than yesterday. Having clear bowel movements. No other complaints. Objective Exam General Appearance: No Apparent Distress, WD/WN HEENT: PERRL/EOMI, Normal ENT Inspection Neck: Normal Inspection, Non Tender Respiratory: Chest Non Tender, No Accessory Muscle Use, No Respiratory Distress Cardiovascular: Regular Rate, Rhythm, No Edema, Normal Peripheral Pulses Gastrointestinal: distended (minimal), tenderness (TTP in epigastric region ); No hernia, No mass Extremity: Normal Capillary Refill, Non Tender, No Calf Tenderness 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: Alert, Oriented x3 Skin: Normal Color, Warm/Dry Lymphatic: No Adenopathy Assessment/Plan Assessment/Plan Assessment/Plan small bowel obstruction secondary to inflammatory process terminal ileum possible crohn's abdominal epigastric pain nausea vomiting-resolved Abdominal distention has increased from yesterday markedly EGD/Colonscopy planned for today-patient completed golytely prep Encourage increased ambulation Continue steroids Continue pain management Further recs pending scopes. Supervisory-Addendum Brief Verification & Attestation Participated in pt care: history, MDM, physical Personally performed: exam, history, MDM, supervision of care Care discussed with: Medical Student Procedures: n/a Results interpretation: Verified all documentation Verification and Attestation of Medical Student E/M Service A medical student performed and documented this service in my presence. I reviewed and verified all information documented by the medical student and made modifications to such information, when appropriate. I personally performed the physical exam and medical decision making. Kassandra Tao, Mar 05, 2020,14:10 MARGIE BISHOP MED STUDENT Mar 05, 2020 09:05 KASSANDRA TAO DO Mar 05, 2020 14:12
--- NOTE | 2020-03-05 11:51 | Progress Note - Hospitalist ---
МАРИЯFINN MED STUDENT 03/05/20 1151: Subjective HPI/CC On Admission Date Seen by Provider: Mar 05, 2020 Time Seen by Provider: 09:45 this is a 54-year-old white male who was recently discharged after a hospitalization for abdominal pain and small bowel obstruction. Upper GI with small bowel follow-through showed patency of the small bowel before discharge 24 hours ago. the patient went home and then began having increased abdominal pain with nausea and vomiting and to episodes of diarrhea. The patient this morning is a poor historian and is very somnolent. Overnight he had to have an NG tube placed with about a liter of fluid rate moved. He denies having any flatus. CT showed obstruction of the proximal small bowel with an area of thickening. Subjective/Events-last exam Patient states that he is feeling a little better than he was yesterday. He has taken his bowel prep and states that he has had 3 loose stools this morning. He states that he has been ambulating by himself this morning and he denies any difficulties breathing as well as chest pain. He has not had anything to eat this morning. He is currently waiting to be taken to endoscopy. He has a distended abdomen with mild epigastric pain to palpation. No pain is noted in any other quadrant. He has hyperactive bowel sounds. No fever, nausea, or vomiting. Focused Exam Sepsis Stage: Ruled Out Respiratory: Chest Non Tender, Lungs Clear, Normal Breath Sounds, No Accessory Muscle Use, No Respiratory Distress Cardiovascular: Regular Rate, Rhythm, No Edema, No Gallop, No Murmur, Normal Peripheral Pulses Peripheral Pulses: 2+ Radial Pulses (R) Skin: normal color, warm/dry Objective Exam Vital Signs Vital Signs Date Time Temp Pulse Resp B/P (MAP) Pulse Ox O2 Delivery O2 Flow Rate FiO2 03/05/20 08:26 Room Air 03/05/20 08:00 36.5 65 20 121/71 (88) 96 Capillary Refill : Less Than 3 SecondsLess Than 3 Seconds General Appearance: No Apparent Distress Respiratory: Chest Non Tender, Lungs Clear, Normal Breath Sounds, No Accessory Muscle Use, No Respiratory Distress Cardiovascular: Regular Rate, Rhythm, No Edema, Normal Peripheral Pulses Gastrointestinal: Distended, Tenderness (Epigastirc tenderness on palpation), Other (Distended and firm. Hyperactive bowel sounds.) Extremity: No Pedal Edema Skin: Normal Color, Warm/Dry Results/Procedures Lab Laboratory Tests 03/05/20 05:21 03/05/20 06:40 Patient resulted labs reviewed. Imaging: Reviewed Imaging Report Assessment/Plan Assessment and Plan Assess & Plan/Chief Complaint Plan is for patient to receive endoscopy. Results will determine care moving forward. Continue to have patient NPO and to continue to have bowel movements. Clinical Quality Measures DVT/VTE Risk/Contraindication: Risk Factor Score Per Nursin RFS Level Per Nursing on Admit: 3=High Supervisory-Addendum Brief Verification & Attestation Participated in pt care: history, physical Personally performed: exam, history Care discussed with: other Procedures: n/a n/a GINNY BRICE DO 03/06/20 0741: Subjective Subjective/Events-last exam Waiting for endoscopy Has not eaten yet at all No pain reported Assessment/Plan Assessment and Plan Assess & Plan/Chief Complaint Inflammatory bowel disease? SBO? Supportive care Supervisory-Addendum Brief Verification & Attestation Participated in pt care: history, MDM, physical Personally performed: exam, history, MDM, supervision of care Care discussed with: Medical Student Procedures: n/a Results interpretation: Verified all documentation Verification and Attestation of Medical Student E/M Service A medical student performed and documented this service in my presence. I rev iewed and verified all information documented by the medical student and made modifications to such information, when appropriate. I personally performed the physical exam and medical decision making. Ginny Brice, Mar 06, 2020,07:41 FINN HSIEH MED STUDENT Mar 05, 2020 11:51 GINNY BRICE DO Mar 06, 2020 07:41
--- NOTE | 2020-03-05 12:29 | NUR ---
CM/SS follow up. Patient reports doing well. He has not had the scope at this time. The patient is unsure if he will discharge after with it getting later in afternoon. CM/SS provided the nurse with a Taxi voucher if patient does discharge today and the ride falls through. She verbalized understanding. No further needs.
--- NOTE | 2020-03-05 13:47 | NUR ---
PATIENT TO OR AT THIS TIME. NOTIFIED OF IV MORPHINE ADMINISTRATION.
[2020-03-05] MEDS ORDERED: LACTATED RINGERS 1,000 ML IV ONE (13:52)
[2020-03-05] MEDS ORDERED: HURRICAINE EXT TUBE (BENZOCAINE) ONE (14:05)
[2020-03-05] MEDS ORDERED: PROPOFOL INJECTION 50 ML IV ONE (14:10)
[2020-03-05] MEDS ORDERED: MIDAZOLAM 2 MG/2 ML (VERSED) VIAL ONE (14:10)
[2020-03-05] MEDS ORDERED: LACTATED RINGERS 1,000 ML IV STA (14:27)
[2020-03-05] MEDS ORDERED: HURRICAINE EXT TUBE (BENZOCAINE) XX PRN (14:30)
--- NOTE | 2020-03-05 14:54 | Anesthesia-General Post-Op ---
MAC Patient Condition Mental Status/LOC: Same as Preop Cardiovascular: Satisfactory Nausea/Vomiting: Absent Respiratory: Satisfactory Pain: Controlled Complications: Absent Post Op Complications Complications None Follow Up Care/Instructions Patient Instructions None needed. Anesthesiology Discharge Order Discharge Order Patient is doing well, no complaints, stable vital signs, no apparent adverse anesthesia problems. No complications reported per nursing. LIZA CUELLO CRNA Mar 05, 2020 14:54
--- NOTE | 2020-03-05 15:30 | NUR ---
PATIENT BACK FROM OR. DENIES C/O OR NEEDS AT THIS TIME. GAG REFLEX INTACT. GIVEN JELLO AND SPRITE PER REQUEST. CONT TO MONITOR
--- NOTE | 2020-03-05 16:00 | NUR ---
PATIENT REPORTS SMALL AMOUNT OF EMESIS AND NAUSEA FOLLOWING CLEAR LIQUID. CONT TO MONITOR.
--- NOTE | 2020-03-05 18:00 | NUR ---
NO FURTHER REPORTS OF N/V. TOLERATED CL LIQUID DINNER. CONT TO MONITOR
--- NOTE | 2020-03-05 18:00 | NUR ---
PATIENT REPORTED RELIEF FROM MORPHINE IV 4MG. PATIENT IS NOW AGAIN RATING PAIN 10/10 IN RIGHT UPPER QUADRANT. PALPATION DOES NOT INCREASE PAIN RATING. PATIENT REPORTS PAIN QUALITY SHARP , ACHE.
--- NOTE | 2020-03-05 18:45 | NUR ---
POST FENTANYL PATIENT RATING PAIN 5-6/10. STATES PAIN SEEMS TO BE INCREASING IN NATURE AND 'WORSE THAN IT FELT BEFORE' (FOLLOWING BIOPSY, EGD). RR 18. CONT TO MONITOR.
--- NOTE | 2020-03-05 22:12 | Progress Note-Post Operative ---
Post-Operative Progess Note Surgeon (s)/Qa Automation Engineer (s) Surgeon KASSANDRA VERAS DO Qa Automation Engineer: na Pre-Operative Diagnosis epigastric abd pain, thickened small bowel Post-Operative Diagnosis gastritis, inflammed ileum Procedure & Operative Findings Date of Procedure 03/05/20 Procedure Performed/Findings egd c biopsies, colonoscopy c cold biopsies ileum Anesthesia Type per personal lines sales rep Estimated Blood Loss Estimated blood loss (mL): scant Specimens/Packing Specimens Removed antrum, body, ge, ileum KASSANDRA VERAS DO Mar 05, 2020 22:12
[2020-03-05] MEDS: ANTACID SUSP 30 ML UDC (MYLANTA) PO PRN (22:50)
[2020-03-06] VITALS: BP 142/83
[2020-03-06] MEDS: fentaNYL INJECTION 100 MCG/2 ML AMP IV PRN ×3 (01:37→20:50)
--- NOTE | 2020-03-06 04:25 | Progress Note - Surgery ---
Subjective Date Seen by a Provider: Mar 06, 2020 Time Seen by a Provider: 04:21 Subjective/Events-last exam slight epigastric pain. some distention as well. Passing flatus. Denies n/v fever sweats chills shortness of breath or chest pain at this time. Objective Exam Vital Signs Date Time Temp Pulse Resp B/P (MAP) Pulse Ox O2 Delivery O2 Flow Rate FiO2 03/06/20 00:00 36.7 56 16 142/83 (102) 94 Room Air 03/05/20 19:45 Room Air 03/05/20 16:30 36.7 70 20 120/61 (80) 98 Room Air 03/05/20 15:00 59 16 94 Room Air 03/05/20 14:55 57 16 99 OxyMask 10 03/05/20 14:50 58 16 99 OxyMask 10 03/05/20 14:45 58 16 99 OxyMask 10 03/05/20 08:26 Room Air 03/05/20 08:00 36.5 65 20 121/71 (88) 96 Room Air I & O 03/06/20 07:00 Intake Total 970 ml Output Total 1550 ml Balance -580 ml Capillary Refill : Less Than 3 SecondsLess Than 3 Seconds General Appearance: No Apparent Distress, WD/WN HEENT: PERRL/EOMI, Normal ENT Inspection Neck: Normal Inspection, Non Tender Respiratory: Chest Non Tender, No Accessory Muscle Use, No Respiratory Distress Cardiovascular: Regular Rate, Rhythm, No Edema, Normal Peripheral Pulses Peripheral Pulses: 2+ Dorsalis Pedis (R), 2+ Left Dors-Pedis (L), 2+ Radial Pulses (R), 2+ Radial Pulses (L) Gastrointestinal: distended (mild), tenderness ( epigastric region ); No hernia, No mass Extremity: Normal Capillary Refill, Non Tender, No Calf Tenderness 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: Alert, Oriented x3 Skin: Normal Color, Warm/Dry Lymphatic: No Adenopathy Results Lab Laboratory Tests 03/05/20 05:21: Sodium Level 133L, Potassium Level 4.7, Chloride Level 103, Carbon Dioxide Level 21, Anion Gap 9, Blood Urea Nitrogen 16, Creatinine 0.74, Estimat Glomerular Filtration Rate > 60, BUN/Creatinine Ratio 22, Glucose Level 112H, Calcium Level 7.7L, Corrected Calcium 8.3L, Total Bilirubin 0.5, Aspartate Amino Transf (AST/SGOT) 30, Alanine Aminotransferase (ALT/SGPT) 23, Alkaline Phosphatase 37L, Total Protein 5.7L, Albumin 3.3 03/05/20 06:40: White Blood Count 20.4H, Red Blood Count 3.97L, Hemoglobin 12.1L, Hematocrit 36L , Mean Corpuscular Volume 92, Mean Corpuscular Hemoglobin 31, Mean Corpuscular Hemoglobin Concent 33, Red Cell Distribution Width 11.9, Platelet Count 375, Mean Platelet Volume 9.8, Immature Granulocyte % (Auto) 1, Neutrophils (%) (Auto) 93H, Lymphocytes (%) (Auto) 4L, Monocytes (%) (Auto) 3, Eosinophils (%) (Auto) 0, Basophils (%) (Auto) 0, Neutrophils # (Auto) 18.9H, Lymphocytes # (Auto) 0.7L, Monocytes # (Auto) 0.6, Eosinophils # (Auto) 0.0, Basophils # (Auto) 0.0, Immature Granulocyte # (Auto) 0.2H Assessment/Plan Assessment/Plan Assessment/Plan small bowel obstruction secondary to inflammatory process terminal ileum possible crohn's abdominal epigastric pain nausea vomiting-resolved Abdominal distention has increased from yesterday gastritis ileum inflamed appearance s/p egd/colonoscopy with biopsies Encourage increased ambulation Continue steroids Diet slowly advance as tolerates as long as doesn't get worsening distention Could consider capsule endoscopy Continue pain management Clinical Quality Measures DVT/VTE Risk/Contraindication: Risk Factor Score Per Nursin RFS Level Per Nursing on Admit: 3=High KASSANDRA VERAS DO Mar 06, 2020 04:25
[2020-03-06] MEDS: morphine INJ 4 MG/ML 1 ML (VIAL/SYRINGE) IV PRN ×5 (04:28→23:10)
[2020-03-06] MEDS: methylPREDNISolone 125 MG (Solu-MEDROL) VIAL IV SCH ×3 (05:41→17:34)
--- NOTE | 2020-03-06 05:53 | OPERATIVE REPORT ---
DATE OF SERVICE: 03/05/2020 PREOPERATIVE DIAGNOSES: Epigastric abdominal pain, thickened small bowel. POSTOPERATIVE DIAGNOSES: Gastritis and inflamed ileum. PROCEDURE: EGD with biopsies, colonoscopy with cold biopsies of the ileum. SURGEON: Kassandra Tao DO ANESTHESIA: Per TITLE VEHICLE SERVICE ATTENDANT. ESTIMATED BLOOD LOSS: Scant. COMPLICATIONS: None. INDICATIONS: The patient is a 54-year-old male who was admitted for small bowel obstruction. He had some thickening of the small bowel by CT scan, which was felt to be the cause of obstruction. Small bowel follow through was performed previously, which demonstrated no evidence of obstruction. I felt this is near the ileum. The patient also with epigastric abdominal pain. We discussed risks and benefits of procedure and wished to proceed with procedures. Consent was signed in the chart. DESCRIPTION OF PROCEDURE: The patient was taken to the endoscopy suite, placed in left lateral recumbent position. Timeout was performed. Scope was inserted in mouth, down the esophagus, stomach and into the duodenum without difficulty. There were no polyps, masses or ulcerations within the duodenum. Scope was slowly retracted back into the stomach where it was further insufflated. Areas of erythematous changes were present. Biopsies of the antrum and body were obtained. Scope was retroflexed noting no other pathology. Scope was returned to its normal position, slowly withdrawn to distal esophagus. Biopsy of the GE junction was obtained. No polyps, masses or ulcerations. Scope was slowly retracted back until completely removed. Digital rectal exam was performed. There were no palpable polyps, masses or ulcerations. Scope was inserted in the rectum and advanced all the way to cecum with minimal difficulty. The ileocecal valve was then intubated. The distal portion of the ileum had some erythematous changes, which had the appearance of being inflamed. Cold biopsy of the ileum were obtained. No visualization of any stricture or obstruction. Scope was slowly retracted back into the cecum and the scope was then slowly retracted back. There were no polyps, masses or ulcerations within the cecum, ascending, transverse, descending and sigmoid colon. Once in the rectum, scope was retroflexed noting no other pathology. Scope was returned to its normal position, slowly withdrawn until completely removed. The patient tolerated procedure well without any complications and taken to recovery room in stable condition. RECOMMENDATIONS: No evidence of any obstruction endoscopically. He does have gastritis appearance and also the ileum being inflamed and await biopsy results. The patient was started back on clear liquid diet and advance as tolerates. Await biopsies. Continue current medical management. Job ID: [id number] DocumentID: [id number] Dictated Date: 03/05/2020 22:16:19 Test Engine Evaluator Date: 03/06/2020 05:53:03 Dictated By: KASSANDRA TAO DO
[2020-03-06 06:24] LABS: BASOPHILS % (AUTO) 0 % (0-10); EOSINOPHILS % (AUTO) 0 % (0-10); HEMATOCRIT 37 % (40-54); HEMOGLOBIN 12.1 g/dL (13.3-17.7); LYMPHOCYTES # (AUTO) 0.5 10^3/uL (1.0-4.0); LYMPHOCYTES % (AUTO) 3 % (12-44); MEAN CORPUSCULAR HEMOGLOBIN 31 pg (25-34); MEAN CORPUSCULAR HGB CONC 33 g/dL (32-36); MEAN CORPUSCULAR VOLUME 93 fL (80-99); MONOCYTES # (AUTO) 0.5 10^3/uL (0.0-1.0); MONOCYTES % (AUTO) 3 % (0-12); NEUTROPHILS % (AUTO) 94 % (42-75); PLATELET COUNT 333 10^3/uL (130-400); WHITE BLOOD COUNT 19.3 10^3/uL (4.3-11.0)
[2020-03-06 06:33] LABS: ALBUMIN 3.6 GM/DL (3.2-4.5)
[2020-03-06 06:34] LABS: CHLORIDE 101 MMOL/L (98-107); SODIUM 135 MMOL/L (135-145)
[2020-03-06 06:35] LABS: CALCIUM 8.1 MG/DL (8.5-10.1)
[2020-03-06 06:36] LABS: GLUCOSE 119 MG/DL (70-105); TOTAL PROTEIN 5.9 GM/DL (6.4-8.2)
[2020-03-06 06:37] LABS: CARBON DIOXIDE 25 MMOL/L (21-32)
[2020-03-06 06:38] LABS: BILIRUBIN,TOTAL 0.6 MG/DL (0.1-1.0)
[2020-03-06 06:39] LABS: ALKALINE PHOSPHATASE 39 U/L (40-136)
[2020-03-06 06:40] LABS: CREATININE SERUM 0.81 MG/DL (0.60-1.30); GFR ESTIMATED > 60
[2020-03-06 06:41] LABS: BUN/CREATININE RATIO 21
[2020-03-06 06:43] LABS: ALANINE AMINOTRANSFERASE 24 U/L (0-55); MAGNESIUM 2.7 MG/DL (1.6-2.4)
[2020-03-06] MEDS: PANTOPRAZOLE 40 MG (PROTONIX) TAB PO SCH (08:44)
[2020-03-06 08:51] VITALS: BP 135/67
--- NOTE | 2020-03-06 13:05 | Progress Note - Hospitalist ---
Subjective HPI/CC On Admission Date Seen by Provider: Mar 06, 2020 Time Seen by Provider: 12:00 this is a 54-year-old white male who was recently discharged after a hospitalization for abdominal pain and small bowel obstruction. Upper GI with small bowel follow-through showed patency of the small bowel before discharge 24 hours ago. the patient went home and then began having increased abdominal pain with nausea and vomiting and to episodes of diarrhea. The patient this morning is a poor historian and is very somnolent. Overnight he had to have an NG tube placed with about a liter of fluid rate moved. He denies having any flatus. CT showed obstruction of the proximal small bowel with an area of thickening. Subjective/Events-last exam Increasing diet Ambulating well BM minimal No pain otherwise Review of Systems Gastrointestinal: Abdominal Pain Objective Exam Vital Signs Vital Signs Date Time Temp Pulse Resp B/P (MAP) Pulse Ox O2 Delivery O2 Flow Rate FiO2 03/07/20 16:00 36.8 71 18 126/65 (85) 97 Room Air 03/05/20 14:55 10 Capillary Refill : Less Than 3 SecondsLess Than 3 Seconds General Appearance: No Apparent Distress, WD/WN, Chronically ill Respiratory: Chest Non Tender, Lungs Clear, Normal Breath Sounds, No Accessory Muscle Use, No Respiratory Distress Cardiovascular: Regular Rate, Rhythm, No Edema, No Gallop, No JVD, No Murmur, Normal Peripheral Pulses 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: Alert, Oriented x3, No Motor/Sensory Deficits, Normal Mood/Affect Results/Procedures Lab Laboratory Tests 03/07/20 06:00 Patient resulted labs reviewed. Imaging: Reviewed Imaging Report Assessment/Plan Assessment and Plan Assess & Plan/Chief Complaint Inflammatory bowel disease? SBO? Supportive care Clinical Quality Measures DVT/VTE Risk/Contraindication: Risk Factor Score Per Nursin RFS Level Per Nursing on Admit: 3=High NAUN BRICE DO Mar 06, 2020 13:05
[2020-03-06 15:30] VITALS: BP 136/72
--- NOTE | 2020-03-06 17:22 | NUR ---
Spoke to Dr. Bryson regarding patients complaint of increasing right upper abdominal pain and distention. orders for Reglan 5mg Q6 hrs and Morphine q1hr PRN
[2020-03-06] MEDS ORDERED: morphine INJ 4 MG/ML 1 ML (VIAL/SYRINGE) ONE (18:06)
[2020-03-06] MEDS ORDERED: METOCLOPRAMIDE INJ 10 MG/2 ML (REGLAN) ONE (18:06)
[2020-03-06] MEDS: ONDANSETRON 4 MG/2 ML (SDV) Z0FRAN IV PRN (18:08)
[2020-03-06] MEDS: METOCLOPRAMIDE INJ 10 MG/2 ML (REGLAN) IVP SCH (18:08)
[2020-03-07] VITALS: BP 121/72
[2020-03-07] MEDS: methylPREDNISolone 125 MG (Solu-MEDROL) VIAL IV SCH ×5 (00:10→23:41)
[2020-03-07] MEDS: METOCLOPRAMIDE INJ 10 MG/2 ML (REGLAN) IVP SCH ×5 (00:10→23:41)
[2020-03-07] MEDS: HYDROcodone/APAP 5 MG/325 MG (LORTAB) TAB PO PRN ×2 (00:10→19:37)
[2020-03-07] MEDS: ONDANSETRON 4 MG/2 ML (SDV) Z0FRAN IV PRN ×3 (02:02→17:26)
[2020-03-07] MEDS: fentaNYL INJECTION 100 MCG/2 ML AMP IV PRN ×6 (04:05→19:38)
[2020-03-07] MEDS: morphine INJ 4 MG/ML 1 ML (VIAL/SYRINGE) IV PRN ×2 (06:24→22:22)
[2020-03-07 06:35] LABS: BASOPHILS % (AUTO) 0 % (0-10); EOSINOPHILS % (AUTO) 0 % (0-10); HEMATOCRIT 36 % (40-54); HEMOGLOBIN 12.1 g/dL (13.3-17.7); LYMPHOCYTES # (AUTO) 0.5 10^3/uL (1.0-4.0); LYMPHOCYTES % (AUTO) 4 % (12-44); MEAN CORPUSCULAR HEMOGLOBIN 31 pg (25-34); MEAN CORPUSCULAR HGB CONC 34 g/dL (32-36); MEAN CORPUSCULAR VOLUME 91 fL (80-99); MEAN PLATELET VOLUME 9.8 fL (9.0-12.2); MONOCYTES # (AUTO) 0.6 10^3/uL (0.0-1.0); MONOCYTES % (AUTO) 4 % (0-12); NEUTROPHILS % (AUTO) 91 % (42-75); PLATELET COUNT 286 10^3/uL (130-400); WHITE BLOOD COUNT 14.3 10^3/uL (4.3-11.0)
[2020-03-07 06:42] LABS: ALBUMIN 3.6 GM/DL (3.2-4.5); CHLORIDE 102 MMOL/L (98-107)
[2020-03-07 06:43] LABS: SODIUM 136 MMOL/L (135-145)
[2020-03-07 06:45] LABS: GLUCOSE 147 MG/DL (70-105); TOTAL PROTEIN 5.8 GM/DL (6.4-8.2)
[2020-03-07 06:46] LABS: CARBON DIOXIDE 23 MMOL/L (21-32)
[2020-03-07 06:47] LABS: BILIRUBIN,TOTAL 0.6 MG/DL (0.1-1.0)
[2020-03-07 06:48] LABS: ALKALINE PHOSPHATASE 44 U/L (40-136)
[2020-03-07 06:49] LABS: GFR ESTIMATED > 60
[2020-03-07 06:50] LABS: BUN/CREATININE RATIO 19
[2020-03-07 06:51] LABS: ALANINE AMINOTRANSFERASE 24 U/L (0-55)
[2020-03-07 08:29] VITALS: BP 134/66
[2020-03-07] MEDS: PANTOPRAZOLE 40 MG (PROTONIX) TAB PO SCH (08:33)
--- NOTE | 2020-03-07 10:55 | Progress Note ---
Subjective Date Seen by a Provider: Mar 07, 2020 Time Seen by a Provider: 09:40 Subjective/Events-last exam Patient seen with Dr. Bryson. Patient reports still having upper abdominal pain. Had 2 BMs this morning. Tolerated diet this morning with no nausea or vomiting. Ambulating well. Denied any fever/chills. Objective Exam Vital Signs Date Time Temp Pulse Resp B/P (MAP) Pulse Ox O2 Delivery O2 Flow Rate FiO2 03/07/20 08:29 36.6 68 20 134/66 (88) 97 Room Air 03/07/20 00:00 36.9 60 16 121/72 (88) 95 Room Air 03/06/20 20:50 Room Air 03/06/20 15:30 36.4 67 20 136/72 (93) 97 Room Air I & O 03/07/20 07:00 Intake Total 1780 ml Output Total 2700 ml Balance -920 ml Capillary Refill : Less Than 3 SecondsLess Than 3 Seconds General Appearance: No Apparent Distress, WD/WN Neck: Normal Inspection, Supple Respiratory: Normal Breath Sounds, No Accessory Muscle Use, No Respiratory Distress Cardiovascular: Regular Rate, Rhythm, No Edema Gastrointestinal: normal bowel sounds, soft, distended, tenderness (Upper abdomen) Extremity: Normal Inspection, Normal Range of Motion 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: Alert, Oriented x3 Skin: Normal Color, Warm/Dry Results Lab Laboratory Tests 03/07/20 06:00: White Blood Count 14.3H, Red Blood Count 3.96L, Hemoglobin 12.1L, Hematocrit 36L , Mean Corpuscular Volume 91, Mean Corpuscular Hemoglobin 31, Mean Corpuscular Hemoglobin Concent 34, Red Cell Distribution Width 11.7, Platelet Count 286, Mean Platelet Volume 9.8, Immature Granulocyte % (Auto) 1, Neutrophils (%) (Auto) 91H, Lymphocytes (%) (Auto) 4L, Monocytes (%) (Auto) 4, Eosinophils (%) (Auto) 0, Basophils (%) (Auto) 0, Neutrophils # (Auto) 13.0H, Lymphocytes # (Auto) 0.5L, Monocytes # (Auto) 0.6, Eosinophils # (Auto) 0.0, Basophils # (Auto ) 0.0, Immature Granulocyte # (Auto) 0.2H, Sodium Level 136, Potassium Level 4.0, Chloride Level 102, Carbon Dioxide Level 23, Anion Gap 11, Blood Urea Nitrogen 15, Creatinine 0.80, Estimat Glomerular Filtration Rate > 60, BUN/Creatinine Ratio 19, Glucose Level 147H, Calcium Level 8.0L, Corrected Calcium 8.3L, Total Bilirubin 0.6, Aspartate Amino Transf (AST/SGOT) 14, Alanine Aminotransferase (ALT/SGPT) 24, Alkaline Phosphatase 44, Total Protein 5.8L, Albumin 3.6 Assessment/Plan Assessment/Plan Assess & Plan/Chief Complaint A 54 year old male with small bowel obstruction secondary to inflammatory process terminal ileum, possible crohn's, abdominal epigastric pain nausea vomiting, gastritis s/p egd/colonoscopy with biopsies VSS WBC 14.3 Encourage increased ambulation Continue steroids Diet slowly advance as tolerates as long as doesn't get worsening distention Could consider capsule endoscopy Continue pain management Clinical Quality Measures DVT/VTE Risk/Contraindication: Risk Factor Score Per Nursin RFS Level Per Nursing on Admit: 3=High CARMELO HERNANDEZ QUARRY EXTRACTION WORKER Mar 07, 2020 10:54
--- NOTE | 2020-03-07 12:12 | Progress Note - Hospitalist ---
Subjective HPI/CC On Admission Date Seen by Provider: Mar 07, 2020 Time Seen by Provider: 11:40 this is a 54-year-old white male who was recently discharged after a hospitalization for abdominal pain and small bowel obstruction. Upper GI with small bowel follow-through showed patency of the small bowel before discharge 24 hours ago. the patient went home and then began having increased abdominal pain with nausea and vomiting and to episodes of diarrhea. The patient this morning is a poor historian and is very somnolent. Overnight he had to have an NG tube placed with about a liter of fluid rate moved. He denies having any flatus. CT showed obstruction of the proximal small bowel with an area of thickening. Subjective/Events-last exam WBC decreased No pain reported BM x 3 since scope Review of Systems Gastrointestinal: Abdominal Pain Objective Exam Vital Signs Vital Signs Date Time Temp Pulse Resp B/P (MAP) Pulse Ox O2 Delivery O2 Flow Rate FiO2 03/07/20 16:00 36.8 71 18 126/65 (85) 97 Room Air 03/05/20 14:55 10 Capillary Refill : Less Than 3 SecondsLess Than 3 Seconds General Appearance: No Apparent Distress, WD/WN Respiratory: Chest Non Tender, Lungs Clear, Normal Breath Sounds, No Accessory Muscle Use, No Respiratory Distress Cardiovascular: Regular Rate, Rhythm, No Edema, No Gallop, No JVD, No Murmur, Normal Peripheral Pulses 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: Alert, Oriented x3, No Motor/Sensory Deficits, Normal Mood/Affect Results/Procedures Lab Laboratory Tests 03/07/20 06:00 Patient resulted labs reviewed. Imaging: Reviewed Imaging Report Assessment/Plan Assessment and Plan Assess & Plan/Chief Complaint Inflammatory bowel disease? SBO? Supportive care Clinical Quality Measures DVT/VTE Risk/Contraindication: Risk Factor Score Per Nursin RFS Level Per Nursing on Admit: 3=High NAUN BRICE DO Mar 07, 2020 12:12
[2020-03-07 16:00] VITALS: BP 126/65
[2020-03-07 23:47] VITALS: BP 123/64
[2020-03-08] MEDS: fentaNYL INJECTION 100 MCG/2 ML AMP IV PRN ×3 (01:33→09:00)
[2020-03-08] MEDS: morphine INJ 4 MG/ML 1 ML (VIAL/SYRINGE) IV PRN (03:39)
[2020-03-08 05:01] LABS: BASOPHILS % (AUTO) 0 % (0-10); EOSINOPHILS % (AUTO) 0 % (0-10); HEMATOCRIT 35 % (40-54); HEMOGLOBIN 11.8 g/dL (13.3-17.7); LYMPHOCYTES # (AUTO) 0.4 10^3/uL (1.0-4.0); LYMPHOCYTES % (AUTO) 3 % (12-44); MEAN CORPUSCULAR HEMOGLOBIN 31 pg (25-34); MEAN CORPUSCULAR HGB CONC 33 g/dL (32-36); MEAN CORPUSCULAR VOLUME 92 fL (80-99); MEAN PLATELET VOLUME 9.7 fL (9.0-12.2); MONOCYTES # (AUTO) 0.5 10^3/uL (0.0-1.0); MONOCYTES % (AUTO) 4 % (0-12); NEUTROPHILS # (AUTO) 13.4 10^3/uL (1.8-7.8); NEUTROPHILS % (AUTO) 92 % (42-75); PLATELET COUNT 297 10^3/uL (130-400); WHITE BLOOD COUNT 14.5 10^3/uL (4.3-11.0)
[2020-03-08 05:19] LABS: ALBUMIN 3.6 GM/DL (3.2-4.5)
[2020-03-08 05:20] LABS: CHLORIDE 100 MMOL/L (98-107); POTASSIUM 4.5 MMOL/L (3.6-5.0); SODIUM 135 MMOL/L (135-145)
[2020-03-08 05:21] LABS: CALCIUM 8.1 MG/DL (8.5-10.1)
[2020-03-08 05:22] LABS: GLUCOSE 117 MG/DL (70-105); TOTAL PROTEIN 5.8 GM/DL (6.4-8.2)
[2020-03-08 05:23] LABS: CARBON DIOXIDE 26 MMOL/L (21-32)
[2020-03-08 05:24] LABS: BILIRUBIN,TOTAL 0.6 MG/DL (0.1-1.0)
[2020-03-08 05:25] LABS: ALKALINE PHOSPHATASE 43 U/L (40-136)
[2020-03-08 05:26] LABS: CREATININE SERUM 0.78 MG/DL (0.60-1.30); GFR ESTIMATED > 60
[2020-03-08 05:27] LABS: BUN/CREATININE RATIO 19
[2020-03-08 05:28] LABS: ALANINE AMINOTRANSFERASE 28 U/L (0-55)
[2020-03-08] MEDS: methylPREDNISolone 125 MG (Solu-MEDROL) VIAL IV SCH (05:50)
[2020-03-08] MEDS: METOCLOPRAMIDE INJ 10 MG/2 ML (REGLAN) IVP SCH (05:51)
[2020-03-08 07:49] VITALS: BP 125/60
[2020-03-08] MEDS: PANTOPRAZOLE 40 MG (PROTONIX) TAB PO SCH (08:59)
[2020-03-08] MEDS: ONDANSETRON 4 MG/2 ML (SDV) Z0FRAN IV PRN (09:00)
[2020-03-08] MEDS ORDERED: PRED10TA22 PO (09:53)
[2020-03-08] MEDS ORDERED: ACHD5005 PO (09:53)
[2020-03-08] MEDS ORDERED: PANT40TA52 PO (09:53)
--- NOTE | 2020-03-08 09:55 | Discharge Summary ---
Discharge Summary Hospital Course Was the Problem List Reviewed?: Yes Problems/Dx: (1) Pseudo-obstruction of intestine Status: Acute (2) Gastroenteritis Status: Acute (3) Inflammatory bowel disease Status: Acute Hospital Course Date of Admission: Feb 27, 2020 at 17:52 Admission Diagnosis : [facility] Date of [facility]charge: 03/08/20 Discharge Diagnosis: Inflammatory bowel disease? SBO? Hospital Course: Hospital course: Pt had a lengthy hospital course when he was admitted for small bowel obstruction. Pt required IV steroids for suspicion of an inflammatory bowel disease in the small bowel. Colonoscopy was performed, biopsies taken and overall he required Protonix, Steroid taper and pain medication at discharge and was deemed stable and improved. He was able to take in nutrition and will have close follow up with gastroenterology for capsule-endoscopy. Labs and Pending Lab Test: Laboratory Tests 03/08/20 04:40: White Blood Count 14.5H, Red Blood Count 3.86L, Hemoglobin 11.8L, Hematocrit 35L , Mean Corpuscular Volume 92, Mean Corpuscular Hemoglobin 31, Mean Corpuscular Hemoglobin Concent 33, Red Cell Distribution Width 12.0, Platelet Count 297, Mean Platelet Volume 9.7, Immature Granulocyte % (Auto) 1, Neutrophils (%) (Auto) 92H, Lymphocytes (%) (Auto) 3L, Monocytes (%) (Auto) 4, Eosinophils (%) (Auto) 0, Basophils (%) (Auto) 0, Neutrophils # (Auto) 13.4H, Lymphocytes # (Auto) 0.4L, Monocytes # (Auto) 0.5, Eosinophils # (Auto) 0.0, Basophils # (Auto) 0.0, Immature Granulocyte # (Auto) 0.2H, Sodium Level 135, Potassium Level 4.5, Chloride Level 100, Carbon Dioxide Level 26, Anion Gap 9, Blood Urea Nitrogen 15, Creatinine 0.78, Estimat Glomerular Filtration Rate > 60, BUN/Creatinine Ratio 19, Glucose Level 117H, Calcium Level 8.1L, Corrected Calcium 8.4L, Total Bilirubin 0.6, Aspartate Amino Transf (AST/SGOT) 16, Alanine Aminotransferase (ALT/SGPT) 28, Alkaline Phosphatase 43, Total Protein 5.8L, Albumin 3.6 Home Meds Active Prednisone 10 Mg Tab.ds.pk 10 Mg PO DAILY Take 6 tabs(60mg)daily,decrease by 1 tab(10MG)daily. Pantoprazole Sodium 40 Mg Tablet.dr 40 Mg PO DAILY Hydrocodone-Acetamin 5-325 mg (Hydrocodone/Acetaminophen) 1 Each Tablet 1 Tab PO Q6H PRN Assessment/Pt Instructions chc 1 week capsule endo to be arranged Discharge Planning: <30 minutes discharge planning Discharge Instructions Discharge Diet: No Restrictions Activity as Tolerated: Yes Pneumonia Vaccine Order Indica: Yes Discharge Physical Examination Vital Signs Vital Signs Date Time Temp Pulse Resp B/P (MAP) Pulse Ox O2 Delivery O2 Flow Rate FiO2 03/08/20 08:00 Room Air 03/08/20 07:49 36.0 71 17 125/60 (81) 97 03/05/20 14:55 10 General Appearance: No Apparent Distress, Chronically ill Respiratory: Normal Breath Sounds Cardiovascular: Regular Rate, Rhythm 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: Alert, Oriented x3 Allergies: Coded Allergies: diphenhydramine (Verified Allergy, Unknown, 02/27/20) Discharge Summary Date of Admission Feb 27, 2020 at 17:52 Date of Discharge Discharge Date: Mar 08, 2020 Admission Diagnosis small bowel obstruction with evidence of inflammation most suspicious for Crohn's disease. History of hepatitis C Chronic back pain History of drug use Tobaccoism non-curtailed Plan for continued NG suction surgical consultation patient has been placed on IV steroids to hopefully achieve some response of the inflammation the small bowel. Will need an upper endoscopy and colonoscopy to confirm diagnosis Discharge Diagnosis Inflammatory bowel disease? SBO? Supportive care Clinical Quality Measures DVT/VTE Risk/Contraindication: Risk Factor Score Per Nursin RFS Level Per Nursing on Admit: 3=High NAUN BRICE DO Mar 08, 2020 09:55
--- NOTE | 2020-03-08 10:34 | NUR ---
2 WEEK F/U BEING MADE WITH DR VERAS PRIOR TO DC, PT INSTRUCTED TO MAKE APPOINTMENT WITH [facility] Addendum: 03/08/20 at 1108 by SHALOM ZIMMERMAN RN GI APPOINTMENT MADE WITH DR MCKEON, PT GIVEN APPOINTMENT REMINDER CARD
[2020-03-08] MEDS: HYDROcodone/APAP 5 MG/325 MG (LORTAB) TAB PO PRN (10:41)
[2020-03-08 11:30] VITALS: BP 125/60
--- NOTE | 2020-03-08 11:40 | NUR ---
CAROL PARIKH demonstrates understanding of discharge instructions and accurately returns instructions upon questioning. Copy of Post-Discharge Instructions and Medication Discharge Instructions given to pt. CAROL PARIKH is able to manage continuing needs after discharge. Patients belongings returned to pt. Skin dry and intact; no breakdown noted. Patient discharged from 412-1 on at 1130. CAROL PARIKH left floor via , accompanied by staff.
--- NOTE | 2020-03-08 12:51 | Progress Note - Surgery ---
Subjective Date Seen by a Provider: Mar 08, 2020 Time Seen by a Provider: 07:40 Subjective/Events-last exam No new pain or complaints. States he had an episode of nausea with vomiting yesterday, but only nausea today that is now resolved. Had BM this morning, has been ambulating. WBC is 14.5 today, stable from 14.3 yesterday. Objective Exam Vital Signs Date Time Temp Pulse Resp B/P (MAP) Pulse Ox O2 Delivery O2 Flow Rate FiO2 03/08/20 11:30 36.0 71 17 125/60 97 Room Air 0.00 03/08/20 08:00 Room Air 03/08/20 07:49 36.0 71 17 125/60 (81) 97 Room Air 03/07/20 23:47 36.6 58 18 123/64 (83) 100 Room Air 03/07/20 19:38 Room Air 03/07/20 16:00 36.8 71 18 126/65 (85) 97 Room Air I & O 03/08/20 07:00 Intake Total 2280 ml Output Total 3400 ml Balance -1120 ml Capillary Refill : Less Than 3 SecondsLess Than 3 Seconds General Appearance: No Apparent Distress, WD/WN HEENT: PERRL/EOMI, Normal ENT Inspection Neck: Normal Inspection, Supple Respiratory: Lungs Clear, Normal Breath Sounds, No Accessory Muscle Use, No Respiratory Distress Cardiovascular: Regular Rate, Rhythm, No Murmur Peripheral Pulses: 2+ Dorsalis Pedis (R), 2+ Left Dors-Pedis (L), 2+ Radial Pulses (R), 2+ Radial Pulses (L) Gastrointestinal: normal bowel sounds, soft, distended, other (notes unchanged abdominal pain that does not worsen with palpation) Extremity: Normal Inspection, Normal Range of Motion 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: Alert, No Motor/Sensory Deficits, Normal Mood/Affect Skin: Normal Color, Warm/Dry Lymphatic: No Adenopathy Results Lab Laboratory Tests 03/08/20 04:40: White Blood Count 14.5H, Red Blood Count 3.86L, Hemoglobin 11.8L, Hematocrit 35L , Mean Corpuscular Volume 92, Mean Corpuscular Hemoglobin 31, Mean Corpuscular Hemoglobin Concent 33, Red Cell Distribution Width 12.0, Platelet Count 297, Mean Platelet Volume 9.7, Immature Granulocyte % (Auto) 1, Neutrophils (%) (Au to) 92H, Lymphocytes (%) (Auto) 3L, Monocytes (%) (Auto) 4, Eosinophils (%) (Auto) 0, Basophils (%) (Auto) 0, Neutrophils # (Auto) 13.4H, Lymphocytes # (Auto) 0.4L, Monocytes # (Auto) 0.5, Eosinophils # (Auto) 0.0, Basophils # (Auto) 0.0, Immature Granulocyte # (Auto) 0.2H, Sodium Level 135, Potassium Level 4.5, Chloride Level 100, Carbon Dioxide Level 26, Anion Gap 9, Blood Urea Nitrogen 15, Creatinine 0.78, Estimat Glomerular Filtration Rate > 60, BUN/Creatinine Ratio 19, Glucose Level 117H, Calcium Level 8.1L, Corrected Calcium 8.4L, Total Bilirubin 0.6, Aspartate Amino Transf (AST/SGOT) 16, Alanine Aminotransferase (ALT/SGPT) 28, Alkaline Phosphatase 43, Total Protein 5.8L, Albumin 3.6 Assessment/Plan Assessment/Plan Assessment/Plan A 54 year old male with small bowel obstruction secondary to inflammatory process terminal ileum, possible crohn's, abdominal epigastric pain nausea vomiting, gastritis s/p egd/colonoscopy with biopsies VSS WBC 14.5 Encourage increased ambulation Taper steroids Diet slowly advance as tolerates as long as doesn't get worsening distention Consider capsule endoscopy Pain management Stable for discharge from surgical standpoint Clinical Quality Measures DVT/VTE Risk/Contraindication: Risk Factor Score Per Nursin RFS Level Per Nursing on Admit: 3=High VIVIAN LINN MED STUDENT Mar 08, 2020 12:51
--- NOTE | 2020-03-08 16:35 | Progress Note ---
PRASANTH BARROW MED STUDENT 03/08/20 1635: Progress Note Mr. Roth is a pleasant 54 y.o M who presented to the ED on 02/27 after experiencing nausea and vomiting along with increasing abdominal distention and diffuse abdominal pain. 24 hours prior to this encounter, he had been discharged after a small bowel follow-through, which did not show any obstructions. He was placed on NGT and IV steroids to control inflammation of the small bowel. NGT was removed on 03/01. Colonoscopy and EGD were performed on 03/05 which showed thickened small bowel. Biopsies were taken of the antrum and ileum. He continued to improve in hospital with clear liquid diet and slow diet advancement. He was ready for discharge today with recommendation of steroid taper and consult to GI for capsule endoscopy to view what the EGD and colonoscopy could not visualize. GINNY BRICE DO 03/09/20 0539: Supervisory-Addendum Brief Verification & Attestation Participated in pt care: history, MDM, physical Personally performed: exam, history, MDM, supervision of care Care discussed with: Medical Student Procedures: n/a Results interpretation: Verified all documentation Verification and Attestation of Medical Student E/M Service A medical student performed and documented this service in my presence. I reviewed and verified all information documented by the medical student and made modifications to such information, when appropriate. I personally performed the physical exam and medical decision making. Ginny Brice, Mar 09, 2020,05:39 PRASANTH BARROW MED STUDENT Mar 08, 2020 16:35 GINNY BRICE DO Mar 09, 2020 05:39
--- NOTE | 2020-03-09 12:10 | Physician Query Clarification ---
PQ-Further Specificity Admission/Discharge Admission Date: Feb 27, 2020 at 17:52 Discharge Date: Mar 08, 2020 at 11:30 Dr. Herzog, The medical record reflects the following clinical scenario: History/Risk Factors: inflammatory bowel disease/SBO Clinical Findings: increased pain inability to pass stool, N/V/D, CT scan - obstruction of proximal small bowel with area of thickening Treatment: NGT Question: Can you further specify if this is a pseudo-obstruction or the intestine or a small bowel obstruction per the clinical indicators above? Please document a response in the Progress Notes or Discharge Summary. 1. pseudo-obstruction of the small intestine 2. small bowel obstruction 3. Other, with explanation of the clinical findings. 4. Clinically undetermined, no explanation for the clinical findings. PHYSICIAN RESPONSE Can you specify per above: 1 Please remember a lack of response to the above will prompt a phone page by CDI/Coding staff. In responding to this query, please exercise your independent professional judgment. The purpose of this communication is to more accurately reflect the complexity of your patients condition. The fact that a question is asked does not imply that any particular answer is desired or expected. Thank you for your timely response to this clarification. Requestors name: Tamanna THIS PHYSICIAN QUERY FORM IS A PERMANENT PART OF THE MEDICAL RECORD TAMANNA ESLF Mar 09, 2020 12:10 NAUN HERZOG DO Mar 09, 2020 20:28
--- NOTE | 2020-03-09 12:15 | Physician Query Clarification ---
PQ-Intro New Diagnosis Admission/Discharge Admission Date: Feb 27, 2020 at 17:52 Discharge Date: Mar 08, 2020 at 11:30 Dr. Herzog, The medical record reflects the following clinical scenario: History/Risk Factors: inflammatory bowel disease/SBO Clinical Findings: increased pain inability to pass stool, N/V/D, CT scan - obstructionof proximal small bowel with area of thickening Treatment: NGT Question: What condition best reflects the above clinical scenario? Please document a response in the Progress Noter or Discharge Summary. 1. Inflammation of ileum undetermined etiology 2. inflammation of ileum d/t crohn's disease 3. Other, with explanation of the clinical findings. 4. Clinically undetermined, no explanation for the clinical findings. PHYSICIAN RESPONSE What condition reflects above: 1 Please remember a lack of response to the above will prompt a phone page by CDI/Coding staff. In responding to this query, please exercise your independent professional judgment. The purpose of this communication is to more accurately reflect the complexity of your patients condition. The fact that a question is asked does not imply that any particular answer is desired or expected. Thank you for your timely response to this clarification. Requestors name: Tamanna THIS PHYSICIAN QUERY FORM IS A PERMANENT PART OF THE MEDICAL RECORD TAMANNA SELF Mar 09, 2020 12:15 NAUN HERZOG DO Mar 09, 2020 20:29
== END 2020-03-08 11:30 | disposition home or self-care (01) | DRG 392 ==
LOC: EDUNIT# 15:07 → ER 15:09 → 4TH 17:52
PROVIDERS: ADMIT Internal Medicine; ATTEND Internal Medicine
PROC: 0D9670Z Drainage of Stomach with Drainage Device, Via Natural or Artificial Opening (ICD-10-PCS; principal; 2020-02-28)
PROC: 0DB68ZX Excision of Stomach, Via Natural or Artificial Opening Endoscopic, Diagnostic (ICD-10-PCS; 2020-03-05)
PROC: 0DB48ZX Excision of Esophagogastric Junction, Via Natural or Artificial Opening Endoscopic, Diagnostic (ICD-10-PCS; 2020-03-05)
PROC: 0DBB8ZX Excision of Ileum, Via Natural or Artificial Opening Endoscopic, Diagnostic (ICD-10-PCS; 2020-03-05)
PROC: 0DB78ZX Excision of Stomach, Pylorus, Via Natural or Artificial Opening Endoscopic, Diagnostic (ICD-10-PCS; 2020-03-05 14:03)
DX: K59.89 Other specified functional intestinal disorders (principal); K52.9 Noninfective gastroenteritis and colitis, unspecified; K29.70 Gastritis, unspecified, without bleeding; K21.9 Gastro-esophageal reflux disease without esophagitis; M54.9 Dorsalgia, unspecified; F17.210 Nicotine dependence, cigarettes, uncomplicated; J45.909 Unspecified asthma, uncomplicated; Z86.19 Personal history of other infectious and parasitic diseases; Z87.01 Personal history of pneumonia (recurrent)
CPT/HCPCS: 36415; 71045; 74176; 80048; 80053; 81000; 83690; 83735; 85007; 85025; 85027; 86141

== ENCOUNTER 2020-03-18 08:53 | Emergency (ER) | payer OTHER ==
[~2020-03-18] VITALS: Ht 177 cm; Wt 92.5 kg
[~2020-03-18 08:53] MED LIST changes: +PANT40TA52 PO; +PRED10TA22 PO
[2020-03-18 09:00] VITALS: BP 171/113
[2020-03-18] MEDS ORDERED: LACTATED RINGERS 1,000 ML IV ONE (09:06)
[2020-03-18] MEDS ORDERED: fentaNYL INJECTION 100 MCG/2 ML AMP IVP ONE (09:15)
[2020-03-18] MEDS ORDERED: ONDANSETRON 4 MG/2 ML (SDV) Z0FRAN IVP ONE (09:15)
[2020-03-18] MEDS ORDERED: DIATRIZOATE MEGLUM/SODIUM 37% 120 ML (GASTROGRAFIN) PO ONE (09:15)
[2020-03-18] MEDS ORDERED: PANTOPRAZOLE 40 MG (PROTONIX) VIAL IV ONE (09:15)
--- NOTE | 2020-03-18 09:19 | ED Abdominal Pain ---
General Stated Complaint: STOMACH PAIN Source of Information: Patient Exam Limitations: No Limitations History of Present Illness Date Seen by Provider: Mar 18, 2020 Time Seen by Provider: 08:59 Initial Comments Patient presents to ER by private conveyance with chief complaint of one day progressively worsening upper abdominal pain radiating across the top left and right quadrants. He took ibuprofen about 10 hours ago with no relief. He's had no fevers cough shortness of air. He has a history of pseudo-intestinal obstruction. He has spent too stays in the hospital for this. He was sent home on steroids and a PPI which she has been taking. He is followed by Dr. Tao and [facility]. Biopsies were obtained at his last stay but he has not gotten the results yet. He's had small loose stool this morning. No history of pancreatitis. Does not drink. Has recent history within the last month of methamphetamines. He has not used tobacco since his last hospital stay. He rates his pain as a 9 out of 10. No history of abdominal surgeries. Allergies and Home Medications Allergies Coded Allergies: diphenhydramine (Verified Allergy, Unknown, 02/27/20) Home Medications Hydrocodone/Acetaminophen 1 Each Tablet, 1 TAB PO Q6H PRN for PAIN-MODERATE (5- 7) Prescribed by: NAUN BRICE on 03/08/20 0954 Pantoprazole Sodium 40 Mg Tablet.dr, 40 MG PO DAILY Prescribed by: NAUN BRICE on 03/08/20 0953 Prednisone 10 Mg Tab.ds.pk, 10 MG PO DAILY Take 6 tabs(60mg)daily,decrease by 1 tab(10MG)daily. Prescribed by: NAUN BRICE on 03/08/20 0953 Patient Home Medication List Home Medication List Reviewed: Yes Review of Systems Review of Systems Constitutional: chills; No diaphoresis, No fever, No malaise EENTM: No Blurred Vision, No Double Vision Respiratory: Denies Cough, Denies Shortness of Air Cardiovascular: Denies Chest Pain, Denies Lightheadedness Gastrointestinal: See HPI, Abdominal Pain; Denies Constipated, Denies Diarrhea; Nausea, Poor Fluid Intake, Vomiting (once) Genitourinary: Denies Burning, Denies Discharge Musculoskeletal: No back pain, No joint pain Skin: No pruritus, No rash Psychiatric/Neurological: Denies Headache, Denies Numbness All Other Systems Reviewed Negative Unless Noted: Yes Past Trxivqt-Wtcccd-Epbaem Hx Patient Social History Alcohol Use: Denies Use Recreational Drug Use: Yes Drug of Choice: Heroin; Meth, Cocaine Smoking Status: Former Smoker Type Used: Cigarettes Former Smoker, Quit: Mar 07, 2020 Recent Foreign Travel: No Contact w/Someone Who Travel: No Recent Hopitalizations: Yes Immunizations Up To Date Tetanus Booster (TDap): Unknown PED Vaccines UTD: Yes Date of Influenza Vaccine: May 26, 2015 Seasonal Allergies Seasonal Allergies: No Past Medical History Surgeries: No Tonsillectomy Respiratory: Yes Asthma, Pneumonia Currently Using CPAP: No Currently Using BIPAP: No Cardiac: No Neurological: No Reproductive Disorders: No Sexually Transmitted Disease: No HIV/AIDS: No Genitourinary: No Gastrointestinal: No Gastroesophageal Reflux, Hepatitis, Gall Bladder Disease Musculoskeletal: No Chronic Back Pain Endocrine: No HEENT: No Loss of Vision: Bilateral Hearing Impairment: Denies Cancer: No Psychosocial: No Integumentary: No Blood Disorders: No Adverse Reaction/Blood Tranf: No Family Medical History Completed stroke 19 FATHER, Onset:60 years & older Diabetes mellitus 19 FATHER FH: aneurysm 19 MOTHER FH: cancer 19 FATHER 19 MOTHER Pacemaker 19 MOTHER No Pertinent Family Hx Per records reviewed due to altered mental status Physical Exam Vital Signs Vital Signs - First Documented 03/18/20 09:00 Temp 36.4 Pulse 96 Resp 20 B/P (MAP) 171/113 (132) Pulse Ox 100 O2 Delivery Room Air Capillary Refill : Height/Weight/BMI Height: 6'0" Weight: 165lbs. 0.0oz. [id number]; 28.82 BMI Method:Stated General Appearance: WD/WN, moderate distress HEENT: PERRL/EOMI, pharynx normal Neck: full range of motion, normal inspection Respiratory: lungs clear, normal breath sounds, no respiratory distress, no accessory muscle use Cardiovascular: normal peripheral pulses, regular rate, rhythm, tachycardia (100) Peripheral Pulses: 2+ Radial Pulses (R), 2+ Radial Pulses (L) Gastrointestinal: normal bowel sounds, soft, no organomegaly, tenderness (epigastric and right upper and left upper quadrant. Negative for psoas sign. Negative Rovsing sign.) Extremities: non-tender, normal inspection, normal capillary refill 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: alert, normal mood/affect, oriented x 3 Skin: normal color Procedures/Interventions Date of ETT Placement: Apr 13, 2019 Time of ETT Placement: 2314 Progress/Results/Core Measures Results/Orders Lab Results Laboratory Tests Test 03/18/20 10:15 03/18/20 10:20 Range/Units White Blood Count 10.1 4.3-11.0 10^3/uL Red Blood Count 4.03 L 4.30-5.52 10^6/uL Hemoglobin 12.3 L 13.3-17.7 g/dL Hematocrit 38 L 40-54 % Mean Corpuscular Volume 95 80-99 fL Mean Corpuscular Hemoglobin 31 25-34 pg Mean Corpuscular Hemoglobin Concent 32 32-36 g/dL Red Cell Distribution Width 12.8 10.0-14.5 % Platelet Count 228 130-400 10^3/uL Mean Platelet Volume 8.9 L 9.0-12.2 fL Immature Granulocyte % (Auto) 2 % Neutrophils (%) (Auto) 77 H 42-75 % Lymphocytes (%) (Auto) 14 12-44 % Monocytes (%) (Auto) 6 0-12 % Eosinophils (%) (Auto) 2 0-10 % Basophils (%) (Auto) 0 0-10 % Neutrophils # (Auto) 7.8 1.8-7.8 10^3/uL Lymphocytes # (Auto) 1.4 1.0-4.0 10^3/uL Monocytes # (Auto) 0.6 0.0-1.0 10^3/uL Eosinophils # (Auto) 0.2 0.0-0.3 10^3/uL Basophils # (Auto) 0.0 0.0-0.1 10^3/uL Immature Granulocyte # (Auto) 0.2 H 0.0-0.1 10^3/uL Sodium Level 139 135-145 MMOL/L Potassium Level 4.1 3.6-5.0 MMOL/L Chloride Level 105 98-107 MMOL/L Carbon Dioxide Level 22 21-32 MMOL/L Anion Gap 12 5-14 MMOL/L Blood Urea Nitrogen 12 7-18 MG/DL Creatinine 0.75 0.60-1.30 MG/DL Estimat Glomerular Filtration Rate > 60 BUN/Creatinine Ratio 16 Glucose Level 85 70-105 MG/DL Calcium Level 8.9 8.5-10.1 MG/DL Corrected Calcium 8.9 8.5-10.1 MG/DL Total Bilirubin 0.4 0.1-1.0 MG/DL Aspartate Amino Transf (AST/SGOT) 29 5-34 U/L Alanine Aminotransferase (ALT/SGPT) 84 H 0-55 U/L Alkaline Phosphatase 67 40-136 U/L Total Protein 6.6 6.4-8.2 GM/DL Albumin 4.0 3.2-4.5 GM/DL Lipase 24 8-78 U/L Urine Color YELLOW Urine Clarity CLEAR Urine pH 7.0 5-9 Urine Specific [place] 1.010 L 1.016-1.022 Urine Protein NEGATIVE NEGATIVE Urine Glucose (UA) NEGATIVE NEGATIVE Urine Ketones NEGATIVE NEGATIVE Urine Nitrite NEGATIVE NEGATIVE Urine Bilirubin NEGATIVE NEGATIVE Urine Urobilinogen 0.2 < = 1.0 MG/DL Urine Leukocyte Esterase NEGATIVE NEGATIVE Urine RBC (Auto) NEGATIVE NEGATIVE Urine RBC NONE /HPF Urine WBC NONE /HPF Urine Crystals NONE /LPF Urine Bacteria NEGATIVE /HPF Urine Casts NONE /LPF Urine Mucus NEGATIVE /LPF Urine Culture Indicated NO My Orders Orders - OSMANY WALLS Ed Iv/Invasive Line Start (03/18/20 09:06) Lactated Ringers (Lr 1000 Ml Iv Solution (03/18/20 09:06) Pantoprazole Injection (Protonix Injecti (03/18/20 09:15) Cbc With Automated Diff (03/18/20 09:06) Comprehensive Metabolic Panel (03/18/20 09:06) Ua Culture If Indicated (03/18/20 09:06) Lipase (03/18/20 09:06) Fentanyl Injection (Sublimaze Injection (03/18/20 09:15) Diatrizoate Meglum/Sodium 37% (Gastrogra (03/18/20 09:15) Received Contrast (Hold Metformin- Contr (03/18/20 09:30) Sodium Chloride Flush (Catheter Flush Sy (03/18/20 09:30) Ns (Ivpb) (Sodium Chloride 0.9% Ivpb Bag (03/18/20 09:30) Hydrocodone/Apap 5/325 Tablet (Lortab 5 (03/18/20 10:45) Medications Given in ED Current Medications Medications Dose Ordered Sig/Cecilia Route Start Time Stop Time Status Last Admin Dose Admin Fentanyl Citrate 50 mcg ONCE ONCE IVP 03/18/20 09:15 03/18/20 09:16 DC 03/18/20 10:31 50 MCG Lactated Ringer's 1,000 ml @ 0 mls/hr Q0M ONCE IV 03/18/20 09:06 03/18/20 09:09 DC 03/18/20 10:32 0 MLS/HR Pantoprazole 40 mg ONCE ONCE IV 03/18/20 09:15 03/18/20 09:16 DC 03/18/20 10:31 40 MG Sodium Chloride 10 ml NEEDED PRN IV 03/18/20 09:30 03/18/20 10:41 10 ML Vital Signs/I&O 03/18/20 09:00 Temp 36.4 Pulse 96 Resp 20 B/P (MAP) 171/113 (132) Pulse Ox 100 O2 Delivery Room Air Progress Progress Note #1: Time: :15 Progress Note Reviewed his previous history he had endoscopy about 12 days ago and pathology demonstrated no H. pylori just general gastritis and esophageal herpes. This could be the source of his abdominal discomfort and if that's the case we would want him to stop taking the steroids. We will discuss the case with Dr. Tao, General Surgeon. Plan to give him some fluids and fentanyl for his discomfort as well as ondansetron and PPI. Concern if he has a GI herpes then HIV could be a possibility given his use of illicit drugs. Progress Note #2: Time: :31 Progress Note Discussed the case with Dr. Tao and if we can get him under control some pain medicines fluids he agrees with not repeating a CT as it has not been any obstruction. We would hold the steroids put him on antivirals and pain meds and have him follow-up in the clinic on his scheduled appointment in 4 days. Alternatively if we cannot get his pain under control then we could put him in the hospital on observation. Departure Impression Primary Impression: Gastroenteritis and colitis, viral Additional Impression: Herpes simplex esophagitis Disposition: 01 HOME, SELF-CARE Condition: Improved Departure-Patient Inst. Decision time for Depature: 10:52 Referrals: [facility] [place] (PCP/Family) Primary Care Physician Patient Instructions: Viral Gastroenteritis, Adult (DC) Add. Discharge Instructions: Continue taking the Protonix daily as prescribed. Acyclovir 5 times a day for 2 weeks. Keep your follow-up appointment on the Dr. Tao. Make sure you're drinking plenty of fluids to stay hydrated. Gabapentin 1 capsule 3 times a day as necessary for pain. Hydrocodone one capsule every 6 hours as necessary for breakthrough pain. Hydrocodone will cause drowsiness as well as constipation. You can use Colace or other stool softeners to stay regular. Ondansetron one tablet every 6 hours as necessary for nausea and/or vomiting. Make an appointment to establish care with a primary care provider and discuss treatment of your hepatitis as well as testing for HIV and other appropriate tests. Scripts Acyclovir (Acyclovir) 400 Mg Tablet 400 MG PO 5XD for 14 Days, #70 TAB 0 Refills Prov: OSMANY WALLS 03/18/20 Gabapentin (Gabapentin) 100 Mg Capsule 100 MG PO Q8H PRN for PAIN-BREAKTHROUGH, #30 CAP 0 Refills Prov: OSMANY WALLS 03/18/20 Copy Copies To 1: PAOLA PEDRAZA TITUS J Mar 18, 2020 09:19
[2020-03-18] MEDS ORDERED: HOLD METFORMIN - RECEIVED CONTRAST 20 ML VIAL IV SCH (09:30)
[2020-03-18] MEDS ORDERED: IOHEXOL 350 MG/ML 100 ML (OMNIPAQUE 350) VIAL IV ONE (09:30)
[2020-03-18] MEDS ORDERED: NS 100 ML (IVPB) BAG IV ONE (09:30)
[2020-03-18] MEDS ORDERED: CATHETER FLUSH 10 ML SYR IV PRN (09:30)
[2020-03-18 10:26] LABS: BASOPHILS % (AUTO) 0 % (0-10); EOSINOPHILS # (AUTO) 0.2 10^3/uL (0.0-0.3); EOSINOPHILS % (AUTO) 2 % (0-10); HEMATOCRIT 38 % (40-54); HEMOGLOBIN 12.3 g/dL (13.3-17.7); LYMPHOCYTES # (AUTO) 1.4 10^3/uL (1.0-4.0); LYMPHOCYTES % (AUTO) 14 % (12-44); MEAN CORPUSCULAR HEMOGLOBIN 31 pg (25-34); MEAN CORPUSCULAR HGB CONC 32 g/dL (32-36); MEAN CORPUSCULAR VOLUME 95 fL (80-99); MEAN PLATELET VOLUME 8.9 fL (9.0-12.2); MONOCYTES # (AUTO) 0.6 10^3/uL (0.0-1.0); MONOCYTES % (AUTO) 6 % (0-12); NEUTROPHILS # (AUTO) 7.8 10^3/uL (1.8-7.8); NEUTROPHILS % (AUTO) 77 % (42-75); PLATELET COUNT 228 10^3/uL (130-400); WHITE BLOOD COUNT 10.1 10^3/uL (4.3-11.0)
[2020-03-18 10:27] LABS: BILIRUBIN,URINE NEGATIVE (NEGATIVE); CLARITY,URINE CLEAR; COLOR,URINE YELLOW; GLUCOSE, URINE (UA) NEGATIVE (NEGATIVE); KETONES,URINE NEGATIVE (NEGATIVE); LEUKOCYTE ESTERASE ,URINE NEGATIVE (NEGATIVE); NITRITE,URINE NEGATIVE (NEGATIVE); PROTEIN,URINE NEGATIVE (NEGATIVE)
[2020-03-18 10:39] LABS: ALANINE AMINOTRANSFERASE 84 U/L (0-55); ALKALINE PHOSPHATASE 67 U/L (40-136); BILIRUBIN,TOTAL 0.4 MG/DL (0.1-1.0); BUN/CREATININE RATIO 16; CALCIUM 8.9 MG/DL (8.5-10.1); CARBON DIOXIDE 22 MMOL/L (21-32); CHLORIDE 105 MMOL/L (98-107); CREATININE SERUM 0.75 MG/DL (0.60-1.30); GFR ESTIMATED > 60; GLUCOSE 85 MG/DL (70-105); LIPASE 24 U/L (8-78); POTASSIUM 4.1 MMOL/L (3.6-5.0); SODIUM 139 MMOL/L (135-145); TOTAL PROTEIN 6.6 GM/DL (6.4-8.2)
[2020-03-18 10:42] LABS: BACTERIA,URINE NEGATIVE /HPF
[2020-03-18] MEDS ORDERED: HYDROcodone/APAP 5 MG/325 MG (LORTAB) TAB PO ONE ×2 (10:45→11:15)
[2020-03-18] MEDS ORDERED: GABA-486 PO (11:10)
[2020-03-18] MEDS ORDERED: HYDR-3820 PO (11:10)
[2020-03-18] MEDS ORDERED: ACYC400T PO (11:10)
[2020-03-18] MEDS ORDERED: GABAPENTIN 100 MG (NEURONTIN) CAP PO ONE (11:15)
--- NOTE | 2020-03-18 11:23 | NUR ---
PT DROPPED GABAPENTIN ON THE FLOOR. PHARMACY WAS CALLED FOR DOSE.
== END 2020-03-18 11:40 | disposition home or self-care (01) ==
LOC: EDUNIT# 08:53 → ER 08:56
DX: A08.4 Viral intestinal infection, unspecified (principal); B00.9 Herpesviral infection, unspecified; K21.9 Gastro-esophageal reflux disease without esophagitis; J45.909 Unspecified asthma, uncomplicated; G89.29 Other chronic pain; M54.9 Dorsalgia, unspecified; Z80.9 Family history of malignant neoplasm, unspecified; Z83.3 Family history of diabetes mellitus; Z87.891 Personal history of nicotine dependence; Z79.52 Long term (current) use of systemic steroids; Z79.891 Long term (current) use of opiate analgesic; Z88.8 Allergy status to other drugs, medicaments and biological substances
CPT/HCPCS: 36415; 80053; 81000; 83690; 85025

== ENCOUNTER 2020-03-26 15:40 | Emergency (ER) | payer OTHER ==
[~2020-03-26] VITALS: Ht 180.3 cm; Wt 90.9 kg
[~2020-03-26 15:40] MED LIST changes: +ACYC400T PO; +GABA-486 PO; +HYDR-3820 PO
[2020-03-26] MEDS ORDERED: KETAMINE/NaCl 50 MG/5 ML SYRINGE (ED ONLY) IV ONE (16:15)
[2020-03-26] MEDS ORDERED: NS IV 1000 ML 1,000 ML IV SCH (16:15)
--- NOTE | 2020-03-26 16:18 | ED Abdominal Pain ---
General Chief Complaint: Abdominal/GI Problems Stated Complaint: STOMACH PAIN Nursing Triage Note: AMB TO ROOM WITH C/O ABD PAIN FOR 2 MONTHS HAS BEEN SEEN BY DR PALLAVI ALVARADO. IS TO SEE GI AT [facility] IN APR . VOMITED X 1 TODAY. Sepsis Screen: No Definite Risk Source of Information: Patient Exam Limitations: No Limitations History of Present Illness Date Seen by Provider: Mar 26, 2020 Time Seen by Provider: 16:17 Initial Comments To ER with epigastric abdominal pain. This is been ongoing for about 2 months. He had some nausea and vomiting today. He rates his pain at 9 out of 10. No fevers or chills. Does have some intermittent diarrhea. Is scheduled to see gastroenterology at [facility] on April 11. Timing/Duration: Other (2 months) Severity/Quality: Moderate Radiation: No Radiation Activities at Onset: None Allergies and Home Medications Allergies Coded Allergies: diphenhydramine (Verified Allergy, Unknown, 02/27/20) Home Medications Acyclovir 400 Mg Tablet, 400 MG PO 5XD Prescribed by: OSMANY WALLS on 03/18/20 1110 Gabapentin 100 Mg Capsule, 100 MG PO Q8H PRN for PAIN-BREAKTHROUGH Prescribed by: OSMANY WALLS on 03/18/20 1110 Hydrocodone/Acetaminophen 1 Each Tablet, 1 TAB PO Q6H PRN for PAIN-MODERATE (5- 7) Prescribed by: NAUN BRICE on 03/08/20 0954 Hydrocodone/Acetaminophen 1 Each Tablet, 1 EACH PO Q6H PRN for PAIN-BREAKTHROUGH Prescribed by: OSMANY WALLS on 03/18/20 1110 Pantoprazole Sodium 40 Mg Tablet.dr, 40 MG PO DAILY Prescribed by: NAUN BRICE on 03/08/20 09 Prednisone 10 Mg Tab.ds.pk, 10 MG PO DAILY Take 6 tabs(60mg)daily,decrease by 1 tab(10MG)daily. Prescribed by: NAUN BRICE on 03/08/20 09 Patient Home Medication List Home Medication List Reviewed: Yes Review of Systems Review of Systems Constitutional: see HPI EENTM: No Symptoms Reported Respiratory: No Symptoms Reported Cardiovascular: No Symptoms Reported Gastrointestinal: See HPI, Abdominal Pain, Diarrhea, Nausea Genitourinary: No Symptoms Reported Musculoskeletal: no symptoms reported Skin: no symptoms reported Psychiatric/Neurological: No Symptoms Reported Endocrine: No Symptoms Reported Hematologic/Lymphatic: No Symptoms Reported Past Opdkfuz-Plqjak-Qimsjn Hx Patient Social History Alcohol Use: Past History Recreational Drug Use: No (PAST USE) Drug of Choice: Heroin; Meth, Cocaine Smoking Status: Former Smoker Type Used: Cigarettes Former Smoker, Quit: Mar 07, 2020 Recent Foreign Travel: No Contact w/Someone Who Travel: No Recent Infectious Disease Expo: No Recent Hopitalizations: Yes (03/11/2020 FOR ABD PAIN) Immunizations Up To Date Tetanus Booster (TDap): Unknown PED Vaccines UTD: Yes Date of Influenza Vaccine: May 26, 2015 Seasonal Allergies Seasonal Allergies: No Past Medical History Surgeries: No Tonsillectomy Respiratory: Yes Asthma, Pneumonia Currently Using CPAP: No Currently Using BIPAP: No Cardiac: No Neurological: No Reproductive Disorders: No Sexually Transmitted Disease: No HIV/AIDS: No Genitourinary: No Gastrointestinal: No Gastroesophageal Reflux, Hepatitis, Gall Bladder Disease Musculoskeletal: No Chronic Back Pain Endocrine: No HEENT: No Loss of Vision: Bilateral Hearing Impairment: Denies Cancer: No Psychosocial: No Integumentary: No Blood Disorders: No Adverse Reaction/Blood Tranf: No Family Medical History Completed stroke 19 FATHER, Onset:60 years & older Diabetes mellitus 19 FATHER FH: aneurysm 19 MOTHER FH: cancer 19 FATHER 19 MOTHER Pacemaker 19 MOTHER No Pertinent Family Hx Per records reviewed due to altered mental status Physical Exam Vital Signs Vital Signs - First Documented 03/26/20 15:47 Temp 36.3 Pulse 98 Resp 18 B/P (MAP) 161/98 (119) Pulse Ox 98 O2 Delivery Room Air Capillary Refill : Less Than 3 Seconds Height/Weight/BMI Height: 6'0" Weight: 165lbs. 0.0oz. 74.701277an; 27.00 BMI Method:Stated General Appearance: WD/WN, no apparent distress Respiratory: normal breath sounds, no respiratory distress, no accessory muscle use Cardiovascular: regular rate, rhythm, no murmur Gastrointestinal: normal bowel sounds, soft, tenderness Extremities: normal range of motion, non-tender 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: alert, normal mood/affect, oriented x 3 Skin: normal color, warm/dry Procedures/Interventions Date of ETT Placement: Apr 13, 2019 Time of ETT Placement: 2314 Progress/Results/Core Measures Results/Orders Lab Results Laboratory Tests Test 03/26/20 15:47 03/26/20 16:15 Range/Units Urine Color YELLOW Urine Clarity CLEAR Urine pH 7.0 5-9 Urine Specific [place] <=1.005 1.016-1.022 Urine Protein NEGATIVE NEGATIVE Urine Glucose (UA) NEGATIVE NEGATIVE Urine Ketones NEGATIVE NEGATIVE Urine Nitrite NEGATIVE NEGATIVE Urine Bilirubin NEGATIVE NEGATIVE Urine Urobilinogen 0.2 < = 1.0 MG/DL Urine Leukocyte Esterase NEGATIVE NEGATIVE Urine RBC (Auto) NEGATIVE NEGATIVE Urine RBC NONE /HPF Urine WBC NONE /HPF Urine Squamous Epithelial Cells RARE /HPF Urine Crystals NONE /LPF Urine Bacteria NEGATIVE /HPF Urine Casts NONE /LPF Urine Mucus NEGATIVE /LPF Urine Culture Indicated NO Urine Opiates Screen NEGATIVE NEGATIVE Urine Oxycodone Screen NEGATIVE NEGATIVE Urine Methadone Screen NEGATIVE NEGATIVE Urine Propoxyphene Screen NEGATIVE NEGATIVE Urine Barbiturates Screen NEGATIVE NEGATIVE Ur Tricyclic Antidepressants Screen NEGATIVE NEGATIVE Urine Phencyclidine Screen NEGATIVE NEGATIVE Urine Amphetamines Screen NEGATIVE NEGATIVE Urine Methamphetamines Screen NEGATIVE NEGATIVE Urine Benzodiazepines Screen NEGATIVE NEGATIVE Urine Cocaine Screen NEGATIVE NEGATIVE Urine Cannabinoids Screen NEGATIVE NEGATIVE White Blood Count 5.7 4.3-11.0 10^3/uL Red Blood Count 3.96 L 4.30-5.52 10^6/uL Hemoglobin 12.0 L 13.3-17.7 g/dL Hematocrit 38 L 40-54 % Mean Corpuscular Volume 95 80-99 fL Mean Corpuscular Hemoglobin 30 25-34 pg Mean Corpuscular Hemoglobin Concent 32 32-36 g/dL Red Cell Distribution Width 12.4 10.0-14.5 % Platelet Count 320 130-400 10^3/uL Mean Platelet Volume 9.1 9.0-12.2 fL Immature Granulocyte % (Auto) 1 % Neutrophils (%) (Auto) 64 42-75 % Lymphocytes (%) (Auto) 22 12-44 % Monocytes (%) (Auto) 8 0-12 % Eosinophils (%) (Auto) 4 0-10 % Basophils (%) (Auto) 1 0-10 % Neutrophils # (Auto) 3.7 1.8-7.8 10^3/uL Lymphocytes # (Auto) 1.2 1.0-4.0 10^3/uL Monocytes # (Auto) 0.5 0.0-1.0 10^3/uL Eosinophils # (Auto) 0.2 0.0-0.3 10^3/uL Basophils # (Auto) 0.0 0.0-0.1 10^3/uL Immature Granulocyte # (Auto) 0.1 0.0-0.1 10^3/uL Sodium Level 140 135-145 MMOL/L Potassium Level 4.2 3.6-5.0 MMOL/L Chloride Level 107 98-107 MMOL/L Carbon Dioxide Level 22 21-32 MMOL/L Anion Gap 11 5-14 MMOL/L Blood Urea Nitrogen 9 7-18 MG/DL Creatinine 0.80 0.60-1.30 MG/DL Estimat Glomerular Filtration Rate > 60 BUN/Creatinine Ratio 11 Glucose Level 87 70-105 MG/DL Calcium Level 9.0 8.5-10.1 MG/DL Corrected Calcium 8.8 8.5-10.1 MG/DL Total Bilirubin 0.3 0.1-1.0 MG/DL Aspartate Amino Transf (AST/SGOT) 21 5-34 U/L Alanine Aminotransferase (ALT/SGPT) 42 0-55 U/L Alkaline Phosphatase 70 40-136 U/L C-Reactive Protein High Sensitivity 0.13 0.00-0.50 MG/DL Total Protein 6.9 6.4-8.2 GM/DL Albumin 4.2 3.2-4.5 GM/DL Lipase 14 8-78 U/L My Orders Orders - PING NAVAS APRN Ua Culture If Indicated (03/26/20 16:05) Drug Screen Stat (Urine) (03/26/20 16:05) Cbc With Automated Diff (03/26/20 16:05) Comprehensive Metabolic Panel (03/26/20 16:05) Lipase (03/26/20 16:05) Hs C Reactive Protein (03/26/20 16:05) Ns Iv 1000 Ml (Sodium Chloride 0.9%) (03/26/20 16:15) Ketamine Syringe (Ed Only) (Ketamine Syr (03/26/20 16:15) Ct Abdomen/Pelvis Wo (03/26/20 16:16) Medications Given in ED Current Medications Medications Dose Ordered Sig/Cecilia Route Start Time Stop Time Status Last Admin Dose Admin Ketamine HCl 25 mg ONCE ONCE IV 03/26/20 16:15 03/26/20 16:16 DC 03/26/20 16:22 25 MG Vital Signs/I&O 03/26/20 15:47 Temp 36.3 Pulse 98 Resp 18 B/P (MAP) 161/98 (119) Pulse Ox 98 O2 Delivery Room Air Blood Pressure Mean: 119 Departure Impression Primary Impression: Epigastric abdominal pain Disposition: 01 HOME, SELF-CARE Condition: Stable Departure-Patient Inst. Decision time for Depature: 17:02 Referrals: [facility] (PCP/Family) Primary Care Physician Patient Instructions: Stomach Ache and Stomach Upset Add. Discharge Instructions: . KEep your appointment with GI specialist. Return to ER for any concerns. All discharge instructions reviewed with patient and/or family. Voiced understanding. PING NAVAS SIGNAL FITTER Mar 26, 2020 16:18
[2020-03-26 16:23] LABS: BASOPHILS % (AUTO) 1 % (0-10); EOSINOPHILS # (AUTO) 0.2 10^3/uL (0.0-0.3); EOSINOPHILS % (AUTO) 4 % (0-10); HEMATOCRIT 38 % (40-54); LYMPHOCYTES # (AUTO) 1.2 10^3/uL (1.0-4.0); LYMPHOCYTES % (AUTO) 22 % (12-44); MEAN CORPUSCULAR HEMOGLOBIN 30 pg (25-34); MEAN CORPUSCULAR HGB CONC 32 g/dL (32-36); MEAN CORPUSCULAR VOLUME 95 fL (80-99); MEAN PLATELET VOLUME 9.1 fL (9.0-12.2); MONOCYTES # (AUTO) 0.5 10^3/uL (0.0-1.0); MONOCYTES % (AUTO) 8 % (0-12); NEUTROPHILS # (AUTO) 3.7 10^3/uL (1.8-7.8); NEUTROPHILS % (AUTO) 64 % (42-75); PLATELET COUNT 320 10^3/uL (130-400); WHITE BLOOD COUNT 5.7 10^3/uL (4.3-11.0)
[2020-03-26 16:27] LABS: BILIRUBIN,URINE NEGATIVE (NEGATIVE); CLARITY,URINE CLEAR; COLOR,URINE YELLOW; GLUCOSE, URINE (UA) NEGATIVE (NEGATIVE); KETONES,URINE NEGATIVE (NEGATIVE); LEUKOCYTE ESTERASE ,URINE NEGATIVE (NEGATIVE); NITRITE,URINE NEGATIVE (NEGATIVE); PROTEIN,URINE NEGATIVE (NEGATIVE)
[2020-03-26 16:33] LABS: BACTERIA,URINE NEGATIVE /HPF
[2020-03-26 16:34] LABS: SQUAMOUS EPITHELIAL CELL,UR RARE /HPF
[2020-03-26 16:38] LABS: ALBUMIN 4.2 GM/DL (3.2-4.5)
[2020-03-26 16:39] LABS: CHLORIDE 107 MMOL/L (98-107); POTASSIUM 4.2 MMOL/L (3.6-5.0); SODIUM 140 MMOL/L (135-145)
[2020-03-26 16:41] LABS: GLUCOSE 87 MG/DL (70-105); TOTAL PROTEIN 6.9 GM/DL (6.4-8.2)
[2020-03-26 16:41] LABS: AMPHETAMINE SCREEN, URINE NEGATIVE (NEGATIVE); BARBITURATE SCREEN URINE NEGATIVE (NEGATIVE); BENZODIAZEPINES SCREEN URINE NEGATIVE (NEGATIVE); CANNABINOID SCREEN, URINE NEGATIVE (NEGATIVE); COCAINE SCREEN URINE NEGATIVE (NEGATIVE); METHADONE STAT NEGATIVE (NEGATIVE); METHAMPHETAMINE SCREEN URINE S NEGATIVE (NEGATIVE); OPIATE SCREEN URINE NEGATIVE (NEGATIVE); OXYCODONE STAT NEGATIVE (NEGATIVE); PROPOXYPHENE STAT NEGATIVE (NEGATIVE); TRICYCLIC ANTIDEPRESSANTS SCRE NEGATIVE (NEGATIVE)
[2020-03-26 16:42] LABS: CARBON DIOXIDE 22 MMOL/L (21-32)
[2020-03-26 16:43] LABS: BILIRUBIN,TOTAL 0.3 MG/DL (0.1-1.0)
[2020-03-26 16:45] LABS: ALKALINE PHOSPHATASE 70 U/L (40-136); GFR ESTIMATED > 60
[2020-03-26 16:46] LABS: BUN/CREATININE RATIO 11
[2020-03-26 16:48] LABS: ALANINE AMINOTRANSFERASE 42 U/L (0-55); LIPASE 14 U/L (8-78)
[2020-03-26] MEDS ORDERED: LIDOCAINE 2% VISCOUS 15 ML UDC PO ONE (17:15)
[2020-03-26] MEDS ORDERED: ANTACID SUSP 30 ML UDC (MYLANTA) PO ONE (17:15)
--- NOTE | 2020-03-26 17:31 | Diagnostic Imaging Report ---
EXAMINATION: CT abdomen and pelvis without contrast from 03/26/2020. TECHNIQUE: Multiple contiguous axial images were obtained through the abdomen and pelvis without the use of intravenous contrast. Auto Exposure Controls were utilized during the CT exam to meet ALARA standards for radiation dose reduction. INDICATION: Epigastric pain x2 months, upper abdomen pain. COMPARISON: 02/27/2020. FINDINGS: Lung base is clear. Nonopacified abdominal viscera is limited but no acute abnormality appreciated in the liver, gallbladder, adrenal glands, or pancreas. There is old granulomatous disease noted throughout the spleen. No acute process in either kidney. No ureteral stones. No nephrolithiasis. There is no ascites or free air. There is atherosclerotic disease. Appendix is normal. No inflammation about the loops of bowel. No acute osseous abnormality. IMPRESSION: 1. Incidental findings with no acute abnormality appreciated. Dictated by: Dictated on workstation # [id number]
[2020-03-26 17:44] VITALS: BP 128/86
== END 2020-03-26 17:43 | disposition home or self-care (01) ==
LOC: EDUNIT# 15:40 → ER 15:42
DX: R10.13 Epigastric pain (principal); J45.909 Unspecified asthma, uncomplicated; K21.9 Gastro-esophageal reflux disease without esophagitis; G89.29 Other chronic pain; M54.9 Dorsalgia, unspecified; Z83.3 Family history of diabetes mellitus; Z80.9 Family history of malignant neoplasm, unspecified; Z87.891 Personal history of nicotine dependence; Z88.8 Allergy status to other drugs, medicaments and biological substances; Z79.52 Long term (current) use of systemic steroids; Z79.891 Long term (current) use of opiate analgesic
CPT/HCPCS: 36415; 74176; 80053; 80306; 81000; 83690; 85025; 86141

== ENCOUNTER 2020-11-11 00:09 | Observation (INO) | payer OTHER ==
[2020-11-11] VITALS (8 sets, daily range): BP systolic 116–145; BP diastolic 66–81
[~2020-11-11] VITALS: Ht 182.9 cm; Wt 96.8 kg
[~2020-11-11 00:09] MED LIST changes: -ACYC400T PO; +ACYC400T21 PO
[2020-11-11 01:17] LABS: BASOPHILS # (AUTO) 0.1 10^3/uL (0.0-0.1); BASOPHILS % (AUTO) 0 % (0-10); EOSINOPHILS # (AUTO) 0.2 10^3/uL (0.0-0.3); EOSINOPHILS % (AUTO) 2 % (0-10); HEMATOCRIT 41 % (40-54); HEMOGLOBIN 13.2 g/dL (13.3-17.7); LYMPHOCYTES # (AUTO) 0.8 10^3/uL (1.0-4.0); LYMPHOCYTES % (AUTO) 6 % (12-44); MEAN CORPUSCULAR HEMOGLOBIN 31 pg (25-34); MEAN CORPUSCULAR HGB CONC 33 g/dL (32-36); MEAN CORPUSCULAR VOLUME 94 fL (80-99); MEAN PLATELET VOLUME 9.3 fL (9.0-12.2); MONOCYTES # (AUTO) 0.6 10^3/uL (0.0-1.0); MONOCYTES % (AUTO) 4 % (0-12); NEUTROPHILS # (AUTO) 11.1 10^3/uL (1.8-7.8); NEUTROPHILS % (AUTO) 87 % (42-75); PLATELET COUNT 278 10^3/uL (130-400); WHITE BLOOD COUNT 12.8 10^3/uL (4.3-11.0)
[2020-11-11 01:27] LABS: ALBUMIN 4.1 GM/DL (3.2-4.5); CHLORIDE 106 MMOL/L (98-107); POTASSIUM 4.2 MMOL/L (3.6-5.0); SODIUM 142 MMOL/L (135-145)
[2020-11-11 01:28] LABS: CALCIUM 8.9 MG/DL (8.5-10.1); INR 0.9 (0.8-1.4); PROTHROMBIN TIME PATIENT 12.7 SEC (12.2-14.7)
[2020-11-11 01:29] LABS: GLUCOSE 112 MG/DL (70-105); TOTAL PROTEIN 6.8 GM/DL (6.4-8.2)
[2020-11-11 01:30] LABS: CARBON DIOXIDE 22 MMOL/L (21-32)
[2020-11-11 01:31] LABS: BILIRUBIN,TOTAL 0.3 MG/DL (0.1-1.0); LYMPHOCYTES % (MANUAL) 10 %; MONOCYTES % (MANUAL) 4 %; NEUTROPHILS % (MANUAL) 86 %; RBC MORPH NORMAL
[2020-11-11 01:33] LABS: ALKALINE PHOSPHATASE 70 U/L (40-136); CREATININE SERUM 1.05 MG/DL (0.60-1.30); GFR ESTIMATED > 60
[2020-11-11 01:34] LABS: BUN/CREATININE RATIO 12
[2020-11-11 01:36] LABS: ALANINE AMINOTRANSFERASE 41 U/L (0-55)
[2020-11-11] MEDS: NITROGLYCERIN 0.4 MG SL TABS BTL 25'S SL PRN ×2 (02:14→02:20)
[2020-11-11] MEDS ORDERED: ASPIRIN 81 MG CHEW (CHILDREN'S ASA) PO ONE (02:15)
[2020-11-11] MEDS ORDERED: fentaNYL INJ 100 MCG/2 ML AMP IVP ONE ×2 (02:15→12:30)
--- NOTE | 2020-11-11 03:38 | ED Chest Pain ---
General Chief Complaint: Chest Pain Stated Complaint: DENTAL PAIN Nursing Triage Note: PT AMBULATES TO FT1 W/CO DENTAL PAIN. PT REPORTS UPON RISE ON 11/10/20 HE BEGAN TO EXPERIENCE PAIN TO BOTTOM L INCISOR. 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 Source: patient Exam Limitations: no limitations History of Present Illness Date Seen by Provider: Nov 11, 2020 Time Seen by Provider: 00:40 Initial Comments This 55-year-old gentleman presents to the emergency room initially with complaints of dental pain. While he was waiting to be seen he developed intense chest pain and shortness of breath. He reports other recent episodes of chest pain as well. He has never had a cardiac work-up. He denies any Covid exposures or other symptoms of Covid such as fever, diarrhea, etc. He does have history of methamphetamine use but denies any recent use. Allergies and Home Medications Allergies Coded Allergies: diphenhydramine (Verified Allergy, Unknown, 02/27/20) Home Medications Acetaminophen 500 Mg Tablet, 1,000 MG PO Q8H PRN for PAIN-MILD (1-4), (Reported) Last Action: Reviewed Ibuprofen 200 Mg Tablet, 400-600 MG PO Q8H PRN for PAIN-MILD (1-4), (Reported) Last Action: Reviewed Patient Home Medication List Home Medication List Reviewed: Yes Review of Systems Review of Systems Constitutional: no symptoms reported EENTM: See HPI Respiratory: See HPI Cardiovascular: See HPI Gastrointestinal: No Symptoms Reported Genitourinary: No Symptoms Reported Musculoskeletal: no symptoms reported Skin: no symptoms reported Psychiatric/Neurological: No Symptoms Reported Endocrine: No Symptoms Reported Hematologic/Lymphatic: No Symptoms Reported Past Oyxsnsw-Ltsqnc-Krauua Hx Patient Social History Tobacco Use?: No Substance use?: Yes (Prior) Substance type: Methamphetamine Pt feels they are or have been: No Immunizations Up To Date Tetanus Booster (TDap): Unknown PED Vaccines UTD: Yes Seasonal Allergies Seasonal Allergies: No Past Medical History Surgeries: No Tonsillectomy Respiratory: Yes Asthma, Pneumonia Currently Using CPAP: No Currently Using BIPAP: No Cardiac: No Neurological: No Reproductive Disorders: No Sexually Transmitted Disease: No HIV/AIDS: No Genitourinary: No Gastrointestinal: Yes Gastroesophageal Reflux, Hepatitis, Gall Bladder Disease Musculoskeletal: Yes Chronic Back Pain Endocrine: No HEENT: No Loss of Vision: Bilateral Hearing Impairment: Denies Cancer: No Psychosocial: No Integumentary: No Blood Disorders: No Adverse Reaction/Blood Tranf: No Family Medical History Completed stroke 19 FATHER, Onset:60 years & older Diabetes mellitus 19 FATHER FH: aneurysm 19 MOTHER FH: cancer 19 FATHER 19 MOTHER Pacemaker 19 MOTHER No Pertinent Family Hx Per records reviewed due to altered mental status Physical Exam Vital Signs Vital Signs - First Documented 11/11/20 00:37 Temp 37.0 Pulse 100 Resp 18 B/P (MAP) 150/91 (110) Pulse Ox 99 O2 Delivery Room Air Capillary Refill : Less Than 3 Seconds Height, Weight, BMI Height: 6'0" Weight: 165lbs. 0.0oz. [id number]; 27.00 BMI Method:Stated General Appearance: WD/WN, Mild Distress HEENT: PERRL/EOMI, TMs Normal, Normal ENT Inspection, Other (Gingival irritation around the lower incisors with tenderness to the touch) Neck: Normal Inspection; No JVD Respiratory: Lungs Clear, Normal Breath Sounds, No Accessory Muscle Use, No Respiratory Distress, Other (Anterior chest wall tender to palpation) Cardiovascular: Regular Rate, Rhythm, No Edema, No Murmur Gastrointestinal: Normal Bowel Sounds, Non Tender, Soft Extremity: Normal Inspection, No Calf Tenderness, No Pedal Edema 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: Alert, Oriented x3, No Motor/Sensory Deficits, Normal 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, 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 Norm as Tested Skin: Normal Color, Warm/Dry Procedures/Interventions Date of ETT Placement: Apr 13, 2019 Time of ETT Placement: 2314 Progress/Results/Core Measures Results/Orders Lab Results Laboratory Tests Test 11/11/20 01:00 11/11/20 01:05 Range/Units Influenza Type A (RT-PCR) Not Detected Not Detecte Influenza Type B (RT-PCR) Not Detected Not Detecte SARS-CoV-2 RNA (RT-PCR) Not Detected Not Detecte White Blood Count 12.8 H 4.3-11.0 10^3/uL Red Blood Count 4.31 4.30-5.52 10^6/uL Hemoglobin 13.2 L 13.3-17.7 g/dL Hematocrit 41 40-54 % Mean Corpuscular Volume 94 80-99 fL Mean Corpuscular Hemoglobin 31 25-34 pg Mean Corpuscular Hemoglobin Concent 33 32-36 g/dL Red Cell Distribution Width 12.1 10.0-14.5 % Platelet Count 278 130-400 10^3/uL Mean Platelet Volume 9.3 9.0-12.2 fL Immature Granulocyte % (Auto) 1 % Neutrophils (%) (Auto) 87 H 42-75 % Lymphocytes (%) (Auto) 6 L 12-44 % Monocytes (%) (Auto) 4 0-12 % Eosinophils (%) (Auto) 2 0-10 % Basophils (%) (Auto) 0 0-10 % Neutrophils # (Auto) 11.1 H 1.8-7.8 10^3/uL Lymphocytes # (Auto) 0.8 L 1.0-4.0 10^3/uL Monocytes # (Auto) 0.6 0.0-1.0 10^3/uL Eosinophils # (Auto) 0.2 0.0-0.3 10^3/uL Basophils # (Auto) 0.1 0.0-0.1 10^3/uL Immature Granulocyte # (Auto) 0.1 0.0-0.1 10^3/uL Neutrophils % (Manual) 86 % Lymphocytes % (Manual) 10 % Monocytes % (Manual) 4 % Blood Morphology Comment NORMAL Prothrombin Time 12.7 12.2-14.7 SEC INR Comment 0.9 0.8-1.4 Activated Partial Thromboplast Time 25 24-35 SEC D-Dimer 0.91 H 0.00-0.49 UG/ML Sodium Level 142 135-145 MMOL/L Potassium Level 4.2 3.6-5.0 MMOL/L Chloride Level 106 98-107 MMOL/L Carbon Dioxide Level 22 21-32 MMOL/L Anion Gap 14 5-14 MMOL/L Blood Urea Nitrogen 13 7-18 MG/DL Creatinine 1.05 0.60-1.30 MG/DL Estimat Glomerular Filtration Rate > 60 BUN/Creatinine Ratio 12 Glucose Level 112 H 70-105 MG/DL Calcium Level 8.9 8.5-10.1 MG/DL Corrected Calcium 8.8 8.5-10.1 MG/DL Magnesium Level 2.0 1.6-2.4 MG/DL Total Bilirubin 0.3 0.1-1.0 MG/DL Aspartate Amino Transf (AST/SGOT) 27 5-34 U/L Alanine Aminotransferase (ALT/SGPT) 41 0-55 U/L Alkaline Phosphatase 70 40-136 U/L Myoglobin 57.8 10.0-92.0 NG/ML Troponin I < 0.028 <0.028 NG/ML Total Protein 6.8 6.4-8.2 GM/DL Albumin 4.1 3.2-4.5 GM/DL My Orders Orders - FRANCINE QUINTANILLA MD Cbc With Automated Diff (11/11/20 00:51) Magnesium (11/11/20 00:51) Chest 1 View, Ap/Pa Only (11/11/20 00:51) Ekg Tracing (11/11/20 00:51) Comprehensive Metabolic Panel (11/11/20 00:51) Myoglobin Serum (11/11/20 00:51) Protime With Inr (11/11/20 00:51) Partial Thromboplastin Time (11/11/20 00:51) O2 (11/11/20 00:51) Monitor-Rhythm Ecg Trace Only (11/11/20 00:51) Lipid Panel (11/12/20 06:00) Ed Iv/Invasive Line Start (11/11/20 00:51) Troponin I (11/11/20 00:51) Fibrin Degradation Products (11/11/20 01:06) Covid 19 Inhouse Test (11/11/20 01:06) Influenza A And B By Pcr (11/11/20 01:06) Manual Differential (11/11/20 01:05) Nitroglycerin 0.4 Mg Btl 25's (Nitrostat (11/11/20 02:15) Aspirin Chewable Tablet (Baby Aspirin Ch (11/11/20 02:15) Fentanyl Inj (Sublimaze Injection) (11/11/20 02:15) Enoxaparin Injection (Lovenox Injection) (11/11/20 03:45) Amoxicillin Capsule (Polymox Capsule) (11/11/20 03:45) Hydrocodone/Apap 5/325 Tablet (Lortab 5 (11/11/20 03:45) Medications Given in ED Current Medications Medications Dose Ordered Sig/Cecilia Route Start Time Stop Time Status Last Admin Dose Admin Aspirin 324 mg ONCE ONCE PO 11/11/20 02:15 11/11/20 02:16 DC 11/11/20 02:14 324 MG Fentanyl Citrate 50 mcg ONCE ONCE IVP 11/11/20 02:15 11/11/20 02:16 DC 11/11/20 02:24 50 MCG Nitroglycerin 0.4 mg UD PRN SL 11/11/20 02:15 11/11/20 05:00 DC 11/11/20 02:20 0.4 MG Vital Signs/I&O 11/11/20 11/11/20 00:37 01:00 Temp 37.0 Pulse 100 Resp 18 B/P (MAP) 150/91 (110) Pulse Ox 99 O2 Delivery Room Air Room Air Blood Pressure Mean: 110 Progress Progress Note : Progress Note Patient had mixed features of chest pain. Although pain seemed pleuritic in some characteristics, he did have complete resolution of the chest pain with nitroglycerin x2. Patient also received aspirin. He has never had a cardiac work-up and has risk factors. Therefore admission for cardiac rule out was felt appropriate. He also had an elevated D-dimer with chest pain that radiated to his back. IV access was extremely poor. The only IV access we were able to obtain was an EJ which cannot be used for CT angiogram. We therefore admin istered 1 dose of Lovenox and ordered a midline to be placed with CT angiogram to follow. Patient is agreeable with this plan. He wishes to be full CODE STATUS on admission. Initial ECG Impression Date: Nov 11, 2020 Initial ECG Impression Time: 00:56 Initial ECG Rate: 97 Initial ECG Rhythm: Normal Sinus Initial ECG Intervals: Normal Initial ECG Impression: Normal Comment Normal sinus rhythm with no ST elevation or depression. No abnormal intervals or axis deviation. Diagnostic Imaging Diagonstic Imaging: Xray Plain Films/CT/US/NM/MRI: chest Comments Chest x-ray viewed by me. Report not yet available. No acute abnormalities appreciated. Departure Communication (Admissions) Time/Spoke to Admitting Phy: 03:24 Dr. Herzog Time/Spoke to Consulting Phy: 03:30 Dr. Turner Impression Primary Impression: Chest pain Qualified Codes: R07.9 - Chest pain, unspecified Additional Impressions: D-dimer, elevated Pain, dental Disposition: ADMITTED INPATIENT Condition: Improved Admissions Decision to Admit Reason: Admit from ER (General) Decision to Admit/Date: Nov 11, 2020 Time/Decision to Admit Time: 03:00 Departure-Patient Inst. Referrals: [facility] (PCP/Family) Primary Care Physician FRANCINE QUINTANILLA MD Nov 11, 2020 03:38
[2020-11-11] MEDS ORDERED: HYDROcodone/APAP 5 MG/325 MG (LORTAB) TAB PO ONE (03:45)
[2020-11-11] MEDS ORDERED: ENOXAPARIN 100 MG/1 ML (LOVENOX) SYR SC ONE (03:45)
[2020-11-11] MEDS ORDERED: AMOXICILLIN 500 MG (POLYMOX) CAP PO ONE (03:45)
[2020-11-11] MEDS ORDERED: ONDANSETRON 4 MG/2 ML (SDV) Z0FRAN IV PRN (05:00)
[2020-11-11] MEDS ORDERED: NITROGLYCERIN 0.4 MG SL TABS BTL 25'S SL PRN (05:00)
[2020-11-11] MEDS ORDERED: ONDANSETRON 4 MG/2 ML (SDV) Z0FRAN IVP PRN (05:00)
[2020-11-11] MEDS ORDERED: morphine INJ 4 MG/ML 1 ML (VIAL/SYRINGE) IV PRN (05:00)
--- NOTE | 2020-11-11 05:32 | Diagnostic Imaging Report ---
INDICATION: Chest pain COMPARISON: 02/28/2020 FINDINGS: Single frontal view of the chest demonstrates normal heart size and pulmonary vascularity. The lungs are well aerated and clear. No large pleural effusion or pneumothorax is seen. The visualized osseous structures show no acute abnormalities. IMPRESSION: 1. No acute cardiopulmonary process. Dictated by: Dictated on workstation # [id number]
[2020-11-11] MEDS: HYDROcodone/APAP 5 MG/325 MG (LORTAB) TAB PO PRN ×2 (05:54→09:35)
--- NOTE | 2020-11-11 08:51 | Consultation-Cardiology ---
HPI-Cardiology Cardiology Consultation Date of Consultation 11/11/20 Date of Admission Time Seen by Provider: 08:48 Indication: Chest pain HPI 55 years old gentleman with no previous cardiac history, history of illicit drug use, started to have left-sided chest pain, described as dull achiness in the left side and radiating all over his chest. No shortness of breath. No palpita tion. No syncope or near syncopal episodes. Home Medications & Allergies Allergies: Coded Allergies: diphenhydramine (Verified Allergy, Unknown, 02/27/20) Home Medication List Reviewed: Yes Does not take any medications at home LXG-Adjsmw-Ygrznb Hx Patient Social History Drug of Choice: Heroin; Meth, Cocaine Smoking Status: Former Smoker Type Used: Cigarettes Recent Hopitalizations: Yes (03/11/2020 FOR ABD PAIN) Have you traveled recently?: No Alcohol Use?: No Substance type: Amphetamines, Methamphetamine, Barbiturates, Hallucinogens, Opiates/Opioids Immunizations Up To Date Tetanus Booster (TDap): Unknown Date of Influenza Vaccine: May 26, 2015 Past Medical History Discussed below Family Medical History Significant Family History: No Pertinent Family Hx Family History: Completed stroke 19 FATHER, Onset:60 years & older Diabetes mellitus 19 FATHER FH: aneurysm 19 MOTHER FH: cancer 19 FATHER 19 MOTHER Pacemaker 19 MOTHER Review of Systems-General Review of Systems Constitutional: no symptoms reported, see HPI EENTM: see HPI, no symptoms reported Respiratory: see HPI; No cough; dyspnea on exertion; No hemoptysis, No orthopnea, No phlegm, No short of breath, No stridor, No wheezing, No other Cardiovascular: see HPI, chest pain; No edema, No Hx of Intervention, No palpitations, No syncope, No vascular heart diseas, No other Gastrointestinal: no symptoms reported, see HPI Genitourinary: no symptoms reported, see HPI Musculoskeletal: no symptoms reported, see HPI Skin: no symptoms reported, see HPI Psychiatric/Neurological: No Symptoms Reported, See HPI Reviewed Test Results Reviewed Test Results Lab Laboratory Tests Test 11/11/20 01:00 11/11/20 01:05 11/11/20 07:00 Range/Units Influenza Type A (RT-PCR) Not Detected Not Detecte Influenza Type B (RT-PCR) Not Detected Not Detecte SARS-CoV-2 RNA (RT-PCR) Not Detected Not Detecte White Blood Count 12.8 H 4.3-11.0 10^3/uL Red Blood Count 4.31 4.30-5.52 10^6/uL Hemoglobin 13.2 L 13.3-17.7 g/dL Hematocrit 41 40-54 % Mean Corpuscular Volume 94 80-99 fL Mean Corpuscular Hemoglobin 31 25-34 pg Mean Corpuscular Hemoglobin Concent 33 32-36 g/dL Red Cell Distribution Width 12.1 10.0-14.5 % Platelet Count 278 130-400 10^3/uL Mean Platelet Volume 9.3 9.0-12.2 fL Immature Granulocyte % (Auto) 1 % Neutrophils (%) (Auto) 87 H 42-75 % Lymphocytes (%) (Auto) 6 L 12-44 % Monocytes (%) (Auto) 4 0-12 % Eosinophils (%) (Auto) 2 0-10 % Basophils (%) (Auto) 0 0-10 % Neutrophils # (Auto) 11.1 H 1.8-7.8 10^3/uL Lymphocytes # (Auto) 0.8 L 1.0-4.0 10^3/uL Monocytes # (Auto) 0.6 0.0-1.0 10^3/uL Eosinophils # (Auto) 0.2 0.0-0.3 10^3/uL Basophils # (Auto) 0.1 0.0-0.1 10^3/uL Immature Granulocyte # (Auto) 0.1 0.0-0.1 10^3/uL Neutrophils % (Manual) 86 % Lymphocytes % (Manual) 10 % Monocytes % (Manual) 4 % Blood Morphology Comment NORMAL Prothrombin Time 12.7 12.2-14.7 SEC INR Comment 0.9 0.8-1.4 Activated Partial Thromboplast Time 25 24-35 SEC D-Dimer 0.91 H 0.00-0.49 UG/ML Sodium Level 142 135-145 MMOL/L Potassium Level 4.2 3.6-5.0 MMOL/L Chloride Level 106 98-107 MMOL/L Carbon Dioxide Level 22 21-32 MMOL/L Anion Gap 14 5-14 MMOL/L Blood Urea Nitrogen 13 7-18 MG/DL Creatinine 1.05 0.60-1.30 MG/DL Estimat Glomerular Filtration Rate > 60 BUN/Creatinine Ratio 12 Glucose Level 112 H 70-105 MG/DL Calcium Level 8.9 8.5-10.1 MG/DL Corrected Calcium 8.8 8.5-10.1 MG/DL Magnesium Level 2.0 1.6-2.4 MG/DL Total Bilirubin 0.3 0.1-1.0 MG/DL Aspartate Amino Transf (AST/SGOT) 27 5-34 U/L Alanine Aminotransferase (ALT/SGPT) 41 0-55 U/L Alkaline Phosphatase 70 40-136 U/L Myoglobin 57.8 10.0-92.0 NG/ML Troponin I < 0.028 < 0.028 <0.028 NG/ML Total Protein 6.8 6.4-8.2 GM/DL Albumin 4.1 3.2-4.5 GM/DL Physical Exam Physical Exam Vital Signs Vital Signs - First Documented 11/11/20 00:37 Temp 37.0 Pulse 100 Resp 18 B/P (MAP) 150/91 (110) Pulse Ox 99 O2 Delivery Room Air Capillary Refill : Less Than 3 Seconds Height, Weight, BMI Height: 6'0" Weight: 165lbs. 0.0oz. 74.825769pp; 28.93 BMI Method:Stated General Appearance: No Apparent Distress, WD/WN Eyes: Bilateral Eye Normal Inspection, Bilateral Eye PERRL, Bilateral Eye EOMI HEENT: PERRL/EOMI, TMs Normal, Normal ENT Inspection, Pharynx Normal, Moist Mucous Membranes Neck: Full Range of Motion, Normal Inspection, Non Tender, Supple, Carotid Bruit Respiratory: Chest Non Tender, Normal Breath Sounds, No Accessory Muscle Use, No Respiratory Distress Cardiovascular: Regular Rate, Rhythm, No Edema, No Gallop, No JVD, No Murmur, Normal Peripheral Pulses Gastrointestinal: Normal Bowel Sounds, No Organomegaly, No Pulsatile Mass, Non Tender, Soft Back: Normal Inspection, No CVA Tenderness, No Vertebral Tenderness Extremity: Normal Capillary Refill, Normal Inspection, Normal Range of Motion, Non Tender, No Calf Tenderness, No Pedal Edema 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: Alert, Oriented x3, No Motor/Sensory Deficits, Normal Mood/Affect Skin: Normal Color, Warm/Dry Lymphatic: No Adenopathy A/P-Cardiology Admission Diagnosis Chest pain Shortness of breath Tobaccoism Methamphetamine use Assessment/Plan Chest pain nonspecific etiology, cardiac enzymes and EKG did not show any acute abnormality, planning to evaluate 2D echo and exercise stress test. Shortness of breath, D-dimer elevated. Planning for CT scan, started on Lovenox History of small bowel obstruction, feeling better, no nausea or vomiting, no abdominal pain Elevated D-dimer, was unable to have CT scan due to lack of IV access, have a midline at this point. History of illicit drug use, using methamphetamine and multiple other drugs. Educated on avoiding any illicit drugs History of tobaccoism, stopped smoking in February 2020. I encouraged him to continue with smoking cessation Clinical Quality Measures AMI/AHF: ASA po Prior to arrival: VALE Watson MD Nov 11, 2020 08:51
[2020-11-11] MEDS ORDERED: ASPIRIN E.C. 81 MG (ECOTRIN) TAB PO SCH (09:00)
[2020-11-11] MEDS ORDERED: ACET-2267 PO (11:11)
[2020-11-11] MEDS ORDERED: IBUP-2473 PO (11:11)
[2020-11-11] MEDS ORDERED: CATHETER FLUSH 10 ML SYR IV PRN (12:45)
[2020-11-11] MEDS ORDERED: IOHEXOL 350 MG/ML 100 ML (OMNIPAQUE 350) VIAL IV ONE (12:45)
[2020-11-11] MEDS ORDERED: NS 100 ML (IVPB) BAG IV ONE (12:45)
[2020-11-11] MEDS ORDERED: HOLD METFORMIN - RECEIVED CONTRAST 20 ML VIAL IV SCH (12:45)
[2020-11-11] MEDS ORDERED: AMOXICILLIN 500 MG (POLYMOX) CAP PO SCH (13:00)
[2020-11-11] MEDS ORDERED: CEFTRIAXONE IV ONE (13:00)
--- NOTE | 2020-11-11 13:03 | History & Physical ---
HPI History of Present Illness: 55 yo M that presented with chest pain and tooth pain last night. Patient states that he is no longer having any chest pain this AM. States that his tooth is what is bothering him. He was told to go to the dentist a while ago but has not made an appt. Source: patient Date seen by provider: Nov 11, 2020 Time Seen by Provider: 10:15 Attending Physician Ginny Herzog DO [facility] Consult Date of Admission Nov 11, 2020 at 03:35 Home Medications Home Medications Reviewed patient Home Medication Reconciliation performed by pharmacy medication reconciliations design engineering technician and/or nursing. Patients Allergies have been reviewed. Allergies Coded Allergies: diphenhydramine (Verified Allergy, Unknown, 02/27/20) UIZ-Tnkrxn-Kzglrh Hx Patient Social History Drug of Choice: Heroin; Meth, Cocaine Smoking Status: Former Smoker Recent Hopitalizations: Yes (03/11/2020 FOR ABD PAIN) Alcohol Use?: No Substance type: Amphetamines, Methamphetamine, Barbiturates, Hallucinogens, Opiates/Opioids Have you traveled recently?: No Immunizations Up To Date Tetanus Booster (TDap): Unknown Date of Influenza Vaccine: May 26, 2015 Past Medical History HTN Family Medical History Significant Family History: No Pertinent Family Hx Other Significan Family Hx: Per records reviewed due to altered mental status Family History: Completed stroke 19 FATHER, Onset:60 years & older Diabetes mellitus 19 FATHER FH: aneurysm 19 MOTHER FH: cancer 19 FATHER 19 MOTHER Pacemaker 19 MOTHER Review of Systems ([facility]) Constitutional: no symptoms reported; No chills, No fever, No weakness EENTM: mouth pain, mouth swelling Respiratory: no symptoms reported; No cough, No dyspnea on exertion, No short of breath Cardiovascular: chest pain; No edema, No palpitations Gastrointestinal: no symptoms reported; No abdominal pain, No constipation, No diarrhea, No nausea, No vomiting Genitourinary: no symptoms reported; No dysuria, No frequency, No hematuria Musculoskeletal: no symptoms reported; No back pain, No joint pain, No muscle pain Skin: no symptoms reported; No lesions, No rash Psychiatric/Neurological: No Symptoms Reported; Denies Headache, Denies Numbness, Denies Weakness Reviewed Test Results Reviewed Test Results Lab Laboratory Tests Test 11/11/20 01:00 11/11/20 01:05 11/11/20 07:00 Range/Units Influenza Type A (RT-PCR) Not Detected Not Detecte Influenza Type B (RT-PCR) Not Detected Not Detecte SARS-CoV-2 RNA (RT-PCR) Not Detected Not Detecte White Blood Count 12.8 H 4.3-11.0 10^3/uL Red Blood Count 4.31 4.30-5.52 10^6/uL Hemoglobin 13.2 L 13.3-17.7 g/dL Hematocrit 41 40-54 % Mean Corpuscular Volume 94 80-99 fL Mean Corpuscular Hemoglobin 31 25-34 pg Mean Corpuscular Hemoglobin Concent 33 32-36 g/dL Red Cell Distribution Width 12.1 10.0-14.5 % Platelet Count 278 130-400 10^3/uL Mean Platelet Volume 9.3 9.0-12.2 fL Immature Granulocyte % (Auto) 1 % Neutrophils (%) (Auto) 87 H 42-75 % Lymphocytes (%) (Auto) 6 L 12-44 % Monocytes (%) (Auto) 4 0-12 % Eosinophils (%) (Auto) 2 0-10 % Basophils (%) (Auto) 0 0-10 % Neutrophils # (Auto) 11.1 H 1.8-7.8 10^3/uL Lymphocytes # (Auto) 0.8 L 1.0-4.0 10^3/uL Monocytes # (Auto) 0.6 0.0-1.0 10^3/uL Eosinophils # (Auto) 0.2 0.0-0.3 10^3/uL Basophils # (Auto) 0.1 0.0-0.1 10^3/uL Immature Granulocyte # (Auto) 0.1 0.0-0.1 10^3/uL Neutrophils % (Manual) 86 % Lymphocytes % (Manual) 10 % Monocytes % (Manual) 4 % Blood Morphology Comment NORMAL Prothrombin Time 12.7 12.2-14.7 SEC INR Comment 0.9 0.8-1.4 Activated Partial Thromboplast Time 25 24-35 SEC D-Dimer 0.91 H 0.00-0.49 UG/ML Sodium Level 142 135-145 MMOL/L Potassium Level 4.2 3.6-5.0 MMOL/L Chloride Level 106 98-107 MMOL/L Carbon Dioxide Level 22 21-32 MMOL/L Anion Gap 14 5-14 MMOL/L Blood Urea Nitrogen 13 7-18 MG/DL Creatinine 1.05 0.60-1.30 MG/DL Estimat Glomerular Filtration Rate > 60 BUN/Creatinine Ratio 12 Glucose Level 112 H 70-105 MG/DL Calcium Level 8.9 8.5-10.1 MG/DL Corrected Calcium 8.8 8.5-10.1 MG/DL Magnesium Level 2.0 1.6-2.4 MG/DL Total Bilirubin 0.3 0.1-1.0 MG/DL Aspartate Amino Transf (AST/SGOT) 27 5-34 U/L Alanine Aminotransferase (ALT/SGPT) 41 0-55 U/L Alkaline Phosphatase 70 40-136 U/L Myoglobin 57.8 10.0-92.0 NG/ML Troponin I < 0.028 < 0.028 <0.028 NG/ML Total Protein 6.8 6.4-8.2 GM/DL Albumin 4.1 3.2-4.5 GM/DL Physical Exam-(CHC) Physical Exam Vital Signs VS - Last 72 Hours, by Label 11/11/20 11/11/20 11/11/20 11/11/20 00:37 01:00 04:21 04:33 Temp 37.0 37.0 Pulse 100 91 86 Resp 18 16 18 B/P (MAP) 150/91 (110) 111/90 (110) 132/79 (96) Pulse Ox 99 96 96 O2 Delivery Room Air Room Air Room Air Room Air 11/11/20 11/11/20 11/11/20 11/11/20 04:48 05:03 05:18 05:18 Pulse 89 82 90 91 Resp 18 18 18 B/P (MAP) 128/66 (86) 126/81 (96) 123/79 (94) Pulse Ox 98 95 93 O2 Delivery Room Air Room Air Room Air 11/11/20 11/11/20 11/11/20 11/11/20 05:33 05:44 06:02 06:41 Temp 36.1 Pulse 90 88 90 Resp 18 18 18 B/P (MAP) 121/71 (88) 116/75 (89) 145/78 (100) Pulse Ox 94 94 95 97 O2 Delivery Room Air Room Air Room Air Room Air 11/11/20 11/11/20 11/11/20 11/11/20 06:44 07:30 08:00 12:53 Temp 36.1 Pulse 91 85 79 Resp 16 B/P (MAP) 116/69 (85) Pulse Ox 96 O2 Delivery Room Air Room Air Capillary Refill : Less Than 3 Seconds General Appearance: WD/WN, no apparent distress HEENT: PERRL/EOMI, other (Lower lip swelling and pain, no redness) Neck: non-tender, full range of motion, supple Respiratory: chest non-tender, lungs clear, normal breath sounds, no respiratory distress, no accessory muscle use Cardiovascular: normal peripheral pulses, regular rate, rhythm, no edema, no murmur Gastrointestinal: normal bowel sounds, non tender, soft, no organomegaly Back: no CVA tenderness, no vertebral tenderness Extremities: normal range of motion, non-tender, normal inspection, no pedal edema, no calf tenderness, normal capillary refill 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: shank scourer II-XII nml as tested, no motor/sensory deficits, alert, normal mood/affect, oriented x 3 Skin: normal color, warm/dry Lymphatic: no adenopathy Assessment/Plan Assessment/Plan Admission Status: Observation (1) Atypical chest pain Status: Acute Assessment & Plan: - Patient set up for stress in the AM, ASA/Statin, Patient stated that he is not going to stay and is going to leave AMA (2) Pain due to dental caries Status: Acute Assessment & Plan: - Percocet for pain control. Patient on Amoxicillin, dental referral placed Clinical Quality Measures AMI/AHF: ASA po Prior to arrival: No RICARDO SUMNER MD Nov 11, 2020 13:03
== END 2020-11-11 13:24 | disposition left against medical advice (07) ==
LOC: EDUNIT# 00:09 → ER 00:12 → UNDOADMOB 03:35 → 4TH 03:35 → UNDODISOB 13:28
PROVIDERS: ADMIT Internal Medicine; ATTEND Internal Medicine
DX: R07.89 Other chest pain (principal); R06.02 Shortness of breath; K02.9 Dental caries, unspecified; R79.1 Abnormal coagulation profile; I10 Essential (primary) hypertension; J45.909 Unspecified asthma, uncomplicated; K21.9 Gastro-esophageal reflux disease without esophagitis; G89.29 Other chronic pain; K08.89 Other specified disorders of teeth and supporting structures; I07.1 Rheumatic tricuspid insufficiency; M54.9 Dorsalgia, unspecified; Z87.891 Personal history of nicotine dependence; Z79.899 Other long term (current) drug therapy; Z90.89 Acquired absence of other organs; Z80.9 Family history of malignant neoplasm, unspecified; Z83.3 Family history of diabetes mellitus; Z82.3 Family history of stroke
CPT/HCPCS: 36410; 71045; 76937; 80053; 83735; 83874; 84484; 85007; 85027; 85379; 85610; 85730; 87636; 93005; 93041; 93306; 99284; C1751; G0378; 36415; 96372; 96374

== ENCOUNTER 2021-05-11 11:52 | Emergency (ER) | payer SELFPAY ==
[~2021-05-11] VITALS: Ht 170 cm; Wt 104.0 kg
[~2021-05-11 11:52] MED LIST changes: +ACET-2267 PO; +IBUP-2473 PO
--- NOTE | 2021-05-11 12:47 | ED Chest Pain ---
General Chief Complaint: Chest Wall Stated Complaint: RIBS FX, RIB PAIN Nursing Triage Note: AMB TO ROOM ACCOMPIED BY FEMALE WAS A [facility] ON MAY 07 AND [facility] WAS TOLD 2 RIB BROKEN DOING CPR. X4 RX SENT TO [facility] WILL NOT FILL THEM AND THEM TRANSFERED TO [facility]. UNABLE TO AFFORD MEDS. OTC PAIN MEDS ARE NOT HELPING (DAMARIS BALDWIN MED STUDENT) History of Present Illness Date Seen by Provider: May 11, 2021 Time Seen by Provider: 12:35 Initial Comments Mr. Parikh is a 55yoM with history of drug and alcohol abuse who presents to the ED with cc of rib pain rated 10/10 exacerbated by breathing and movement. On he coded at [facility] and states that his ribs were broken during resuscitation efforts. He was taken to [facility] ICU and reports being on the ventilator. He was released yesterday but was unable to fill any medications because he cannot afford them. Last night his chest pain was worse and he reports being pale and sweaty but he did not want to come to ED. This morning he woke up with continued chest pain with SOA and was brought in by his significant other. He is hypertensive in the ED (200s/120s), and has sharp, reproducible rib pain on the left that does not radiate. He is short of breath but not diaphoretic at this time. He does regular breathing treatments at home, last one completed this am and he has taken no other medications. Timing/Duration: 12-24 hours Severity/Quality: moderate, sharp Location: other (L ribs) Radiation: no radiation Modifying Factors: improves with breathing, improves with coughing, improves with movement Associated Symptoms: No dizziness, No fever/chills, No nausea/vomiting; shortness of breath (DAMARIS BALDWIN STUDENT) Allergies and Home Medications Allergies Coded Allergies: diphenhydramine (Verified Allergy, Unknown, 02/27/20) Patient Home Medication List Home Medication List Reviewed: Yes (EARL AVILA MD) Acetaminophen (Tylenol Extra Strength) 500 Mg Tablet, 1,000 MG PO Q8H PRN for PAIN-MILD (1-4), (Reported) Entered as Reported by: USHA MAYO on 11/11/20 1111 Doxycycline Hyclate (Doxycycline Hyclate) 100 Mg Tablet.dr, 100 MG PO BID Prescribed by: EARL AVILA on 05/11/21 1442 Hydrocodone/Acetaminophen (Hydrocodone-Acetamin 7.5-325) 1 Each Tablet, 1 EACH PO Q6H PRN for PAIN-MODERATE (5-7) Prescribed by: EARL AVILA on 05/11/21 1442 Ibuprofen (Ibuprofen) 200 Mg Tablet, 400-600 MG PO Q8H PRN for PAIN-MILD (1-4), (Reported) Entered as Reported by: USHA MAYO on 11/11/20 1111 Prednisone (Prednisone) 50 Mg Tab, 50 MG PO DAILY Prescribed by: EARL AVILA on 05/11/21 1442 Review of Systems Review of Systems Constitutional: No chills, No diaphoresis, No dizziness, No fever EENTM: No Blurred Vision, No Nose Congestion, No Throat Pain Respiratory: Denies Cough; Shortness of Air, Wheezing Cardiovascular: Chest Pain; Denies Palpitations, Denies Syncope Gastrointestinal: Abdomen Distended; Denies Nausea Genitourinary: Denies Frequency, Denies Flank Pain, Denies Hematuria Musculoskeletal: No joint pain, No muscle weakness Skin: No change in color, No dryness Psychiatric/Neurological: Denies Anxiety, Denies Depressed Endocrine: Denies Excessive Sweating, Denies Flushing Hematologic/Lymphatic: No Symptoms Reported (NAOMIVivebioLaverneDAMARIS Caringo STUDENT) Past Hsznrse-Jinzho-Yxpdrc Hx Patient Social History Tobacco Use?: No Smoking Status: Former Smoker Substance use?: No Alcohol Use?: No (NAOMIVivebioLavernePlug.dj STUDENT) Immunizations Up To Date Tetanus Booster (TDap): Unknown PED Vaccines UTD: Yes First/Initial COVID19 Vaccinat: UNKNOW DATE Second COVID19 Vaccination Eleazar: UNKNOW DATE (NAOMIVivebioLavernePlug.dj STUDENT) Seasonal Allergies Seasonal Allergies: No (NAOMIVivebioLavernePlug.dj STUDENT) Past Medical History Surgeries: No Tonsillectomy Respiratory: Yes Asthma, Pneumonia Currently Using CPAP: No Currently Using BIPAP: No Cardiac: No Neurological: No Reproductive Disorders: No Sexually Transmitted Disease: No HIV/AIDS: No Genitourinary: No Gastrointestinal: Yes Gastroesophageal Reflux, Hepatitis, Gall Bladder Disease Musculoskeletal: Yes Chronic Back Pain Endocrine: No HEENT: No Loss of Vision: Bilateral Hearing Impairment: Denies Cancer: No Psychosocial: No Integumentary: No Blood Disorders: No Adverse Reaction/Blood Tranf: No (DAMARIS BALDWIN) Family Medical History Completed stroke 19 FATHER, Onset:60 years & older Diabetes mellitus 19 FATHER FH: aneurysm 19 MOTHER FH: cancer 19 FATHER 19 MOTHER Pacemaker 19 MOTHER No Pertinent Family Hx Per records reviewed due to altered mental status (DAMARIS BALDWIN) Physical Exam Vital Signs Vital Signs - First Documented 05/11/21 12:30 Temp 36.1 Pulse 85 Resp 18 B/P (MAP) 205/121 (149) Pulse Ox 98 O2 Delivery Room Air (EARL AVILA MD) Vital Signs Capillary Refill : Less Than 3 Seconds (DAMARIS BALDWIN STUDENT) Height, Weight, BMI Height: 6'0" Weight: 165lbs. 0.0oz. [id number]; 35.00 BMI Method:Stated General Appearance: No Apparent Distress, WD/WN HEENT: PERRL/EOMI, Pharynx Normal, Moist Mucous Membranes Neck: Full Range of Motion, Non Tender Respiratory: No Accessory Muscle Use, No Respiratory Distress, Wheezing (expiratory), Other (sharp left rib pain with breathing) Cardiovascular: No Edema, No JVD, No Murmur Gastrointestinal: Normal Bowel Sounds, No Pulsatile Mass, Distended, Tenderness (LUQ,RUQ) Extremity: Normal Capillary Refill, Non Tender, No Calf Tenderness, No Pedal Edema 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: Alert, Oriented x3, No Motor/Sensory Deficits, Normal Mood/Affect, manager contract II-XII Norm as Tested Skin: Normal Color, Warm/Dry Lymphatic: No Adenopathy (DAMARIS BALDWIN STUDENT) Procedures/Interventions Date of ETT Placement: Apr 13, 2019 Time of ETT Placement: 2313 (DAMARIS BALDWIN Caringo STUDENT) Progress/Results/Core Measures Results/Orders Lab Results Laboratory Tests Test 05/11/21 13:50 05/11/21 14:27 Range/Units White Blood Count 14.0 H 4.3-11.0 10^3/uL Red Blood Count 4.01 L 4.30-5.52 10^6/uL Hemoglobin 12.0 L 13.3-17.7 g/dL Hematocrit 37 L 40-54 % Mean Corpuscular Volume 93 80-99 fL Mean Corpuscular Hemoglobin 30 25-34 pg Mean Corpuscular Hemoglobin Concent 32 32-36 g/dL Red Cell Distribution Width 12.1 10.0-14.5 % Platelet Count 291 130-400 10^3/uL Mean Platelet Volume 8.8 L 9.0-12.2 fL Immature Granulocyte % (Auto) 3 % Neutrophils (%) (Auto) 74 42-75 % Lymphocytes (%) (Auto) 13 12-44 % Monocytes (%) (Auto) 10 0-12 % Eosinophils (%) (Auto) 0 0-10 % Basophils (%) (Auto) 0 0-10 % Neutrophils # (Auto) 10.3 H 1.8-7.8 10^3/uL Lymphocytes # (Auto) 1.8 1.0-4.0 10^3/uL Monocytes # (Auto) 1.5 H 0.0-1.0 10^3/uL Eosinophils # (Auto) 0.0 0.0-0.3 10^3/uL Basophils # (Auto) 0.0 0.0-0.1 10^3/uL Immature Granulocyte # (Auto) 0.4 H 0.0-0.1 10^3/uL Sodium Level 140 135-145 MMOL/L Potassium Level 3.4 L 3.6-5.0 MMOL/L Chloride Level 104 98-107 MMOL/L Carbon Dioxide Level 28 21-32 MMOL/L Anion Gap 8 5-14 MMOL/L Blood Urea Nitrogen 13 7-18 MG/DL Creatinine 0.82 0.60-1.30 MG/DL Estimat Glomerular Filtration Rate 98 BUN/Creatinine Ratio 16 Glucose Level 94 70-105 MG/DL Calcium Level 8.5 8.5-10.1 MG/DL Corrected Calcium 8.7 8.5-10.1 MG/DL Total Bilirubin 0.2 0.1-1.0 MG/DL Aspartate Amino Transf (AST/SGOT) 22 5-34 U/L Alanine Aminotransferase (ALT/SGPT) 30 0-55 U/L Alkaline Phosphatase 58 40-136 U/L Total Protein 6.7 6.4-8.2 GM/DL Albumin 3.8 3.2-4.5 GM/DL Serum Alcohol < 10 <10 MG/DL Urine Opiates Screen NEGATIVE NEGATIVE Urine Oxycodone Screen NEGATIVE NEGATIVE Urine Methadone Screen NEGATIVE NEGATIVE Urine Propoxyphene Screen NEGATIVE NEGATIVE Urine Barbiturates Screen NEGATIVE NEGATIVE Ur Tricyclic Antidepressants Screen NEGATIVE NEGATIVE Urine Phencyclidine Screen NEGATIVE NEGATIVE Urine Amphetamines Screen NEGATIVE NEGATIVE Urine Methamphetamines Screen POSITIVE H NEGATIVE Urine Benzodiazepines Screen NEGATIVE NEGATIVE Urine Cocaine Screen NEGATIVE NEGATIVE Urine Cannabinoids Screen NEGATIVE NEGATIVE (EARL AVILA MD) My Orders Orders - EARL AVILA MD Chest Pa/Lat (2 View) (05/11/21 12:46) Cbc With Automated Diff (05/11/21 12:46) Comprehensive Metabolic Panel (05/11/21 12:46) Alcohol (05/11/21 12:46) Drug Screen Stat (Urine) (05/11/21 12:46) Ekg Tracing (05/11/21 12:46) Hydrocodone/Apap 10/325 Tablet (Lortab 1 (05/11/21 13:45) Prednisone Tablet (Deltasone Tablet) (05/11/21 14:30) Communication For Respiratory (05/11/21 14:18) Albuterol Pre-Mix Nebs (Rt) (Proventil (05/11/21 14:30) Svn Small Volume Nebulizer (05/11/21 14:18) Morphine Injection (Morphine Injection (05/11/21 14:27) (EARL AVILA MD) Medications Given in ED (EARL AVILA MD) Vital Signs/I&O 05/11/21 05/11/21 05/11/21 12:30 14:54 15:26 Temp 36.1 Pulse 85 100 90 Resp 18 18 B/P (MAP) 205/121 (149) 167/100 157/93 Pulse Ox 98 95 O2 Delivery Room Air Room Air (EARL AVILA MD) Blood Pressure Mean: 149 Progress Progress Note #1: Time: 14:33 Progress Note Patient is a 55-year-old male who presents to the emergency department with a chief complaint of what sounds like musculoskeletal type chest pain. Patient had a cardiac arrest 5 days ago and was seen and treated and admitted at [facility]. Did require intubation and ICU care. He was discharged on May 10. Had prescriptions for prednisone, PPI, pain medications and antibiotics given to him. He was unable to fill these. Attempted to get them filled at [facility] but secondary to not being an active current patient he was unable to get these filled. Patient continues to complain of pain worsened with movement of his upper extremities and deep breaths. He has been taking ibuprofen "handfuls at a time" by his . No fevers or chills. He has known COPD, is actively wheezing. No other complaints of recent illness. Was Covid -2 days ago at [facility]. Patient states he quit smoking 3 months ago. Physical exam remarkable for tenderness to palpation of the chest wall. Obvious distress with movement/deep breath. Abdomen soft, unremarkable. No lower e xtremity edema. Neurologically normal. EKG shows a normal sinus rhythm at 80 bpm without ectopy. No ST segment elevation or depression. Chest x-ray is unremarkable. Labs are normal. Patient is treated with albuterol neb, 5 mg of morphine IV. I talked with [facility] about his prescriptions, will send his prescriptions to [facility] and he can make payments on his prescriptions. He is given prednisone here. Will also be given a doxycycline p.o. All of this is discussed with the patient and his who is at the bedside. Progress Note #2: Time: 15:07 Progress Note atient had good relief with morphine. reviewed labs, ekg and chest xray. All is WNL. possible early small patchy LLL infiltrate. Home on antibiotics. continue breathing treatments. pain meds. PPI. short course of steroids, on going tobacco cessation and encouraged f/u with scheduled appointment at [facility]. (EARL AVILA MD) Initial ECG Impression Date: May 11, 2021 Initial ECG Impression Time: 13:11 Initial ECG Rate: 80 Initial ECG Rhythm: Normal Sinus Initial ECG Intervals: Normal Initial ECG Intervals CT 166 QRS 100 QTc 415 Comment No ectopy, ST segment elevation or depression (EARL AVILA MD) Diagnostic Imaging Diagonstic Imaging: Xray Plain Films/CT/US/NM/MRI: chest Comments [facility] [place], [place] NAME: CAROL PARIKH [facility] REC#: [id number] PT STATUS: REG ER : 1965 PHYSICIAN: EARL AVILA MD ADMIT DATE: 05/11/21/ER Draft Date of Exam:05/11/21 CHEST PA/LAT (2 VIEW) INDICATION: Chest pain. EXAMINATION: PA and lateral views of the chest are obtained with comparison made to study of 11/11/2020. FINDINGS: Heart size and pulmonary vascularity are within normal limits, and the lungs are clear, bilaterally. IMPRESSION: Unremarkable chest. Dictated on workstation # [id number] Dict: 05/11/21 1401 Trans: 05/11/21 1404 [id number] Interpreted by: JAI CHAVARRIA MD Electronically signed by: Reviewed: Discussed w/Radiologist (Dr Jang) (EARL AVILA MD) Departure Impression Primary Impression: Chest wall pain Additional Impressions: Bronchitis COPD (chronic obstructive pulmonary disease) Qualified Codes: J44.9 - Chronic obstructive pulmonary disease, unspecified Disposition: HOME, SELF-CARE Condition: Stable Departure-Patient Inst. Decision time for Depature: 14:37 (EARL AVILA MD) Referrals: [facility] Primary Care Physician Patient Instructions: Costochondritis Add. Discharge Instructions: Take the antibiotics twice a day for 10 days as prescribed. Prednisone 50 mg once a day for 5 days. Hydrocodone, 7.5 mg, every 6 hours as needed for more severe pain. Limit your ibuprofen to 4 tablets, 800 mg every 8 hours with food. You need to be on an hddn-pkg-jkccxku acid chuck wagon cook such as Pepcid or Prilosec daily while you are taking ibuprofen and prednisone. Follow-up as scheduled on June 13 with [facility]. Do not miss this appointment. I have also given you contact information for Dr. Turner, the coater operator. Return to the emergency room for any new, concerning or emergent complaints. Scripts Hydrocodone/Acetaminophen (Hydrocodone-Acetamin 7.5-325) 1 Each Tablet 1 EACH PO Q6H PRN for PAIN-MODERATE (5-7), #15 TAB Prov: EARL AVILA MD 05/11/21 Doxycycline Hyclate (Doxycycline Hyclate) 100 Mg Tablet.dr 100 MG PO BID, #20 TAB Prov: EARL AVILA MD 05/11/21 Prednisone (Prednisone) 50 Mg Tab 50 MG PO DAILY for 4 Days, #4 TAB Prov: EARL AVILA MD 05/11/21 Verification and Attestation of Medical Student E/M Service A medical student performed and documented this service in my presence. I reviewed and verified all information documented by the medical student and made modifications to such information, when appropriate. I personally performed the physical exam and medical decision making. Earl Avila, May 13, 2021,06:43 (EARL AVILA MD) DAMARIS BALDWIN MED STUDENT May 11, 2021 12:47 EARL AVILA MD May 11, 2021 14:39
[2021-05-11 13:57] LABS: BASOPHILS % (AUTO) 0 % (0-10); EOSINOPHILS % (AUTO) 0 % (0-10); HEMATOCRIT 37 % (40-54); LYMPHOCYTES # (AUTO) 1.8 10^3/uL (1.0-4.0); LYMPHOCYTES % (AUTO) 13 % (12-44); MEAN CORPUSCULAR HEMOGLOBIN 30 pg (25-34); MEAN CORPUSCULAR HGB CONC 32 g/dL (32-36); MEAN CORPUSCULAR VOLUME 93 fL (80-99); MEAN PLATELET VOLUME 8.8 fL (9.0-12.2); MONOCYTES # (AUTO) 1.5 10^3/uL (0.0-1.0); MONOCYTES % (AUTO) 10 % (0-12); NEUTROPHILS # (AUTO) 10.3 10^3/uL (1.8-7.8); NEUTROPHILS % (AUTO) 74 % (42-75); PLATELET COUNT 291 10^3/uL (130-400)
--- NOTE | 2021-05-11 14:04 | Diagnostic Imaging Report ---
INDICATION: Chest pain. EXAMINATION: PA and lateral views of the chest are obtained with comparison made to study of 11/11/2020. FINDINGS: Heart size and pulmonary vascularity are within normal limits, and the lungs are clear, bilaterally. IMPRESSION: Unremarkable chest. Dictated by: Dictated on workstation # [id number]
[2021-05-11 14:16] LABS: ALBUMIN 3.8 GM/DL (3.2-4.5); CHLORIDE 104 MMOL/L (98-107); POTASSIUM 3.4 MMOL/L (3.6-5.0); SODIUM 140 MMOL/L (135-145)
[2021-05-11 14:17] LABS: CALCIUM 8.5 MG/DL (8.5-10.1)
[2021-05-11 14:19] LABS: GLUCOSE 94 MG/DL (70-105); TOTAL PROTEIN 6.7 GM/DL (6.4-8.2)
[2021-05-11 14:20] LABS: BILIRUBIN,TOTAL 0.2 MG/DL (0.1-1.0); CARBON DIOXIDE 28 MMOL/L (21-32)
[2021-05-11 14:22] LABS: ALKALINE PHOSPHATASE 58 U/L (40-136); CREATININE SERUM 0.82 MG/DL (0.60-1.30); GFR ESTIMATED 98
[2021-05-11 14:23] LABS: BUN/CREATININE RATIO 16
[2021-05-11 14:25] LABS: ALANINE AMINOTRANSFERASE 30 U/L (0-55)
[2021-05-11] MEDS ORDERED: morphine INJ 10 MG/ML 1ML (SYR OR VIAL) IVP STA (14:27)
[2021-05-11] MEDS ORDERED: predniSONE 20 MG TAB PO ONE (14:30)
[2021-05-11] MEDS ORDERED: RT-ALBUTEROL SULF 2.5 MG/3 ML PRE-MIX VIAL INH ONE (14:30)
[2021-05-11 14:42] LABS: AMPHETAMINE SCREEN, URINE NEGATIVE (NEGATIVE); BARBITURATE SCREEN URINE NEGATIVE (NEGATIVE); BENZODIAZEPINES SCREEN URINE NEGATIVE (NEGATIVE); CANNABINOID SCREEN, URINE NEGATIVE (NEGATIVE); COCAINE SCREEN URINE NEGATIVE (NEGATIVE); METHADONE STAT NEGATIVE (NEGATIVE); METHAMPHETAMINE SCREEN URINE S POSITIVE (NEGATIVE); OPIATE SCREEN URINE NEGATIVE (NEGATIVE); OXYCODONE STAT NEGATIVE (NEGATIVE); PROPOXYPHENE STAT NEGATIVE (NEGATIVE); TRICYCLIC ANTIDEPRESSANTS SCRE NEGATIVE (NEGATIVE)
[2021-05-11] MEDS ORDERED: HYDR-3817 PO (14:42)
[2021-05-11] MEDS ORDERED: DOXY-227 PO (14:42)
[2021-05-11] MEDS ORDERED: PRD50T PO (14:42)
[2021-05-11 15:26] VITALS: BP 157/93
[2021-05-17] MEDS ORDERED: ACHD5005 PO (11:47)
== END 2021-05-11 15:25 | disposition home or self-care (01) ==
LOC: EDUNIT# 11:52 → ER 11:55
DX: R07.89 Other chest pain (principal); J44.9 Chronic obstructive pulmonary disease, unspecified; G89.29 Other chronic pain; M54.9 Dorsalgia, unspecified; Z87.891 Personal history of nicotine dependence
CPT/HCPCS: 71046; 80053; 80306; 85025; 93005; 99283; G0480; 36415; 80320

== ENCOUNTER 2021-05-16 17:03 | Emergency (ER) | payer SELFPAY ==
[~2021-05-16] VITALS: Ht 180 cm; Wt 104.0 kg
[~2021-05-16 17:03] MED LIST changes: +DOXY-227 PO; +HYDR-3817 PO; +PRD50T PO
[2021-05-16 17:11] VITALS: BP_DIAS 93
[2021-05-16] MEDS ORDERED: ASPIRIN 81 MG CHEW (CHILDREN'S ASA) PO ONE (17:30)
--- NOTE | 2021-05-16 17:41 | ED Chest Pain ---
General Chief Complaint: Chest Wall Stated Complaint: CP Nursing Triage Note: AMB TO ROOM PATIENT WAS SEEN HER MAY 11 FOR [facility] GIVEN RX. HAS WAS AT [facility] MAY 07 CODED AND [facility] HAS BROKEN RIBS FROM DOING CPR. PAIN CON'T WITH MOVEMENT AND TAKING A DEEP BREATH MEDS GIVEN NOT HELPING. Source: patient Exam Limitations: no limitations History of Present Illness Date Seen by Provider: May 16, 2021 Time Seen by Provider: 17:20 Initial Comments Patient to the ER by private conveyance chief complaint that he is run out of his hydrocodone's. He has chest wall pain after being coded and had some rib fractures anteriorly. He feels a click in the anterior chest. He says he is using a pillow to splint Tylenol and topical creams. Hydrocodone does help. He has had a problem the past with hydrocodone addiction and wants to be careful with that but is still waiting for his first appointment with primary care on June. He has a cardiology appointment that he needs to set up as well. No nausea fevers chills. He had a negative COVID swab at the clinic urgent care today and a couple days ago here in the ER. He did get Moderna, COVID-19 vaccination. Allergies and Home Medications Allergies Coded Allergies: diphenhydramine (Verified Allergy, Unknown, 02/27/20) Patient Home Medication List Home Medication List Reviewed: Yes Acetaminophen (Tylenol Extra Strength) 500 Mg Tablet, 1,000 MG PO Q8H PRN for PAIN-MILD (1-4), (Reported) Entered as Reported by: USHA MAYO on 11/11/20 1111 Doxycycline Hyclate (Doxycycline Hyclate) 100 Mg Tablet.dr, 100 MG PO BID Prescribed by: EARL AVILA on 05/11/21 1442 Hydrocodone/Acetaminophen (Hydrocodone-Acetamin 7.5-325) 1 Each Tablet, 1 EACH PO Q6H PRN for PAIN-MODERATE (5-7) Prescribed by: EARL AVILA on 05/11/21 1442 Ibuprofen (Ibuprofen) 200 Mg Tablet, 400-600 MG PO Q8H PRN for PAIN-MILD (1-4), (Reported) Entered as Reported by: USHA MAYO on 11/11/20 1111 Prednisone (Prednisone) 50 Mg Tab, 50 MG PO DAILY Prescribed by: EARL AVILA on 05/11/21 1442 Review of Systems Review of Systems Constitutional: No chills, No diaphoresis EENTM: No Blurred Vision, No Double Vision Respiratory: Denies Cough, Denies Shortness of Air Cardiovascular: See HPI, Chest Pain; Denies Edema Gastrointestinal: Denies Abdomen Distended, Denies Abdominal Pain Genitourinary: Denies Burning, Denies Discharge Musculoskeletal: No back pain, No joint pain All Other Systems Reviewed Negative Unless Noted: Yes Past Vubfcpb-Svftrx-Bfkxyp Hx Patient Social History Tobacco Use?: No Substance use?: No Immunizations Up To Date Tetanus Booster (TDap): Unknown PED Vaccines UTD: Yes First/Initial COVID19 Vaccinat: UNKNOW DATE Second COVID19 Vaccination Eleazar: UNKNOWN DATE. COVID19 Vaccine Slitting Machine Operator: ? Seasonal Allergies Seasonal Allergies: No Past Medical History Surgeries: No Tonsillectomy Respiratory: Yes Asthma, Pneumonia Currently Using CPAP: No Currently Using BIPAP: No Cardiac: No Neurological: No Reproductive Disorders: No Sexually Transmitted Disease: No HIV/AIDS: No Genitourinary: No Gastrointestinal: Yes Gastroesophageal Reflux, Hepatitis, Gall Bladder Disease Musculoskeletal: Yes Chronic Back Pain Endocrine: No HEENT: No Loss of Vision: Bilateral Hearing Impairment: Denies Cancer: No Psychosocial: No Integumentary: No Blood Disorders: No Adverse Reaction/Blood Tranf: No Family Medical History Completed stroke 19 FATHER, Onset:60 years & older Diabetes mellitus 19 FATHER FH: aneurysm 19 MOTHER FH: cancer 19 FATHER 19 MOTHER Pacemaker 19 MOTHER No Pertinent Family Hx Per records reviewed due to altered mental status Physical Exam Vital Signs Vital Signs - First Documented 05/16/21 17:11 Temp 36.0 Pulse 99 Resp 18 B/P (MAP) 143/93 (110) Pulse Ox 97 O2 Delivery Room Air Capillary Refill : Less Than 3 Seconds Height, Weight, BMI Height: 6'0" Weight: 165lbs. 0.0oz. 74.006934kb; 32.00 BMI Method:Stated General Appearance: WD/WN, Anxious, Mild Distress HEENT: PERRL/EOMI, TMs Normal, Normal ENT Inspection, Pharynx Normal, Moist Mucous Membranes Neck: Full Range of Motion, Normal Inspection Respiratory: Lungs Clear, Normal Breath Sounds, No Accessory Muscle Use, No Respiratory Distress Cardiovascular: Regular Rate, Rhythm, No Edema, Normal Peripheral Pulses Extremity: Normal Capillary Refill, Normal Inspection, No Pedal Edema 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: Alert, Oriented x3 Skin: Normal Color, Warm/Dry Procedures/Interventions Date of ETT Placement: Apr 13, 2019 Time of ETT Placement: 2313 Progress/Results/Core Measures Results/Orders My Orders Orders - OSMANY WALLS Continuous Ekg Monitoring (05/16/21 17:19) Ekg Tracing (05/16/21 17:19) Cbc With Automated Diff (05/16/21 17:19) Magnesium (05/16/21 17:19) Chest 1 View, Ap/Pa Only (05/16/21 17:19) Comprehensive Metabolic Panel (05/16/21 17:19) Myoglobin Serum (05/16/21 17:19) Protime With Inr (05/16/21 17:19) Partial Thromboplastin Time (05/16/21 17:19) Lipase (05/16/21 17:19) Troponin I Cat (05/16/21 17:19) Aspirin Chewable Tablet (Baby Aspirin Ch (05/16/21 17:30) Vital Signs/I&O 05/16/21 17:11 Temp 36.0 Pulse 99 Resp 18 B/P (MAP) 143/93 (110) Pulse Ox 97 O2 Delivery Room Air Blood Pressure Mean: 110 Progress Progress Note : Time: 17:39 Progress Note Patient declined any further work-up stating he has had COVID tests and x-rays and knows he has broken ribs. He intends to follow-up and does need something for pain. We explained to him we would not be refilling his pain medicine from the ER and that he would need to establish care with a primary care provider. Initial ECG Impression Date: May 16, 2021 Initial ECG Impression Time: 17:13 Initial ECG Rate: 99 Initial ECG Rhythm: Normal Sinus Initial ECG Intervals: Normal Initial ECG Impression: Normal Initial ECG Comparisson: No Previous ECG Available Comment Normal sinus rhythm without clinically relevant ST changes. Departure Impression Primary Impression: Fracture of rib Qualified Codes: S22.49XA - Multiple fractures of ribs, unspecified side, initial encounter for closed fracture Disposition: 01 HOME, SELF-CARE Condition: Stable Departure-Patient Inst. Decision time for Depature: 17:39 Referrals: [facility] (PCP/Family) Primary Care Physician Patient Instructions: Rib Fracture (DC) Add. Discharge Instructions: Return to the ER for intractable pain. Hydrocodone 1 tablet every 6 hours as necessary for pain. All discharge instructions reviewed with patient and/or family. Voiced understanding. Scripts Hydrocodone/Acetaminophen (Hydrocodone-Acetamin 5-325 mg) 1 Each Tablet 1 TAB PO Q6H PRN for PAIN-MODERATE (5-7), #30 TAB 0 Refills Prov: OSMANY WALLS 05/16/21 OSMANY WALLS May 16, 2021 17:41
[2021-05-16] MEDS ORDERED: ACHD5005 PO (17:42)
[2021-05-16 17:50] VITALS: BP_SYST 92
[2021-05-17] MEDS ORDERED: ACHD5005 PO (11:47)
== END 2021-05-16 17:48 | disposition home or self-care (01) ==
LOC: EDUNIT# 17:03 → ER 17:07
DX: S22.49XD Multiple fractures of ribs, unspecified side, subsequent encounter for fracture with routine healing (principal); M96.89 Other intraoperative and postprocedural complications and disorders of the musculoskeletal system; Y84.8 Other medical procedures as the cause of abnormal reaction of the patient, or of later complication, without mention of misadventure at the time of the procedure; Z79.891 Long term (current) use of opiate analgesic
CPT/HCPCS: 93005

== ENCOUNTER 2021-05-22 05:54 | Emergency (ER) | payer SELFPAY ==
[~2021-05-22] VITALS: Ht 180 cm; Wt 108.0 kg
--- NOTE | 2021-05-22 07:29 | ED Dyspnea ---
General Stated Complaint: TROUBLE BREATHING;FEVER;CONGESTION Source of Information: Patient Exam Limitations: No Limitations History of Present Illness Date Seen by Provider: May 22, 2021 Time Seen by Provider: 07:10 Initial Comments Patient to the ER by private conveyance from home with chief complaint of shortness of air progressively worsening over the past week or so. His chest pain is improving day by day. He coded a few weeks ago and had to have chest compressions and had some broken ribs anteriorly. He says he uses about 1 hydrocodone a day for that and has had a small nonproductive cough which he takes cough medicine at night for. He is not having any nausea fevers chills malaise body aches. He did have 2 doses of COVID-vaccine but no influenza vaccine. He feels short of breath. Oxygen saturations are in the upper 90s on room air. He says sometimes he has a little bit of swelling in his hands and feet but none today. Echocardiogram from November 2020 demonstrates grade 2 diastolic dysfunction with an EF of 55 to 65%. Patient has a history of methamphetamine use, tobaccoism, Allergies and Home Medications Allergies Coded Allergies: diphenhydramine (Verified Allergy, Unknown, 02/27/20) Patient Home Medication List Home Medication List Reviewed: Yes Acetaminophen (Tylenol Extra Strength) 500 Mg Tablet, 1,000 MG PO Q8H PRN for PAIN-MILD (1-4), (Reported) Entered as Reported by: USHA MAYO on 11/11/20 1111 Doxycycline Hyclate (Doxycycline Hyclate) 100 Mg Tablet.dr 100 MG PO BID Prescribed by: EARL AVILA on 05/11/21 1442 Hydrocodone/Acetaminophen (Hydrocodone-Acetamin 7.5-325) 1 Each Tablet, 1 EACH PO Q6H PRN for PAIN-MODERATE (5-7) Prescribed by: EARL AVILA on 05/11/21 1442 Hydrocodone/Acetaminophen (Hydrocodone-Acetamin 5-325 mg) 1 Each Tablet, 1 TAB PO Q6H PRN for PAIN-MODERATE (5-7) Prescribed by: PING NAVAS on 05/17/21 1147 Ibuprofen (Ibuprofen) 200 Mg Tablet, 400-600 MG PO Q8H PRN for PAIN-MILD (1-4), (Reported) Entered as Reported by: USHA MAYO on 11/11/20 1111 Prednisone (Prednisone) 50 Mg Tab, 50 MG PO DAILY Prescribed by: EARL AVILA on 05/11/21 1442 Review of Systems Review of Systems Constitutional: No chills, No fever, No malaise EENTM: No hearing loss, No ear pain Respiratory: No cough, No dyspnea on exertion Cardiovascular: No chest pain, No palpitations Gastrointestinal: No abdominal pain, No nausea Genitourinary: No discharge, No dysuria Musculoskeletal: No back pain, No gout, No joint pain Skin: No pruritus, No rash Psychiatric/Neurological: Denies Headache, Denies Numbness All Other Systems Reviewed Negative Unless Noted: Yes Past Xdvgohb-Vfdyaf-Gnzlrb Hx Patient Social History Tobacco Use?: No Use of E-Cig and/or Vaping dev: No Substance use?: No Immunizations Up To Date Tetanus Booster (TDap): Unknown PED Vaccines UTD: Yes First/Initial COVID19 Vaccinat: UNKNOW DATE Second COVID19 Vaccination Eleazar: UNKNOWN DATE. Seasonal Allergies Seasonal Allergies: No Past Medical History Surgeries: No Tonsillectomy Respiratory: Yes Asthma, Pneumonia Currently Using CPAP: No Currently Using BIPAP: No Cardiac: No Neurological: No Reproductive Disorders: No Sexually Transmitted Disease: No HIV/AIDS: No Genitourinary: No Gastrointestinal: Yes Gastroesophageal Reflux, Hepatitis, Gall Bladder Disease Musculoskeletal: Yes Chronic Back Pain Endocrine: No HEENT: No Loss of Vision: Bilateral Hearing Impairment: Denies Cancer: No Psychosocial: No Integumentary: No Blood Disorders: No Adverse Reaction/Blood Tranf: No Family Medical History Completed stroke 19 FATHER, Onset:60 years & older Diabetes mellitus 19 FATHER FH: aneurysm 19 MOTHER FH: cancer 19 FATHER 19 MOTHER Pacemaker 19 MOTHER No Pertinent Family Hx Per records reviewed due to altered mental status Physical Exam Vital Signs Vital Signs - First Documented 05/22/21 07:09 Temp 36.1 Pulse 87 Resp 18 B/P (MAP) 137/92 (107) Pulse Ox 98 Capillary Refill : Height, Weight, BMI Height: 6'0" Weight: 165lbs. 0.0oz. 74.612715iu; 32.00 BMI Method:Stated General Appearance: No Apparent Distress, WD/WN HEENT: PERRL/EOMI, Pharynx Normal, Moist Mucous Membranes Neck: Full Range of Motion, Normal Inspection Respiratory: Lungs Clear, Normal Breath Sounds, No Accessory Muscle Use, No Respiratory Distress Cardiovascular: Regular Rate, Rhythm, No Edema, Normal Peripheral Pulses Peripheral Pulses: 2+ Radial Pulses (R), 2+ Radial Pulses (L) Gastrointestinal: Normal Bowel Sounds, Non Tender, Soft Extremity: Normal Capillary Refill, Normal Inspection, No Pedal Edema 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: Alert, Oriented x3 Skin: Normal Color, Warm/Dry Procedures/Interventions Date of ETT Placement: Apr 13, 2019 Time of ETT Placement: 2313 Progress/Results/Core Measures Results/Orders Lab Results Laboratory Tests Test 05/22/21 07:25 05/22/21 08:15 Range/Units Influenza Type A (RT-PCR) Not Detected Not Detecte Influenza Type B (RT-PCR) Not Detected Not Detecte SARS-CoV-2 RNA (RT-PCR) Not Detected Not Detecte White Blood Count 10.0 4.3-11.0 10^3/uL Red Blood Count 3.89 L 4.30-5.52 10^6/uL Hemoglobin 11.8 L 13.3-17.7 g/dL Hematocrit 36 L 40-54 % Mean Corpuscular Volume 93 80-99 fL Mean Corpuscular Hemoglobin 30 25-34 pg Mean Corpuscular Hemoglobin Concent 33 32-36 g/dL Red Cell Distribution Width 12.2 10.0-14.5 % Platelet Count 320 130-400 10^3/uL Mean Platelet Volume 9.4 9.0-12.2 fL Immature Granulocyte % (Auto) 1 % Neutrophils (%) (Auto) 93 H 42-75 % Lymphocytes (%) (Auto) 4 L 12-44 % Monocytes (%) (Auto) 3 0-12 % Eosinophils (%) (Auto) 0 0-10 % Basophils (%) (Auto) 0 0-10 % Neutrophils # (Auto) 9.2 H 1.8-7.8 10^3/uL Lymphocytes # (Auto) 0.4 L 1.0-4.0 10^3/uL Monocytes # (Auto) 0.3 0.0-1.0 10^3/uL Eosinophils # (Auto) 0.0 0.0-0.3 10^3/uL Basophils # (Auto) 0.0 0.0-0.1 10^3/uL Immature Granulocyte # (Auto) 0.1 0.0-0.1 10^3/uL Neutrophils % (Manual) 92 % Lymphocytes % (Manual) 4 % Monocytes % (Manual) 3 % Eosinophils % (Manual) 1 % Basophils % (Manual) 0 % Band Neutrophils 0 % Blood Morphology Comment NORMAL Prothrombin Time 12.5 12.2-14.7 SEC INR Comment 0.9 0.8-1.4 D-Dimer 1.14 H 0.00-0.49 UG/ML Sodium Level 136 135-145 MMOL/L Potassium Level 4.6 3.6-5.0 MMOL/L Chloride Level 106 98-107 MMOL/L Carbon Dioxide Level 19 L 21-32 MMOL/L Anion Gap 11 5-14 MMOL/L Blood Urea Nitrogen 13 7-18 MG/DL Creatinine 0.85 0.60-1.30 MG/DL Estimat Glomerular Filtration Rate 103 BUN/Creatinine Ratio 15 Glucose Level 118 H 70-105 MG/DL Calcium Level 9.0 8.5-10.1 MG/DL Corrected Calcium 8.9 8.5-10.1 MG/DL Total Bilirubin 0.3 0.1-1.0 MG/DL Aspartate Amino Transf (AST/SGOT) 20 5-34 U/L Alanine Aminotransferase (ALT/SGPT) 29 0-55 U/L Alkaline Phosphatase 74 40-136 U/L C-Reactive Protein High Sensitivity 3.82 H 0.00-0.50 MG/DL B-Type Natriuretic Peptide 52.1 <100.0 PG/ML Total Protein 7.2 6.4-8.2 GM/DL Albumin 4.1 3.2-4.5 GM/DL My Orders Orders - ETHAN TONY 19 Inhouse Test (05/22/21 07:20) Influenza A And B By Pcr (05/22/21 07:20) Cbc With Automated Diff (05/22/21 07:20) Comprehensive Metabolic Panel (05/22/21 07:20) Hs C Reactive Protein (05/22/21 07:20) Chest 1 View, Ap/Pa Only (05/22/21 07:20) Protime With Inr (05/22/21 07:20) Fibrin Degradation Products (05/22/21 07:20) Ed Iv/Invasive Line Start (05/22/21 07:20) Ns Iv 1000 Ml (Sodium Chloride 0.9%) (05/22/21 07:30) Bnp [place] (05/22/21 07:20) Manual Differential (05/22/21 08:15) Ct Angio Chest W (05/22/21 08:39) Iohexol Injection (Omnipaque 350 Mg/Ml 1 (05/22/21 09:45) Received Contrast (Hold Metformin- Contr (05/22/21 09:45) Ns (Ivpb) (Sodium Chloride 0.9% Ivpb Bag (05/22/21 09:45) Medications Given in ED Current Medications Medications Dose Ordered Sig/Cecilia Route Start Time Stop Time Status Last Admin Dose Admin Iohexol 100 ml ONCE ONCE IV 05/22/21 09:45 05/22/21 09:46 DC 05/22/21 09:35 100 ML Vital Signs/I&O 05/22/21 07:09 Temp 36.1 Pulse 87 Resp 18 B/P (MAP) 137/92 (107) Pulse Ox 98 Progress Progress Note #1: Time: 07:32 Progress Note Patient has normal vital signs however with his previous history of being coded, rib fractures and diastolic heart failure we will check a BNP check some blood work and chest x-ray looking for pneumonia fluid overload as well as a D-dimer since he has an intermediate risk for blood clot and get a COVID and influenza swab. Progress Note #2: Time: 08:39 Progress Note No evidence of pneumonia, rib fractures or pneumothorax. Plan to get a CT angiogram. Progress Note #3: Time: 10:38 Progress Note The patient stable not requiring any oxygen. We will put him on Eliquis for his provoked blood clots likely related to his recent code and illness. Patient's got good vital signs and wants to follow with [facility] so we will send copy of records there. We will send a prescription to their pharmacy. Diagnostic Imaging Diagonstic Imaging: Xray Plain Films/CT/US/NM/MRI: chest Comments [facility], [place] NAME: CAROL PARIKH [facility] REC#: [id number] PT STATUS: REG ER : 1965 PHYSICIAN: ETHAN TONY MD ADMIT DATE: 05/22/21/ER Signed Date of Exam:05/22/21 CHEST 1 VIEW, AP/PA ONLY CHEST 1 VIEW, AP/PA ONLY Indication: Shortness of air Comparison: 05/11/2021 Findings: No focal airspace disease in the visualized lungs. Please note that the posterior lower lobes are poorly evaluated by portable radiography. No pleural effusion or pneumothorax. Normal cardiomediastinal silhouette. Impression: 1. No acute cardiopulmonary process by portable radiography. Dictated by: Dictated on workstation # [id number] Dict: 05/22/21820 Trans: 05/22/21827 [facility] [id number] Interpreted by: DAVID ELLISON MD Electronically signed by: DAVID ELLISON MD 05/22/21827 Reviewed: Reviewed by Ia Diagonstic Imaging: CT Plain Films/CT/US/NM/MRI: chest Comments [facility], [place] NAME: CAROL PARIKH [facility] REC#: [id number] PT STATUS: REG ER : 1965 PHYSICIAN: ETHAN TONY MD ADMIT DATE: 05/22/21/ER Signed Date of Exam:05/22/21 CT ANGIO CHEST W PROCEDURE: CT angiography of the chest with contrast. TECHNIQUE: Multiple contiguous axial images were obtained through the chest after uneventful bolus administration of intravenous contrast. 3D reconstructed CTA MIP acquisitions were also performed. Auto Exposure Controls were utilized during the CT exam to meet ALARA standards for radiation dose reduction. INDICATION: Dyspnea. Chest pain. COMPARISON: CT chest 04/13/2019 FINDINGS: Examination mildly limited by respiratory motion. There are occlusive and nonocclusive lobar and segmental filling defects in the right upper lobe and right middle lobe. No evidence of right heart strain. Normal caliber thoracic aorta. Normal heart size. No pericardial effusion. No lymphadenopathy. Lungs are clear. No pleural effusion or pneumothorax. No acute findings in visualized upper abdomen. Acute to subacute left anterior 4th rib fracture. IMPRESSION: 1. Positive for pulmonary emboli in the right upper and right middle lobes. No evidence for right heart strain. 2. Acute to subacute mildly displaced fracture of the left anterior 4th rib. 3. Lungs are clear. Findings discussed with Dr. Ethan Tony at 9:51 AM on 05/22/2021. Dictated by: Dictated on workstation # [id number] Dict: 05/22/21 0941 Trans: 05/22/21 1008 [facility] [id number] Interpreted by: NITHIN OSBORN MD Electronically signed by: NITHIN OSBORN MD 05/22/21 1008 Reviewed: Reviewed by Me Departure Impression Primary Impression: Pulmonary embolism Qualified Codes: I26.94 - Multiple subsegmental pulmonary emboli without acute cor pulmonale Disposition: HOME, SELF-CARE Condition: Stable Departure-Patient Inst. Decision time for Depature: 10:39 Referrals: [facility] [place] (PCP/Family) Primary Care Physician Patient Instructions: Pulmonary Embolism (Blood Clot in the Lungs) (DC) Add. Discharge Instructions: Eliquis 1 tablet twice a day typically for about 3 months and then you and your primary care doctor can discuss stopping the medications. Return to the ER for intractable chest pain, severe shortness of air or oxygen saturations significantly below 90% while at rest. Scripts Apixaban (Eliquis) 5 Mg Tablet 5 MG PO BID for 30 Days, #60 TAB 0 Refills Prov: ETHAN TONY 05/22/21 Copy Copies To 1: PAOLA PEDRAZA DO ETHAN TONY May 22, 2021 07:29
[2021-05-22] MEDS ORDERED: NS IV 1000 ML 1,000 ML IV SCH (07:30)
[2021-05-22 08:23] LABS: BASOPHILS % (AUTO) 0 % (0-10); EOSINOPHILS % (AUTO) 0 % (0-10); HEMATOCRIT 36 % (40-54); HEMOGLOBIN 11.8 g/dL (13.3-17.7); LYMPHOCYTES # (AUTO) 0.4 10^3/uL (1.0-4.0); LYMPHOCYTES % (AUTO) 4 % (12-44); MEAN CORPUSCULAR HEMOGLOBIN 30 pg (25-34); MEAN CORPUSCULAR HGB CONC 33 g/dL (32-36); MEAN CORPUSCULAR VOLUME 93 fL (80-99); MEAN PLATELET VOLUME 9.4 fL (9.0-12.2); MONOCYTES # (AUTO) 0.3 10^3/uL (0.0-1.0); MONOCYTES % (AUTO) 3 % (0-12); NEUTROPHILS # (AUTO) 9.2 10^3/uL (1.8-7.8); NEUTROPHILS % (AUTO) 93 % (42-75); PLATELET COUNT 320 10^3/uL (130-400)
--- NOTE | 2021-05-22 08:30 | Diagnostic Imaging Report ---
CHEST 1 VIEW, AP/PA ONLY Indication: Shortness of air Comparison: 05/11/2021 Findings: No focal airspace disease in the visualized lungs. Please note that the posterior lower lobes are poorly evaluated by portable radiography. No pleural effusion or pneumothorax. Normal cardiomediastinal silhouette. Impression: 1. No acute cardiopulmonary process by portable radiography. Dictated by: Dictated on workstation # [id number]
[2021-05-22 08:32] LABS: ALBUMIN 4.1 GM/DL (3.2-4.5); POTASSIUM 4.6 MMOL/L (3.6-5.0)
[2021-05-22 08:34] LABS: FIBRIN DEGRADATION PRODUCTS 1.14 UG/ML (0.00-0.49); INR 0.9 (0.8-1.4); PROTHROMBIN TIME PATIENT 12.5 SEC (12.2-14.7)
[2021-05-22 08:35] LABS: TOTAL PROTEIN 7.2 GM/DL (6.4-8.2)
[2021-05-22 08:36] LABS: BILIRUBIN,TOTAL 0.3 MG/DL (0.1-1.0)
[2021-05-22 08:38] LABS: CREATININE SERUM 0.85 MG/DL (0.60-1.30)
[2021-05-22 08:41] LABS: BAND NEUTROPHILS 0 %; BASOPHILS % (MANUAL) 0 %; EOSINOPHILS % (MANUAL) 1 %; LYMPHOCYTES % (MANUAL) 4 %; MONOCYTES % (MANUAL) 3 %; NEUTROPHILS % (MANUAL) 92 %; RBC MORPH NORMAL
[2021-05-22] MEDS ORDERED: NS 100 ML (IVPB) BAG IV ONE (09:45)
[2021-05-22] MEDS ORDERED: IOHEXOL 350 MG/ML 100 ML (OMNIPAQUE 350) VIAL IV ONE (09:45)
[2021-05-22] MEDS ORDERED: HOLD METFORMIN - RECEIVED CONTRAST 20 ML VIAL IV SCH (09:45)
--- NOTE | 2021-05-22 09:57 | Diagnostic Imaging Report ---
PROCEDURE: CT angiography of the chest with contrast. TECHNIQUE: Multiple contiguous axial images were obtained through the chest after uneventful bolus administration of intravenous contrast. 3D reconstructed CTA MIP acquisitions were also performed. Auto Exposure Controls were utilized during the CT exam to meet ALARA standards for radiation dose reduction. INDICATION: Dyspnea. Chest pain. COMPARISON: CT chest 04/13/2019 FINDINGS: Examination mildly limited by respiratory motion. There are occlusive and nonocclusive lobar and segmental filling defects in the right upper lobe and right middle lobe. No evidence of right heart strain. Normal caliber thoracic aorta. Normal heart size. No pericardial effusion. No lymphadenopathy. Lungs are clear. No pleural effusion or pneumothorax. No acute findings in visualized upper abdomen. Acute to subacute left anterior 4th rib fracture. IMPRESSION: 1. Positive for pulmonary emboli in the right upper and right middle lobes. No evidence for right heart strain. 2. Acute to subacute mildly displaced fracture of the left anterior 4th rib. 3. Lungs are clear. Findings discussed with Dr. Ethan Tony at 9:51 AM on 05/22/2021. Dictated by: Dictated on workstation # [id number]
[2021-05-22] MEDS ORDERED: APIX5TAB PO (10:40)
[2021-05-22 10:45] VITALS: BP 129/88
[2021-05-22] MEDS ORDERED: APIXABAN 5 MG (ELIQUIS) TABLET PO ONE (10:45)
== END 2021-05-22 10:48 | disposition home or self-care (01) ==
LOC: EDUNIT# 05:54 → ER 05:57
DX: I26.99 Other pulmonary embolism without acute cor pulmonale (principal); S22.42XD Multiple fractures of ribs, left side, subsequent encounter for fracture with routine healing; I50.30 Unspecified diastolic (congestive) heart failure; Z87.01 Personal history of pneumonia (recurrent); Z88.8 Allergy status to other drugs, medicaments and biological substances; Z79.1 Long term (current) use of non-steroidal anti-inflammatories (NSAID); Z79.52 Long term (current) use of systemic steroids
CPT/HCPCS: 36415; 71045; 71275; 80053; 83880; 85007; 85027; 85379; 85610; 86141; 87636; 96360

== ENCOUNTER 2021-05-24 13:03 | Emergency (ER) | payer SELFPAY ==
[~2021-05-24 13:03] MED LIST changes: +APIX5TAB PO
[2021-05-24] MEDS ORDERED: RT-ALBUTEROL HFA 8.5 GM INHALER IH STA (13:19)
[2021-05-24] MEDS ORDERED: morphine INJ 10 MG/ML 1ML (SYR OR VIAL) IVP STA (13:24)
--- NOTE | 2021-05-24 13:50 | Diagnostic Imaging Report ---
CLINICAL INDICATION: Patient with shortness of air. EXAM: Chest x-ray PA and lateral views. COMPARISON: Chest x-ray dated 05/11/2021. CT angiogram of the chest dated 05/22/2021. FINDINGS: Lungs/pleura: Lungs are clear. There is no pneumothorax. There is no pleural effusion. Mediastinum: Unremarkable. Pulmonary vasculature: Unremarkable. Heart: Heart size is within normal limits. Stable mildly pericardial fat pad. Bones/extrathoracic soft tissue: Unremarkable. IMPRESSION: Stable chest x-ray exam with no interval lung infiltrate. Dictated by: Dictated on workstation # [id number]
[2021-05-24] MEDS ORDERED: RT-ALBUTEROL/IPRATROPIUM 3 ML (DUONEB) VIAL INH ONE ×2 (14:45→16:00)
[2021-05-24] MEDS ORDERED: methylPREDNISolone 125 MG (Solu-MEDROL) VIAL IVP ONE (14:45)
[2021-05-24] MEDS ORDERED: RT-ALBUTEROL SULF 2.5 MG/3 ML PRE-MIX VIAL INH STA (15:59)
--- NOTE | 2021-05-24 18:28 | ED General ---
General Chief Complaint: Respiratory Problems Stated Complaint: SOB,CP,COUGH SEEN 05/22 Nursing Triage Note: PT AMB TO ER WITH C/O INCREASED SOB TODAY. PT SEEN MULTIPLE TIMES FOR THIS Source of Information: Patient, Old Records Exam Limitations: No Limitations History of Present Illness Date Seen by Provider: May 24, 2021 Time Seen by Provider: 13:10 Initial Comments This 56-year-old man presents to the emergency room by private vehicle. He was brought here by a friend or acquaintance. He is quite wheezy on presentation and complains of left anterior chest wall pain where he has a known rib fracture. He has been seen in this ER multiple times after having a CODE BLUE situation for which he was admitted in [place] at the beginning of the month. He sustained a rib fracture during CPR. He was subsequently diagnosed with pulmonary embolism. He has not been consistently taking anticoagulation as he has not been able to afford the medication. I discussed the situation with Dr. Grant. Unfortunately, they cannot provide him with medication assistance through [facility] at this time because he has made numerous appointments and not shown for them. He has never established care through a scheduled appointment. He does have an appointment scheduled. He missed his appointment this morning. He does not have any medications for pain or inhaled medications for his COPD. He has profound audible wheezing. He denies any increased cough or fever. He has s plinting respirations. Allergies and Home Medications Allergies Coded Allergies: diphenhydramine (Verified Allergy, Unknown, 02/27/20) Patient Home Medication List Home Medication List Reviewed: Yes Acetaminophen (Tylenol Extra Strength) 500 Mg Tablet, 1,000 MG PO Q8H PRN for PAIN-MILD (1-4), (Reported) Entered as Reported by: USHA MAYO on 11/11/20 1111 Albuterol Sulfate (Albuterol Sulfate) 2.5 Mg/3 Ml Vial.neb, 2.5 MG INH Q4H PRN for WHEEZING Prescribed by: FRANCINE DAVIES on 05/24/21 1835 Apixaban (Eliquis) 5 Mg Tablet, 5 MG PO BID Prescribed by: OSMANY WALLS on 05/22/21 1040 Doxycycline Hyclate (Doxycycline Hyclate) 100 Mg Tablet.dr, 100 MG PO BID Prescribed by: EARL AVILA on 05/11/21 1442 Hydrocodone/Acetaminophen (Hydrocodone-Acetamin 7.5-325) 1 Each Tablet, 1 EACH PO Q6H PRN for PAIN-MODERATE (5-7) Prescribed by: EARL AVILA on 05/11/21 1442 Hydrocodone/Acetaminophen (Hydrocodone-Acetamin 5-325 mg) 1 Each Tablet, 1 TAB PO Q6H PRN for PAIN-MODERATE (5-7) Prescribed by: PING NAVAS on 05/17/21 1147 Hydrocodone/Acetaminophen (Hydrocodone-Acetamin 5-325 mg) 1 Each Tablet, 1 TAB PO Q4H PRN for PAIN-MODERATE (5-7) Prescribed by: FRANCINE DAVIES on 05/24/21 1836 Ibuprofen (Ibuprofen) 200 Mg Tablet, 400-600 MG PO Q8H PRN for PAIN-MILD (1-4), (Reported) Entered as Reported by: USHA MAYO on 11/11/20 1111 Prednisone (Prednisone) 50 Mg Tab, 50 MG PO DAILY Prescribed by: EARL AVILA on 05/11/21 1442 Prednisone (Prednisone) 20 Mg Tab, 40 MG PO DAILY Prescribed by: FRANCINE DAVIES on 05/24/21 1835 Review of Systems Review of Systems Constitutional: no symptoms reported EENTM: no symptoms reported Respiratory: see HPI Cardiovascular: see HPI Gastrointestinal: no symptoms reported Genitourinary: no symptoms reported Musculoskeletal: see HPI Skin: no symptoms reported Psychiatric/Neurological: No Symptoms Reported Hematologic/Lymphatic: No Symptoms Reported Immunological/Allergic: no symptoms reported Past Nbdnbwu-Zmedjp-Mgyclx Hx Patient Social History Tobacco Use?: Yes Smoking Status: Former Smoker Substance use?: Yes Substance type: Methamphetamine Alcohol Use?: No Pt feels they are or have been: No Immunizations Up To Date Tetanus Booster (TDap): Unknown PED Vaccines UTD: Yes Influenza Vaccine Up-to-Date: No; Not Current First/Initial COVID19 Vaccinat: 2020 Second COVID19 Vaccination Eleazar: 2020 COVID19 Vaccine Consumer Safety Inspector: LESLIE Seasonal Allergies Seasonal Allergies: No Past Medical History Surgery/Hospitalization HX: HEAR ATTACK 2021 Surgeries: No Tonsillectomy Respiratory: Yes Asthma, Pneumonia Currently Using CPAP: No Currently Using BIPAP: No Cardiac: Yes (Cardiac arrest status post CPR May 2021) Neurological: No Reproductive Disorders: No Sexually Transmitted Disease: No HIV/AIDS: No Genitourinary: No Gastrointestinal: Yes Gastroesophageal Reflux, Hepatitis, Gall Bladder Disease Musculoskeletal: Yes Chronic Back Pain, Fractures (Left anterior rib fracture from CPR) Endocrine: No HEENT: No Loss of Vision: Bilateral Hearing Impairment: Denies Cancer: No Psychosocial: Yes (Methamphetamine abuse) Integumentary: No Blood Disorders: No Adverse Reaction/Blood Tranf: No Family Medical History Completed stroke 19 FATHER, Onset:60 years & older Diabetes mellitus 19 FATHER FH: aneurysm 19 MOTHER FH: cancer 19 FATHER 19 MOTHER Pacemaker 19 MOTHER No Pertinent Family Hx Per records reviewed due to altered mental status Physical Exam Vital Signs Capillary Refill : Height, Weight, BMI Height: 6'0" Weight: 165lbs. 0.0oz. 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 Norm as Tested Skin: Normal Color, Warm/Dry Procedures/Interventions Date of ETT Placement: Apr 13, 2019 Time of ETT Placement: 2313 Progress/Results/Core Measures Suspected Sepsis SIRS Temperature: Pulse: 102 Respiratory Rate: 25 Blood Pressure 166 /101 Mean: 122 Results/Orders My Orders Orders - FRANCINE QUINTANILLA MD Albuterol Inhaler (Albuterol) (05/24/21 13:19) Morphine Injection (Morphine Injection (05/24/21 13:24) Chest Pa/Lat (2 View) (05/24/21 13:24) Albuterol/Ipra Inhalation Soln (Duoneb I (05/24/21 14:45) Svn Small Volume Nebulizer (05/24/21 14:45) Methylprednisolone Sod Succ (Solu-Medrol (05/24/21 14:45) Albuterol Pre-Mix Nebs (Rt) (Proventil (05/24/21 15:59) Albuterol/Ipra Inhalation Soln (Duoneb I (05/24/21 16:00) Svn Small Volume Nebulizer (05/24/21 15:59) Svn Small Volume Nebulizer (05/24/21 15:59) Apixaban Tablet (Eliquis Tablet) (05/24/21 18:30) Oxycodone/Apap 5/325mg Tablet (Percocet (05/24/21 18:30) Apixaban Tablet (Eliquis Tablet) (05/24/21 18:45) Medications Given in ED Vital Signs/I&O Capillary Refill : Blood Pressure Mean: 122 Progress Note : Progress Note Patient was given multiple doses of IV pain medications which eventually controlled his pain. He was given a DuoNeb treatment followed by an hour-long nebulizer treatment. While this improved his wheezing it did not resolve it. However, vital signs were stable. He was given a dose of Solu-Medrol. I did attempt to get him assistance with his anticoagulation therapy through [facility]. The best we could do at this time was bump up his appointment time and stress compliance so that he can get medication assistance. He was given a dose of Eliquis in the ER. See discharge instructions for further discussion. Diagnostic Imaging Diagonstic Imaging: Xray Plain Films/CT/US/NM/MRI: chest Comments NAME: CAROL PARIKH [facility] REC#: [id number] PT STATUS: REG ER : 1965 PHYSICIAN: FRANCINE QUINTANILLA MD ADMIT DATE: 05/24/21/ER Signed Date of Exam:05/24/21 CHEST PA/LAT (2 VIEW) CLINICAL INDICATION: Patient with shortness of air. EXAM: Chest x-ray PA and lateral views. COMPARISON: Chest x-ray dated 05/11/2021. CT angiogram of the chest dated 05/22/2021. FINDINGS: Lungs/pleura: Lungs are clear. There is no pneumothorax. There is no pleural effusion. Mediastinum: Unremarkable. Pulmonary vasculature: Unremarkable. Heart: Heart size is within normal limits. Stable mildly pericardial fat pad. Bones/extrathoracic soft tissue: Unremarkable. IMPRESSION: Stable chest x-ray exam with no interval lung infiltrate. Dictated by: Dictated on workstation # [id number] Dict: 05/24/21 1345 Trans: 05/24/21 1648 [facility] [id number] Interpreted by: STELLA MEMBRENO MD Electronically signed by: STELLA MEMBRENO MD 05/24/21 1648 Reviewed: Reviewed by Me Departure Impression Primary Impression: COPD exacerbation Additional Impression: Fracture of rib Qualified Codes: S22.32XD - Fracture of one rib, left side, subsequent encounter for fracture with routine healing Disposition: HOME, SELF-CARE Condition: Improved Departure-Patient Inst. Referrals: [facility] (PCP/Family) Primary Care Physician Patient Instructions: COPD Exacerbation, Adult ED, RIB FRACTURE Add. Discharge Instructions: You have an appointment with Bronwyn Herrmann at [facility] on May 30 at 11:20. It is critical that you make it to this appointment to establish care so you can get your medications prescribed through the [facility] pharmacy at a reduced cost. Use your pain medication as prescribed. Exercise deep breathing several times an hour while awake to prevent developing pneumonia. Avoid inhaled irritants such as cigarette smoke. Use your inhaler up to 4 puffs every 4 hours as needed or your nebulizer machine every 4 hours as needed. Complete the course of steroids as prescribed. Call with questions or concerns. Return to the ER if you have worsening symptoms. All discharge instructions reviewed with patient and/or family. Voiced understanding. Scripts Albuterol Sulfate (Albuterol Sulfate) 2.5 Mg/3 Ml Vial.neb 2.5 MG INH Q4H PRN for WHEEZING, #50 EA 1 Refill Prov: FRANCINE QUINTANILLA MD 05/24/21 Prednisone (Prednisone) 20 Mg Tab 40 MG PO DAILY, #8 TAB 0 Refills Prov: FRANCINE QUINTANILLA MD 05/24/21 Hydrocodone/Acetaminophen (Hydrocodone-Acetamin 5-325 mg) 1 Each Tablet 1 TAB PO Q4H PRN for PAIN-MODERATE (5-7), #10 TAB Prov: FRANCINE QUINTANILLA MD 05/24/21 Copy Copies To 1: PAOLA GRANT JOSHUA T MD May 24, 2021 18:28
[2021-05-24] MEDS ORDERED: oxyCODONE/APAP 5/325MG (PERCOCET 5) TABLET PO ONE (18:30)
[2021-05-24] MEDS ORDERED: APIXABAN 5 MG (ELIQUIS) TABLET PO ONE ×2 (18:30→18:45)
[2021-05-24] MEDS ORDERED: ALBU2.5V4 INH (18:35)
[2021-05-24] MEDS ORDERED: PRD20T PO (18:35)
[2021-05-24] MEDS ORDERED: ACHD5005 PO (18:35)
[2021-05-24 18:48] VITALS: BP 142/96
== END 2021-05-24 18:49 | disposition home or self-care (01) ==
LOC: EDUNIT# 13:03 → ER 13:04
DX: S22.32XA Fracture of one rib, left side, initial encounter for closed fracture (principal); J44.1 Chronic obstructive pulmonary disease with (acute) exacerbation; G89.29 Other chronic pain; M54.9 Dorsalgia, unspecified; Z87.891 Personal history of nicotine dependence; Z79.891 Long term (current) use of opiate analgesic; Z79.01 Long term (current) use of anticoagulants; X58.XXXA Exposure to other specified factors, initial encounter
CPT/HCPCS: 71046; 94640; 94644

== ENCOUNTER 2021-06-05 13:03 | Emergency (ER) | payer SELFPAY ==
[~2021-06-05] VITALS: Ht 180.3 cm; Wt 104.3 kg
[~2021-06-05 13:03] MED LIST changes: +ALBU2.5V4 INH
--- NOTE | 2021-06-05 13:41 | ED Cough/URI ---
General Chief Complaint: Respiratory Problems Stated Complaint: SOA, CP, SORE THROAT Nursing Triage Note: PT AMB TO RM 6 W C/O SOA AND CP X1.5 DAYS. PT REPORTS HE WAS RECENTLY DX W BLOOD CLOTS IN LUNGS. PT C/O CP WORSE W COUGH. A&OX4. Source: patient Exam Limitations: no limitations History of Present Illness Date Seen by Provider: Jun 05, 2021 Time Seen by Provider: 13:38 Initial Comments to ER with dyspnea on exertion. He sneezed once a few days ago and felt a popping sensation in his rib. He had a known rib fracture following CPR for which he was treated and admitted at [facility] around the first of this month. He was subsequently found to have a pulmonary embolism and prescribed Eliquis. He had some difficulty getting that filled at first but states that he has subsequently gotten it filled, followed up with [facility] Bronwyn Herrmann and has been compliant with his Eliquis for the past week or so. He denies any fevers he has had 2 Covid vaccines. He does have a cough. States that he is a former heavy smoker and likely has COPD. Timing/Duration: constant Severity/Quality: moderate Associated Symptoms: cough, shortness of breath, wheezing Allergies and Home Medications Allergies Coded Allergies: diphenhydramine (Verified Allergy, Unknown, 02/27/20) Patient Home Medication List Home Medication List Reviewed: Yes Acetaminophen (Tylenol Extra Strength) 500 Mg Tablet, 1,000 MG PO Q8H PRN for PAIN-MILD (1-4), (Reported) Entered as Reported by: USHA MAYO on 11/11/20 1111 Albuterol Sulfate (Albuterol Sulfate) 2.5 Mg/3 Ml Vial.neb, 2.5 MG INH Q4H PRN for WHEEZING Prescribed by: FRANCINE DAVIES on 05/24/21 1835 Apixaban (Eliquis) 5 Mg Tablet, 5 MG PO BID Prescribed by: OSMANY WALLS on 05/22/21 1040 Cefuroxime Axetil (Cefuroxime) 250 Mg Tablet, 250 MG PO BID Prescribed by: PING NAVAS on 06/05/21 1419 Doxycycline Hyclate (Doxycycline Hyclate) 100 Mg Tablet.dr, 100 MG PO BID Prescribed by: EARL AVILA on 05/11/21 1442 Hydrocodone/Acetaminophen (Hydrocodone-Acetamin 7.5-325) 1 Each Tablet, 1 EACH PO Q6H PRN for PAIN-MODERATE (5-7) Prescribed by: EARL AVILA on 05/11/21 1442 Hydrocodone/Acetaminophen (Hydrocodone-Acetamin 5-325 mg) 1 Each Tablet, 1 TAB PO Q6H PRN for PAIN-MODERATE (5-7) Prescribed by: PING NAVAS on 05/17/21 1147 Hydrocodone/Acetaminophen (Hydrocodone-Acetamin 5-325 mg) 1 Each Tablet, 1 TAB PO Q4H PRN for PAIN-MODERATE (5-7) Prescribed by: FRANCINE DAVIES on 05/24/21 1836 Hydrocodone/Acetaminophen (Hydrocodone-Acetamin 5-325 mg) 1 Each Tablet, 1 TAB PO Q4H PRN for PAIN-MODERATE (5-7) Prescribed by: PING NAVAS on 06/05/21 1419 Ibuprofen (Ibuprofen) 200 Mg Tablet, 400-600 MG PO Q8H PRN for PAIN-MILD (1-4), (Reported) Entered as Reported by: USHA MAYO on 11/11/20 1111 Methylprednisolone (Methylprednisolone Dose Pack) 4 Mg Tab.ds.pk, 4 MG PO UD Prescribed by: PING NAVAS on 06/05/21 1419 Prednisone (Prednisone) 50 Mg Tab, 50 MG PO DAILY Prescribed by: EARL AVILA on 05/11/21 1442 Prednisone (Prednisone) 20 Mg Tab, 40 MG PO DAILY Prescribed by: FRANCINE DAVIES on 05/24/21 1835 Review of Systems Review of Systems Constitutional: see HPI EENTM: see HPI Respiratory: see HPI, cough Genitourinary: no symptoms reported Musculoskeletal: no symptoms reported Skin: no symptoms reported Psychiatric/Neurological: No Symptoms Reported Hematologic/Lymphatic: No Symptoms Reported Past Vbzfaus-Djknhg-Aatdmn Hx Patient Social History Tobacco Use?: No Smoking Status: Former Smoker Use of E-Cig and/or Vaping dev: No Substance use?: No Additional substance use comme: HX METH USE Alcohol Use?: No Immunizations Up To Date Tetanus Booster (TDap): Unknown PED Vaccines UTD: Yes Influenza Vaccine Up-to-Date: No; Not Current First/Initial COVID19 Vaccinat: 2020 Second COVID19 Vaccination Eleazar: 2020 COVID19 Vaccine Recruiter: LESLIE Seasonal Allergies Seasonal Allergies: No Past Medical History Surgery/Hospitalization HX: HEAR ATTACK 2021 Surgeries: No Tonsillectomy Respiratory: Yes Asthma, Pneumonia Currently Using CPAP: No Currently Using BIPAP: No Cardiac: Yes (Cardiac arrest status post CPR May 2021) Neurological: No Reproductive Disorders: No Sexually Transmitted Disease: No HIV/AIDS: No Genitourinary: No Gastrointestinal: Yes Gastroesophageal Reflux, Hepatitis, Gall Bladder Disease Musculoskeletal: Yes Chronic Back Pain, Fractures Endocrine: No HEENT: No Loss of Vision: Bilateral Hearing Impairment: Denies Cancer: No Psychosocial: Yes (Methamphetamine abuse) Integumentary: No Blood Disorders: No Adverse Reaction/Blood Tranf: No Family Medical History Completed stroke 19 FATHER, Onset:60 years & older Diabetes mellitus 19 FATHER FH: aneurysm 19 MOTHER FH: cancer 19 FATHER 19 MOTHER Pacemaker 19 MOTHER No Pertinent Family Hx Per records reviewed due to altered mental status Physical Exam Vital Signs - First Documented 06/05/21 06/05/21 13:08 13:48 Temp 36.8 Pulse 110 Resp 22 B/P (MAP) 128/85 (99) Pulse Ox 96 O2 Delivery Room Air Capillary Refill : Less Than 3 Seconds Height: 6'0" Weight: 165lbs. 0.0oz. [id number]; 32.00 BMI Method:Stated General Appearance: WD/WN, no apparent distress Eyes: Bilateral Eye Normal Inspection, Bilateral Eye PERRL, Bilateral Eye EOMI Neck: non-tender, full range of motion Respiratory: no respiratory distress, no accessory muscle use, decreased breath sounds, wheezing Cardiovascular: regular rate, rhythm, no murmur Gastrointestinal: normal bowel sounds, non tender 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: alert, normal mood/affect, oriented x 3 Skin: normal color, warm/dry Procedures/Interventions IV : Location: Left Site: Antecubital IV Catheter Type: Peripheral IV IV Catheter Gauge: 20 Date of ETT Placement: Apr 13, 2019 Time of ETT Placement: 2313 Progress/Results/Core Measures Suspected Sepsis SIRS Temperature: Pulse: 110 Respiratory Rate: 22 Laboratory Tests 06/05/21 13:35: White Blood Count 9.3 Blood Pressure 128 /85 Mean: 99 Laboratory Tests 06/05/21 13:35: Creatinine 0.88, Platelet Count 270, Total Bilirubin 0.3 Results/Orders Lab Results Laboratory Tests Test 06/05/21 13:35 Range/Units White Blood Count 9.3 4.3-11.0 10^3/uL Red Blood Count 4.06 L 4.30-5.52 10^6/uL Hemoglobin 12.2 L 13.3-17.7 g/dL Hematocrit 38 L 40-54 % Mean Corpuscular Volume 93 80-99 fL Mean Corpuscular Hemoglobin 30 25-34 pg Mean Corpuscular Hemoglobin Concent 32 32-36 g/dL Red Cell Distribution Width 12.2 10.0-14.5 % Platelet Count 270 130-400 10^3/uL Mean Platelet Volume 9.4 9.0-12.2 fL Immature Granulocyte % (Auto) 1 % Neutrophils (%) (Auto) 78 H 42-75 % Lymphocytes (%) (Auto) 10 L 12-44 % Monocytes (%) (Auto) 8 0-12 % Eosinophils (%) (Auto) 3 0-10 % Basophils (%) (Auto) 1 0-10 % Neutrophils # (Auto) 7.2 1.8-7.8 10^3/uL Lymphocytes # (Auto) 0.9 L 1.0-4.0 10^3/uL Monocytes # (Auto) 0.7 0.0-1.0 10^3/uL Eosinophils # (Auto) 0.2 0.0-0.3 10^3/uL Basophils # (Auto) 0.1 0.0-0.1 10^3/uL Immature Granulocyte # (Auto) 0.1 0.0-0.1 10^3/uL Sodium Level 140 135-145 MMOL/L Potassium Level 4.2 3.6-5.0 MMOL/L Chloride Level 106 98-107 MMOL/L Carbon Dioxide Level 23 21-32 MMOL/L Anion Gap 11 5-14 MMOL/L Blood Urea Nitrogen 17 7-18 MG/DL Creatinine 0.88 0.60-1.30 MG/DL Estimat Glomerular Filtration Rate 102 BUN/Creatinine Ratio 19 Glucose Level 94 70-105 MG/DL Calcium Level 9.1 8.5-10.1 MG/DL Corrected Calcium 8.9 8.5-10.1 MG/DL Total Bilirubin 0.3 0.1-1.0 MG/DL Aspartate Amino Transf (AST/SGOT) 18 5-34 U/L Alanine Aminotransferase (ALT/SGPT) 27 0-55 U/L Alkaline Phosphatase 70 40-136 U/L B-Type Natriuretic Peptide < 10.0 <100.0 PG/ML Total Protein 6.9 6.4-8.2 GM/DL Albumin 4.2 3.2-4.5 GM/DL My Orders Orders - PING NAVAS APRN Cbc With Automated Diff (06/05/21 13:27) Bnp [place] (06/05/21 13:27) Comprehensive Metabolic Panel (06/05/21 13:27) Ed Iv/Invasive Line Start (06/05/21 13:27) Chest 1 View, Ap/Pa Only (06/05/21 13:27) Albuterol/Ipra Inhalation Soln (Duoneb I (06/05/21 13:42) Coronavirus Sars-Cov-2 So 2019 (06/05/21 14:20) Medications Given in ED Current Medications Medications Dose Ordered Sig/Cecilia Route Start Time Stop Time Status Last Admin Dose Admin Albuterol/ Ipratropium 3 ml STK-MED ONCE .ROUTE 06/05/21 13:42 06/05/21 13:44 DC 06/05/21 13:48 3 ML Vital Signs/I&O 06/05/21 06/05/21 13:08 13:48 Temp 36.8 Pulse 110 Resp 22 B/P (MAP) 128/85 (99) Pulse Ox 96 O2 Delivery Room Air Room Air Capillary Refill : Less Than 3 Seconds Blood Pressure Mean: 99 Departure Communication (Admissions) NAME: CAROL PARIKH [facility] REC#: [id number] PT STATUS: REG ER : 1965 PHYSICIAN: PING NAVAS APRN ADMIT DATE: 06/05/21/ER Draft Date of Exam:06/05/21 CHEST 1 VIEW, AP/PA ONLY Indication: Dyspnea and chest pain. Comparison: 05/24/2021. Discussion: Single portable upright view of the chest was obtained. Improved aeration of the lungs with resolving prior infiltrates. No new consolidation. No pleural fluid or pneumothorax. Normal heart size. No osseous abnormality. Impression: 1. Resolving pulmonary infiltrates. Dictated on workstation # [id number] Dict: 06/05/21 1350 Trans: 06/05/21 1402 [facility] [id number] Interpreted by: SCARLETT GREENE MD Electronically signed by: Impression Primary Impression: Chest wall pain Additional Impression: COPD (chronic obstructive pulmonary disease) Disposition: HOME, SELF-CARE Condition: Stable Departure-Patient Inst. Decision time for Depature: 14:15 Referrals: [facility] (PCP/Family) Primary Care Physician Patient Instructions: COPD Exacerbation, Adult ED Add. Discharge Instructions: 1. Steroids as directed along with an antibiotic. Return to ER for any concerns. Follow-up with your doctor next week. All discharge instructions reviewed with patient and/or family. Voiced understanding. Scripts Hydrocodone/Acetaminophen (Hydrocodone-Acetamin 5-325 mg) 1 Each Tablet 1 TAB PO Q4H PRN for PAIN-MODERATE (5-7), #10 TAB . Prov: PING NAVAS APRN 06/05/21 Cefuroxime Axetil (Cefuroxime) 250 Mg Tablet 250 MG PO BID, #10 TAB . Prov: PING NAVAS APRN 06/05/21 Methylprednisolone (Methylprednisolone Dose Pack) 4 Mg Tab.ds.pk 4 MG PO UD for 6 Days, #21 PKG PER DOSE PACK INSTRUCTIONS. Prov: PING NAVAS APRN 06/05/21 PING NAVAS APRN Jun 05, 2021 13:41
[2021-06-05] MEDS ORDERED: RT-ALBUTEROL/IPRATROPIUM 3 ML (DUONEB) VIAL ONE (13:42)
[2021-06-05 13:44] LABS: BASOPHILS # (AUTO) 0.1 10^3/uL (0.0-0.1); BASOPHILS % (AUTO) 1 % (0-10); EOSINOPHILS # (AUTO) 0.2 10^3/uL (0.0-0.3); EOSINOPHILS % (AUTO) 3 % (0-10); HEMATOCRIT 38 % (40-54); HEMOGLOBIN 12.2 g/dL (13.3-17.7); LYMPHOCYTES # (AUTO) 0.9 10^3/uL (1.0-4.0); LYMPHOCYTES % (AUTO) 10 % (12-44); MEAN CORPUSCULAR HEMOGLOBIN 30 pg (25-34); MEAN CORPUSCULAR HGB CONC 32 g/dL (32-36); MEAN CORPUSCULAR VOLUME 93 fL (80-99); MEAN PLATELET VOLUME 9.4 fL (9.0-12.2); MONOCYTES # (AUTO) 0.7 10^3/uL (0.0-1.0); MONOCYTES % (AUTO) 8 % (0-12); NEUTROPHILS # (AUTO) 7.2 10^3/uL (1.8-7.8); NEUTROPHILS % (AUTO) 78 % (42-75); PLATELET COUNT 270 10^3/uL (130-400); WHITE BLOOD COUNT 9.3 10^3/uL (4.3-11.0)
[2021-06-05 14:03] LABS: ALBUMIN 4.2 GM/DL (3.2-4.5); BILIRUBIN,TOTAL 0.3 MG/DL (0.1-1.0); CALCIUM 9.1 MG/DL (8.5-10.1); CREATININE SERUM 0.88 MG/DL (0.60-1.30); POTASSIUM 4.2 MMOL/L (3.6-5.0); TOTAL PROTEIN 6.9 GM/DL (6.4-8.2)
--- NOTE | 2021-06-05 14:03 | Diagnostic Imaging Report ---
Indication: Dyspnea and chest pain. Comparison: 05/24/2021. Discussion: Single portable upright view of the chest was obtained. Improved aeration of the lungs with resolving prior infiltrates. No new consolidation. No pleural fluid or pneumothorax. Normal heart size. No osseous abnormality. Impression: 1. Resolving pulmonary infiltrates. Dictated by: Dictated on workstation # [id number]
[2021-06-05] MEDS ORDERED: METH4TAB10 PO ×2 (14:19→14:25)
[2021-06-05] MEDS ORDERED: ACHD5005 PO ×2 (14:19→14:25)
[2021-06-05] MEDS ORDERED: CEFU250T80 PO ×2 (14:19→14:25)
[2021-06-05 14:36] VITALS: BP 144/88
== END 2021-06-05 14:30 | disposition home or self-care (01) ==
LOC: EDUNIT# 13:03 → ER 13:04
DX: U07.1 COVID-19 (principal); J44.9 Chronic obstructive pulmonary disease, unspecified; G89.29 Other chronic pain; M54.9 Dorsalgia, unspecified; Z87.891 Personal history of nicotine dependence; Z79.01 Long term (current) use of anticoagulants; Z79.891 Long term (current) use of opiate analgesic
CPT/HCPCS: 36415; 71045; 80053; 83880; 85025; 87635; 93005; 94640

== ENCOUNTER → 2021-07-25 | Outpatient (CLI) | payer SELFPAY ==
[~2021-07-25] MED LIST changes: +CATHETER FLUSH 10 ML SYR IV PRN; +CEFU250T80 PO; +HOLD METFORMIN - RECEIVED CONTRAST 20 ML VIAL IV SCH; +IOHEXOL 350 MG/ML 100 ML (OMNIPAQUE 350) VIAL IV ONE; +METH4TAB10 PO; +NS 100 ML (IVPB) BAG IV ONE
[2021-07-25 09:27] LABS: CREATININE SERUM 0.94 MG/DL (0.60-1.30)
--- NOTE | 2021-07-25 10:57 | Diagnostic Imaging Report ---
EXAMINATION: CT angiography of the chest. TECHNIQUE: Contrast enhanced thin section helical images were obtained through the chest with intravenous contrast timed for the optimal opacification of the arterial structures per CTA protocol. Post-processing, reconstructions and interpretation of angiographic images of the vessels was performed. 3D MIP reconstructions were performed and reviewed. All CT scans use one or more of the following dose optimizing techniques: automated exposure control, MA and/or KvP adjustment based on a patient size and exam type, or iterative reconstruction. HISTORY: HX OF PULMONARY EMBOLUS COMPARISON: 05/22/2021 FINDINGS: Vascular: No filling defects within the pulmonary arteries. Thoracic aorta is normal in caliber. Thyroid: The thyroid is normal. Mediastinum: Heart size is normal without significant pericardial effusion. No suspicious lymphadenopathy. Lungs and airways: The lungs are clear without consolidation, pleural effusion, or pneumothorax. The airways are normal. Upper abdomen: The subphrenic structures are normal. Musculoskeletal: No suspicious osseous lesion or compression fracture. Chronic left rib fracture. IMPRESSION: 1. No findings of pulmonary embolus on today's exam. Previously seen pulmonary emboli have resolved. 2. No other acute abnormality in the chest. Dictated by: Dictated on workstation # [id number]
== END ==
LOC: CARD 09:00
PROVIDERS: ATTEND Internal Medicine Cardiovascular Disease
DX: R06.09 Other forms of dyspnea (principal); Z86.711 Personal history of pulmonary embolism
CPT/HCPCS: 36415; 71275; 82565; 84520; 93306

== ENCOUNTER → 2021-09-20 | Outpatient (CLI) | payer SELFPAY ==
[~2021-09-20] MED LIST changes: -CATHETER FLUSH 10 ML SYR IV PRN; -HOLD METFORMIN - RECEIVED CONTRAST 20 ML VIAL IV SCH; -IOHEXOL 350 MG/ML 100 ML (OMNIPAQUE 350) VIAL IV ONE; -NS 100 ML (IVPB) BAG IV ONE; +RT-ALBUTEROL SULF 2.5 MG/3 ML PRE-MIX VIAL INH ONE
== END ==
LOC: RT 14:15
PROVIDERS: ATTEND Nurse Practitioner Family
DX: R06.02 Shortness of breath (principal)
CPT/HCPCS: 94060; 94726; 94729

== ENCOUNTER → 2021-10-06 | Outpatient (CLI) | payer OTHER ==
[~2021-10-06] MED LIST changes: +CATHETER FLUSH 10 ML SYR IVP PRN; -RT-ALBUTEROL SULF 2.5 MG/3 ML PRE-MIX VIAL INH ONE
[2021-10-06 09:29] VITALS: BP 138/67
--- NOTE | 2021-10-06 12:57 | NUCLEAR STRESS TEST ---
TREADMILL NUCLEAR STRESS TEST Date of procedure: 10/06/2021. Primary care provider: [facility]. Admitting physician: Paulo Vila Jr., MD. INDICATION: History of cardiac arrest. BASELINE ELECTROCARDIOGRAM: Sinus rhythm, normal tracing. STRESS TEST PROCEDURE: The patient was exercised for a total of 6 minutes and 5 seconds of the standard Lewis protocol achieving a maximum MET level of 7.1. The resting heart rate was 77 bpm and the peak heart rate was 149 bpm, which represents 89% of the maximum predicted heart rate. The resting blood pressure was 153/76 mmHg and the peak blood pressure was 224/89 mmHg. This represents a normal heart rate and a hypertensive blood pressure response to exercise. The test was stopped due to target heart rate attained. There was no chest discomfort during the test. There were no arrhythmias during the test. There were no significant stress induced electrocardiogram changes. The patient exhibited fair exercise capacity for age. NUCLEAR PROCEDURE: The patient was administered 10.1 mCi of intravenous technetium 99m Tetrofosmin at rest for the rest images. The patient was subsequently administered 30.5 mCi of intravenous technetium 99 M Tetrofosmin at peak stress for the stress images. Following an appropriate wait after each injection, imaging was obtained. The images were subsequently processed and reformatted in the usual views. Gated imaging was obtained. The image quality was adequate with a mild degree of gastrointestinal attenuation artifact. CT attenuation correction was used as a adjunct to standard imaging. Both the corrected and uncorrected images were reviewed for interpretation. NUCLEAR RESULTS: There was normal myocardial perfusion in all segments without evidence of infarction or ischemia. There was normal left ventricular chamber size with an end-diastolic volume of 81 mL and an end-systolic volume of 21 mL. There was no evidence of transient ischemic dilatation. The TID ratio was 0.95. There was normal wall motion in all segments with a calculated ejection fraction of 62%. IMPRESSION: 1. Normal heart rate and a hypertensive blood pressure response to exercise. 2. There was no chest discomfort, arrhythmias, or electrocardiogram changes during the test. 3. The patient exhibited fair exercise capacity for age at 6 minutes and 5 seconds of the Lewis protocol. 4. There was normal myocardial perfusion in all segments without evidence of infarction or ischemia. 5. There was normal wall motion in all segments with a calculated ejection fraction of 62%. Certain portions of this document may have been dictated utilizing voice recognition technology. Inherent to this technology, typographical and grammatical errors may exist. As much as I am diligent to identify and correct these mistakes, some errors may remain in the document. PAULO VILA JR, MD Oct 06, 2021 12:57
== END ==
LOC: CARD 08:30
PROVIDERS: ATTEND Internal Medicine Cardiovascular Disease
DX: Z86.74 Personal history of sudden cardiac arrest (principal)
CPT/HCPCS: 78452; 93017; A9502

== ENCOUNTER 2021-10-14 08:50 | Emergency (ER) | payer OTHER ==
[~2021-10-14] VITALS: Ht 180.3 cm; Wt 118.4 kg
[~2021-10-14 08:50] MED LIST changes: -CATHETER FLUSH 10 ML SYR IVP PRN
--- NOTE | 2021-10-14 09:22 | ED General ---
General Chief Complaint: Respiratory Problems Stated Complaint: SWELLING IN FEET AND HANDS Source of Information: Patient, EMS Exam Limitations: No Limitations History of Present Illness Date Seen by Provider: Oct 14, 2021 Time Seen by Provider: 09:05 Initial Comments Patient is a 56-year-old male who presents to the emergency department today with a chief complaint of swelling in his hands and feet. Patient states he noticed the swelling a little bit yesterday especially in the right hand and right foot. He states he is not really more short of breath than usual. His appetites been good he has been peeing normal amounts. No history of kidney issues that he is aware of. No recent fevers or chills. He has a history of COPD. He has had pulmonary function studies as well as a cardiac stress test within the last few weeks. He states when he initially woke up his right foot was hurting from the swelling. No fevers, chills, rashes. He has a history of pulmonary embolism and cardiac arrest in May of this year. No chest pain. No recent tick bites or mosquito bites. No excessive use of NSAIDs per his report. He has been out of his inhalers for couple of days. He states he has not smoked in a year. All other review of systems reviewed and negative except as stated. Timing/Duration: 12-24 Hours Severity: Moderate Associated Systoms: Other (swelling) Allergies and Home Medications Allergies Coded Allergies: diphenhydramine (Verified Allergy, Unknown, 02/27/20) Patient Home Medication List Home Medication List Reviewed: Yes Acetaminophen (Tylenol Extra Strength) 500 Mg Tablet, 1,000 MG PO Q8H PRN for PAIN-MILD (1-4), (Reported) Entered as Reported by: USHA MAYO on 11/11/20 1111 Albuterol Sulfate (Albuterol Sulfate) 2.5 Mg/3 Ml Vial.neb, 2.5 MG INH Q4H PRN for WHEEZING Prescribed by: FRANCINE DAVIES on 05/24/21 1835 Apixaban (Eliquis) 5 Mg Tablet, 5 MG PO BID Prescribed by: OSMANY WLALS on 05/22/21 1040 Cefuroxime Axetil (Cefuroxime) 250 Mg Tablet, 250 MG PO BID Prescribed by: PING NAVAS on 06/05/21 1425 Doxycycline Hyclate (Doxycycline Hyclate) 100 Mg Tablet.dr, 100 MG PO BID Prescribed by: EARL AVILA on 05/11/21 1442 Hydrocodone/Acetaminophen (Hydrocodone-Acetamin 7.5-325) 1 Each Tablet, 1 EACH PO Q6H PRN for PAIN-MODERATE (5-7) Prescribed by: EARL AVILA on 05/11/21 1442 Hydrocodone/Acetaminophen (Hydrocodone-Acetamin 5-325 mg) 1 Each Tablet, 1 TAB PO Q6H PRN for PAIN-MODERATE (5-7) Prescribed by: PING NAVAS on 05/17/21 1147 Hydrocodone/Acetaminophen (Hydrocodone-Acetamin 5-325 mg) 1 Each Tablet, 1 TAB PO Q4H PRN for PAIN-MODERATE (5-7) Prescribed by: FRANCINE DAVIES on 05/24/21 1836 Hydrocodone/Acetaminophen (Hydrocodone-Acetamin 5-325 mg) 1 Each Tablet, 1 TAB PO Q4H PRN for PAIN-MODERATE (5-7) Prescribed by: PING NAVAS on 06/05/21 1425 Ibuprofen (Ibuprofen) 200 Mg Tablet, 400-600 MG PO Q8H PRN for PAIN-MILD (1-4), (Reported) Entered as Reported by: SUHA MAYO on 11/11/20 1111 Methylprednisolone (Methylprednisolone Dose Pack) 4 Mg Tab.ds.pk, 4 MG PO UD Prescribed by: PING NAVAS on 06/05/21 1425 Prednisone (Prednisone) 50 Mg Tab, 50 MG PO DAILY Prescribed by: EARL AVILA on 05/11/21 1442 Prednisone (Prednisone) 20 Mg Tab, 40 MG PO DAILY Prescribed by: FRANCINE DAVIES on 05/24/21 1835 Review of Systems Review of Systems Constitutional: see HPI EENTM: no symptoms reported Respiratory: short of breath (chronic) Cardiovascular: no symptoms reported Gastrointestinal: no symptoms reported Genitourinary: no symptoms reported Musculoskeletal: neck pain (chronic; swelling in hands and feet) Skin: no symptoms reported Psychiatric/Neurological: No Symptoms Reported All Other Systems Reviewed Negative Unless Noted: Yes Past Catxqfh-Wlkjed-Dkaynk Hx Patient Social History Tobacco Use?: Yes Tobacco type used: Cigarettes Smoking Status: Former Smoker Use of E-Cig and/or Vaping dev: No Substance use?: Yes Substance type: Methamphetamine, Other Additional substance use comme: street fentanyl Substance frequency: Several times a month Alcohol Use?: No Pt feels they are or have been: No Immunizations Up To Date Tetanus Booster (TDap): Unknown PED Vaccines UTD: Yes Influenza Vaccine Up-to-Date: Yes; Up-to-Date First/Initial COVID19 Vaccinat: 2020 Second COVID19 Vaccination Eleazar: 2020 Third COVID19 Vaccination Date: 2020 Seasonal Allergies Seasonal Allergies: No Past Medical History Surgery/Hospitalization HX: HEAR ATTACK 2021 Surgeries: No Tonsillectomy Respiratory: Yes Asthma, Pneumonia Currently Using CPAP: No Currently Using BIPAP: No Cardiac: Yes (Cardiac arrest status post CPR May 2021) Neurological: No Reproductive Disorders: No Sexually Transmitted Disease: No HIV/AIDS: No Genitourinary: No Gastrointestinal: Yes Gastroesophageal Reflux, Hepatitis, Gall Bladder Disease Musculoskeletal: Yes Chronic Back Pain, Fractures Endocrine: No HEENT: No Loss of Vision: Bilateral Hearing Impairment: Denies Cancer: No Psychosocial: Yes (Methamphetamine abuse) Integumentary: No Blood Disorders: No Adverse Reaction/Blood Tranf: No Family Medical History Completed stroke 19 FATHER, Onset:60 years & older Diabetes mellitus 19 FATHER FH: aneurysm 19 MOTHER FH: cancer 19 FATHER 19 MOTHER Pacemaker 19 MOTHER No Pertinent Family Hx Per records reviewed due to altered mental status Physical Exam Vital Signs Vital Signs - First Documented 10/14/21 09:17 Temp 35.9 Pulse 88 Resp 20 B/P (MAP) 117/66 (83) Pulse Ox 97 O2 Delivery Room Air Capillary Refill : Height, Weight, BMI Height: 6'0" Weight: 165lbs. 0.0oz. [id number]; 32.00 BMI Method:Stated General Appearance: No Apparent Distress, WD/WN Procedures/Interventions Date of ETT Placement: Apr 13, 2019 Time of ETT Placement: 2314 Progress/Results/Core Measures Suspected Sepsis SIRS Temperature: Pulse: Respiratory Rate: Laboratory Tests 10/14/21 09:10: White Blood Count 7.1 Blood Pressure / Mean: Laboratory Tests 10/14/21 09:10: Creatinine 1.45H, Platelet Count 282, Total Bilirubin 0.4 Results/Orders Lab Results Laboratory Tests Test 10/14/21 09:10 10/14/21 10:19 Range/Units White Blood Count 7.1 4.3-11.0 10^3/uL Red Blood Count 3.75 L 4.30-5.52 10^6/uL Hemoglobin 11.2 L 13.3-17.7 g/dL Hematocrit 35 L 40-54 % Mean Corpuscular Volume 92 80-99 fL Mean Corpuscular Hemoglobin 30 25-34 pg Mean Corpuscular Hemoglobin Concent 33 32-36 g/dL Red Cell Distribution Width 12.7 10.0-14.5 % Platelet Count 282 130-400 10^3/uL Mean Platelet Volume 9.8 9.0-12.2 fL Immature Granulocyte % (Auto) 0 % Neutrophils (%) (Auto) 63 42-75 % Lymphocytes (%) (Auto) 18 12-44 % Monocytes (%) (Auto) 13 H 0-12 % Eosinophils (%) (Auto) 6 0-10 % Basophils (%) (Auto) 1 0-10 % Neutrophils # (Auto) 4.4 1.8-7.8 10^3/uL Lymphocytes # (Auto) 1.2 1.0-4.0 10^3/uL Monocytes # (Auto) 0.9 0.0-1.0 10^3/uL Eosinophils # (Auto) 0.4 H 0.0-0.3 10^3/uL Basophils # (Auto) 0.0 0.0-0.1 10^3/uL Immature Granulocyte # (Auto) 0.0 0.0-0.1 10^3/uL Sodium Level 138 135-145 MMOL/L Potassium Level 3.7 3.6-5.0 MMOL/L Chloride Level 104 98-107 MMOL/L Carbon Dioxide Level 24 21-32 MMOL/L Anion Gap 10 5-14 MMOL/L Blood Urea Nitrogen 18 7-18 MG/DL Creatinine 1.45 H 0.60-1.30 MG/DL Estimat Glomerular Filtration Rate 57 BUN/Creatinine Ratio 12 Glucose Level 99 70-105 MG/DL Calcium Level 8.7 8.5-10.1 MG/DL Corrected Calcium 8.7 8.5-10.1 MG/DL Total Bilirubin 0.4 0.1-1.0 MG/DL Aspartate Amino Transf (AST/SGOT) 43 H 5-34 U/L Alanine Aminotransferase (ALT/SGPT) 31 0-55 U/L Alkaline Phosphatase 76 40-136 U/L Total Protein 6.8 6.4-8.2 GM/DL Albumin 4.0 3.2-4.5 GM/DL Urine Color YELLOW Urine Clarity CLEAR Urine pH 6.0 5-9 Urine Specific [place] >=1.030 1.016-1.022 Urine Protein TRACE H NEGATIVE Urine Glucose (UA) NEGATIVE NEGATIVE Urine Ketones NEGATIVE NEGATIVE Urine Nitrite NEGATIVE NEGATIVE Urine Bilirubin NEGATIVE NEGATIVE Urine Urobilinogen 0.2 < = 1.0 MG/DL Urine Leukocyte Esterase NEGATIVE NEGATIVE Urine RBC (Auto) NEGATIVE NEGATIVE Urine RBC NONE /HPF Urine WBC 2-5 /HPF Urine Squamous Epithelial Cells RARE /HPF Urine Crystals NONE /LPF Urine Bacteria TRACE /HPF Urine Casts PRESENT /LPF Urine Hyaline Casts 2-5 H /LPF Urine Mucus SMALL H /LPF Urine Culture Indicated NO My Orders Orders - EARL AVILA MD Cbc With Automated Diff (10/14/21 09:25) Comprehensive Metabolic Panel (10/14/21 09:25) Ua Culture If Indicated (10/14/21 09:25) Albuterol Pre-Mix Nebs (Rt) (Proventil (10/14/21 10:00) Acetaminophen Tablet (Tylenol Tablet) (10/14/21 10:00) Svn Small Volume Nebulizer (10/14/21 09:51) Medications Given in ED Current Medications Medications Dose Ordered Sig/Cecilia Route Start Time Stop Time Status Last Admin Dose Admin Acetaminophen 1,000 mg ONCE ONCE PO 10/14/21 10:00 10/14/21 10:01 DC 10/14/21 10:15 1,000 MG Albuterol Sulfate 2.5 mg ONCE ONCE INH 10/14/21 10:00 10/14/21 10:01 DC 10/14/21 10:17 2.5 MG Vital Signs/I&O 10/14/21 10/14/21 09:17 10:17 Temp 35.9 Pulse 88 Resp 20 B/P (MAP) 117/66 (83) Pulse Ox 97 98 O2 Delivery Room Air Room Air Capillary Refill : Progress Note : Time: 11:12 Progress Note Patient reassessed, resting comfortably, vital signs are stable. No signs of congestive heart failure on physical exam other than the edema in his feet and hands. His creatinine is a little bit elevated today, consistent with likely some chronic kidney disease. His urine is quite concentrated implying that he is a little bit overall volume depleted. I recommended that he increase his water intake which may increase his kidney function and he can mobilize the fluid. I talked to him about return precautions. He states that he has a follow-up appointment he thinks scheduled with his primary care doctor next week. I encouraged him to keep this appointment. We talked about other reasons to come back to the emergency department he is comfortable with plan of care. All questions are sought and answered. Departure Impression Primary Impression: Peripheral edema Additional Impressions: Acute kidney injury Dehydration Disposition: 01 HOME, SELF-CARE Condition: Stable Departure-Patient Inst. Decision time for Depature: 11:17 [address]: [facility] [place] Primary Care Physician Patient Instructions: Acute Kidney Injury (DC), Dehydration, Adult ED Add. Discharge Instructions: You need to drink more water which will in turn wake up your kidneys and allow them to function better to move the fluid from your joints. Try and stay active. But while you are at rest elevate your feet to reduce the swelling. Continue your daily medications. Follow-up with your primary care doctor as scheduled next week. Return to the emergency department for any worsening symptoms especially if you have worsening shortness of breath, chest pain or any other emergent concerning symptoms. Copy Copies To 1: PAOLA PEDRAZA KATHRYN M MD Oct 14, 2021 09:22
[2021-10-14 09:31] LABS: BASOPHILS % (AUTO) 1 % (0-10); EOSINOPHILS # (AUTO) 0.4 10^3/uL (0.0-0.3); EOSINOPHILS % (AUTO) 6 % (0-10); HEMATOCRIT 35 % (40-54); HEMOGLOBIN 11.2 g/dL (13.3-17.7); LYMPHOCYTES # (AUTO) 1.2 10^3/uL (1.0-4.0); LYMPHOCYTES % (AUTO) 18 % (12-44); MEAN CORPUSCULAR HEMOGLOBIN 30 pg (25-34); MEAN CORPUSCULAR HGB CONC 33 g/dL (32-36); MEAN CORPUSCULAR VOLUME 92 fL (80-99); MEAN PLATELET VOLUME 9.8 fL (9.0-12.2); MONOCYTES # (AUTO) 0.9 10^3/uL (0.0-1.0); MONOCYTES % (AUTO) 13 % (0-12); NEUTROPHILS # (AUTO) 4.4 10^3/uL (1.8-7.8); NEUTROPHILS % (AUTO) 63 % (42-75); PLATELET COUNT 282 10^3/uL (130-400); WHITE BLOOD COUNT 7.1 10^3/uL (4.3-11.0)
[2021-10-14 09:34] LABS: POTASSIUM 3.7 MMOL/L (3.6-5.0)
[2021-10-14 09:35] LABS: CALCIUM 8.7 MG/DL (8.5-10.1)
[2021-10-14 09:36] LABS: TOTAL PROTEIN 6.8 GM/DL (6.4-8.2)
[2021-10-14 09:38] LABS: BILIRUBIN,TOTAL 0.4 MG/DL (0.1-1.0)
[2021-10-14 09:40] LABS: CREATININE SERUM 1.45 MG/DL (0.60-1.30)
[2021-10-14] MEDS ORDERED: ACETAMINOPHEN 500 MG TAB (TYLENOL) PO ONE (10:00)
[2021-10-14] MEDS ORDERED: RT-ALBUTEROL SULF 2.5 MG/3 ML PRE-MIX VIAL INH ONE (10:00)
[2021-10-14 10:40] LABS: BILIRUBIN,URINE NEGATIVE (NEGATIVE); CLARITY,URINE CLEAR; COLOR,URINE YELLOW; GLUCOSE, URINE (UA) NEGATIVE (NEGATIVE); KETONES,URINE NEGATIVE (NEGATIVE); LEUKOCYTE ESTERASE ,URINE NEGATIVE (NEGATIVE); NITRITE,URINE NEGATIVE (NEGATIVE); PROTEIN,URINE TRACE (NEGATIVE)
[2021-10-14 10:49] LABS: BACTERIA,URINE TRACE /HPF; SQUAMOUS EPITHELIAL CELL,UR RARE /HPF
[2021-10-14 11:27] VITALS: BP 132/85
== END 2021-10-14 11:34 | disposition home or self-care (01) ==
LOC: EDUNIT# 08:50 → ER 08:52
DX: R60.0 Localized edema (principal); N17.9 Acute kidney failure, unspecified; E86.0 Dehydration; R94.4 Abnormal results of kidney function studies; Z87.891 Personal history of nicotine dependence
CPT/HCPCS: 36415; 80053; 81000; 85025; 94640; 99283

== ENCOUNTER 2023-02-05 03:02 | Observation (INO) | payer MEDICAID ==
[~2023-02-05] VITALS: Ht 171 cm; Wt 86.8 kg
[2023-02-05] VITALS (9 sets, daily range): BP systolic 106–203; BP diastolic 66–109
[2023-02-05] MEDS ORDERED: LACTATED RINGERS 1,000 ML 1,000 ML IV ONE ×2 (03:15→04:45)
[2023-02-05] MEDS ORDERED: ONDANSETRON INJECTION 4 MG/2 ML (SDV) IVP ONE ×2 (03:15→09:15)
--- NOTE | 2023-02-05 03:35 | ED GI ---
General Chief Complaint: Abdominal/GI Problems Stated Complaint: VOMTING FOR 3 DAYS Nursing Triage Note: patient states vomitting x3 days. states has not done anything to treat the vomitting. complaint of abd pain Source of Information: Patient, Old Records (ANNETTE GONZALEZ ) History of Present Illness Date Seen by Provider: Feb 05, 2023 Time Seen by Provider: 03:10 Initial Comments PT ARRIVES VIA POV FROM HOME C/O NAUSEA AND VOMITING AND UPPER ABDOMINAL PAIN X 3 DAYS STATES HE HAS VOMITED "20-30 TIMES" --HE STATES HE CAN'T KEEP WATER DOWN, AND TRIED TO EAT BREAD AND IT WOULD NOT STAY DOWN HIS LAST BM WAS 3 DAYS AGO HE HAS BEEN VOIDING A NORMAL AMOUNT AND NO URINARY SYMPTOMS HE THINKS HE HAS HAD FEVER, BUT HAS NOT CHECKED HIS TEMPERATURE HE HAS NOT SOUGHT CARE UNTIL TONIGHT SYMPTOMS NO DIFFERENT TONIGHT HE HAS NOT TAKEN ANYTHING FOR SYMPTOMS HE HAS HAD THIS SAME PROBLEM BEFORE "A FEW TIMES" BUT HAS NO IDEA WHAT HE WAS DX WITH. HE DENIES ANY PRIOR ABDOMINAL SURGERIES HE STATES HE TAKES NO MEDICATIONS AND STATES HE DOESN'T HAVE ANY MEDICAL PROBLEMS PER OLD RECORDS, PT HAD CARDIOPULMONARY ARREST IN 2021 HE ALSO HAS HISTORY OF HTN AND PULMONARY EMBOLUS ON PRIOR VISITS, HE HAS BEEN DX WITH COLITIS, IBS PT SMOKES 1 PPD PT WITH HISTORY OF ALCOHOL ABUSE--STATES HE USED TO DRINK "ALOT" BUT WILL NOT ELABORATE HOW MUCH HE USED TO DRINK . STATES HE HAS NOT HAD ANY ALCOHOL "FOR 15 OR 20 YEARS" PT ALSO HAS EXTENSIVE HISTORY OF DRUG USE, ESPECIALLY IV METHAMPHETAMINE USE, HE DENIES RECENT USE PT DOES NOT KNOW IF HE HAS BEEN TESTED FOR HEPATITIS OR HIV ( PER OLD RECORDS, PT TESTED + FOR HEPATITIS C IN 2015 ) NO RECORDED HIV TESTING HERE (ANNETTE GONZAELZ DO) Allergies and Home Medications Allergies Coded Allergies: diphenhydramine (Verified Allergy, Unknown, 02/27/20) Patient Home Medication List Home Medication List Reviewed: Yes (MABLE REN MD) No Active Prescriptions or Reported Meds Review of Systems Review of Systems Constitutional: see HPI, fever Respiratory: Denies Cough, Denies Shortness of Air Cardiovascular: No Symptoms Reported Gastrointestinal: Abdominal Pain, Nausea, Vomiting Genitourinary: No Symptoms Reported Musculoskeletal: no symptoms reported (MABLE REN MD) Past Yqtxeqb-Zfzknf-Aofvam Hx Patient Social History Tobacco Use?: Yes Tobacco type used: Cigarettes Substance use?: Yes Substance type: Amphetamines, Methamphetamine, Opiates/Opioids, Misuse of prescript meds, Marijuana Alcohol Use?: Yes (ANNETTE GONZALEZ DO) Immunizations Up To Date Tetanus Booster (TDap): Unknown PED Vaccines UTD: Yes First/Initial COVID19 Vaccinat: 2020 Second COVID19 Vaccination Eleazar: 2020 Third COVID19 Vaccination Date: 2020 (ANNETTE GONZALEZ DO) Seasonal Allergies Seasonal Allergies: No (ANNETTE GONZALEZ DO) Past Medical History Surgery/Hospitalization HX: CARDIOPULMONARY ARREST 2021 Surgeries: Yes (DEBRIDEMENT LEFT FOREARM DUE TO IV DRUG USE) Tonsillectomy Respiratory: Yes Asthma, Pneumonia, Pulmonary Embolism Currently Using CPAP: No Currently Using BIPAP: No Cardiac: Yes (Cardiac arrest status post CPR May 2021) Neurological: No Reproductive Disorders: No Sexually Transmitted Disease: No HIV/AIDS: No Genitourinary: No Gastrointestinal: Yes (HEP C--NO TREATMENT) Gastroesophageal Reflux, Hepatitis, Gall Bladder Disease Musculoskeletal: Yes Chronic Back Pain, Fractures Endocrine: No HEENT: Yes (POOR DENTITION) Loss of Vision: Bilateral Hearing Impairment: Denies Cancer: No Psychosocial: Yes (IV DRUG USE/METH USE;POLYSUBSTANCE ABUSE) Integumentary: Yes (DEBRIDEMENT LEFT FOREARM DUE TO IV DRUG USE) Blood Disorders: No Adverse Reaction/Blood Tranf: No (ANNETTE GONZALEZ DO) Family Medical History Completed stroke 19 FATHER, Onset:60 years & older Diabetes mellitus 19 FATHER FH: aneurysm 19 MOTHER FH: cancer 19 FATHER 19 MOTHER Pacemaker 19 MOTHER No Pertinent Family Hx SOCIAL HISTORY: PT SMOKES 1 PPD PT WITH HISTORY OF ALCOHOL ABUSE--STATES HE USED TO DRINK "ALOT" BUT WILL NOT ELABORATE HOW MUCH HE USED TO DRINK . STATES HE HAS NOT HAD ANY ALCOHOL "FOR 15 OR 20 YEARS" PT ALSO HAS EXTENSIVE HISTORY OF DRUG USE, ESPECIALLY IV METHAMPHETAMINE USE, HE DENIES RECENT USE PT DOES NOT KNOW IF HE HAS BEEN TESTED FOR HEPATITIS OR HIV ( PER OLD RECORDS, PT TESTED + FOR HEPATITIS C IN 2016 ) NO RECORDED HIV TESTING HERE (ANNETTE GONZALEZ DO) Physical Exam Vital Signs Vital Signs - First Documented 02/05/23 03:10 Temp 37.4 Pulse 83 Resp 20 B/P (MAP) 203/101 (135) Pulse Ox 98 O2 Delivery Room Air (MABLE REN MD) Vital Signs Capillary Refill : Less Than 3 Seconds (ANNETTE GONZALEZ DO) Height/Weight/BMI Height: 6'0" Weight: 165lbs. 0.0oz. [id number]; 28.00 BMI Method:Stated General Appearance: WD/WN, no apparent distress, other (UNEKMPT, MALODOROUS. KEEPS EYES CLOSED. PT WITH AUDIBLE WHEEZING WHEN LAYING FLAT--PT STATES HE IS ALWAYS SHORT OF BREATH AND WHEEZES. 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 PT HAS OLD SCARRNING TO BILATERAL AC SPACES, NO OBVIOUS EVIDENCE OF RECENT IV DRUG USE) (ANNETTE GONZALEZ DO) Focused Exam Lactate Level 02/05/23 03:40: Lactic Acid Level 1.41 (MABLE REN MD) Lactic Acid Level Laboratory Tests Test 02/05/23 03:40 Lactic Acid Level 1.41 MMOL/L (0.50-2.00) (MABLE REN MD) Procedures/Interventions Date of ETT Placement: Apr 13, 2019 Time of ETT Placement: 2313 (ANNETTE GONZALEZ DO) Progress/Results/Core Measures Results/Orders Lab Results Laboratory Tests Test 02/05/23 03:40 02/05/23 05:15 Range/Units White Blood Count 17.1 H 4.3-11.0 10^3/uL Red Blood Count 5.05 4.30-5.52 10^6/uL Hemoglobin 15.3 13.3-17.7 g/dL Hematocrit 45 40-54 % Mean Corpuscular Volume 88 80-99 fL Mean Corpuscular Hemoglobin 30 25-34 pg Mean Corpuscular Hemoglobin Concent 34 32-36 g/dL Red Cell Distribution Width 11.7 10.0-14.5 % Platelet Count 336 130-400 10^3/uL Mean Platelet Volume 9.7 9.0-12.2 fL Immature Granulocyte % (Auto) 0 % Neutrophils (%) (Auto) 85 H 42-75 % Lymphocytes (%) (Auto) 8 L 12-44 % Monocytes (%) (Auto) 7 0-12 % Eosinophils (%) (Auto) 0 0-10 % Basophils (%) (Auto) 0 0-10 % Neutrophils # (Auto) 14.5 H 1.8-7.8 10^3/uL Lymphocytes # (Auto) 1.3 1.0-4.0 10^3/uL Monocytes # (Auto) 1.2 H 0.0-1.0 10^3/uL Eosinophils # (Auto) 0.0 0.0-0.3 10^3/uL Basophils # (Auto) 0.0 0.0-0.1 10^3/uL Immature Granulocyte # (Auto) 0.1 0.0-0.1 10^3/uL Neutrophils % (Manual) 81 % Lymphocytes % (Manual) 12 % Monocytes % (Manual) 7 % Blood Morphology Comment NORMAL Erythrocyte Sedimentation Rate 4 0-30 MM/HR Prothrombin Time 13.4 12.2-14.7 SEC INR Comment 1.0 0.8-1.4 Activated Partial Thromboplast Time 25 24-35 SEC Sodium Level 136 135-145 MMOL/L Potassium Level 3.4 L 3.6-5.0 MMOL/L Chloride Level 100 98-107 MMOL/L Carbon Dioxide Level 23 21-32 MMOL/L Anion Gap 13 5-14 MMOL/L Blood Urea Nitrogen 16 7-18 MG/DL Creatinine 1.10 0.60-1.30 MG/DL Estimat Glomerular Filtration Rate 79 BUN/Creatinine Ratio 15 Glucose Level 123 H 70-105 MG/DL Lactic Acid Level 1.41 0.50-2.00 MMOL/L Calcium Level 9.8 8.5-10.1 MG/DL Corrected Calcium 8.5-10.1 MG/DL Magnesium Level 2.0 1.6-2.4 MG/DL Total Bilirubin 0.9 0.1-1.0 MG/DL Aspartate Amino Transf (AST/SGOT) 15 5-34 U/L Alanine Aminotransferase (ALT/SGPT) 15 0-55 U/L Alkaline Phosphatase 79 40-136 U/L C-Reactive Protein High Sensitivity 0.15 0.00-0.50 MG/DL Total Protein 7.8 6.4-8.2 GM/DL Albumin 4.7 H 3.2-4.5 GM/DL Amylase Level 41 25-125 U/L Lipase 15 8-78 U/L Acetaminophen Level < 10 L 10-30 UG/ML Serum Alcohol < 10 <10 MG/DL Hepatitis A IgM Antibody Non-Reactive Non-Reactive Hepatitis B Surface Antigen Non-Reactive Non-Reactive Hepatitis B Core IgM Antibody Non-Reactive Non-Reactive Hepatitis C Antibody Reactive H Non-Reactive Hepatitis C Antibody Index 9.58 H 0.00-0.79 Index HIV (1&2) Ag and Ab Screen Referral Non-Reactive Non-Reactive Influenza Type A (RT-PCR) Not Detected Not Detecte Influenza Type B (RT-PCR) Not Detected Not Detecte SARS-CoV-2 RNA (RT-PCR) Not Detected Not Detecte Urine Color YELLOW Urine Clarity CLEAR Urine pH 6.5 5-9 Urine Specific Erwin 1.010 L 1.016-1.022 Urine Protein NEGATIVE NEGATIVE Urine Glucose (UA) TRACE H NEGATIVE Urine Ketones TRACE H NEGATIVE Urine Nitrite NEGATIVE NEGATIVE Urine Bilirubin NEGATIVE NEGATIVE Urine Urobilinogen 0.2 < = 1.0 MG/DL Urine Leukocyte Esterase NEGATIVE NEGATIVE Urine RBC (Auto) NEGATIVE NEGATIVE Urine RBC NONE /HPF Urine WBC RARE /HPF Urine Squamous Epithelial Cells RARE /HPF Urine Crystals NONE /LPF Urine Bacteria TRACE /HPF Urine Casts NONE /LPF Urine Mucus NEGATIVE /LPF Urine Culture Indicated NO Urine Opiates Screen NEGATIVE NEGATIVE Urine Oxycodone Screen NEGATIVE NEGATIVE Urine Methadone Screen NEGATIVE NEGATIVE Urine Propoxyphene Screen NEGATIVE NEGATIVE Urine Barbiturates Screen NEGATIVE NEGATIVE Ur Tricyclic Antidepressants Screen NEGATIVE NEGATIVE Urine Phencyclidine Screen NEGATIVE NEGATIVE Urine Amphetamines Screen POSITIVE H NEGATIVE Urine Methamphetamines Screen POSITIVE H NEGATIVE Urine Benzodiazepines Screen NEGATIVE NEGATIVE Urine Cocaine Screen NEGATIVE NEGATIVE Urine Cannabinoids Screen NEGATIVE NEGATIVE (MABLE REN MD) My Orders Orders - MABLE REN MD Code/Resuscitation (02/05/23 08:44) Ed Admission (Communication) (02/05/23 08:44) Pantoprazole Injection (Pantoprazole Inj (02/05/23 08:45) Morphine Injection (Morphine Injection (02/05/23 08:45) Nothing By Mouth (02/05/23 Breakfast) Ondansetron Injection (Ondansetron Inj (02/05/23 09:15) Ondansetron Injection (Ondansetron Inj (02/05/23 09:07) (MABLE REN MD) Medications Given in ED (MABLE REN MD) Vital Signs/I&O 02/05/23 03:10 Temp 37.4 Pulse 83 Resp 20 B/P (MAP) 203/101 (135) Pulse Ox 98 O2 Delivery Room Air (MABLE REN MD) Blood Pressure Mean: 135 Progress Progress Note : Progress Note VITALS ON ARRIVAL: TEMP 37.4=99.4, HR 83, RR 20, BP 203/101, O2 SAT 98% ON ROOM AIR GIVEN: -IV FLUIDS -ZOFRAN LABS: -CBC WITH WBC 17.1, OTHERWISE NORMAL -CMP UNREMARKABLE WITH NORMAL LIVER ENZYMES -MG NORMAL -AMYLASE/LIPASE NORMAL -PT/PTT/INR NORMAL -UDS + AMPHETAMINES/METHAMPHETAMINES -ETOH NEGATIVE -ACETAMINOPHEN NEGATIVE -COVID/FLU NEGATIVE HEPATITIS PANEL AND HIV TESTS PENDING CT SCAN CHEST/ABDOMEN/PELVIS PENDING AT SHIFT CHANGE 0600--CARE TURNED OVER TO DR. REN AT SHIFT CHANGE. CT RESULTS PENDING. (ANNETTE GONZALEZ DO) Progress Note : Progress Note 0735: Care assumed by me pending CT abdomen pelvis results. I have reviewed the CT chest, abdomen and pelvis and there is thickening of the stomach and proximal duodenum consistent with gastritis on my interpretation. No obvious abscess or any other intra-abdominal pathology noted on my review pending radiology report. Monitor patient. 0841: Discussed case with Dr. Herzog, on-call for [facility]. She accepts patient for admission, observation status. I did discuss the case with Dr. Olvera at 0846 and he accepts patient in consult and will see the patient later today. Discussed with patient who agrees with plan. (MABLE REN MD) Diagnostic Imaging Comments CT CHEST ANGIOGRAM / ABDOMEN-PELVIS-- (ANNETTE GONZALEZ DO) Diagonstic Imaging: CT Plain Films/CT/US/NM/MRI: abdomen, pelvis Comments [facility] [place], [place] NAME: CAROL PARIKH REC#: [id number] PT STATUS: REG ER : 1965 PHYSICIAN: ANNETTE GONZALEZ DO ADMIT DATE: 02/05/23/ER Signed Date of Exam:02/05/23 CT MARC CHEST/NOANG ABD-PELV W CTA chest, abdomen and pelvis Thin axial sections through the chest, abdomen and pelvis are obtained following intravenous contrast bolus. Multiplanar MIP images were reconstructed and reviewed. All CT scans use one or more of the following dose optimizing techniques: automated exposure control, MA and/or KvP adjustment based on patient size and exam type or iterative reconstruction. Date: February 05, 2023. Indication: 57-year-old male, chest and abdominal pain. Vomiting. Comparison: CT chest July 25, 2021. CT abdomen pelvis March 26, 2020. Findings: There is a 2 mm calcified left lower lobe granuloma on axial image 69. There is no identified noncalcified pulmonary nodule or lung mass. There is no focal airspace consolidation. There is no pneumothorax. There is no pleural effusion. The central airways are patent. There is no identified pulmonary embolus. The main pulmonary artery diameter is within normal limits. The heart is not enlarged. There is no pericardial effusion. There is no identified abnormally enlarged mediastinal, hilar, or axillary lymph node which meets CT size criteria for adenopathy. There is no CT apparent wall thickening of the esophagus or distention of the esophagus. There is prominent abnormal wall thickening of the distal stomach. The liver is unremarkable in size and contour. There is a 4 mm low-attenuation lesion in the right lobe of liver too small to characterize. The portal vasculature is patent. The gallbladder is unremarkable. There is no bile duct distention. The main pancreatic duct is not abnormally dilated. Unremarkable appearance of pancreas. The spleen is normal in size. Splenic calcifications are most consistent with prior granulomatous disease. There is a 7 mm low-attenuation left renal lesion on axial image 44 too small to characterize. There is a hyperdense left renal lesion which is indeterminate measuring 9 mm in size on axial image 54. The urinary collecting systems are not distended. The urinary bladder is unremarkable. The intestinal tract is not distended. There is no evidence of acute appendicitis. There is a very small fat-containing periumbilical hernia. There are atherosclerotic calcifications. There is no identified abnormally enlarged lymph node in the abdomen meeting CT size criteria for adenopathy. There is a chronic appearing left rib deformity. There is no identified acute bony abnormality. There are degenerative changes of the spine. Impression: 1. Prominent abnormal wall thickening of the distal stomach. This may reflect a nonspecific gastritis. Malignancy is also considered. This is new since July 25, 2021. 2. No acute abnormality at the level of the chest. Dictated by: Dictated on workstation # [id number] Dict: 02/05/23604 Trans: 02/05/23811 [facility] [id number] Interpreted by: HELENA MENSAH MD Electronically signed by: HELENA MENSAH MD 02/05/23811 (MABLE REN MD) Departure Communication (Admissions) Time/Spoke to Admitting Phy: 08:41 Time/Spoke to Consulting Phy: 08:46 (MABLE REN MD) Impression Primary Impression: Epigastric abdominal pain Disposition: ADMITTED INPATIENT Condition: Stable Admissions Decision to Admit Reason: Admit from ER (General) Decision to Admit/Date: Feb 05, 2023 Time/Decision to Admit Time: 08:41 (MABLE REN MD) Departure-Patient Inst. Referrals: [facility] (PCP/Family) Primary Care Physician Scripts No Active Prescriptions or Reported Meds ANNETTE GONZALEZ DO Feb 05, 2023 03:35 MABLE REN MD Feb 05, 2023 08:31
[2023-02-05 03:51] LABS: BASOPHILS % (AUTO) 0 % (0-10); EOSINOPHILS % (AUTO) 0 % (0-10); HEMATOCRIT 45 % (40-54); HEMOGLOBIN 15.3 g/dL (13.3-17.7); LYMPHOCYTES # (AUTO) 1.3 10^3/uL (1.0-4.0); LYMPHOCYTES % (AUTO) 8 % (12-44); MEAN CORPUSCULAR HEMOGLOBIN 30 pg (25-34); MEAN CORPUSCULAR HGB CONC 34 g/dL (32-36); MEAN CORPUSCULAR VOLUME 88 fL (80-99); MEAN PLATELET VOLUME 9.7 fL (9.0-12.2); MONOCYTES # (AUTO) 1.2 10^3/uL (0.0-1.0); MONOCYTES % (AUTO) 7 % (0-12); NEUTROPHILS # (AUTO) 14.5 10^3/uL (1.8-7.8); NEUTROPHILS % (AUTO) 85 % (42-75); PLATELET COUNT 336 10^3/uL (130-400); WHITE BLOOD COUNT 17.1 10^3/uL (4.3-11.0)
[2023-02-05 04:00] LABS: PROTHROMBIN TIME PATIENT 13.4 SEC (12.2-14.7)
[2023-02-05 04:01] LABS: CHLORIDE 100 MMOL/L (98-107); POTASSIUM 3.4 MMOL/L (3.6-5.0); SODIUM 136 MMOL/L (135-145)
[2023-02-05 04:02] LABS: ALBUMIN 4.7 GM/DL (3.2-4.5)
[2023-02-05 04:03] LABS: AMYLASE 41 U/L (25-125); CALCIUM 9.8 MG/DL (8.5-10.1)
[2023-02-05 04:04] LABS: GLUCOSE 123 MG/DL (70-105)
[2023-02-05 04:05] LABS: CARBON DIOXIDE 23 MMOL/L (21-32); TOTAL PROTEIN 7.8 GM/DL (6.4-8.2)
[2023-02-05 04:06] LABS: BILIRUBIN,TOTAL 0.9 MG/DL (0.1-1.0)
[2023-02-05 04:08] LABS: ALKALINE PHOSPHATASE 79 U/L (40-136); GFR ESTIMATED 79
[2023-02-05 04:09] LABS: BUN/CREATININE RATIO 15
[2023-02-05 04:11] LABS: ALANINE AMINOTRANSFERASE 15 U/L (0-55)
[2023-02-05 04:12] LABS: LIPASE 15 U/L (8-78)
[2023-02-05 04:14] LABS: ACETAMINOPHEN < 10 UG/ML (10-30)
[2023-02-05 04:33] LABS: LYMPHOCYTES % (MANUAL) 12 %; MONOCYTES % (MANUAL) 7 %; NEUTROPHILS % (MANUAL) 81 %
[2023-02-05 04:34] LABS: ERYTHROCYTE SEDIMENTATION RATE 4 MM/HR (0-30); RBC MORPH NORMAL
[2023-02-05] MEDS ORDERED: HOLD METFORMIN - RECEIVED CONTRAST 20 ML VIAL IV SCH (05:00)
[2023-02-05] MEDS ORDERED: NS 100 ML (IVPB) BAG IV ONE (05:00)
[2023-02-05] MEDS ORDERED: IOHEXOL 350 MG/ML 100 ML (OMNIPAQUE 350) VIAL IV ONE (05:00)
[2023-02-05 05:39] LABS: CLARITY,URINE CLEAR; COLOR,URINE YELLOW; PH,URINE 6.5 (5-9)
[2023-02-05 05:40] LABS: BACTERIA,URINE TRACE /HPF; BILIRUBIN,URINE NEGATIVE (NEGATIVE); GLUCOSE, URINE (UA) TRACE (NEGATIVE); KETONES,URINE TRACE (NEGATIVE); LEUKOCYTE ESTERASE ,URINE NEGATIVE (NEGATIVE); NITRITE,URINE NEGATIVE (NEGATIVE); PROTEIN,URINE NEGATIVE (NEGATIVE); SQUAMOUS EPITHELIAL CELL,UR RARE /HPF; WBC,URINE RARE /HPF
[2023-02-05 05:45] LABS: AMPHETAMINE SCREEN, URINE POSITIVE (NEGATIVE); BARBITURATE SCREEN URINE NEGATIVE (NEGATIVE); CANNABINOID SCREEN, URINE NEGATIVE (NEGATIVE); COCAINE SCREEN URINE NEGATIVE (NEGATIVE); METHADONE STAT NEGATIVE (NEGATIVE); OPIATE SCREEN URINE NEGATIVE (NEGATIVE); OXYCODONE STAT NEGATIVE (NEGATIVE); PROPOXYPHENE STAT NEGATIVE (NEGATIVE); TRICYCLIC ANTIDEPRESSANTS SCRE NEGATIVE (NEGATIVE)
[2023-02-05] MEDS: NOREPINEPHRINE 8 MG/250 ML 250 ML IV SCH ×2 (06:52→19:50)
--- NOTE | 2023-02-05 08:12 | Diagnostic Imaging Report ---
CTA chest, abdomen and pelvis Thin axial sections through the chest, abdomen and pelvis are obtained following intravenous contrast bolus. Multiplanar MIP images were reconstructed and reviewed. All CT scans use one or more of the following dose optimizing techniques: automated exposure control, MA and/or KvP adjustment based on patient size and exam type or iterative reconstruction. Date: February 05, 2023. Indication: 57-year-old male, chest and abdominal pain. Vomiting. Comparison: CT chest July 25, 2021. CT abdomen pelvis March 26, 2020. Findings: There is a 2 mm calcified left lower lobe granuloma on axial image 69. There is no identified noncalcified pulmonary nodule or lung mass. There is no focal airspace consolidation. There is no pneumothorax. There is no pleural effusion. The central airways are patent. There is no identified pulmonary embolus. The main pulmonary artery diameter is within normal limits. The heart is not enlarged. There is no pericardial effusion. There is no identified abnormally enlarged mediastinal, hilar, or axillary lymph node which meets CT size criteria for adenopathy. There is no CT apparent wall thickening of the esophagus or distention of the esophagus. There is prominent abnormal wall thickening of the distal stomach. The liver is unremarkable in size and contour. There is a 4 mm low-attenuation lesion in the right lobe of liver too small to characterize. The portal vasculature is patent. The gallbladder is unremarkable. There is no bile duct distention. The main pancreatic duct is not abnormally dilated. Unremarkable appearance of pancreas. The spleen is normal in size. Splenic calcifications are most consistent with prior granulomatous disease. There is a 7 mm low-attenuation left renal lesion on axial image 44 too small to characterize. There is a hyperdense left renal lesion which is indeterminate measuring 9 mm in size on axial image 54. The urinary collecting systems are not distended. The urinary bladder is unremarkable. The intestinal tract is not distended. There is no evidence of acute appendicitis. There is a very small fat-containing periumbilical hernia. There are atherosclerotic calcifications. There is no identified abnormally enlarged lymph node in the abdomen meeting CT size criteria for adenopathy. There is a chronic appearing left rib deformity. There is no identified acute bony abnormality. There are degenerative changes of the spine. Impression: 1. Prominent abnormal wall thickening of the distal stomach. This may reflect a nonspecific gastritis. Malignancy is also considered. This is new since July 25, 2021. 2. No acute abnormality at the level of the chest. Dictated by: Dictated on workstation # [id number]
[2023-02-05] MEDS ORDERED: morphine INJ 4 MG/ML 1 ML (VIAL/SYRINGE) IVP ONE (08:45)
[2023-02-05] MEDS ORDERED: PANTOPRAZOLE INJECTION 40 MG VIAL IV ONE (08:45)
[2023-02-05] MEDS ORDERED: ONDANSETRON INJECTION 4 MG/2 ML (SDV) ONE (09:07)
[2023-02-05] MEDS ORDERED: MELATONIN 3 MG TABLET PO PRN (10:00)
[2023-02-05] MEDS ORDERED: ANTACID SUSPENSION 30 ML UDC PO PRN (10:00)
[2023-02-05] MEDS ORDERED: BISACODYL 10 MG SUPPOSITORY PR PRN (10:00)
[2023-02-05] MEDS ORDERED: METOCLOPRAMIDE INJ 10 MG/2 ML IVP PRN (10:00)
[2023-02-05] MEDS ORDERED: PROMETHAZINE INJ 25 MG/ML VIAL IM PRN (10:00)
[2023-02-05] MEDS ORDERED: CALCIUM CARBONATE 500 MG CHEW TABLET PO PRN (10:00)
[2023-02-05] MEDS ORDERED: ONDANSETRON INJECTION 4 MG/2 ML (SDV) IV PRN (10:00)
[2023-02-05] MEDS ORDERED: ACETAMINOPHEN 325 MG TABLET PO PRN (10:00)
--- NOTE | 2023-02-05 10:20 | History & Physical-Hospitalist ---
History of Present Illness HPI/Chief Complaint Chief complaint: Acute abdominal pain from severe gastritis HPI: This is a 57-year-old male clinic patient of [facility] who presented to the ER with acute abdominal pain with nausea and vomiting found to have severe gastritis on CT scan. Methamphetamine use is noted but he denies. He will be placed on clear liquids with IV fluids and pain control along with PPI. General surgery consulted. Source: patient Exam Limitations: no limitations Date Seen 02/05/23 Time Seen by a Provider: 10:00 Attending Physician [place] PCP Admitting Physician: Ginny Herzog DO Attending Physician: Ginny Herzog DO Referring Physician Date of Admission Feb 05, 2023 at 09:41 Home Medications & Allergies Home Medications Reviewed patient Home Medication Reconciliation performed by pharmacy medication reconciliations sensor technician and/or nursing. Patients Allergies have been reviewed. Allergies Allergies Coded Allergies diphenhydramine (Verified Allergy, Unknown, 02/27/20) Past Nmfuqyn-Onutyn-Tdzdyf Hx Patient Social History Marrital Status: single Employed/Student: unemployed Tobacco Use?: Yes Tobacco type used: Cigarettes Smoking Status: Current Everyday Smoker Substance use?: Yes Substance type: Amphetamines, Methamphetamine, Opiates/Opioids, Misuse of prescript meds, Marijuana Alcohol Use?: Yes Immunizations Up To Date Date of Influenza Vaccine: May 26, 2015 First/Initial COVID19 Vaccinat: 2020 Second COVID19 Vaccination Eleazar: 2020 Tetanus Booster (TDap): Unknown Hepatitis A: No Hepatitis B: No PED Vaccines UTD: Yes Seasonal Allergies Seasonal Allergies: No Current Status Communicates: Verbally Primary Language: Romanian Preferred Spoken Language: Romanian Past Medical History Surgeries: Tonsillectomy Asthma, Pneumonia, Pulmonary Embolism Currently Using CPAP: No Currently Using BIPAP: No Sexually Transmitted Disease: No HIV/AIDS: No Gastroesophageal Reflux, Hepatitis, Gall Bladder Disease Chronic Back Pain, Fractures Loss of Vision: Bilateral Hearing Impairment: Denies Blood Disorders: No Adverse Reaction/Blood Tranf: No HTN Family Medical History Completed stroke 19 FATHER, Onset:60 years & older Diabetes mellitus 19 FATHER FH: aneurysm 19 MOTHER FH: cancer 19 FATHER 19 MOTHER Pacemaker 19 MOTHER No Pertinent Family Hx SOCIAL HISTORY: PT SMOKES 1 PPD PT WITH HISTORY OF ALCOHOL ABUSE--STATES HE USED TO DRINK "ALOT" BUT WILL NOT ELABORATE HOW MUCH HE USED TO DRINK . STATES HE HAS NOT HAD ANY ALCOHOL "FOR 15 OR 20 YEARS" PT ALSO HAS EXTENSIVE HISTORY OF DRUG USE, ESPECIALLY IV METHAMPHETAMINE USE, HE DENIES RECENT USE PT DOES NOT KNOW IF HE HAS BEEN TESTED FOR HEPATITIS OR HIV ( PER OLD RECORDS, PT TESTED + FOR HEPATITIS C IN 2016 ) NO RECORDED HIV TESTING HERE Review of Systems Constitutional: see HPI Gastrointestinal: abdominal pain, loss of appetite, nausea, vomiting Physical Exam Physical Exam Vital Signs Vital Signs - First Documented 02/05/23 02/05/23 03:10 10:09 Temp 37.4 Pulse 83 Resp 20 B/P (MAP) 203/101 (135) Pulse Ox 98 O2 Delivery Room Air FiO2 21 Capillary Refill : Less Than 3 Seconds Height, Weight, BMI Height: 6'0" Weight: 165lbs. 0.0oz. 74.788639ya; 28.00 BMI Method:Stated General Appearance: Chronically ill, Mild Distress Eyes: Right Eye Normal Inspection, Right Eye PERRL HEENT: PERRL/EOMI, Normal ENT Inspection, Pharynx Normal, Moist Mucous Membranes Neck: Full Range of Motion, Normal Inspection, Non Tender Respiratory: Chest Non Tender, Lungs Clear, Normal Breath Sounds, No Accessory Muscle Use, No Respiratory Distress Cardiovascular: Regular Rate, Rhythm, No Edema, No Gallop, No JVD, No Murmur, Normal Peripheral Pulses Gastrointestinal: Normal Bowel Sounds, No Organomegaly, No Pulsatile Mass, Soft, Tenderness Back: Normal Inspection, No CVA Tenderness, No Vertebral Tenderness Extremity: Normal Capillary Refill, Normal Inspection, Normal Range of Motion, Non Tender, No Calf Tenderness, No Pedal Edema 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: Alert, Oriented x3, No Motor/Sensory Deficits, Normal Mood/Affect Skin: Normal Color, Warm/Dry Lymphatic: No Adenopathy Results Results/Procedures Labs Laboratory Tests 02/05/23 03:40 Patient resulted labs reviewed. Assessment/Plan Admission Diagnosis Assessment: Severe abdominal pain from acute gastritis Smoker Methamphetamine user Hypertension Plan: IV fluids IV pain medication General surgery consult Antihypertensives Admission Status: Observation GINNY HERZOG DO Feb 05, 2023 10:20
[2023-02-05] MEDS ORDERED: SCOPOLAMINE 1.5 MG PATCH TD NR (10:30)
[2023-02-05] MEDS: NS IV 1000 ML 1,000 ML IV SCH ×3 (10:32→20:26)
[2023-02-05] MEDS: SUCRALFATE 1 GM TABLET PO SCH ×3 (10:33→20:26)
[2023-02-05] MEDS ORDERED: ENOXAPARIN 40 MG/0.4 ML SYRINGE SC SCH (11:00)
[2023-02-05] MEDS: oxyCODONE IMMEDIATE RELEASE 5 MG TABLET PO PRN ×3 (11:38→19:40)
[2023-02-05] MEDS: HYDROmorphone INJECTION 2 MG/ML VIAL IV PRN ×3 (12:52→23:12)
--- NOTE | 2023-02-05 13:07 | Consultation - Surgery ---
STEPHEN SOLANO 02/05/23 1307: History of Present Illness History of Present Illness Patient Consulted On(maisha/time) 02/05/23 12:44 Date Seen by Provider: Feb 05, 2023 Reason for Visit: Abdmonial Pain and vomiting History of Present Illness Patient endorses having abdominal pain and nausea with vomiting that started around 3-4 days ago and has increased in severity to his current level of pain. Patient describes a sharp stabbing pain in his epigastric/umbilical region and rates his pain a 10 out of 10. Patient has also had non bilious vomiting for the last 3-4 days with his last episode of emesis just 2 hours ago. Emesis has been watery and yellow in color. Patient also has not had a bowel movement for 3 days and his last bowel moment was small in volume and hard. He endorses having similar symptoms several times before that were lesser severity, but did require hospitalization a year ago for around 8 days. He couldn't remember what resolved his symptoms last admission but did mention that his pain was controlled on fentanyl and morphine. Patient denies any recent change in routine or any events preceding current episode. Allergies and Home Medications Allergies Coded Allergies: diphenhydramine (Verified Allergy, Unknown, 02/27/20) Patient Home Medication List Acetaminophen (Tylenol Extra Strength) 500 Mg Tablet, 1,000 MG PO Q8H PRN for PAIN-MILD (1-4), (Reported) Entered as Reported by: USHA MAYO on 11/11/20 1111 Albuterol Sulfate (Albuterol Sulfate) 2.5 Mg/3 Ml Vial.neb, 2.5 MG INH Q4H PRN for WHEEZING Prescribed by: FRANCINE DAVIES on 05/24/21 1835 Apixaban (Eliquis) 5 Mg Tablet, 5 MG PO BID Prescribed by: OSMANY WALLS on 05/22/21 1040 Cefuroxime Axetil (Cefuroxime) 250 Mg Tablet, 250 MG PO BID Prescribed by: PING NAVAS on 06/05/21 1425 Doxycycline Hyclate (Doxycycline Hyclate) 100 Mg Tablet.dr, 100 MG PO BID Prescribed by: EARL AVILA on 05/11/21 1442 Hydrocodone/Acetaminophen (Hydrocodone-Acetamin 7.5-325) 1 Each Tablet, 1 EACH PO Q6H PRN for PAIN-MODERATE (5-7) Prescribed by: EARL AVILA on 05/11/21 1442 Hydrocodone/Acetaminophen (Hydrocodone-Acetamin 5-325 mg) 1 Each Tablet, 1 TAB P O Q6H PRN for PAIN-MODERATE (5-7) Prescribed by: PING NAVAS on 05/17/21 1147 Hydrocodone/Acetaminophen (Hydrocodone-Acetamin 5-325 mg) 1 Each Tablet, 1 TAB PO Q4H PRN for PAIN-MODERATE (5-7) Prescribed by: FRANCINE DAVIES on 05/24/21 1836 Hydrocodone/Acetaminophen (Hydrocodone-Acetamin 5-325 mg) 1 Each Tablet, 1 TAB PO Q4H PRN for PAIN-MODERATE (5-7) Prescribed by: PING NAVAS on 06/05/21 1425 Ibuprofen (Ibuprofen) 200 Mg Tablet, 400-600 MG PO Q8H PRN for PAIN-MILD (1-4), (Reported) Entered as Reported by: USHA MAYO on 11/11/20 1111 Methylprednisolone (Methylprednisolone Dose Pack) 4 Mg Tab.ds.pk, 4 MG PO UD Prescribed by: PING NAVAS on 06/05/21 1425 Prednisone (Prednisone) 50 Mg Tab, 50 MG PO DAILY Prescribed by: EARL AVILA on 05/11/21 1442 Prednisone (Prednisone) 20 Mg Tab, 40 MG PO DAILY Prescribed by: FRANCINE DAVIES on 05/24/21 1835 Past N[facility]-Nwkhcc-Crjrhx Hx Patient Social History Number of Drinks Today: 0 (has not consumed alcohol for 15 years) Drug of Choice: Heroin; Meth, Cocaine Smoking Status: Former Smoker (quit around 6 months ago but before smoked 1 PPD) Former Smoker, Quit: Mar 07, 2020 Type Used: Cigarettes Recent Hopitalizations: Yes (03/11/2020 FOR ABD PAIN) Alcohol Use?: No Substance type: Amphetamines, Methamphetamine, Opiates/Opioids, Misuse of prescript meds, Marijuana Immunizations Up To Date Tetanus Booster (TDap): Unknown PED Vaccines UTD: Yes Date of Influenza Vaccine: May 26, 2015 Seasonal Allergies Seasonal Allergies: No Surgeries History of Surgeries: Yes (DEBRIDEMENT LEFT FOREARM DUE TO IV DRUG USE) Surgeries: Tonsillectomy Respiratory History of Respiratory Disorde: Yes Respiratory Disorders: Asthma, Pneumonia, Pulmonary Embolism Cardiovascular History of Cardiac Disorders: Yes (Cardiac arrest status post CPR May 2021) Neurological History of Neurological Disord: No Reproductive System Hx Reproductive Disorders: No Sexually Transmitted Disease: No HIV/AIDS: No Genitourinary History of Genitourinary Disor: No Gastrointestinal History of Gastrointestinal Di: Yes (HEP C--NO TREATMENT) Gastrointestinal Disorders: Gastroesophageal Reflux, Hepatitis, Gall Bladder Disease Musculoskeletal History of Musculoskeletal Dis: Yes Musculoskeletal Disorders: Chronic Back Pain, Fractures Endocrine History of Endocrine Disorders: No HEENT History of HEENT Disorders: Yes (POOR DENTITION) Loss of Vision: Bilateral Hearing Impairment: Denies Cancer History of Cancer: No Psychosocial History of Psychiatric Problem: Yes (IV DRUG USE/METH USE;POLYSUBSTANCE ABUSE) Integumentary History of Skin or Integumenta: Yes (DEBRIDEMENT LEFT FOREARM DUE TO IV DRUG USE) Blood Transfusions History of Blood Disorders: No Adverse Reaction to a Blood Tr: No Family Medical History Significant Family History: No Pertinent Family Hx Family Medial History: Completed stroke 19 FATHER, Onset:60 years & older Diabetes mellitus 19 FATHER FH: aneurysm 19 MOTHER FH: cancer 19 FATHER 19 MOTHER Pacemaker 19 MOTHER Review of Systems-General Constitutional: chills; No fever EENTM: blurred vision ("due to pain"); No hearing loss, No double vision, No throat pain Respiratory: cough (chronic ); No short of breath Cardiovascular: No chest pain, No palpitations Gastrointestinal: abdominal pain (Epigastric/umbilical region), constipation (last bowel movment was 4 days ago ); No hematemesis, No heartburn; nausea, vomi ting Genitourinary: No dysuria, No hesitancy Psychiatric/Neurological: Denies Headache Physical Exam-General Problems Physical Exam Vital Signs Vital Signs - First Documented 02/05/23 02/05/23 03:10 10:09 Temp 37.4 Pulse 83 Resp 20 B/P (MAP) 203/101 (135) Pulse Ox 98 O2 Delivery Room Air FiO2 21 Capillary Refill : Less Than 3 Seconds General Appearance: moderate distress, other (poor dentition ) Eyes: Bilateral Eye PERRL, Bilateral Eye EOMI HEENT: PERRL/EOMI, other Neck: non-tender, supple, other (no cervical or subclavicular lymphadenopation) Respiratory: lungs clear, normal breath sounds, no respiratory distress Cardiovascular: normal peripheral pulses, regular rate, rhythm Peripheral Pulses: 2+ Dorsalis Pedis (R), 2+ Left Dors-Pedis (L); 3+ Radial Pulses (R), 3+ Radial Pulses (L) Gastrointestinal: normal bowel sounds, tenderness (Diffuse tenderness to palpation ) Data Review Labs Laboratory Tests 02/05/23 03:40: White Blood Count 17.1H, Red Blood Count 5.05, Hemoglobin 15.3, Hematocrit 45, Mean Corpuscular Volume 88, Mean Corpuscular Hemoglobin 30, Mean Corpuscular Hemoglobin Concent 34, Red Cell Distribution Width 11.7, Platelet Count 336, Mean Platelet Volume 9.7, Immature Granulocyte % (Auto) 0, Neutrophils (%) (Auto) 85H, Lymphocytes (%) (Auto) 8L, Monocytes (%) (Auto) 7, Eosinophils (%) (Auto) 0, Basophils (%) (Auto) 0, Neutrophils # (Auto) 14.5H, Lymphocytes # (Auto) 1.3, Monocytes # (Auto) 1.2H, Eosinophils # (Auto) 0.0, Basophils # (Auto) 0.0, Immature Granulocyte # (Auto) 0.1, Neutrophils % (Manual) 81, Lymphocytes % (Manual) 12, Monocytes % (Manual) 7, Blood Morphology Comment NORMAL, Erythrocyte Sedimentation Rate 4, Prothrombin Time 13.4, INR Comment 1.0, Activated Partial Thromboplast Time 25, Sodium Level 136, Potassium Level 3.4L, Chloride Level 100, Carbon Dioxide Level 23, Anion Gap 13, Blood Urea Nitrogen 16, Creatinine 1.10, Estimat Glomerular Filtration Rate 79, BUN/Creatinine Ratio 15, Glucose Level 123H, Lactic Acid Level 1.41, Calcium Level 9.8, Corrected Calcium , Magnesium Level 2.0, Total Bilirubin 0.9, Aspartate Amino Transf (AST/SGOT) 15, Alanine Aminotransferase (ALT/SGPT) 15, Alkaline Phosphatase 79, C-Reactive Protein High Sensitivity 0.15, Total Protein 7.8, Albumin 4.7H, Amylase Level 41, Lipase 15, Acetaminophen Level < 10L, Serum Alcohol < 10, Influenza Type A (RT-PCR) Not Detected, Influenza Type B (RT-PCR) Not Detected, SARS-CoV-2 RNA (RT-PCR) Not Detected 02/05/23 05:15: Urine Color YELLOW, Urine Clarity CLEAR, Urine pH 6.5, Urine Specific [place] 1.010L, Urine Protein NEGATIVE, Urine Glucose (UA) TRACEH, Urine Ketones TRACEH, Urine Nitrite NEGATIVE, Urine Bilirubin NEGATIVE, Urine Urobilinogen 0.2, Urine Leukocyte Esterase NEGATIVE, Urine RBC (Auto) NEGATIVE, Urine RBC NONE, Urine WBC RARE, Urine Squamous Epithelial Cells RARE, Urine Crystals NONE, Urine Bacteria TRACE, Urine Casts NONE, Urine Mucus NEGATIVE, Urine Culture Indicated NO, Urine Opiates Screen NEGATIVE, Urine Oxycodone Screen NEGATIVE, Urine Methadone Screen NEGATIVE, Urine Propoxyphene Screen NEGATIVE, Urine Barbiturates Screen NEGATIVE, Ur Tricyclic Antidepressants Screen NEGATIVE, Urine Phencyclidine Screen NEGATIVE, Urine Amphetamines Screen POSITIVEH, Urine Methamphetamines Screen POSITIVEH, Urine Benzodiazepines Screen NEGATIVE, Urine Cocaine Screen NEGATIVE, Urine Cannabinoids Screen NEGATIVE Radiology CTA Chest, Abd, Pelvis Impression: 1. Prominent abnormal wall thickening of the distal stomach. This may reflect a nonspecific gastritis. Malignancy is also considered. This is new since July 25, 2021. 2. No acute abnormality at the level of the chest. Assessment/Plan Assessment/Plan Admission Diagonsis Assessment/Plan Mr. George Garduno is a 57 year old male with history XXX presented with sever abdominal pain, nausea and vomiting that has been going on for the last 3- 4 days. Problem List Abdominal Pain Nausea/ Vomiting Abdominal pain CTA chest/abd/pelvis: Prominent abnormal wall thickening of the distal stomach >Esophagogastroduodescopy scheduled for today (02/05/2023) Nausea/ Vomiting > continue Ondansatron 4mg GAIL SINCLAIR DO 02/05/23 1459: History of Present Illness History of Present Illness Time Seen by Provider: 14:37 History of Present Illness Surgery asked to consult regarding abdominal pain and gastric wall thickening. HPI per ED: PT ARRIVES VIA POV FROM HOME, C/O NAUSEA AND VOMITING AND UPPER ABDOMINAL PAIN X 3 DAYS, STATES HE HAS VOMITED "20-30 TIMES" --HE STATES HE C AN'T KEEP WATER DOWN, AND TRIED TO EAT BREAD AND IT WOULD NOT STAY DOWN. HIS LAST BM WAS 3 DAYS AGO. HE HAS BEEN VOIDING A NORMAL AMOUNT AND NO URINARY SYMPTOMS. HE THINKS HE HAS HAD FEVER, BUT HAS NOT CHECKED HIS TEMPERATURE. HE HAS NOT SOUGHT CARE UNTIL TONIGHT SYMPTOMS NO DIFFERENT TONIGHT, HE HAS NOT TAKEN ANYTHING FOR SYMPTOMS, HE HAS HAD THIS SAME PROBLEM BEFORE "A FEW TIMES" BUT HAS NO IDEA WHAT HE WAS DX WITH. HE DENIES ANY PRIOR ABDOMINAL SURGERIES. HE STATES HE TAKES NO MEDICATIONS AND STATES HE DOESN'T HAVE ANY MEDICAL PROBLEMS, PER OLD RECORDS, PT HAD CARDIOPULMONARY ARREST IN 2021, HE ALSO HAS HISTORY OF HTN AND PULMONARY EMBOLUS, ON PRIOR VISITS, HE HAS BEEN DX WITH COLITIS, IBS. PT SMOKES 1 PPD, PT WITH HISTORY OF ALCOHOL ABUSE--STATES HE USED TO DRINK "ALOT" BUT WILL NOT ELABORATE HOW MUCH HE USED TO DRINK . STATES HE HAS NOT HAD ANY ALCOHOL "FOR 15 OR 20 YEARS" PT ALSO HAS EXTENSIVE HISTORY OF DRUG USE, ESPECIALLY IV METHAMPHETAMINE USE, HE DENIES RECENT USE When I spoke to pt he stated he was still having severe abdominal pain, not controlled with current meds. He was admitted for something similar in February of 2020, but it was PSBO at that time. When questioned he states mother at 59 from stomach Cancer. Allergies and Home Medications Allergies Coded Allergies: diphenhydramine (Verified Allergy, Unknown, 02/27/20) Patient Home Medication List Home Medication List Reviewed: Yes Acetaminophen (Tylenol Extra Strength) 500 Mg Tablet, 1,000 MG PO Q8H PRN for PAIN-MILD (1-4), (Reported) Entered as Reported by: USHA MAYO on 11/11/20 1111 Albuterol Sulfate (Albuterol Sulfate) 2.5 Mg/3 Ml Vial.neb, 2.5 MG INH Q4H PRN for WHEEZING Prescribed by: FRANCINE DAVIES on 05/24/21 1835 Apixaban (Eliquis) 5 Mg Tablet, 5 MG PO BID Prescribed by: OSMANY WALLS on 05/22/21 1040 Cefuroxime Axetil (Cefuroxime) 250 Mg Tablet, 250 MG PO BID Prescribed by: PING NAVAS on 06/05/21 1425 Doxycycline Hyclate (Doxycycline Hyclate) 100 Mg Tablet.dr, 100 MG PO BID Prescribed by: EARL AVILA on 05/11/21 1442 Hydrocodone/Acetaminophen (Hydrocodone-Acetamin 7.5-325) 1 Each Tablet, 1 EACH PO Q6H PRN for PAIN-MODERATE (5-7) Prescribed by: EARL AVILA on 05/11/21 1442 Hydrocodone/Acetaminophen (Hydrocodone-Acetamin 5-325 mg) 1 Each Tablet, 1 TAB PO Q6H PRN for PAIN-MODERATE (5-7) Prescribed by: PING NAVAS on 05/17/21 1147 Hydrocodone/Acetaminophen (Hydrocodone-Acetamin 5-325 mg) 1 Each Tablet, 1 TAB PO Q4H PRN for PAIN-MODERATE (5-7) Prescribed by: FRANCINE DAVIES on 05/24/21 1836 Hydrocodone/Acetaminophen (Hydrocodone-Acetamin 5-325 mg) 1 Each Tablet, 1 TAB PO Q4H PRN for PAIN-MODERATE (5-7) Prescribed by: PING NAVAS on 06/05/21 1425 Ibuprofen (Ibuprofen) 200 Mg Tablet, 400-600 MG PO Q8H PRN for PAIN-MILD (1-4), (Reported) Entered as Reported by: USHA MAYO on 11/11/20 1111 Methylprednisolone (Methylprednisolone Dose Pack) 4 Mg Tab.ds.pk, 4 MG PO UD Prescribed by: PING NAVAS on 06/05/21 1425 Prednisone (Prednisone) 50 Mg Tab, 50 MG PO DAILY Prescribed by: EARL AVILA on 05/11/21 1442 Prednisone (Prednisone) 20 Mg Tab, 40 MG PO DAILY Prescribed by: FRANCINE DAVIES on 05/24/21 1835 Past Grcfnkh-Hzxemd-Tprqbf Hx Patient Social History Smoking Status: Former Smoker (quit around 6 months ago but before smoked 1 PPD) Surgeries History of Surgeries: Yes Surgeries: Tonsillectomy Respiratory History of Respiratory Disorde: No Cardiovascular History of Cardiac Disorders: Yes Cardiac Disorders: Coronary Artery Disease, Heart Attack, Hypertension Neurological History of Neurological Disord: No Genitourinary History of Genitourinary Disor: No Gastrointestinal History of Gastrointestinal Di: Yes Gastrointestinal Disorders: Obstructive Bowel Musculoskeletal History of Musculoskeletal Dis: No Endocrine History of Endocrine Disorders: No HEENT History of HEENT Disorders: No Loss of Vision: Denies Hearing Impairment: Denies Cancer History of Cancer: No Psychosocial History of Psychiatric Problem: No Family Medical History Significant Family History: Cancer (Mother had stomach cancer, father had lung cancer) Family Medial History: Completed stroke 19 FATHER, Onset:60 years & older Diabetes mellitus 19 FATHER FH: aneurysm 19 MOTHER FH: cancer 19 FATHER 19 MOTHER Pacemaker 19 MOTHER Review of Systems-General Constitutional: chills, fever (per pt, but no temp recorded) EENTM: blurred vision ("due to pain"); No hearing loss, No double vision, No throat pain Respiratory: cough (chronic ); No short of breath Cardiovascular: No chest pain, No palpitations Gastrointestinal: abdominal pain (Epigastric/umbilical region), constipation (last bowel movment was 4 days ago ); No hematemesis, No heartburn; nausea, vomiting Genitourinary: No dysuria, No hesitancy Musculoskeletal: No back pain, No joint pain Skin: No change in color, No change in hair/nails Psychiatric/Neurological: Denies Anxiety, Denies Depressed, Denies Headache Physical Exam-General Problems Physical Exam General Appearance: WD/WN, moderate distress Eyes: Bilateral Eye PERRL, Bilateral Eye EOMI HEENT: pharynx normal; No scleral icterus (R), No scleral icterus (L); other (poor dentition) Neck: non-tender, supple Respiratory: lungs clear, normal breath sounds, no respiratory distress, no accessory muscle use Cardiovascular: regular rate, rhythm, no murmur Gastrointestinal: normal bowel sounds, soft, no organomegaly, tenderness (Diffuse tenderness to palpation ), hernia (very small umbilical) Back: no CVA tenderness, no vertebral tenderness Extremities: no pedal edema, no calf tenderness 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: alert, oriented x 3 Skin: normal color, warm/dry Lymphatic: no adenopathy (neck, axilla or groin) Assessment/Plan Assessment/Plan Assessment/Plan Abdominal pain Nausea/Vomiting Thickened Gastric wall Pt was made NPO, IV fluids, pain meds and anti-emetics as needed. Pt started on PPI. I reviewed the CT images from this visit and from 2019 to compare; I also discussed case with ED physician. His distal stomach is very dilated and I am concerned because his mother had stomach cancer. Will do an EGD today with possible biopsy. He is positive for methamphetamine, even though he denies this; this will increase risk of bad outcome because no medication will work to bring up BP. I went over risks and complications, not limited to pain, bleeding, infection and even esophageal perforation. He will be at increased risk of bleeding because he also got a dose of Lovenox. Supervisory-Addendum Brief Verification & Attestation Participated in pt care: history, MDM, physical Personally performed: exam, history, MDM, supervision of care Care discussed with: Medical Student Procedures: n/a Verification and Attestation of Medical Student E/M Service A medical student performed and documented this service. I then reviewed and verified all information documented by the medical student and made modifications to such information, when appropriate. I personally performed a physical exam, medical decision making and then discussed any differences between the notes and made revisions as necessary to create one note. Gail Sinclair , 02/05/23 , 15:13 STEPHEN SOLANO Feb 05, 2023 13:07 GAIL SINCLAIR DO Feb 05, 2023 14:59
[2023-02-05] MEDS ORDERED: LACTATED RINGERS 1,000 ML 1,000 ML IV STA ×2 (14:36→15:21)
[2023-02-05] MEDS ORDERED: HURRICAINE EXT TUBE (BENZOCAINE) XX PRN ×2 (14:45→15:30)
[2023-02-05] MEDS ORDERED: proPOfol INJECTION 200 MG/20 ML VIAL IV ONE (14:59)
[2023-02-05] MEDS ORDERED: MIDAZOLAM INJ 2 MG/2 ML VIAL ONE (14:59)
[2023-02-05 15:16] LABS: HEPATITIS C ANTIBODY C Reactive (Non-Reactive)
--- NOTE | 2023-02-05 15:28 | Anesthesia-General Post-Op ---
MAC Patient Condition Mental Status/LOC: Same as Preop Cardiovascular: Satisfactory Nausea/Vomiting: Absent Respiratory: Satisfactory Pain: Controlled Complications: Absent Post Op Complications Complications None Follow Up Care/Instructions Patient Instructions None needed. Anesthesiology Discharge Order Discharge Order Patient is doing well, no complaints, stable vital signs, no apparent adverse anesthesia problems. No complications reported per nursing. SIERRA STARKEY CRNA Feb 05, 2023 15:28
--- NOTE | 2023-02-05 16:38 | Progress Note-Post Operative ---
Post-Operative Progess Note Surgeon (s)/Vascular Surgeon (s) Surgeon GAIL SINCLAIR DO Vascular Surgeon: none Pre-Operative Diagnosis epigastric abd pain, thickened gastric wall Post-Operative Diagnosis Gastritis with bleed Gastric ulcer Hiatal hernia Procedure & Operative Findings Date of Procedure 02/05/23 Procedure Performed/Findings EGD with biopsy PROCEDURE NOTE: After informed consent was obtained, the patient was brought to the endoscopy suite, placed in bed in left lateral decubitus position. He was administered IV sedation by the ANIMAL NUTRITION CONSULTANT who then monitored vitals the entire time, heart rate, blood pressure and pulse ox and the scope was inserted down the mouth through the esophagus into the stomach. On the way down, noted some mild esophagitis, took a picture, pushed into the stomach and the distal portion was noted to be thickened with what looked like ulcers. It also looked like there had been some previous bleeding from ulcers; ulcers were scabbed over. I pushed past the antrum into the duodenum. Duodenum looked good. Pulled back and did multiple biopsies of the antral area and the ulcers. Next, retroflexed the scope, saw a hiatal hernia, took a picture of this and then pulled the scope into the GE junction, took another picture of the hiatal hernia and then did a biopsy of the GE junction. Pushed the scope back into the stomach, suctioned all the air out of the stomach. At this point pulled the scope up the esophagus and out the mouth. The patient tolerated the procedure, and he recovered in endoscopy suite. Anesthesia Type IV sedation by ANIMAL NUTRITION CONSULTANT Estimated Blood Loss Estimated blood loss (mL): scant Specimens/Packing Specimens Removed antral bx GE jxn bx GAIL SINCLAIR DO Feb 05, 2023 16:38
[2023-02-05] MEDS ORDERED: amLODIPine 5 MG TABLET PO NR (17:00)
[2023-02-05] MEDS: RT-ALBUTEROL SULF 2.5 MG/3 ML PRE-MIX VIAL INH PRN (17:59)
[2023-02-05] MEDS: ONDANSETRON 4 MG ORAL DISSOLVE TABLET PO PRN (19:40)
[2023-02-05] MEDS: hydrALAZINE INJECTION 20 MG/ML VIAL IV SCH ×2 (20:26→23:20)
[2023-02-05] MEDS ORDERED: SUCRALFATE 1 GM TABLET PO SCH (21:00)
[2023-02-05] MEDS: RT-ALBUTEROL SULF 2.5 MG/3 ML PRE-MIX VIAL INH SCH (21:25)
[2023-02-05] MEDS: DOCUSATE SODIUM 100 MG CAPSULE PO SCH (23:20)
[2023-02-05] MEDS: SENNOSIDES 8.6 MG TABLET PO SCH (23:20)
[2023-02-06] VITALS (7 sets, daily range): BP systolic 102–145; BP diastolic 55–72
[2023-02-06] MEDS: ONDANSETRON 4 MG ORAL DISSOLVE TABLET PO PRN (00:52)
[2023-02-06] MEDS: oxyCODONE IMMEDIATE RELEASE 5 MG TABLET PO PRN ×5 (00:52→20:31)
[2023-02-06] MEDS: HYDROmorphone INJECTION 2 MG/ML VIAL IV PRN ×6 (02:30→18:34)
[2023-02-06] MEDS: SUCRALFATE 1 GM TABLET PO SCH ×4 (04:19→20:31)
[2023-02-06] MEDS: NS IV 1000 ML 1,000 ML IV SCH ×3 (04:19→23:27)
[2023-02-06] MEDS: hydrALAZINE INJECTION 20 MG/ML VIAL IV SCH ×2 (04:19→08:15)
[2023-02-06 05:07] LABS: BASOPHILS # (AUTO) 0.1 10^3/uL (0.0-0.1); BASOPHILS % (AUTO) 1 % (0-10); EOSINOPHILS # (AUTO) 0.1 10^3/uL (0.0-0.3); EOSINOPHILS % (AUTO) 1 % (0-10); HEMATOCRIT 36 % (40-54); HEMOGLOBIN 12.3 g/dL (13.3-17.7); LYMPHOCYTES # (AUTO) 1.7 10^3/uL (1.0-4.0); LYMPHOCYTES % (AUTO) 19 % (12-44); MEAN CORPUSCULAR HEMOGLOBIN 31 pg (25-34); MEAN CORPUSCULAR HGB CONC 35 g/dL (32-36); MEAN CORPUSCULAR VOLUME 89 fL (80-99); MEAN PLATELET VOLUME 10.2 fL (9.0-12.2); MONOCYTES # (AUTO) 0.9 10^3/uL (0.0-1.0); MONOCYTES % (AUTO) 11 % (0-12); NEUTROPHILS # (AUTO) 6.1 10^3/uL (1.8-7.8); NEUTROPHILS % (AUTO) 69 % (42-75); PLATELET COUNT 233 10^3/uL (130-400); WHITE BLOOD COUNT 8.9 10^3/uL (4.3-11.0)
[2023-02-06 05:22] LABS: ALBUMIN 3.5 GM/DL (3.2-4.5); BILIRUBIN,TOTAL 0.6 MG/DL (0.1-1.0); CALCIUM 8.1 MG/DL (8.5-10.1); CREATININE SERUM 0.94 MG/DL (0.60-1.30); POTASSIUM 3.2 MMOL/L (3.6-5.0); TOTAL PROTEIN 5.8 GM/DL (6.4-8.2)
--- NOTE | 2023-02-06 07:31 | Progress Note ---
HAYLEY HERNANDEZ MD,RESIDENT 02/06/23 0731: Subjective HPI/CC On Admission Chief complaint: Acute abdominal pain from severe gastritis HPI: This is a 57-year-old male clinic patient of [facility] who presented to the ER with acute abdominal pain with nausea and vomiting found to have severe gastritis on CT scan. Methamphetamine use is noted but he denies. He will be placed on clear liquids with IV fluids and pain control along with PPI. General surgery consulted. Subjective/Events-last exam No acute events overnight EGD done yesterday. Pt still c/o abdominal pain, however improved from yesterday. Pt tolerating clear liquids. Focused Exam Lactate Level 02/05/23 03:40: Lactic Acid Level 1.41 Objective Exam Vital Signs Vital Signs Date Time Temp Pulse Resp B/P (MAP) Pulse Ox O2 Delivery O2 Flow Rate FiO2 02/06/23 09:01 95 Nasal Cannula 02/06/23 07:05 36.4 64 20 145/71 (95) 02/05/23 10:09 21 Capillary Refill : Less Than 3 Seconds General Appearance: No Apparent Distress Neck: Non Tender Respiratory: No Accessory Muscle Use, No Respiratory Distress, Wheezing Cardiovascular: Regular Rate, Rhythm Gastrointestinal: Distended, Guarding, Tenderness Extremity: No Pedal Edema 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: Alert, Oriented x3, Normal Mood/Affect Skin: Warm/Dry Results/Procedures Lab Laboratory Tests 02/06/23 04:43 Patient resulted labs reviewed. Assessment/Plan Assessment and Plan Assess & Plan/Chief Complaint Assessment: Severe abdominal pain from acute gastritis Smoker Methamphetamine user Hypertension Plan: IV fluids IV pain medication General surgery consult EGD 02/05: gastritis, gastric ulcers; antral and GE jxn bx taken Antihypertensives - amlodipine 5 mg, hydralazine 10IV if BP >180sys Encourage ambulation Advance diet as tolerated Diagnosis/Problems Diagnosis/Problems (1) Gastritis (2) Generalized abdominal pain Status: Acute (3) Hypertension (4) COPD (chronic obstructive pulmonary disease) Status: Acute NAUN BRICE DO 02/06/232058: Subjective HPI/CC On Admission Date Seen by Provider: Feb 06, 2023 Time Seen by Provider: 10:00 Subjective/Events-last exam Patient doing a little bit better We will ambulate in the halls Continue IV fluids Clear liquids tolerated Objective Exam General Appearance: No Apparent Distress, WD/WN, Chronically ill Respiratory: Lungs Clear, Normal Breath Sounds Cardiovascular: Regular Rate, Rhythm Assessment/Plan Assessment and Plan Assess & Plan/Chief Complaint Supportive care IV fluid I personally performed the hall portions of the visit, discussed case with resident and concur with resident documentation of history, physical exam, assessment and treatment plan unless otherwise noted. HAYLEY HERNANDEZ MD,RESIDENT Feb 06, 2023 07:31 NAUN BRICE DO Feb 06, 2023 20:59
--- NOTE | 2023-02-06 08:18 | Progress Note - Surgery ---
STEPHEN SOLANO 02/06/23 0818: Subjective Date Seen by a Provider: Feb 06, 2023 Time Seen by a Provider: 07:50 Subjective/Events-last exam Mr. Benoit is feeling a little better this morning, but only slept "an hour here or there". patient still has pain that he rates a 9/10 and is sharp and s tabbing in his epigastric region. He feels like his pain control is reasonable but "could be better". patient has tried eating since he had good appetite but could only eat a little due to it causing him stomach pain. Patient also endorses a new headache that is bilateral dull ache around his forehead region. Patient still reports not having a bowel movement but is having moderate gas. he didnt think it was to the point where he would needs medication and feels that "he'll work it out". Patient does endorse nausea yesterday and this morning but has not vomited since yesterday. Patient reported feeling feverish last night and had a temp of 37.7C. Review of Systems General: No Chills, No Night Sweats; Other (patient reported feeling feverish last night) HEENT: Head Aches; No Visual Changes, No Eye Pain, No Ear Pain, No Dysphasia Pulmonary: No Dyspnea, No Cough Cardiovascular: No: Chest Pain, Palpitations, Edema Gastrointestinal: Nausea, Abdominal Pain; No: Vomiting, Diarrhea, Constipation Genitourinary: No Dysuria Musculoskeletal: No: neck pain, shoulder pain, arm pain, back pain Neurological: No: Numbness Focused Exam Lactate Level 02/05/23 03:40: Lactic Acid Level 1.41 Respiratory: Wheezing (bilateral with expiration ) Cardiovascular: Regular Rate, Rhythm, No Edema, No Gallop Peripheral Pulses: 3+ Dorsalis Pedis (R), 3+ Left Dors-Pedis (L), 3+ Radial Pulses (R), 3+ Radial Pulses (L) Skin: normal color, warm/dry Objective Exam Vital Signs Date Time Temp Pulse Resp B/P (MAP) Pulse Ox O2 Delivery O2 Flow Rate FiO2 02/06/23 07:05 36.4 64 20 145/71 (95) 95 Room Air 02/06/23 04:00 36.5 70 18 144/72 (96) 98 Room Air 02/05/23 23:22 36.9 65 16 106/66 (79) 97 Room Air 02/05/23 21:26 95 Nasal Cannula 02/05/23 20:14 Room Air 02/05/23 19:34 37.7 86 16 171/83 (112) 94 Room Air 02/05/23 17:59 96 Nasal Cannula 02/05/23 16:08 37.1 78 16 182/109 (133) 97 Room Air 02/05/23 15:40 75 16 97 Room Air 02/05/23 15:35 73 16 100 Room Air 02/05/23 15:30 72 16 100 Room Air 02/05/23 12:15 36.7 75 17 183/102 (129) 97 Room Air 02/05/23 10:30 Room Air 02/05/23 10:12 37.3 68 18 181/89 (119) 98 Room Air 02/05/23 10:09 37.4 83 98 21 02/05/23 09:43 36.9 70 16 188/109 97 Room Air I & O 02/06/23 07:00 Intake Total 2660 ml Output Total 1850 ml Balance 810 ml Capillary Refill : Less Than 3 Seconds General Appearance: Mild Distress HEENT: PERRL/EOMI, Pharynx Normal Neck: Normal Inspection, Non Tender; No Lymphadenopathy (L); Lymphadenopathy (R) (may have an enlarged lymph node medial to sternocleidomastoid around a cm in diameter) Respiratory: Chest Non Tender, No Accessory Muscle Use, No Respiratory Distress, Wheezing Cardiovascular: Regular Rate, Rhythm, No Edema, No Gallop, No JVD, No Murmur, Normal Peripheral Pulses Peripheral Pulses: 3+ Dorsalis Pedis (R), 3+ Left Dors-Pedis (L), 3+ Radial Pulses (R), 3+ Radial Pulses (L) Gastrointestinal: normal bowel sounds, soft, no organomegaly, guarding, tenderness (Diffuse tenderness to palpation ), hernia (very small umbilical) Extremity: Normal Capillary Refill, Non Tender, No Calf Tenderness, No Pedal Edema 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: Alert, Oriented x3, No Motor/Sensory Deficits, Normal Mood/Affect Skin: Normal Color, Warm/Dry Results Lab Laboratory Tests 02/06/23 04:43: White Blood Count 8.9, Red Blood Count 3.97L, Hemoglobin 12.3L, Hematocrit 36L, Mean Corpuscular Volume 89, Mean Corpuscular Hemoglobin 31, Mean Corpuscular Hemoglobin Concent 35, Red Cell Distribution Width 11.8, Platelet Count 233, Mean Platelet Volume 10.2, Immature Granulocyte % (Auto) 0, Neutrophils (%) (Auto) 69, Lymphocytes (%) (Auto) 19, Monocytes (%) (Auto) 11, Eosinophils (%) (Auto) 1, Basophils (%) (Auto) 1, Neutrophils # (Auto) 6.1, Lymphocytes # (Auto) 1.7, Monocytes # (Auto) 0.9, Eosinophils # (Auto) 0.1, Basophils # (Auto) 0.1, Immature Granulocyte # (Auto) 0.0, Sodium Level 139, Potassium Level 3.2L, Chloride Level 106, Carbon Dioxide Level 23, Anion Gap 10, Blood Urea Nitrogen 10, Creatinine 0.94, Estimat Glomerular Filtration Rate 96, BUN/Creatinine Ratio 11, Glucose Level 97, Calcium Level 8.1L, Corrected Calcium 8.5, Total Bilirubin 0.6, Aspartate Amino Transf (AST/SGOT) 11, Alanine Aminotransferase (ALT/SGPT) 11, Alkaline Phosphatase 57, Total Protein 5.8L, Albumin 3.5 Assessment/Plan Assessment/Plan Assessment/Plan Abdominal Pain Nausea Thickened gastric wall Positive Hep C Ab Plan: > PCR to Measure Hep C viral load > Advance diet as tolerated Abdominal pain Nausea/Vomiting Thickened Gastric wall Pt was made NPO, IV fluids, pain meds and anti-emetics as needed. Pt started on PPI. I reviewed the CT images from this visit and from 2019 to compare; I also discussed case with ED physician. His distal stomach is very dilated and I am concerned because his mother had stomach cancer. Will do an EGD today with possible biopsy. He is positive for methamphetamine, even though he denies this; this will increase risk of bad outcome because no medication will work to bring up BP. I went over risks and complications, not limited to pain, bleding, infection and even esophageal perforation. He will be at increased risk of bleeding because he also got a dose of Lovenox. LUC OLVERA DO 02/06/23 1340: Subjective Time Seen by a Provider: 11:42 Subjective/Events-last exam Pt seen and examined, he was eating a soft lunch. States pain is still severe but better. He denied any melena or hematochezia; had a brown BM. He also denies hematemesis or black emesis. He does feel a little weaker today. Review of Systems Pulmonary: No Dyspnea, No Cough Cardiovascular: No: Chest Pain, Palpitations Gastrointestinal: Nausea, Abdominal Pain; No: Vomiting Objective Exam General Appearance: WD/WN, Anxious, Mild Distress HEENT: PERRL/EOMI, Pharynx Normal Respiratory: Lungs Clear, No Accessory Muscle Use, No Respiratory Distress, Wheezing Cardiovascular: Regular Rate, Rhythm, No Murmur Gastrointestinal: soft, no organomegaly, guarding (voluntary), tenderness (Diffuse tenderness to palpation ), hernia (very small umbilical) Extremity: Non Tender, No Calf Tenderness, No Pedal Edema 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: Alert, Oriented x3 Skin: Normal Color, Warm/Dry Assessment/Plan Assessment/Plan Assessment/Plan Gastric Ulcers Anemia Hepatitis C Pt was started on Carafate and Protonix, will need to be on a soft diet for at least 2 weeks. Will wait on pathology from biopsies. His Hg dropped, but I suspect this is more of a combination of Dehydration and getting IV fluids; will monitor. Will need an EGD in 6-8 weeks. Supervisory-Addendum Brief Verification & Attestation Participated in pt care: history, MDM, physical Personally performed: exam, history, MDM, supervision of care Care discussed with: Medical Student Procedures: n/a Verification and Attestation of Medical Student E/M Service A medical student performed and documented this service. I then reviewed and verified all information documented by the medical student and made modifications to such information, when appropriate. I personally performed a p hysical exam, medical decision making and then discussed any differences between the notes and made revisions as necessary to create one note. Luc Olvera , 02/06/23 , 13:41 STEPHEN SOLANO Feb 06, 2023 08:18 LUC OLVERA DO Feb 06, 2023 13:40
[2023-02-06] MEDS: SENNOSIDES 8.6 MG TABLET PO SCH ×2 (08:21→20:31)
[2023-02-06] MEDS: PANTOPRAZOLE INJECTION 40 MG VIAL IV SCH (08:22)
[2023-02-06] MEDS: DOCUSATE SODIUM 100 MG CAPSULE PO SCH ×2 (08:22→20:31)
[2023-02-06] MEDS: amLODIPine 5 MG TABLET PO SCH (08:22)
[2023-02-06] MEDS: RT-ALBUTEROL SULF 2.5 MG/3 ML PRE-MIX VIAL INH SCH ×2 (09:36→21:41)
[2023-02-06] MEDS ORDERED: hydrALAZINE INJECTION 20 MG/ML VIAL IV PRN (09:45)
[2023-02-06] MEDS: LACTULOSE SYRUP 10GM/15ML 30ML UDC PO PRN (14:46)
[2023-02-06] MEDS: RT-ALBUTEROL SULF 2.5 MG/3 ML PRE-MIX VIAL INH PRN (23:23)
[2023-02-07] MEDS: oxyCODONE IMMEDIATE RELEASE 5 MG TABLET PO PRN ×2 (00:57→04:57)
[2023-02-07 03:43] VITALS: BP 114/46
[2023-02-07] MEDS: SUCRALFATE 1 GM TABLET PO SCH ×3 (04:56→16:36)
[2023-02-07] MEDS: MILK OF MAGNESIA 400 MG/5 ML 30 ML UDC PO PRN ×2 (04:56→13:33)
[2023-02-07 05:24] LABS: BASOPHILS % (AUTO) 1 % (0-10); EOSINOPHILS # (AUTO) 0.2 10^3/uL (0.0-0.3); EOSINOPHILS % (AUTO) 3 % (0-10); HEMATOCRIT 32 % (40-54); LYMPHOCYTES # (AUTO) 1.2 10^3/uL (1.0-4.0); LYMPHOCYTES % (AUTO) 18 % (12-44); MEAN CORPUSCULAR HEMOGLOBIN 31 pg (25-34); MEAN CORPUSCULAR HGB CONC 34 g/dL (32-36); MEAN CORPUSCULAR VOLUME 92 fL (80-99); MEAN PLATELET VOLUME 9.7 fL (9.0-12.2); MONOCYTES # (AUTO) 0.6 10^3/uL (0.0-1.0); MONOCYTES % (AUTO) 10 % (0-12); NEUTROPHILS # (AUTO) 4.6 10^3/uL (1.8-7.8); NEUTROPHILS % (AUTO) 69 % (42-75); PLATELET COUNT 219 10^3/uL (130-400); WHITE BLOOD COUNT 6.6 10^3/uL (4.3-11.0)
[2023-02-07 05:53] LABS: ALBUMIN 3.3 GM/DL (3.2-4.5); BILIRUBIN,TOTAL 0.3 MG/DL (0.1-1.0); CALCIUM 7.9 MG/DL (8.5-10.1); CREATININE SERUM 0.93 MG/DL (0.60-1.30); POTASSIUM 3.3 MMOL/L (3.6-5.0); TOTAL PROTEIN 5.3 GM/DL (6.4-8.2)
--- NOTE | 2023-02-07 07:01 | Progress Note - Surgery ---
XIOMARASTEPHEN 02/07/23 0701: Subjective Date Seen by a Provider: Feb 07, 2023 Time Seen by a Provider: 07:40 Subjective/Events-last exam Patient is feeling much better this morning. He still endorses some pain in his epigastric region that is still sharp but is now a 6/10 compared to 9/10 yest erday. Patient is tolerating soft foods well as of this morning and ate all of his breakfast. Patient denied any events overnight except a headache that he had last night, but denies headache this morning. Patient still has not had a bowel movement and was given some Miralax in hopes that he can have one today. Review of Systems General: No Chills, No Night Sweats HEENT: No Head Aches, No Visual Changes, No Eye Pain, No Ear Pain, No Dysphasia Pulmonary: No Dyspnea, No Cough Cardiovascular: No: Chest Pain, Palpitations Gastrointestinal: Abdominal Pain, Constipation; No: Nausea, Vomiting Genitourinary: No Dysuria Focused Exam Lactate Level 02/05/23 03:40: Lactic Acid Level 1.41 Respiratory: No Accessory Muscle Use, No Respiratory Distress Cardiovascular: Regular Rate, Rhythm, No Edema, No Murmur, Normal Peripheral Pulses Peripheral Pulses: 3+ Dorsalis Pedis (R), 3+ Left Dors-Pedis (L), 3+ Radial Pul ses (R), 3+ Radial Pulses (L) Skin: normal color, warm/dry Objective Exam Vital Signs Date Time Temp Pulse Resp B/P (MAP) Pulse Ox O2 Delivery O2 Flow Rate FiO2 02/07/23 03:43 36.5 60 18 114/46 (68) 96 Room Air 02/06/23 23:24 Room Air 02/06/23 23:14 36.4 70 18 102/60 (74) 96 Room Air 02/06/23 19:40 36.5 70 18 106/55 (72) 95 Room Air 02/06/23 15:44 36.7 65 17 118/70 (86) 91 Room Air 02/06/23 12:15 36.9 74 18 137/69 (91) 97 Room Air 02/06/23 09:01 95 Nasal Cannula 02/06/23 08:00 Room Air 02/06/23 07:05 36.4 64 20 145/71 (95) 95 Room Air I & O 02/07/23 07:00 Intake Total 3348 ml Output Total 2150 ml Balance 1198 ml Capillary Refill : Less Than 3 Seconds General Appearance: No Apparent Distress HEENT: PERRL/EOMI Respiratory: No Accessory Muscle Use, No Respiratory Distress Cardiovascular: Regular Rate, Rhythm, No Edema, No Murmur, Normal Peripheral Pulses Peripheral Pulses: 3+ Dorsalis Pedis (R), 3+ Left Dors-Pedis (L), 3+ Radial Pulses (R), 3+ Radial Pulses (L) Gastrointestinal: normal bowel sounds, no organomegaly; No distended, No guarding; tenderness, hernia (small reducible umbilical hernia ) Extremity: No Calf Tenderness, No Pedal Edema 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: Alert, Oriented x3 Skin: Normal Color, Warm/Dry Results Lab Laboratory Tests 02/07/23 04:54: Sodium Level 140, Potassium Level 3.3L, Chloride Level 108H, Carbon Dioxide Level 22, Anion Gap 10, Blood Urea Nitrogen 10, Creatinine 0.93, Estimat Glomerular Filtration Rate 97, BUN/Creatinine Ratio 11, Glucose Level 90, Calcium Level 7.9L, Corrected Calcium 8.5, Total Bilirubin 0.3, Aspartate Amino Transf (AST/SGOT) 10, Alanine Aminotransferase (ALT/SGPT) 10, Alkaline Phosphatase 55, Total Protein 5.3L, Albumin 3.3 02/07/23 04:58: White Blood Count 6.6, Red Blood Count 3.51L, Hemoglobin 11.0L, Hematocrit 32L, Mean Corpuscular Volume 92, Mean Corpuscular Hemoglobin 31, Mean Corpuscular Hemoglobin Concent 34, Red Cell Distribution Width 12.1, Platelet Count 219, Mean Platelet Volume 9.7, Immature Granulocyte % (Auto) 1, Neutrophils (%) (Auto) 69, Lymphocytes (%) (Auto) 18, Monocytes (%) (Auto) 10, Eosinophils (%) (Auto) 3, Basophils (%) (Auto) 1, Neutrophils # (Auto) 4.6, Lymphocytes # (Auto) 1.2, Monocytes # (Auto) 0.6, Eosinophils # (Auto) 0.2, Basophils # (Auto) 0.0, Immature Granulocyte # (Auto) 0.0 Assessment/Plan Assessment/Plan Assessment/Plan Abdominal Pain Gastric ulcers Hypokalemia Anemia Plan: supportive care Potassium replacement (?) continue diet of soft food LUC OLVERA DO 02/07/23 1258: Subjective Time Seen by a Provider: 11:01 Subjective/Events-last exam Pt seen and examined, states he feels ok and is tolerating diet. Still no BM. Review of Systems General: No Chills, No Night Sweats Pulmonary: No Dyspnea, No Cough Cardiovascular: No: Chest Pain, Palpitations Gastrointestinal: Abdominal Pain, Constipation; No: Nausea, Vomiting Objective Exam HEENT: PERRL/EOMI, Moist Mucous Membranes Respiratory: Lungs Clear, Normal Breath Sounds, No Accessory Muscle Use, No Respiratory Distress Cardiovascular: Regular Rate, Rhythm, No Murmur Gastrointestinal: soft, no organomegaly, tenderness, hernia (small reducible umbilical hernia ) Extremity: No Calf Tenderness, No Pedal Edema Assessment/Plan Assessment/Plan Assessment/Plan Abdominal Pain Gastric ulcers Hypokalemia Anemia Pt is being sent home, I think this is ok; however, I told pt to watch out for black or bloody BM. I explained that his Hemoglobing has dropped and he should be aware of weakness or passing out; these could mean he is still losing blood. He has to stay on a soft diet for 2-3 weeks and follow up in a week in my office. He will need a repeat EGD in 5-6 weeks. All questions answered to his satisfaction. Supervisory-Addendum Brief Verification & Attestation Participated in pt care: history, MDM, physical Personally performed: exam, history, MDM, supervision of care Care discussed with: Medical Student Procedures: n/a Verification and Attestation of Medical Student E/M Service A medical student performed and documented this service. I then reviewed and verified all information documented by the medical student and made modifications to such information, when appropriate. I personally performed a physical exam, medical decision making and then discussed any differences between the notes and made revisions as necessary to create one note. Luc Olvera , 02/07/23 , 12:57 STEPHEN SOLANO Feb 07, 2023 07:01 LUC OLVERA DO Feb 07, 2023 12:58
[2023-02-07] MEDS: DOCUSATE SODIUM 100 MG CAPSULE PO SCH (08:01)
[2023-02-07] MEDS: SENNOSIDES 8.6 MG TABLET PO SCH (08:01)
[2023-02-07] MEDS: NS IV 1000 ML 1,000 ML IV SCH (08:02)
[2023-02-07] MEDS: PANTOPRAZOLE INJECTION 40 MG VIAL IV SCH (08:02)
[2023-02-07] MEDS: amLODIPine 5 MG TABLET PO SCH (08:02)
[2023-02-07 08:19] VITALS: BP 134/61
--- NOTE | 2023-02-07 11:00 | Endoscopy Discharge Instruct ---
Endo Procedure/Findings Findings 1.: Gastric Ulcer 2.: Gastritis 3.: Hiatal Hernia Discharge Instructions - Activity: You might feel a little sleepy until tomorrow. This is due to the medicine you received to relax you. Until tomorrow, you should: NOT drive a car, operate machinery or power tools. NOT drink any alcoholic beverages. NOT make any important decisions or sign importortant papers. Do not return to work until tomorrow, unless otherwise instructed. Resume previous activities tomorrow. Diet: Start by taking liquids. If you tolerate liquids, advance to solid food. 1.: EGD in 6-8 weeks Notify Physician - If you experience excessive bleeding, unusual abdominal pain, fever, or chest pain, contact your doctor immediately. Follow-Up: Reconcile Patient Problems Problems: (1) Gastritis (2) Generalized abdominal pain (3) Hypertension (4) COPD (chronic obstructive pulmonary disease) Other Follow up in my office, in one week GAIL SINCLAIR DO Feb 07, 2023 11:00
[2023-02-07] MEDS: RT-ALBUTEROL SULF 2.5 MG/3 ML PRE-MIX VIAL INH SCH (11:05)
--- NOTE | 2023-02-07 11:37 | Progress Note ---
WESLEY POOL 02/07/23 1137: Progress Note Patient arrived from home complaining of nause, vomitting, and upper abdomnal pain x 3 days. He did not seek care until he presented to the ED and had not taken anything for symptoms. CTA of the chest/abd/pelvis showed prominent abnormal wall thickening of the distal stomach. Ondansatron 4 mg was administere d the nausea/vomiting. EGD was scheduled for 02/05/2023. Patient EGD showed gastric ulcer, gastritis, and hiatal hernia. Plan is to follow up with Dr Olvera outpatient in 1 week. Patient has been prescribed hydralazine, amlodipine, senna, docusate sodium, benzocaine, metocolpormaide, promethazine, hydromorphone, and oxycodone. Patient is to begin sulcrafate and begin pantoprazole- follow up with Dr Olvera. GINNY BRICE DO 02/07/232023: Supervisory-Addendum Brief Verification & Attestation Participated in pt care: history, MDM, physical Personally performed: exam, history, MDM, supervision of care Care discussed with: Medical Student Procedures: n/a Results interpretation: Verified all documentation Verification and Attestation of Medical Student E/M Service A medical student performed and documented this service in my presence. I reviewed and verified all information documented by the medical student and made modifications to such information, when appropriate. I personally performed the physical exam and medical decision making. Ginny Brice Feb 07, 2023,20:24 WESLEY POOL Feb 07, 2023 11:37 GINNY BRICE DO Feb 07, 2023 20:24
[2023-02-07 11:50] VITALS: BP 135/62
[2023-02-07] MEDS: LACTULOSE SYRUP 10GM/15ML 30ML UDC PO PRN (13:33)
[2023-02-07 17:59] VITALS: BP 135/62
[2023-02-08] MEDS ORDERED: SCOPOLAMINE PATCH REMOVAL TP ONE (10:30)
== END 2023-02-07 17:55 | disposition home or self-care (01) ==
LOC: EDUNIT# 03:02 → ER 03:05 → UNDOADMOB 09:41 → 4TH 09:41 → UNDODISOB 02-07 17:55
PROVIDERS: ADMIT Internal Medicine; ATTEND Internal Medicine
DX: K29.01 Acute gastritis with bleeding (principal); K29.51 Unspecified chronic gastritis with bleeding; B96.81 Helicobacter pylori [H. pylori] as the cause of diseases classified elsewhere; K31.89 Other diseases of stomach and duodenum; K44.9 Diaphragmatic hernia without obstruction or gangrene; I10 Essential (primary) hypertension; D64.9 Anemia, unspecified; B19.20 Unspecified viral hepatitis C without hepatic coma; E87.6 Hypokalemia; J44.9 Chronic obstructive pulmonary disease, unspecified; F19.90 Other psychoactive substance use, unspecified, uncomplicated; Z79.899 Other long term (current) drug therapy; Z79.01 Long term (current) use of anticoagulants; Z87.891 Personal history of nicotine dependence
CPT/HCPCS: 43239; 71275; 74177; 80053 ×3; 80074; 80306; 81000; 82150; 83605; 83690; 83735; 85007; 85025 ×2; 85027; 85610; 85652; 85730; 86141; 87389; 87636; 93041; 94640 ×3; 94664; 94760 ×3; 96372; 96375; 96376 ×3; 99284; G0378; G0480 ×2; 36415; 80320; 80329